=== PATIENT | male | born 1955 | race Caucasian/White ===

== ENCOUNTER 2018-08-15 11:39 | Inpatient (IN) | payer OTHER ==
[2018-08-15] MEDS ORDERED: ONDANSETRON 4 MG/2 ML VIAL IVP STA (11:54)
[2018-08-15] MEDS ORDERED: SODIUM CHLORIDE 0.9% 500 ML 500 ML IV STA (11:54)
[2018-08-15] MEDS ORDERED: SODIUM CHLORIDE 0.9% 1,000 ML IV STA (11:54)
--- NOTE | 2018-08-15 12:09 | ED ---
General Adult HPI - General Source: patient, RN notes reviewed Mode of arrival: ambulatory Limitations: no limitations <uGicho Conner - Last Filed: 08/15/18 13:56> <Danny Villa - Last Filed: 08/15/18 14:15> - General Chief complaint: Nausea/Vomiting/Diarrhea Stated complaint: nausea Time Seen by Provider: 08/15/18 11:54 - History of Present Illness Initial comments: 62-year-old male presents emergency Department chief complaint of nausea and vomiting for last 4 days. Patient states she generalized feels weak and dehydrated. Patient states if he tries to eat or drink he gags. Patient states he does have mild abdominal pain does have a history of diverticulitis. Patient denies any melena, hematochezia, mucousy stools. Patient had no noted fever. Patient denies any chest pain, shortness breath, headache or dizziness. Patient states he does feel that his heart is racing. Patient has no history of A. fib or any other cardiac issues. Patient does not see a current primary care physician does not take any current medications. Patient does admit that he drinks approximately a sixpack of beer daily. Patient states she's never felt any withdrawal symptoms in the past. (Guicho Conner) - Related Data Home Medications Medication Instructions Recorded Confirmed Ibuprofen [Motrin] 200 mg PO DAILY PRN 10/29/14 12/08/14 Multivit-Min/FA/Lycopene/Lut 1 each PO DAILY 10/29/14 12/08/14 [Centrum Silver Tablet] Previous Rx's Medication Instructions Recorded Omeprazole [PriLOSEC] 20 mg PO AC-BRKFST #30 capsule. 11/01/14 HYDROcodone/APAP 7.5-325MG [[place] 1 each PO Q4H PRN #60 tab 12/08/14 7.5] Allergies Allergy/AdvReac Type Severity Reaction Status Date / Time No Known Allergies Allergy Verified 08/15/18 11:41 Review of Systems ROS Other: All systems not noted in ROS Statement are negative. <Guicho Conner - Last Filed: 08/15/18 13:56> ROS Other: All systems not noted in ROS Statement are negative. <Danny Villa - Last Filed: 08/15/18 14:15> ROS Statement: Those systems with pertinent positive or pertinent negative responses have been documented in the HPI. Past Medical History Past Medical History: GI Bleed Additional Past Medical History / Comment(s): occaisional back and shoulder pain, takes motrin, diverticulitis History of Any Multi-Drug Resistant Organisms: None Reported Past Surgical History: Hernia Repair Additional Past Surgical History / Comment(s): hernia repair and colonoscopy 8 years ago and 2 weeks ago Past Anesthesia/Blood Transfusion Reactions: No Reported Reaction Additional Past Anesthesia/Blood Transfusion Reaction / Comment(s): 4 UNITS OF PRBC 10/2014, NO REACTION Past Psychological History: No Psychological Hx Reported Smoking Status: Former smoker Past Alcohol Use History: Daily, Heavy Past Drug Use History: None Reported - Past Family History Mother Additional Family Medical History / Comment(s): brain anuerysm Father Family Medical History: Cancer Additional Family Medical History / Comment(s): lung <Guicho Conner M - Last Filed: 08/15/18 13:56> General Exam Limitations: no limitations General appearance: alert, in no apparent distress Head exam: Present: atraumatic, normocephalic, normal inspection Eye exam: Present: normal appearance, PERRL, EOMI. Absent: scleral icterus, conjunctival injection, periorbital swelling ENT exam: Present: normal exam, normal oropharynx, mucous membranes moist, TM's normal bilaterally Neck exam: Present: normal inspection, full ROM. Absent: tenderness, m eningismus, lymphadenopathy Respiratory exam: Present: normal lung sounds bilaterally. Absent: respiratory distress, wheezes, rales, rhonchi, stridor Cardiovascular Exam: Present: normal rhythm, tachycardia, normal heart sounds. Absent: systolic murmur, diastolic murmur, rubs, gallop, clicks GI/Abdominal exam: Present: soft, tenderness, normal bowel sounds. Absent: distended, guarding, rebound, rigid Neurological exam: Present: alert, oriented X3, CN II-XII intact Skin exam: Present: warm, dry, intact, normal color. Absent: rash <Guicho Conner M - Last Filed: 08/15/18 13:56> Course Vital Signs 08/15/18 08/15/18 11:41 13:51 Temperature 98.9 F 99.8 F H Pulse Rate 130 H 110 H Respiratory 18 18 Rate Blood Pressure 156/100 174/98 O2 Sat by Pulse 97 100 Oximetry Procedures - Sepsis Sepsis Focused Exam #1 Time Sepsis Criteria Met: 13:55 Sepsis Focused Exam Date: 08/15/18 Sepsis Focused Exam Time: 13:55 Sepsis Focused Exam Complete: Yes Vital Signs & RN Notes Reviewed: Yes Capillary Refill: < 2 Seconds: Fingers, Toes Peripheral Pulses: Normal: Radial (R), Radial (L), Posterior Tibialis (R), Posterior Tibialis (L), Dorsalis Pedis (R), Dorsalis Pedis (L) Skin Color: Normal for Patient, Jaundice Respiratory Exam: normal lung sounds Cardiovascular Exam: normal rhythm, tachycardia <Guicho Conner - Last Filed: 08/15/18 13:56> Medical Decision Making - Lab Data Result diagrams: 08/15/18 12:20 08/15/18 12:20 <Guicho Conner - Last Filed: 08/15/18 13:56> - Lab Data Result diagrams: 08/15/18 12:20 08/15/18 12:20 <Danny Villa - Last Filed: 08/15/18 14:15> - Medical Decision Making Case was discussed with practitioner alejandra, case also discussed with Dr. Quintanilla, who will admit for hospital call. Consults will be placed for GI and surgery. (Danny Villa) - Lab Data Lab Results 08/15/18 08/15/18 08/15/18 Range/Units 12:20 12:20 12:20 WBC 6.2 (3.8-10.6) k/uL RBC 4.09 L (4.30-5.90) m/uL Hgb 15.0 (13.0-17.5) gm/dL Hct 43.4 (39.0-53.0) % MCV 105.9 H (80.0-100.0) fL MCH 36.7 H (25.0-35.0) pg MCHC 34.6 (31.0-37.0) g/dL RDW 12.9 (11.5-15.5) % Plt Count 121 L (150-450) k/uL Neutrophils % 86 % Lymphocytes % 8 % Monocytes % 3 % Eosinophils % 1 % Basophils % 1 % Neutrophils # 5.3 (1.3-7.7) k/uL Lymphocytes # 0.5 L (1.0-4.8) k/uL Monocytes # 0.2 (0-1.0) k/uL Eosinophils # 0.1 (0-0.7) k/uL Basophils # 0.0 (0-0.2) k/uL Macrocytosis Slight PT (9.0-12.0) sec INR (<1.2) APTT (22.0-30.0) sec Sodium 132 L (137-145) mmol/L Potassium 4.4 (3.5-5.1) mmol/L Chloride 98 (98-107) mmol/L Carbon Dioxide 13 L (22-30) mmol/L Anion Gap 21 mmol/L BUN 18 (9-20) mg/dL Creatinine 1.17 (0.66-1.25) mg/dL Est GFR (CKD-EPI)AfAm 76 (>60 ml/min/1.73 sqM) Est GFR (CKD-EPI)NonAf 65 (>60 ml/min/1.73 sqM) Glucose 160 H (74-99) mg/dL Plasma Lactic Acid Jhonatan 5.1 H* (0.7-2.0) mmol/L Calcium 8.9 (8.4-10.2) mg/dL Magnesium 1.4 L (1.6-2.3) mg/dL Total Bilirubin 4.9 H (0.2-1.3) mg/dL AST 423 H (17-59) U/L ALT 232 H (21-72) U/L Alkaline Phosphatase 305 H (38-126) U/L Troponin I (0.000-0.034) ng/mL Total Protein 8.1 (6.3-8.2) g/dL Albumin 3.7 (3.5-5.0) g/dL Amylase 49 (30-110) U/L Lipase 172 (23-300) U/L Urine Color Urine Appearance (Clear) Urine pH (5.0-8.0) Ur Specific [place] (1.001-1.035) Urine Protein (Negative) Urine Glucose (UA) (Negative) Urine Ketones (Negative) Urine Blood (Negative) Urine Nitrite (Negative) Urine Bilirubin (Negative) Urine Urobilinogen (<2.0) mg/dL Ur Leukocyte Esterase (Negative) Urine WBC (0-5) /hpf Ur Squamous Epith Cells (0-4) /hpf Amorphous Sediment (None) /hpf Hyaline Casts (0-2) /lpf Urine Mucus (None) /hpf Serum Alcohol 13 mg/dL 08/15/18 08/15/18 08/15/18 Range/Units 12:20 12:20 13:45 WBC (3.8-10.6) k/uL RBC (4.30-5.90) m/uL Hgb (13.0-17.5) gm/dL Hct (39.0-53.0) % MCV (80.0-100.0) fL MCH (25.0-35.0) pg MCHC (31.0-37.0) g/dL RDW (11.5-15.5) % Plt Count (150-450) k/uL Neutrophils % % Lymphocytes % % Monocytes % % Eosinophils % % Basophils % % Neutrophils # (1.3-7.7) k/uL Lymphocytes # (1.0-4.8) k/uL Monocytes # (0-1.0) k/uL Eosinophils # (0-0.7) k/uL Basophils # (0-0.2) k/uL Macrocytosis PT 13.3 H (9.0-12.0) sec INR 1.3 H (<1.2) APTT 25.1 (22.0-30.0) sec Sodium (137-145) mmol/L Potassium (3.5-5.1) mmol/L Chloride (98-107) mmol/L Carbon Dioxide (22-30) mmol/L Anion Gap mmol/L BUN (9-20) mg/dL Creatinine (0.66-1.25) mg/dL Est GFR (CKD-EPI)AfAm (>60 ml/min/1.73 sqM) Est GFR (CKD-EPI)NonAf (>60 ml/min/1.73 sqM) Glucose (74-99) mg/dL Plasma Lactic Acid Jhonatan (0.7-2.0) mmol/L Calcium (8.4-10.2) mg/dL Magnesium (1.6-2.3) mg/dL Total Bilirubin (0.2-1.3) mg/dL AST (17-59) U/L ALT (21-72) U/L Alkaline Phosphatase (38-126) U/L Troponin I <0.012 (0.000-0.034) ng/mL Total Protein (6.3-8.2) g/dL Albumin (3.5-5.0) g/dL Amylase (30-110) U/L Lipase (23-300) U/L Urine Color Dark Yellow Urine Appearance Cloudy (Clear) Urine pH 5.0 (5.0-8.0) Ur Specific [place] 1.014 (1.001-1.035) Urine Protein Trace H (Negative) Urine Glucose (UA) Negative (Negative) Urine Ketones Trace H (Negative) Urine Blood Trace H (Negative) Urine Nitrite Negative (Negative) Urine Bilirubin 1+ H (Negative) Urine Urobilinogen 4.0 (<2.0) mg/dL Ur Leukocyte Esterase Negative (Negative) Urine WBC 6 H (0-5) /hpf Ur Squamous Epith Cells 1 (0-4) /hpf Amorphous Sediment Rare H (None) /hpf Hyaline Casts 321 H (0-2) /lpf Urine Mucus Occasional H (None) /hpf Serum Alcohol mg/dL Critical Care Time Critical Care Time: Yes Total Critical Care Time: 35 <Guicho Conner - Last Filed: 08/15/18 13:56> Critical Care Time: Total 35 minutes of critical care time were used to and she evaluated the patient, reviewed vitals, reviewed past medical history. Labs were ordered including CBC, CMP, amylase, lipase, lactate, alcohol, PT INR, troponin EKG. Patient had transaminitis and hyperbilirubinemia and which also was ordered at this time. Evidence of color sludge. Patient's lactate is 5.1. Fluid bolus 30 mL/kg were ordered based on the ideal body weight 65 kg. Patient was given a dose of Zosyn for possible sepsis. The lactic acid may be elevated related to dehydration, alcohol abuse. (Guicho Conner) Disposition <Guicho Conner - Last Filed: 08/15/18 13:56> <Danny Villa - Last Filed: 08/15/18 14:15> Clinical Impression: Dehydration, Transaminitis, Jaundice, Abdominal pain, Gallbladder sludge, Nausea & vomiting, Lactic acidosis Disposition: ADMITTED IP TO THIS HOSP Condition: Fair Referrals: None,Stated [Primary Care Provider] - 1-2 days
[2018-08-15 12:36] LABS: Basophils % (A) 1 %; Eosinophils # (A) 0.1 k/uL (0-0.7); Eosinophils % (A) 1 %; HCT 43.4 % (39.0-53.0); Lymphocytes # (A) 0.5 k/uL (1.0-4.8); Lymphocytes % (A) 8 %; MCH 36.7 pg (25.0-35.0); MCHC 34.6 g/dL (31.0-37.0); MCV 105.9 fL (80.0-100.0); Macrocytosis Slight; Mean Platelet Volume 7.1; Monocytes # (A) 0.2 k/uL (0-1.0); Monocytes % (A) 3 %; Neutrophils # (A) 5.3 k/uL (1.3-7.7); Neutrophils % (A) 86 %; Platelet Count 121 k/uL (150-450); RBC 4.09 m/uL (4.30-5.90); RDW 12.9 % (11.5-15.5); WBC 6.2 k/uL (3.8-10.6)
[2018-08-15 12:49] LABS: Albumin 3.7 g/dL (3.5-5.0); Calcium 8.9 mg/dL (8.4-10.2); Magnesium 1.4 mg/dL (1.6-2.3); Potassium 4.4 mmol/L (3.5-5.1); Total Bilirubin 4.9 mg/dL (0.2-1.3); Total Protein 8.1 g/dL (6.3-8.2)
[2018-08-15] MEDS ORDERED: SODIUM CHLORIDE 0.9% 1,000 ML IV ONE ×2 (13:00→22:43)
[2018-08-15 13:06] LABS: INR 1.3 (<1.2); Partial Thromboplastin Time 25.1 sec (22.0-30.0); Prothrombin Time 13.3 sec (9.0-12.0)
--- NOTE | 2018-08-15 13:51 | US ---
EXAMINATION TYPE: US abdomen limited DATE OF EXAM: 08/15/2018 COMPARISON: NONE CLINICAL HISTORY: Pain. Nausea, ETOH. Difficult exam due to overlying bowel gas EXAM MEASUREMENTS: Liver Length: 19.3 cm Gallbladder Wall: 0.2 cm CBD: 0.5 cm Right Kidney: 12.0 x 4.9 x 5.0 cm Pancreas: Obscured by bowel gas Liver: Enlarged, attenuating. Heterogeneous echotexture Gallbladder: Possible sludge visualized. Hydropic Evidence for sonographic Adams's sign: Yes CBD: wnl as visualized, distal portion is obscured by bowel gas Right Kidney: No hydronephrosis or masses seen The pancreas is obscured by bowel gas. The liver is enlarged measuring 19 cm. There is no evidence of biliary dilatation. The gallbladder is mildly dilated. There is sludge within the gallbladder. The gallbladder wall measu res 2 mm. The distal common hepatic duct measures 5 mm. The right kidney is unremarkable. IMPRESSION: 1. MILD HEPATOMEGALY. 2. SLUDGE WITHIN THE GALLBLADDER.
[2018-08-15] MEDS ORDERED: PIPERACILLIN-TAZOBACTAM 3.375 GM in SODIUM CHLORIDE 0.9% 100 ML IVPB STA (13:56)
[2018-08-15 13:58] LABS: Amorphous Sediment,Urine Rare /hpf; Appearance,Urine Cloudy (Clear); Bilirubin,Urine 1+ (Negative); Blood,Urine Trace (Negative); Color,Urine Dark Yellow; Glucose,Urine (UA) Negative (Negative); Hyaline Casts,Urine 321 /lpf (0-2); Ketones,Urine Trace (Negative); Leukocyte Esterase,Urine Negative (Negative); Mucus,Urine Occasional /hpf; Nitrite,Urine Negative (Negative); Protein,Urine Trace (Negative); Specific Gravity,Urine 1.014 (1.001-1.035); Squamous Epithelial Cell,Urine 1 /hpf (0-4); WBC,Urine 6 /hpf (0-5)
[2018-08-15] MEDS ORDERED: ONDANSETRON 4 MG/2 ML VIAL IVP PRN (14:02)
[2018-08-15] MEDS ORDERED: LORazepam 2 MG/ML INJ IV PRN ×2 (14:03)
[2018-08-15] MEDS ORDERED: LORazepam 2 MG/ML INJ IV STA (14:07)
[2018-08-15] MEDS ORDERED: SODIUM CHLORIDE 0.9% 1,000 ML with MVI, ADULT NO.4 WITH VIT K 10 ML, THIAMINE 100 MG, F... IV ONE ×4 (14:12)
[2018-08-15] MEDS: LORazepam 2 MG/ML INJ IV PRN ×2 (14:32→22:51)
--- NOTE | 2018-08-15 14:56 | XR ---
EXAMINATION TYPE: XR chest 2V DATE OF EXAM: 08/15/2018 COMPARISON: Chest radiograph 10/30/2014 HISTORY: Nausea, vomiting TECHNIQUE: Frontal and lateral views of the chest are obtained. FINDINGS: There is no suspicious focal air space opacity, pleural effusion, or pneumothorax seen. Kapoor bsegmental atelectasis in the left lung base. The cardiac silhouette size is within normal limits. The osseous structures are intact. IMPRESSION: No acute cardiopulmonary process. No significant interval change.
[2018-08-15] MEDS ORDERED: IBUPROFEN 600 MG TAB PO STA (15:12)
[2018-08-15] MEDS ORDERED: HYDROmorphone 0.5 MG/0.5 ML SYRINGE IVP PRN (18:41)
[2018-08-15] MEDS ORDERED: cloNIDine HCL 0.1 MG TAB PO PRN (18:41)
[2018-08-15] MEDS ORDERED: HYDROcodone/APAP 5-325MG 1 EACH TAB PO PRN (18:41)
[2018-08-15] MEDS ORDERED: ACETAMINOPHEN TAB 500 MG TAB PO PRN (18:41)
[2018-08-15] MEDS ORDERED: ALPRAZolam 0.25 MG TAB PO PRN (18:41)
--- NOTE | 2018-08-15 19:51 | HP ---
HISTORY AND PHYSICAL DATE OF SERVICE: 08/15/2018 CHIEF COMPLAINTS: Nausea, vomiting, diarrhea. HISTORY OF PRESENT ILLNESS: This 62-year-old gentleman with a past medical history of multiple medical problems including history of gastrointestinal bleed, history of diverticulitis, hernia repair, history of smoking, not being followed by any primary physician in the outpatient setting has been drinking heavily at this time. The patient apparently drinks 6 12 ounce beers daily plus also along with half a pint of hard liquor also. The patient apparently had nausea and vomiting, diarrhea. The patient complaining of generalized weakness and feeling dehydrated. The patient is unable to eat for the last 3 days. The patient came to [facility] and was admitted for further evaluation and treatment. There is no history of fever, rigors. No history of headache, loss of consciousness, seizures. The patient also had a fever. Empiric antibiotics was initiated. The patient had elevated white count as well as elevated lactic acid also. PAST MEDICAL HISTORY: GI bleed, diverticulitis, hernia repair, significant ETOH as mentioned earlier. MEDICATIONS: Prior to admission include: 1. Vitamin C. 2. Zinc. 3. Motrin 600 mg q.6h p.r.n. ALLERGIES: None. FAMILY HISTORY: Family history of cancer, brain aneurysm. SOCIAL HISTORY: History of alcohol, THC, previous history of smoking. REVIEW OF SYSTEMS: ENT: Diminished hearing, diminished vision. CARDIOVASCULAR: No angina or palpitations. RESPIRATORY: No cough or hemoptysis. GI mentioned earlier. no dysuria or hematuria. CENTRAL NERVOUS SYSTEM: No numbness or weakness. ALLERGY/IMMUNOLOGY: No asthma or hayfever. MUSCULOSKELETAL as mentioned earlier. HEMATOLOGY/ONCOLOGY: No history of anemia. ENDOCRINE: No history of diabetes or hypothyroidism. CONSTITUTIONAL: As mentioned earlier. Dermatology: Negative. Rheumatology: Negative. Psychiatry: As mentioned earlier. PHYSICAL EXAMINATION: The patient is alert and oriented times three. Pulse 120, regular. Blood pressure 149/53, respiration 18, temperature 98 degrees, pulse ox 96% on room air. HEENT is conjunctivae normal. Oral mucosa dry. Neck is no jugular venous distention. No carotid bruit. No lymph node enlargement. Cardiovascular system: S1, S2 muffled. No s3, no S4. RESPIRATORY: Breath sounds diminished in the bases. A few scattered rhonchi and crackles. ABDOMEN: Soft. Mild diffuse discomfort. No guarding. No rigidity. No mass palpable. Legs no edema. No swelling. NERVOUS SYSTEM: Higher functions as mentioned earlier. Moves all four extremities. No focal deficits. Lymphatics: No lymph nodes palpable in the neck, axillae or groin. SKIN: No ulcer, rash or bleeding. JOINTS: No active deforming arthropathy. LABS: WBC 6.2, hemoglobin 15, MCV 105.9, INR 1.2. Sodium 132, magnesium 1.4, total bilirubin is 4.9, AST is 423 and ALT is 232, alkaline phosphatase 305. UA noted. 321 hyaline casts. ASSESSMENT: 1. Acute nausea, vomiting, diarrhea, possible acute gastroenteritis, alcoholic gastritis, severe dehydration. 2. Acute alcoholic hepatitis. 3. Possible sepsis. 4. Lactic acidosis. 5. Hyponatremia. 6. Hypomagnesemia. 7. Thrombocytopenia. 8. Increased MCV. 9. History of nicotine dependence. 10.History of gastrointestinal bleed. 11.History of diverticulitis. 12.History of macular degeneration. 13.History of hernia repair. 14.History of THC. 15.Sludge within the gallbladder. 16.FULL CODE. RECOMMENDATIONS AND DISCUSSION: In this 62 -year-old gentleman who presented with multiple complex medical issues, we will monitor the patient closely, continue the current medications, management and symptomatic treatment. We will initiate broad-spectrum IV antibiotics. Obtain cultures. I would also recommend Gastroenterology consultation because of the transaminitis and jaundice. The patient also had an abdominal ultrasound which showed mild hepatomegaly and sludge within the gallbladder. So we will also obtain evaluation for surgical evaluation. IV fluids. Guarded prognosis because of multiple complex medical issues. Further recommendations to follow. Serum alcohol found to be 13. We will also recommend alcohol withdrawal precautions. DVT prophylaxis also. Outpatient alcohol rehabilitation and as well as continued follow up is also being impressed with the patient. The patient was also recommended to follow up with primary care physician closely after discharge. The patient and ex- who is at the bedside, understands and agrees. Further recommendations to follow. MMODL / IJN: [id number] /
[2018-08-15] MEDS: HEPARIN SODIUM,PORCINE 5,000 UNIT/ML 1 ML VIAL SQ SCH (20:02)
[2018-08-15] MEDS: THIAMINE 100 MG TAB PO SCH (20:02)
[2018-08-15] MEDS: PIPERACILLIN-TAZOBACTAM 3.375 GM in SODIUM CHLORIDE 0.9% 100 ML IVPB SCH (23:50)
[2018-08-16 08:06] LABS: Basophils % (A) 1 %; Eosinophils # (A) 0.1 k/uL (0-0.7); Eosinophils % (A) 3 %; HCT 34.6 % (39.0-53.0); Lymphocytes # (A) 0.8 k/uL (1.0-4.8); Lymphocytes % (A) 27 %; MCH 36.2 pg (25.0-35.0); MCV 109.7 fL (80.0-100.0); Macrocytosis Marked; Mean Platelet Volume 7.7; Monocytes # (A) 0.1 k/uL (0-1.0); Monocytes % (A) 3 %; Neutrophils % (A) 65 %; RBC 3.15 m/uL (4.30-5.90); RDW 12.8 % (11.5-15.5)
[2018-08-16 08:11] LABS: HGB 11.4 gm/dL (13.0-17.5)
[2018-08-16 08:19] LABS: Albumin 2.7 g/dL (3.5-5.0); Potassium 3.8 mmol/L (3.5-5.1); Total Protein 6.1 g/dL (6.3-8.2)
[2018-08-16] MEDS: PIPERACILLIN-TAZOBACTAM 3.375 GM in SODIUM CHLORIDE 0.9% 100 ML IVPB SCH ×2 (08:57→15:12)
[2018-08-16] MEDS: HEPARIN SODIUM,PORCINE 5,000 UNIT/ML 1 ML VIAL SQ SCH ×2 (08:57→20:48)
[2018-08-16] MEDS: PANTOPRAZOLE 40 MG/10 ML VIAL IV SCH (08:57)
[2018-08-16 09:00] LABS: Platelet Count 58 k/uL (150-450)
--- NOTE | 2018-08-16 11:10 | P.GSCN ---
History of Present Illness Consult date: 08/16/18 Reason for Consult: Dull pain, elevated liver enzymes History of present illness: This a 62-year-old male patient is well-known to myself. I last saw him 4 years ago after Anny fundal plication. Patient's had complaints of abdominal pain, nausea. Patient's admitted to drinking 6 pack of beer with at least a half plane of vodka per day. He's been doing this for several years. Patient complaints of nausea and abdominal pain. He is worked up found have evidence of sludge in the gallbladder. His LFTs are also elevated. Past Medical History Past Medical History: Eye Disorder, GI Bleed Additional Past Medical History / Comment(s): diverticulitis, right eye dry macular degeneration, left eye wet macular degeneration. History of Any Multi-Drug Resistant Organisms: None Reported Past Surgical History: Hernia Repair Additional Past Surgical History / Comment(s): hernia repair and colonoscopy 8 years ago and 2 weeks ago Past Anesthesia/Blood Transfusion Reactions: No Reported Reaction Additional Past Anesthesia/Blood Transfusion Reaction / Comm: 4 UNITS OF PRBC 10/2014, NO REACTION Past Psychological History: No Psychological Hx Reported Smoking Status: Former smoker Past Alcohol Use History: Daily, Heavy Additional Past Alcohol Use History / Comment(s): Patient drinks 6, 120z beers a day, and also drinks 1/2 pint of either fireball, elke, or bourbon a day. Past Drug Use History: None Reported - Past Family History Mother Additional Family Medical History / Comment(s): brain anuerysm Father Family Medical History: Cancer Additional Family Medical History / Comment(s): lung Medications and Allergies Home Medications Medication Instructions Recorded Confirmed Type Ibuprofen [Motrin] 600 mg PO Q6H PRN 10/29/14 08/15/18 History Vit C/E/Zn/Coppr/Lutein/Zeaxan 1 cap PO BID 08/15/18 08/15/18 History [Preservision Areds 2 Softgel] Allergies Allergy/AdvReac Type Severity Reaction Status Date / Time No Known Allergies Allergy Verified 08/15/18 14:15 Surgical - Exam Vital Signs Temp Pulse Resp BP Pulse Ox 98.9 F 130 H 18 156/100 97 08/15/18 11:41 08/15/18 11:41 08/15/18 11:41 08/15/18 11:41 08/15/18 11:41 - General well developed, well nourished, no distress - Eyes PERRL - ENT normal pinna - Neck no masses - Respiratory normal expansion - Cardiovascular Rhythm: regular - Abdomen Abdomen: soft, non tender Results - Labs 08/16/18 07:00 08/16/18 07:00 Abnormal Lab Results - Last 24 Hours (Table) 08/15/18 08/15/18 08/15/18 Range/Units 12:20 12:20 12:20 WBC (3.8-10.6) k/uL RBC 4.09 L (4.30-5.90) m/uL Hgb (13.0-17.5) gm/dL Hct (39.0-53.0) % MCV 105.9 H (80.0-100.0) fL MCH 36.7 H (25.0-35.0) pg Plt Count 121 L (150-450) k/uL Lymphocytes # 0.5 L (1.0-4.8) k/uL PT (9.0-12.0) sec INR (<1.2) Sodium 132 L (137-145) mmol/L Chloride (98-107) mmol/L Carbon Dioxide 13 L (22-30) mmol/L Glucose 160 H (74-99) mg/dL Plasma Lactic Acid Jhonatan 5.1 H* (0.7-2.0) mmol/L Calcium (8.4-10.2) mg/dL Magnesium 1.4 L (1.6-2.3) mg/dL Total Bilirubin 4.9 H (0.2-1.3) mg/dL AST 423 H (17-59) U/L ALT 232 H (21-72) U/L Alkaline Phosphatase 305 H (38-126) U/L Total Protein (6.3-8.2) g/dL Albumin (3.5-5.0) g/dL Urine Protein (Negative) Urine Ketones (Negative) Urine Blood (Negative) Urine Bilirubin (Negative) Urine WBC (0-5) /hpf Amorphous Sediment (None) /hpf Hyaline Casts (0-2) /lpf Urine Mucus (None) /hpf 08/15/18 08/15/18 08/15/18 Range/Units 12:20 13:45 15:11 WBC (3.8-10.6) k/uL RBC (4.30-5.90) m/uL Hgb (13.0-17.5) gm/dL Hct (39.0-53.0) % MCV (80.0-100.0) fL MCH (25.0-35.0) pg Plt Count (150-450) k/uL Lymphocytes # (1.0-4.8) k/uL PT 13.3 H (9.0-12.0) sec INR 1.3 H (<1.2) Sodium (137-145) mmol/L Chloride (98-107) mmol/L Carbon Dioxide (22-30) mmol/L Glucose (74-99) mg/dL Plasma Lactic Acid Jhonatan 2.4 H* (0.7-2.0) mmol/L Calcium (8.4-10.2) mg/dL Magnesium (1.6-2.3) mg/dL Total Bilirubin (0.2-1.3) mg/dL AST (17-59) U/L ALT (21-72) U/L Alkaline Phosphatase (38-126) U/L Total Protein (6.3-8.2) g/dL Albumin (3.5-5.0) g/dL Urine Protein Trace H (Negative) Urine Ketones Trace H (Negative) Urine Blood Trace H (Negative) Urine Bilirubin 1+ H (Negative) Urine WBC 6 H (0-5) /hpf Amorphous Sediment Rare H (None) /hpf Hyaline Casts 321 H (0-2) /lpf Urine Mucus Occasional H (None) /hpf 08/15/18 08/16/18 08/16/18 Range/Units 18:56 07:00 07:00 WBC 3.0 L (3.8-10.6) k/uL RBC 3.15 L (4.30-5.90) m/uL Hgb 11.4 L D (13.0-17.5) gm/dL Hct 34.6 L (39.0-53.0) % MCV 109.7 H (80.0-100.0) fL MCH 36.2 H (25.0-35.0) pg Plt Count 58 L D (150-450) k/uL Lymphocytes # 0.8 L (1.0-4.8) k/uL PT (9.0-12.0) sec INR (<1.2) Sodium (137-145) mmol/L Chloride 110 H (98-107) mmol/L Carbon Dioxide 19 L (22-30) mmol/L Glucose 100 H (74-99) mg/dL Plasma Lactic Acid Jhonatan 7.8 H* (0.7-2.0) mmol/L Calcium 8.0 L (8.4-10.2) mg/dL Magnesium (1.6-2.3) mg/dL Total Bilirubin 4.0 H (0.2-1.3) mg/dL AST 289 H (17-59) U/L ALT 172 H (21-72) U/L Alkaline Phosphatase 212 H (38-126) U/L Total Protein 6.1 L (6.3-8.2) g/dL Albumin 2.7 L (3.5-5.0) g/dL Urine Protein (Negative) Urine Ketones (Negative) Urine Blood (Negative) Urine Bilirubin (Negative) Urine WBC (0-5) /hpf Amorphous Sediment (None) /hpf Hyaline Casts (0-2) /lpf Urine Mucus (None) /hpf Diabetes panel 08/15/18 08/16/18 Range/Units 12:20 07:00 Sodium 132 L 137 (137-145) mmol/L Potassium 4.4 3.8 (3.5-5.1) mmol/L Chloride 98 110 H (98-107) mmol/L Carbon Dioxide 13 L 19 L (22-30) mmol/L BUN 18 11 (9-20) mg/dL Creatinine 1.17 1.08 (0.66-1.25) mg/dL Glucose 160 H 100 H (74-99) mg/dL Calcium 8.9 8.0 L (8.4-10.2) mg/dL AST 423 H 289 H (17-59) U/L ALT 232 H 172 H (21-72) U/L Alkaline Phosphatase 305 H 212 H (38-126) U/L Total Protein 8.1 6.1 L (6.3-8.2) g/dL Albumin 3.7 2.7 L (3.5-5.0) g/dL Calcium panel 08/15/18 08/16/18 Range/Units 12:20 07:00 Calcium 8.9 8.0 L (8.4-10.2) mg/dL Albumin 3.7 2.7 L (3.5-5.0) g/dL Pituitary panel 08/15/18 08/16/18 Range/Units 12:20 07:00 Sodium 132 L 137 (137-145) mmol/L Potassium 4.4 3.8 (3.5-5.1) mmol/L Chloride 98 110 H (98-107) mmol/L Carbon Dioxide 13 L 19 L (22-30) mmol/L BUN 18 11 (9-20) mg/dL Creatinine 1.17 1.08 (0.66-1.25) mg/dL Glucose 160 H 100 H (74-99) mg/dL Calcium 8.9 8.0 L (8.4-10.2) mg/dL Adrenal panel 08/15/18 08/16/18 Range/Units 12:20 07:00 Sodium 132 L 137 (137-145) mmol/L Potassium 4.4 3.8 (3.5-5.1) mmol/L Chloride 98 110 H (98-107) mmol/L Carbon Dioxide 13 L 19 L (22-30) mmol/L BUN 18 11 (9-20) mg/dL Creatinine 1.17 1.08 (0.66-1.25) mg/dL Glucose 160 H 100 H (74-99) mg/dL Calcium 8.9 8.0 L (8.4-10.2) mg/dL Total Bilirubin 4.9 H 4.0 H (0.2-1.3) mg/dL AST 423 H 289 H (17-59) U/L ALT 232 H 172 H (21-72) U/L Alkaline Phosphatase 305 H 212 H (38-126) U/L Total Protein 8.1 6.1 L (6.3-8.2) g/dL Albumin 3.7 2.7 L (3.5-5.0) g/dL - Imaging US - abdomen: report reviewed (Sludge in gallbladder) Assessment and Plan Assessment: Elevated liver function tests may be related to alcohol toxicity. The patient has sludge in his gallbladder. Once his liver enzymes have returned to normal we will consider laparoscopic cholecystectomy. He should be watch for DTs carefully.
--- NOTE | 2018-08-16 11:34 | CONS ---
CONSULTATION DATE OF DICTATION: August 16, 2018. REQUESTING PHYSICIAN: None. REASON FOR CONSULTATION: Elevated LFTs. HISTORY OF PRESENT ILLNESS: The patient is a 62-year-old white male with history of heavy alcohol abuse for the last 40 years duration, admitted to the hospital not feeling well, fatigue, nausea, some vomiting and generalized weakness for the last few days duration. While in the hospital, he was noted to have elevated LFTs and hence we are consulted in regards to this issue. The patient drinks a 5th a day for the last 40 years. He denies any previous history of chronic liver disease. No history of jaundice or hepatitis in the past. At the time of admission to the hospital, he was noted to have lactic acidosis and elevated serum transaminases. PAST MEDICAL HISTORY: Significant for heavy alcohol abuse, history of diverticulosis. PAST SURGICAL HISTORY: Hernia repair. MEDICATIONS: At home, vitamin C and zinc and Motrin. ALLERGIES: No known drug allergies. SOCIAL HISTORY: Alcohol use as mentioned above. Previous history of smoking. FAMILY HISTORY: Father had some kind of cancer. Mother had brain aneurysm. ALLERGIES: None. REVIEW OF SYSTEMS: Cardiopulmonary: No chest pain, shortness of breath. Genitourinary: No hematuria or dysuria. Musculoskeletal: Unremarkable. Skin unremarkable. Endocrine unremarkable. Psychiatric unremarkable. Neurology unremarkable. ENT/vision unremarkable. Constitutional: No recent weight loss. No fever, chills, night sweats. PHYSICAL EXAMINATION: He appears comfortable. No apparent distress. VITAL SIGNS: Stable. Blood pressure 153/93, pulse rate 120, temperature 98. HEENT examination unremarkable. Conjunctivae pink. Sclerae anicteric. Oral cavity no lesions. Neck: No jugular venous distention or lymph node enlargement. Chest was clear to auscultation. HEART: Regular rate and rhythm. ABDOMEN: Soft. Bowel sounds are positive. No organomegaly. There was no ascites noted. EXTREMITIES: No pedal edema. Skin no rashes. NEUROLOGIC: Alert and oriented x3. No focal deficits. LABS: WBC 6.2, hemoglobin 15, platelets are 121. Today, WBC 3, hemoglobin 11.4, platelets are 58,000. INR 1.3, T-bilirubin 4, AST 289, ALT 172, alkaline phosphatase 212. Ultrasound of the abdomen showed evidence of gallbladder sludge and fatty liver. IMPRESSION: 1. Nausea, generalized weakness for the last 2-3 days duration, probably related to underlying chronic liver disease with a component of acute alcoholic hepatitis. 2. History of heavy alcohol abuse of 40 years duration. 3. Elevated ALT and AST as well as T-bili all consistent with acute alcoholic hepatitis. RECOMMENDATIONS: 1. We will obtain hepatitis serologies for A, B, and C. 2. I had a lengthy discussion with the patient regarding abstinence from alcohol. 3. Advance diet as tolerated. 4. Continue with antiemetics as needed and we will follow the patient closely during his hospital stay. Thank you for this consultation. MMODL / IJN: [id number] /
[2018-08-16] MEDS: THIAMINE 100 MG TAB PO SCH ×2 (11:35→15:13)
[2018-08-16 15:57] VITALS: BMI 31.3
--- NOTE | 2018-08-16 23:43 | PN ---
PROGRESS NOTE DATE OF SERVICE: 08/16/2018 HISTORY: This is a 62 -year-old gentleman admitted with nausea and diarrhea, has features of alcoholic gastritis, severe dehydration. Patient also has alcoholic hepatitis. Patient being closely monitored. No chest pain. No palpitations. No fever. REVIEW OF SYSTEMS: Cardiovascular: No angina. Respiration: As mentioned earlier. GI mentioned earlier: : No dysuria. Central nervous system: No numbness, weakness. CURRENT MEDICATIONS ARE: 1. Tylenol p.r.n. 2. [place] 5.5 q.6h p.r.n. 3. Xanax 0.5 t.i.d. 4. Catapres 0.1 q.4h. 5. Heparin 5000 subcu b.i.d. 6. Dilaudid p.r.n. 7. Ativan. 8. CIWA protocol. 9. Zofran. 10.Protonix. 11.Zosyn IV. PHYSICAL EXAM: Alert and oriented times three. Pulse is 95. Blood pressure 150/94, respirations 18, temperature 98.3, pulse ox 94% on room air. HEENT: Conjunctivae normal. Neck: No jugular venous distention. CARDIOVASCULAR: S1, S2 muffled. RESPIRATORY: Breath sounds diminished in the bases. A few scattered rhonchi and crackles. Abdomen is soft, nontender. LEGS: No edema, no swelling. CENTRAL NERVOUS SYSTEM: No focal deficits. LABS: WBC 3, hemoglobin 11.4, platelets of 58 and plasma lactic acid 7.8 and 1.1 and the AST 289, ALT is 172, total bilirubin is 4. Influenza is negative. ASSESSMENT: 1. Acute nausea, vomiting, diarrhea possible acute gastroenteritis and alcoholic gastritis and severe dehydration. 2. Possible alcoholic hepatitis. 3. Elevated lactic acid with possible sepsis. 4. Hyponatremia. 5. Hypomagnesemia. 6. Thrombocytopenia. 7. Increased MCV. 8. History of nicotine dependence. 9. History of gastrointestinal bleed. 10.History of diverticulitis. 11.History of macular degeneration. 12.History of hernia repair. 13.History of THC. 14.Sludge within the gallbladder. 15.FULL CODE. RECOMMENDATIONS AND DISCUSSION: Recommend to continue current medications, management. Continue to monitor. Symptomatic treatment. Otherwise, at this time, I recommend to monitor the patient closely. Continue with empiric antibiotics. The patient is on IV Zosyn at this time. Gastroenterology service, infectious Disease has been consulted. Prognosis guarded because of multiple complex medical issues. Further recommendations to follow. Overall prognosis extremely guarded because of the multiple complex medical issues as detailed above. We will continue to monitor and guarded prognosis. See orders for details. Further recommendations to follow. MMODL / IJN: [id number] /
[2018-08-16] MEDS ORDERED: VANCOMYCIN IV PER PHARMACY 1 EACH MISC MISCELLANE PRN (23:56)
[2018-08-17] MEDS: PIPERACILLIN-TAZOBACTAM 3.375 GM in SODIUM CHLORIDE 0.9% 100 ML IVPB SCH ×3 (00:05→15:05)
[2018-08-17] MEDS: VANCOMYCIN 1,500 MG in SODIUM CHLORIDE 0.9% 250 ML IVPB SCH ×2 (01:47→17:38)
[2018-08-17] MEDS: HEPARIN SODIUM,PORCINE 5,000 UNIT/ML 1 ML VIAL SQ SCH ×2 (09:17→20:44)
[2018-08-17] MEDS: PANTOPRAZOLE 40 MG/10 ML VIAL IV SCH (09:17)
--- NOTE | 2018-08-17 09:38 | P.CONS ---
History of Present Illness - Reason for Consult Consult date: 08/17/18 Sepsis - History of Present Illness This is a 62-year-old male presented to the hospital due to nausea for 4 days as well as feeling weak, general malaise. He was unable to eat or drink due to nausea. He was found to have a temperature max of 100.9 at the time of admission, tachycardia and hypertension. His white count was 6.2 initially and repeated 3. Lactic acid was 7.8 and now down to 1.1. Total bilirubin 4.0, AST 289, ALT 172, alkaline phosphatase 112. Influenza testing was negative. Albumin 2.7. Urinalysis was cloudy with leukoesterase and nitrate negative, trace blood ketones and protein. Blood culture showing gram-positive cocci in cluster and a repeat blood cultures ordered for today. Urine cultures in progress. Patient has been admitted to the [facility] floor and started on Zosyn and vancomycin. Patient is been seen by Dr. Yates for chronic liver disease and acute alcoholic hepatitis. Dr. Linder has evaluated the patient for cholecystitis which will be considered once his liver enzymes are improved. Abdominal ultrasound showed mild hepatomegaly and sludge in his gallbladder. Chest x-ray no acute findings. Patient denies having any abdominal pain was noted to have tenderness in the right upper quadrant. He denies having any fever or chills prior to admission and none since he has arrived. He denies any cough or sputum production. He denies any urine symptoms. No skin rashes or lesions. Patient has been started on the CIWA protocol. He gives history of drinking a 6 pack and a half pint of liquor every day for 40 years. Review of Systems All systems: negative Constitutional: Reports fatigue, Reports malaise, Reports poor appetite, Reports weakness, Denies chills, Denies fever Eyes: denies blurred vision, denies pain Ears, nose, mouth and throat: Denies dysphagia, Denies headache, Denies mouth pain, Denies nasal congestion, Denies nasal discharge, Denies sore throat, Denies vertigo Cardiovascular: Denies chest pain, Denies decreased exercise tolerance, Denies dyspnea on exertion, Denies edema, Denies lightheadedness, Denies shortness of breath, Denies syncope Respiratory: Denies cough, Denies cough with sputum, Denies dyspnea, Denies excessive sputum, Denies hemoptysis, Denies home oxygen, Denies wheezing Gastrointestinal: Reports loss of appetite, Reports nausea, Denies abdominal pain, Denies diarrhea, Denies vomiting Genitourinary: Denies dysuria, Denies urinary frequency Musculoskeletal: Denies muscle weakness, Denies myalgias Integumentary: Denies pruritus, Denies rash, Denies wounds Neurological: Denies aphasia, Denies change in mentation, Denies confusion, Denies numbness, Denies seizures, Denies vertigo, Denies weakness Psychiatric: Denies anxiety, Denies depression Endocrine: Denies fatigue, Denies weight change Past Medical History Past Medical History: Eye Disorder, GI Bleed Additional Past Medical History / Comment(s): diverticulitis, right eye dry macular degeneration, left eye wet macular degeneration. History of Any Multi-Drug Resistant Organisms: None Reported Past Surgical History: Hernia Repair Additional Past Surgical History / Comment(s): hernia repair and colonoscopy 8 years ago and 2 weeks ago Past Anesthesia/Blood Transfusion Reactions: No Reported Reaction Additional Past Anesthesia/Blood Transfusion Reaction / Comm: 4 UNITS OF PRBC 10/2014, NO REACTION Past Psychological History: No Psychological Hx Reported Smoking Status: Former smoker Past Alcohol Use History: Daily, Heavy Additional Past Alcohol Use History / Comment(s): Patient drinks 6, 120z beers a day, and also drinks 1/2 pint of either fireball, elke, or bourbon a day. He does smoke marijuana on a regular basis. He denies any illicit drug use. He works in a restaurant. He denies any recent travel or service. There is a dog in the home. Past Drug Use History: None Reported - Past Family History Mother Additional Family Medical History / Comment(s): brain anuerysm Father Family Medical History: Cancer Additional Family Medical History / Comment(s): lung Medications and Allergies Home Medications Medication Instructions Recorded Confirmed Type Ibuprofen [Motrin] 600 mg PO Q6H PRN 10/29/14 08/15/18 History Vit C/E/Zn/Coppr/Lutein/Zeaxan 1 cap PO BID 08/15/18 08/15/18 History [Preservision Areds 2 Softgel] Allergies Allergy/AdvReac Type Severity Reaction Status Date / Time No Known Allergies Allergy Verified 08/15/18 14:15 Physical Exam Vitals: Vital Signs Temp Pulse Resp BP Pulse Ox 08/17/18 05:00 98.4 F 83 16 155/79 98 08/16/18 21:24 99.2 F 107 H 16 136/78 96 08/16/18 15:28 88 18 133/88 98 08/16/18 12:00 98.5 F 96 18 140/92 96 Intake and Output 08/16/18 08/17/18 08/17/18 22:59 06:59 14:59 Intake Total 690 890 Balance 690 890 Intake: Intake, IV Titration 100 350 Amount Piperacillin-Tazobactam 3 100 100 .375 gm In Sodium Chloride 0.9% 100 ml @ 25 mls/hr IVPB Q8H [facility] Rx#: [id number] Vancomycin 1,500 mg In 250 Sodium Chloride 0.9% 250 ml @ 125 mls/hr IVPB Q16H [facility] Rx#:[id number] Oral 590 540 Other: Voiding Method Toilet Toilet # Voids 2 2 Weight 88 kg Gen: This is a 62-year-old male. Patient is sitting on the edge of the bed and appears to be comfortable and in no acute distress. Patient's ex- is at the bedside. HEENT: Head is atraumatic, normocephalic. Pupils equal, round. Sclerae is anicteric. Mucous membranes of the mouth are moist. No thrush noted. NECK: Supple. No JVD. No lymphadenopathy. No thyromegaly. LUNGS: Clear to auscultation. No wheezes or rhonchi. No intercostal retractions. HEART: Regular rate and rhythm. No murmur. ABDOMEN: Soft. Bowel sounds are present. No masses. Mild tenderness to the right upper quadrant. EXTREMITIES: No pedal edema. No calf tenderness. Dorsalis pedis +2 bilaterally. NEUROLOGICAL: Patient is awake, alert and oriented x3. Cranial nerves 2 through 12 are grossly intact. Results Results: Laboratory Results WBC 3.0 k/uL (3.8-10.6) L 08/16/18 07:00 RBC 3.15 m/uL (4.30-5.90) L 08/16/18 07:00 Hgb 11.4 gm/dL (13.0-17.5) L D 08/16/18 07:00 Hct 34.6 % (39.0-53.0) L 08/16/18 07:00 MCV 109.7 fL (80.0-100.0) H 08/16/18 07:00 MCH 36.2 pg (25.0-35.0) H 08/16/18 07:00 MCHC 33.0 g/dL (31.0-37.0) 08/16/18 07:00 RDW 12.8 % (11.5-15.5) 08/16/18 07:00 Plt Count 58 k/uL (150-450) L D 08/16/18 07:00 Neutrophils % 65 % 08/16/18 07:00 Lymphocytes % 27 % 08/16/18 07:00 Monocytes % 3 % 08/16/18 07:00 Eosinophils % 3 % 08/16/18 07:00 Basophils % 1 % 08/16/18 07:00 Neutrophils # 2.0 k/uL (1.3-7.7) 08/16/18 07:00 Lymphocytes # 0.8 k/uL (1.0-4.8) L 08/16/18 07:00 Monocytes # 0.1 k/uL (0-1.0) 08/16/18 07:00 Eosinophils # 0.1 k/uL (0-0.7) 08/16/18 07:00 Basophils # 0.0 k/uL (0-0.2) 08/16/18 07:00 Manual Slide Review Performed 08/16/18 07:00 Macrocytosis Marked 08/16/18 07:00 PT 13.3 sec (9.0-12.0) H 08/15/18 12:20 INR 1.3 (<1.2) H 08/15/18 12:20 APTT 25.1 sec (22.0-30.0) 08/15/18 12:20 Sodium 137 mmol/L (137-145) 08/16/18 07:00 Potassium 3.8 mmol/L (3.5-5.1) 08/16/18 07:00 Chloride 110 mmol/L (98-107) H 08/16/18 07:00 Carbon Dioxide 19 mmol/L (22-30) L 08/16/18 07:00 Anion Gap 8 mmol/L 08/16/18 07:00 BUN 11 mg/dL (9-20) 08/16/18 07:00 Creatinine 1.08 mg/dL (0.66-1.25) 08/16/18 07:00 Est GFR (CKD-EPI)AfAm 83 (>60 ml/min/1.73 sqM) 08/16/18 07:00 Est GFR (CKD-EPI)NonAf 72 (>60 ml/min/1.73 sqM) 08/16/18 07:00 Glucose 100 mg/dL (74-99) H 08/16/18 07:00 Lactic Ac Sepsis Rflx Y 08/15/18 15:40 Plasma Lactic Acid Jhonatan 1.1 mmol/L (0.7-2.0) 08/16/18 07:00 Calcium 8.0 mg/dL (8.4-10.2) L 08/16/18 07:00 Magnesium 1.4 mg/dL (1.6-2.3) L 08/15/18 12:20 Total Bilirubin 4.0 mg/dL (0.2-1.3) H 08/16/18 07:00 AST 289 U/L (17-59) H 08/16/18 07:00 ALT 172 U/L (21-72) H 08/16/18 07:00 Alkaline Phosphatase 212 U/L (38-126) H 08/16/18 07:00 Troponin I <0.012 ng/mL (0.000-0.034) 08/15/18 12:20 Total Protein 6.1 g/dL (6.3-8.2) L 08/16/18 07:00 Albumin 2.7 g/dL (3.5-5.0) L 08/16/18 07:00 Amylase 49 U/L (30-110) 08/15/18 12:20 Lipase 172 U/L (23-300) 08/15/18 12:20 Urine Color Dark Yellow 08/15/18 13:45 Urine Appearance Cloudy (Clear) 08/15/18 13:45 Urine pH 5.0 (5.0-8.0) 08/15/18 13:45 Ur Specific [place] 1.014 (1.001-1.035) 08/15/18 13:45 Urine Protein Trace (Negative) H 08/15/18 13:45 Urine Glucose (UA) Negative (Negative) 08/15/18 13:45 Urine Ketones Trace (Negative) H 08/15/18 13:45 Urine Blood Trace (Negative) H 08/15/18 13:45 Urine Nitrite Negative (Negative) 08/15/18 13:45 Urine Bilirubin 1+ (Negative) H 08/15/18 13:45 Urine Urobilinogen 4.0 mg/dL (<2.0) 08/15/18 13:45 Ur Leukocyte Esterase Negative (Negative) 08/15/18 13:45 Urine WBC 6 /hpf (0-5) H 08/15/18 13:45 Ur Squamous Epith Cells 1 /hpf (0-4) 08/15/18 13:45 Amorphous Sediment Rare /hpf (None) H 08/15/18 13:45 Hyaline Casts 321 /lpf (0-2) H 08/15/18 13:45 Urine Mucus Occasional /hpf (None) H 08/15/18 13:45 Serum Alcohol 13 mg/dL 08/15/18 12:20 Influenza Type A RNA Not Detected (Not Detectd) 08/15/18 14:48 Influenza Type B (PCR) Not Detected (Not Detectd) 08/15/18 14:48 CBC & Chem 7: 08/18/18 08:36 08/18/18 08:36 Labs: Microbiology - Last 24 Hours (Table) 08/15/18 15:11 Blood Culture Gram Stain - Preliminary Blood 08/15/18 15:11 Blood Culture - Final Blood 08/16/18 09:00 Urine Culture - Preliminary Urine,Voided Assessment and Plan Plan: This is a 62-year-old male who presented to the hospital with general ized malaise weakness and nausea with inability to eat or drink. He is treated for acute alcoholic hepatitis and found to have sludge in his gallbladder and followed by GI and general surgery. Patient also presented with lactic acidosis with tachycardia and one documented fever which meets signs for SIRS/Sepsis. Patient's lactic acid is normalized. Blood culture obtained in the ER is showing gram-positive cocci in clusters. Repeat blood cultures have been ordered for today. He is currently on Zosyn and vancomycin. Regarding severe protein calorie malnutrition, he is on thiamine and a multivitamin and ensure added. Continue CIWA protocol. Continue supportive care. Further recommend ations as patient progresses. The above dictated assessment and findings were discussed with Dr. Edwards. The impression and plan of care have been directed as dictated. Francia Myrick nurse practitioner acting as scribe for Dr. Edwards.
--- NOTE | 2018-08-17 11:46 | P.PN ---
Subjective Progress Note Date: 08/17/18 CHIEF COMPLAINT: Evaluate gallbladder HISTORY OF PRESENT ILLNESS: Patient seen and examined at the bedside. Family present. Patient denies abdominal pain. Patient reports eating breakfast this morning without nausea or vomiting. Labs from this morning are currently pending. PHYSICAL EXAM: VITAL SIGNS: Reviewed. GENERAL: Well-developed in no acute distress. HEENT: No sclera icterus. Extraocular movements grossly intact. Moist buccal mucosa. Head is atraumatic, normocephalic. ABDOMEN: Soft. Nondistended. Nontender. NEUROLOGIC: Alert and oriented. Cranial nerves II through XII grossly intact. ASSESSMENT: 1. Sludge visualized in gallbladder on US 2. Acute alcoholic hepatitis 3. Transaminitis 4. Hyperbilirubinemia 5. History of alcohol abuse PLAN: 1. Continue to monitor liver function 2. Possible laparoscopic cholecystectomy, likely outpatient 3. We will sign off. Please reconsult if needed. 4. Patient to follow up with Dr. Linder in 1 week post discharge Nurse practitioner note has been reviewed by physician. Signing provider agrees with the documented findings, assessment, and plan of care. Objective - Vital Signs Vital signs: Vital Signs Temp 98.4 F 08/17/18 05:00 Pulse 83 08/17/18 05:00 Resp 16 08/17/18 05:00 BP 155/79 08/17/18 05:00 Pulse Ox 98 08/17/18 05:00 Intake & Output 08/16/18 08/17/18 08/17/18 18:59 06:59 18:59 Intake Total 1120 1580 Balance 1120 1580 Weight 88 kg Intake: Intake, IV Titration 400 450 Amount Piperacillin-Tazobactam 3 200 .375 gm In Sodium Chloride 0.9% 100 ml @ 25 mls/hr IVPB Q8H [facility] Rx#: [id number] Sodium Chloride 0.9% 1, 400 000 ml @ 100 mls/hr IV . Q10H7M ONE with Mvi, Adult No.4 with Vit K 10 ml with Thiamine 100 mg with Folic Acid 1 mg Rx#: [id number] Vancomycin 1,500 mg In 250 Sodium Chloride 0.9% 250 ml @ 125 mls/hr IVPB Q16H [facility] Rx#:[id number] Oral 720 1130 Other: Voiding Method Toilet Toilet Toilet # Voids 3 2 - Labs CBC & Chem 7: 04/02/19 08:36 08/18/18 08:36 Labs: Microbiology - Last 24 Hours (Table) 08/15/18 15:11 Blood Culture Gram Stain - Preliminary Blood 08/15/18 15:11 Blood Culture - Final Blood 08/16/18 09:00 Urine Culture - Preliminary Urine,Voided
[2018-08-17 11:55] LABS: Basophils % (A) 1 %; Eosinophils # (A) 0.1 k/uL (0-0.7); Eosinophils % (A) 3 %; HCT 35.1 % (39.0-53.0); Lymphocytes # (A) 0.8 k/uL (1.0-4.8); Lymphocytes % (A) 16 %; MCH 36.3 pg (25.0-35.0); MCHC 34.2 g/dL (31.0-37.0); MCV 106.2 fL (80.0-100.0); Macrocytosis Moderate; Mean Platelet Volume 8.9; Monocytes # (A) 0.1 k/uL (0-1.0); Monocytes % (A) 2 %; Neutrophils # (A) 3.7 k/uL (1.3-7.7); Neutrophils % (A) 77 %; WBC 4.9 k/uL (3.8-10.6)
[2018-08-17 12:05] LABS: Albumin 3.4 g/dL (3.5-5.0); Calcium 8.6 mg/dL (8.4-10.2); Potassium 3.6 mmol/L (3.5-5.1); Total Bilirubin 4.6 mg/dL (0.2-1.3)
[2018-08-17 12:08] LABS: Platelet Count 73 k/uL (150-450)
[2018-08-17] MEDS: MULTIVITAMINS, THERA 1 EACH TAB PO SCH (13:15)
[2018-08-17] MEDS: THIAMINE 100 MG TAB PO SCH ×2 (15:05→15:08)
--- NOTE | 2018-08-17 18:38 | P.PN ---
Subjective Progress Note Date: 08/17/18 Principal diagnosis: Alcoholic hepatitis, elevated liver enzymes The patient is seen sitting bedside. No current nausea, vomiting or abdominal pain reported. Tolerating diet to this point. No other acute complaints. Objective - Vital Signs Vital signs: Vital Signs Temp 97.9 F 08/17/18 12:18 Pulse 96 08/17/18 12:18 Resp 16 08/17/18 12:18 BP 123/78 08/17/18 12:18 Pulse Ox 99 08/17/18 12:18 Intake & Output 08/16/18 08/17/18 08/17/18 18:59 06:59 18:59 Intake Total 1120 1580 700 Balance 1120 1580 700 Weight 88 kg Intake: Intake, IV Titration 400 450 100 Amount Piperacillin-Tazobactam 3 200 100 .375 gm In Sodium Chloride 0.9% 100 ml @ 25 mls/hr IVPB Q8H [facility] Rx#: [id number] Sodium Chloride 0.9% 1, 400 000 ml @ 100 mls/hr IV . Q10H7M ONE with Mvi, Adult No.4 with Vit K 10 ml with Thiamine 100 mg with Folic Acid 1 mg Rx#: [id number] Vancomycin 1,500 mg In 250 Sodium Chloride 0.9% 250 ml @ 125 mls/hr IVPB Q16H [facility] Rx#:[id number] Oral 720 1130 600 Other: Voiding Method Toilet Toilet Toilet # Voids 3 2 3 - Exam On physical examination, patient appears comfortable in no apparent distress. HEAD: Normocephalic, atraumatic. EYES: Bilateral scleral icterus. No conjunctival injection. MOUTH: No lesions, tongue midline. NECK: Trachea midline, no gross abnormalities. CHEST: Clear to auscultation with no wheezing or rhonchi appreciated. HEART: Regular rate and rhythm. ABDOMEN: Soft, obese. Bowel sounds are positive. No organomegaly. No guarding or rigidity. EXTREMITIES: No pedal edema. SKIN: No rashes, mild jaundice. NEUROLOGIC: Alert and oriented x3. No focal deficits. - Labs CBC & Chem 7: 08/17/18 11:18 08/17/18 11:18 Labs: Abnormal Lab Results - Last 24 Hours (Table) 08/17/18 08/17/18 Range/Units 11:18 11:18 RBC 3.30 L (4.30-5.90) m/uL Hgb 12.0 L (13.0-17.5) gm/dL Hct 35.1 L (39.0-53.0) % MCV 106.2 H (80.0-100.0) fL MCH 36.3 H (25.0-35.0) pg Plt Count 73 L (150-450) k/uL Lymphocytes # 0.8 L (1.0-4.8) k/uL BUN 6 L (9-20) mg/dL Creatinine 1.27 H (0.66-1.25) mg/dL Glucose 113 H (74-99) mg/dL Total Bilirubin 4.6 H (0.2-1.3) mg/dL AST 336 H (17-59) U/L ALT 197 H (21-72) U/L Alkaline Phosphatase 263 H (38-126) U/L Albumin 3.4 L (3.5-5.0) g/dL Microbiology - Last 24 Hours (Table) 08/15/18 15:11 Blood Culture Gram Stain - Preliminary Blood Blood Culture - Preliminary Presumptive Staph aureus 08/15/18 15:11 Blood Culture - Final Blood 08/16/18 09:00 Urine Culture - Preliminary Urine,Voided Assessment and Plan (1) Transaminitis Narrative/Plan: Patient with a 40 year history of alcohol abuse presenting with elevation in liver enzymes in both a cholestatic and hepatocellular pattern consistent with alcoholic hepatitis. Viral hepatitis panel was ordered and is still pending. Current Visit: Yes Status: Acute Code(s): R74.0 - NONSPEC ELEV OF LEVELS OF TRANSAMNS & LACTIC ACID DEHYDRGNSE SNOMED Code(s): 094947022 (2) ETOH abuse Current Visit: Yes Status: Acute Code(s): F10.10 - ALCOHOL ABUSE, UNCOMPLICATED SNOMED Code(s): 91908878 (3) Gallbladder sludge Current Visit: Yes Status: Acute Code(s): K82.8 - OTHER SPECIFIED DISEASES OF GALLBLADDER SNOMED Code(s): 07050238 (4) Jaundice Current Visit: Yes Status: Acute Code(s): R17 - UNSPECIFIED JAUNDICE SNOMED Code(s): 81496553 Plan: Supportive care Okay for low-fat, low-sodium diet Continue to monitor liver enzymes Viral hepatitis panel pending Monitor INR All abstinence recommended Surgical service following the patient Thank you for allowing us to participate in the care of the patient we will continue to follow
--- NOTE | 2018-08-17 20:42 | PN ---
PROGRESS NOTE DATE OF SERVICE: 08/17/2018 This 62-year-old gentleman who was admitted with acute nausea, vomiting, diarrhea with possible acute gastroenteritis, alcoholic gastritis and severe dehydration also had acute alcoholic hepatitis. The patient was also suspected to have acute cholelithiasis. Surgery is following the patient for outpatient evaluation, possible surgery for sludge in the gallbladder on ultrasound. Otherwise, patient is being closely monitored. PHYSICAL EXAMINATION: Patient is alert, oriented x3. Pulse is 96, blood pressure 123/78, respirations 16, temperature 97.2, pulse ox 99% on room air. HEENT: Conjunctivae normal. NECK: No jugular venous distention. CARDIOVASCULAR SYSTEM: S1, S2 muffled. RESPIRATORY SYSTEM: Breath sounds diminished at the bases. Bilateral scattered rhonchi and crackles. ABDOMEN: Soft, non-tender. No mass palpable. LEGS: No edema. No swelling. NERVOUS SYSTEM: No focal deficit. LABS: Labs at this time show WBC 4.2, hemoglobin 12, creatinine 1.27. Total bilirubin 4.6, AST 336 and ALT 197. Lactic acid has normalized ASSESSMENT: 1. Acute nausea, vomiting, diarrhea; possible acute gastroenteritis, alcoholic gastroenteritis, severe dehydration. 2. Possible Staphylococcus aureus sepsis. 3. Possible alcoholic hepatitis. 4. Elevated lactic acid with possible sepsis. 5. Possible sludge in the gallbladder and acute cholecystitis. 6. Hyponatremia. 7. Hypomagnesemia. 8. Thrombocytopenia. 9. Increased mean corpuscular volume. 10.History of nicotine dependence. 11.History of gastrointestinal bleed. 12.History of diverticulitis. 13.History of macular degeneration. 14.History of hernia repair. 15.History of tetrahydrocannabinol. 16.FULL CODE. RECOMMENDATIONS AND DISCUSSION: I recommend to continue current medications, continue with the monitoring, symptomatic treatment. Continue with the broad-spectrum IV antibiotics. The culture is showing presumptive Staph aureus in the blood. Will continue with IV vancomycin. Infectious disease evaluation. Guarded prognosis because of multiple complex medical issues. Further recommendations to follow. MMODL / IJN: [id number] /
[2018-08-17] MEDS: TEMAZEPAM 15 MG CAP PO PRN (20:44)
--- NOTE | 2018-08-17 22:04 | P.CON ---
Consult Note - . Consult date: 08/17/18 Assessment/Plan:: This is a 62-year-old male presented to the hospital due to nausea for 4 days as well as feeling weak, general malaise. He was unable to eat or drink due to nausea. He was found to have a temperature max of 100.9 at the time of admission, tachycardia and hypertension. His white count was 6.2 initially and repeated 3. Lactic acid was 7.8 and now down to 1.1. Total bilirubin 4.0, AST 289, ALT 172, alkaline phosphatase 112. Influenza testing was negative. Albumin 2.7. Urinalysis was cloudy with leukoesterase and nitrate negative, trace blood ketones and protein. Blood culture showing gram-positive cocci in cluster and a repeat blood cultures ordered for today. Urine cultures in progress. Patient has been admitted to the [facility] floor and started on Zosyn and vancomycin. Patient is been seen by Dr. Yates for chronic liver disease and acute alcoholic hepatitis. Dr. Linder has evaluated the patient for cholecystitis which will be considered once his liver enzymes are improved. Abdominal ultrasound showed mild hepatomegaly and sludge in his gallbladder. Chest x-ray no acute findings. Patient denies having any abdominal pain was noted to have tenderness in the right upper quadrant. He denies having any fever or chills prior to admission and none since he has arrived. He denies any cough or sputum production. He denies any urine symptoms. No skin rashes or lesions. Patient has been started on the CIWA protocol. He gives history of drinking a 6 pack and a half pint of liquor every day for 40 years. Please see the consult note is dictated by nurse practitioner Francia Ledesmabobbi. 62-year-old male presents with a four-day history of nausea and dry heaves abdominal pain and low-grade fever and illness. It admission there was evidence of lactic acidosis of 7.8 with hydration improved. Likely was on the basis of sepsis as well as elevation due to his chronic liver disease. This is early normalize. There is evidence of a possible culture laboratories now relating that his MSSA. And this will not be a contaminant and will require a course of intravenous antibiotic therapy. Once his bacteremia has cleared we'll make arrangements for PICC line placement and treatment at the [facility] for antibiotic therapy. I agree with evaluation, assessment and plan is dictated by nurse practitioner Mrs. Francia Myrick.
[2018-08-18] MEDS: PIPERACILLIN-TAZOBACTAM 3.375 GM in SODIUM CHLORIDE 0.9% 100 ML IVPB SCH ×3 (00:38→17:11)
[2018-08-18 09:24] LABS: INR 1.1 (<1.2); Prothrombin Time 11.5 sec (9.0-12.0)
[2018-08-18 09:26] LABS: Basophils % (A) 1 %; Eosinophils # (A) 0.2 k/uL (0-0.7); Eosinophils % (A) 4 %; HCT 35.1 % (39.0-53.0); HGB 11.7 gm/dL (13.0-17.5); Lymphocytes # (A) 0.9 k/uL (1.0-4.8); Lymphocytes % (A) 22 %; MCH 35.6 pg (25.0-35.0); MCHC 33.4 g/dL (31.0-37.0); MCV 106.5 fL (80.0-100.0); Macrocytosis Moderate; Mean Platelet Volume 8.9; Monocytes # (A) 0.1 k/uL (0-1.0); Monocytes % (A) 2 %; Neutrophils # (A) 2.8 k/uL (1.3-7.7); Neutrophils % (A) 70 %; RBC 3.29 m/uL (4.30-5.90); RDW 13.1 % (11.5-15.5); WBC 3.9 k/uL (3.8-10.6)
[2018-08-18 09:39] LABS: Platelet Count 73 k/uL (150-450)
[2018-08-18 09:52] LABS: Albumin 3.3 g/dL (3.5-5.0); Bilirubin, Conjugated 0.3 mg/dL (0.0-0.3); Bilirubin,Unconjugated 0.9 mg/dL (0.0-1.1); Calcium 8.5 mg/dL (8.4-10.2); Potassium 3.4 mmol/L (3.5-5.1); Total Bilirubin 3.2 mg/dL (0.2-1.3); Total Protein 6.8 g/dL (6.3-8.2)
[2018-08-18] MEDS: HEPARIN SODIUM,PORCINE 5,000 UNIT/ML 1 ML VIAL SQ SCH ×2 (10:30→20:56)
[2018-08-18] MEDS: PANTOPRAZOLE 40 MG/10 ML VIAL IV SCH (10:30)
[2018-08-18] MEDS: MULTIVITAMINS, THERA 1 EACH TAB PO SCH (10:31)
[2018-08-18] MEDS: THIAMINE 100 MG TAB PO SCH ×2 (10:31→17:11)
[2018-08-18] MEDS: VANCOMYCIN 1,500 MG in SODIUM CHLORIDE 0.9% 250 ML IVPB SCH (10:31)
[2018-08-18 17:13] LABS: Hepatitis A Antibody IgM Non-Reactive (Non-Reactive); Hepatitis B Surface AB- Quant 3.5 mIU/mL; Hepatitis C IgG Antibody Non-Reactive (Non-Reactive)
[2018-08-18 17:14] LABS: Hepatitis B Core IgM Non-Reactive (Non-Reactive)
--- NOTE | 2018-08-18 20:56 | P.PN ---
Subjective Progress Note Date: 08/18/18 Principal diagnosis: Alcoholic hepatitis, elevated liver enzymes The patient is seen sitting bedside, reporting that he tolerated a regular diet today. No nausea or vomiting. No signs or symptoms of GI bleeding. Objective - Vital Signs Vital signs: Vital Signs Temp 98.1 F 08/18/18 12:34 Pulse 80 08/18/18 12:34 Resp 16 08/18/18 12:34 BP 149/75 08/18/18 12:34 Pulse Ox 98 08/18/18 12:34 Intake & Output 08/18/18 08/18/18 08/19/18 06:59 18:59 06:59 Intake Total 1820 950 Balance 1820 950 Intake: Intake, IV Titration 100 350 Amount Piperacillin-Tazobactam 3 100 100 .375 gm In Sodium Chloride 0.9% 100 ml @ 25 mls/hr IVPB Q8H [facility] Rx#: [id number] Vancomycin 1,500 mg In 250 Sodium Chloride 0.9% 250 ml @ 125 mls/hr IVPB Q16H [facility] Rx#:[id number] Oral 1720 600 Other: Voiding Method Toilet Toilet # Voids 2 2 # Bowel Movements 1 - Exam On physical examination, patient appears comfortable in no apparent distress. HEAD: Normocephalic, atraumatic. EYES: Bilateral scleral icterus. No conjunctival injection. MOUTH: No lesions, tongue midline. NECK: Trachea midline, no gross abnormalities. CHEST: Clear to auscultation with no wheezing or rhonchi appreciated. HEART: Regular rate and rhythm. ABDOMEN: Soft, obese. Bowel sounds are positive. No organomegaly. No guarding or rigidity. EXTREMITIES: No pedal edema. SKIN: No rashes, mild jaundice. NEUROLOGIC: Alert and oriented x3. No focal deficits. - Labs CBC & Chem 7: 08/18/18 08:36 08/18/18 08:36 Labs: Abnormal Lab Results - Last 24 Hours (Table) 08/18/18 08/18/18 Range/Units 08:36 08:36 RBC 3.29 L (4.30-5.90) m/uL Hgb 11.7 L (13.0-17.5) gm/dL Hct 35.1 L (39.0-53.0) % MCV 106.5 H (80.0-100.0) fL MCH 35.6 H (25.0-35.0) pg Plt Count 73 L (150-450) k/uL Lymphocytes # 0.9 L (1.0-4.8) k/uL Potassium 3.4 L (3.5-5.1) mmol/L BUN 5 L (9-20) mg/dL Glucose 150 H (74-99) mg/dL Total Bilirubin 3.2 H (0.2-1.3) mg/dL Delta Bilirubin 2.0 H (0.0-0.2) mg/dL AST 212 H (17-59) U/L ALT 175 H (21-72) U/L Alkaline Phosphatase 238 H (38-126) U/L Albumin 3.3 L (3.5-5.0) g/dL Microbiology - Last 24 Hours (Table) 08/17/18 11:25 Blood Culture - Preliminary Blood No Growth after 24 hours 08/17/18 11:18 Blood Culture - Preliminary Blood No Growth after 24 hours 08/15/18 15:11 Blood Culture Gram Stain - Final Blood Blood Culture - Final Staphylococcus aureus 08/16/18 09:00 Urine Culture - Final Urine,Voided Assessment and Plan (1) Transaminitis Narrative/Plan: Patient with a 40 year history of alcohol abuse presenting with elevation in liver enzymes in both a cholestatic and hepatocellular pattern consistent with alcoholic hepatitis. Viral hepatitis panel negative except for hepatitis B surface antibody suggesting previous exposure or immunity. Current Visit: Yes Status: Acute Code(s): R74.0 - NONSPEC ELEV OF LEVELS OF TRANSAMNS & LACTIC ACID DEHYDRGNSE SNOMED Code(s): 888101066 (2) ETOH abuse Current Visit: Yes Status: Acute Code(s): F10.10 - ALCOHOL ABUSE, UNCOMPLICATED SNOMED Code(s): 86302529 (3) Gallbladder sludge Current Visit: Yes Status: Acute Code(s): K82.8 - OTHER SPECIFIED DISEASES OF GALLBLADDER SNOMED Code(s): 38773999 (4) Jaundice Current Visit: Yes Status: Acute Code(s): R17 - UNSPECIFIED JAUNDICE SNOMED Code(s): 97308447 Plan: Supportive care Okay for low-fat, low-sodium diet Continue to monitor liver enzymes Viral hepatitis panel essentially negative Monitor INR Alcohol abstinence reinforced to patient as well as the need for a low-sodium di et moving forward and continuing to monitor liver function in the outpatient setting Surgical service following the patient Thank you for allowing us to participate in the care of the patient we will continue to follow
[2018-08-18] MEDS: TEMAZEPAM 15 MG CAP PO PRN (21:52)
--- NOTE | 2018-08-18 22:40 | PN ---
PROGRESS NOTE DATE OF SERVICE: 08/18/2018 This 62-year-old gentleman who was admitted with acute nausea, vomiting and possible acute gastroenteritis also had possible sepsis with Staph aureus species. The patient had blood culture grown from 08/15/2018 that showed MSSA. The patient is on IV antibiotics. No chest pain. No palpitations. No fever. WBC is 3.9. Hemoglobin is 11.9 at this time. LFTs are elevated. Plasma lactic acid was also elevated. Currently patient is on vancomycin and Zosyn. On examination, alert and oriented x3. Pulse 80, blood pressure 149/75, respiration 16, temperature 98.1, pulse ox 98% on room air. HEENT: Conjunctivae normal. NECK: No jugular venous distention. CARDIOVASCULAR SYSTEM: S1, S2 muffled. RESPIRATORY SYSTEM: Breath sounds diminished at the bases. No rhonchi. No crackles. ABDOMEN: Soft, non-tender. LEGS: No edema. No swelling. NERVOUS SYSTEM: No focal deficit. LABS: WBC 3.9, hemoglobin 11.7 and glucose 150. Delta bilirubin is 2. Total bilirubin is 3.2. ASSESSMENT: 1. Acute nausea, vomiting, diarrhea, possible alcoholic gastroenteritis with severe dehydration, present on admission. 2. Staphylococcus aureus sepsis with methicillin-susceptible Staphylococcus aeruginosa. 3. Possible alcoholic hepatitis. 4. Elevated lactic acid with possible sepsis, present on admission. 5. Possible sludge in the gallbladder. No acute cholecystitis. 6. Hyponatremia. 7. Hypomagnesemia. 8. Thrombocytopenia. 9. Increased mean corpuscular volume. 10.History of nicotine dependence. 11.History of gastrointestinal bleed. 12.History of diverticulitis. 13.History of macular degeneration. 14.History of hernia repair. 15.History of tetrahydrocannabinol. 16.FULL CODE. RECOMMENDATIONS AND DISCUSSION: I recommend to continue current medications, continue with the monitoring, symptomatic treatment. Otherwise, continue with antibiotics. Closely follow with Infectious Disease and Surgery. Repeat labs. Guarded prognosis. Further recommendations to follow. MMODL / IJN: [id number] /
[2018-08-19] MEDS: PIPERACILLIN-TAZOBACTAM 3.375 GM in SODIUM CHLORIDE 0.9% 100 ML IVPB SCH ×3 (00:06→16:57)
[2018-08-19] MEDS ORDERED: VANCOMYCIN TROUGH DUE 1 EACH MISC MISCELLANE ONE (01:00)
[2018-08-19] MEDS: VANCOMYCIN 1,500 MG in SODIUM CHLORIDE 0.9% 250 ML IVPB SCH ×2 (02:06→17:00)
[2018-08-19 09:07] LABS: Basophils % (A) 1 %; Eosinophils # (A) 0.1 k/uL (0-0.7); Eosinophils % (A) 3 %; HCT 32.8 % (39.0-53.0); HGB 10.7 gm/dL (13.0-17.5); Lymphocytes # (A) 0.7 k/uL (1.0-4.8); Lymphocytes % (A) 17 %; MCH 34.8 pg (25.0-35.0); MCHC 32.6 g/dL (31.0-37.0); Macrocytosis Moderate; Mean Platelet Volume 8.3; Monocytes # (A) 0.2 k/uL (0-1.0); Monocytes % (A) 4 %; Neutrophils % (A) 72 %; RBC 3.07 m/uL (4.30-5.90); RDW 13.5 % (11.5-15.5); WBC 4.2 k/uL (3.8-10.6)
[2018-08-19 09:08] LABS: Platelet Count 97 k/uL (150-450)
[2018-08-19 09:27] LABS: Calcium 8.2 mg/dL (8.4-10.2); Potassium 3.5 mmol/L (3.5-5.1); Total Bilirubin 2.3 mg/dL (0.2-1.3); Total Protein 6.3 g/dL (6.3-8.2)
[2018-08-19] MEDS: PANTOPRAZOLE 40 MG/10 ML VIAL IV SCH (10:22)
[2018-08-19] MEDS: HEPARIN SODIUM,PORCINE 5,000 UNIT/ML 1 ML VIAL SQ SCH ×2 (10:22→22:04)
[2018-08-19] MEDS: THIAMINE 100 MG TAB PO SCH ×2 (10:23→16:57)
[2018-08-19] MEDS: MULTIVITAMINS, THERA 1 EACH TAB PO SCH (10:23)
--- NOTE | 2018-08-19 16:11 | PN ---
PROGRESS NOTE . DATE OF SERVICE: 08/19/2018 This 62-year-old gentleman who was admitted with acute nausea, vomiting and diarrhea, possible acute gastroenteritis with severe dehydration also had Staph aureus sepsis with MSSA. The patient on broad spectrum IV antibiotics. Dr. Edwards is following the patient closely. Outpatient antibiotic being considered at this time. Gastroenterology were also seeing the patient. No chest pain. No palpitations. No fever. PHYSICAL EXAM: Alert and oriented times three. Pulse 115. Blood pressure 155/74, respiration 20, temperature 98.2, pulse ox 97% on room air. HEENT is conjunctivae normal. Neck no jugular venous distention. CARDIOVASCULAR: S1, S2 muffled. RESPIRATORY: Breath sounds diminished in the bases. No rhonchi. No crackles. ABDOMEN: Soft, nontender. No mass palpable. Legs no edema. No swelling. Nervous system: Higher functions as mentioned earlier. Moves all 4 limbs. No focal motor or sensory deficits. Lymphatics: No lymph nodes palpable in the neck, axillae or groin. JOINTS: No active deforming arthropathy. LABS: At this time shows WBC 12.2, hemoglobin 10.6, sodium 140, potassium 3.5. AST and ALT is showing improving. Bilirubin is also 2.3. Acute hepatitis panel is rather negative. The most recent cultures are negative. ASSESSMENT: 1. Acute nausea, vomiting, diarrhea possible alcoholic gastroenteritis with severe dehydration present on admission. 2. Staph aureus sepsis with MSSA. 3. Possible alcoholic hepatitis. 4. Elevated lactic acid with possible sepsis present on admission. 5. Possible sludge in the gallbladder. No acute cholecystitis. 6. Hyponatremia. 7. Hypomagnesemia. 8. Thrombocytopenia. 9. Increased MCV. 10.History of nicotine dependence. 11.History of gastrointestinal bleed. 12.History of diverticulitis. 14.History of hernia repair. 15.History of THC. 16.FULL CODE. RECOMMENDATIONS AND DISCUSSION: Recommend to continue current medication, symptomatic treatment, management and continue to monitor, continue the broad-spectrum IV antibiotics including vancomycin. Otherwise, closely follow with Infectious Disease. Guarded prognosis because of multiple complex medical issues. Further recommendations to follow. MMODL / IJN: [id number] / MTDD
--- NOTE | 2018-08-19 18:21 | P.PN ---
Subjective Progress Note Date: 08/19/18 Principal diagnosis: Alcoholic hepatitis, elevated liver enzymes The patient is to setting bedside. Patient reports feeling well. He is tolerating his diet. No abdominal pain reported feels jaundice is improving. Objective - Vital Signs Vital signs: Vital Signs Temp 98.6 F 08/19/18 11:59 Pulse 115 H 08/19/18 11:59 Resp 20 08/19/18 11:59 BP 155/74 08/19/18 11:59 Pulse Ox 97 08/19/18 11:59 Intake & Output 08/18/18 08/19/18 08/19/18 18:59 06:59 18:59 Intake Total 950 2610 1450 Balance 950 2610 1450 Intake: Intake, IV Titration 350 350 250 Amount Piperacillin-Tazobactam 3 100 100 .375 gm In Sodium Chloride 0.9% 100 ml @ 25 mls/hr IVPB Q8H [facility] Rx#: [id number] Vancomycin 1,500 mg In 250 250 250 Sodium Chloride 0.9% 250 ml @ 125 mls/hr IVPB Q16H [facility] Rx#:[id number] Oral 600 2260 1200 Other: Voiding Method Toilet Toilet Toilet # Voids 2 3 3 - Exam On physical examination, patient appears comfortable in no apparent distress. HEAD: Normocephalic, atraumatic. EYES: Bilateral scleral icterus. No conjunctival injection. MOUTH: No lesions, tongue midline. NECK: Trachea midline, no gross abnormalities. CHEST: Clear to auscultation with no wheezing or rhonchi appreciated. HEART: Regular rate and rhythm. ABDOMEN: Soft, obese. Bowel sounds are positive. No organomegaly. No guarding or rigidity. EXTREMITIES: No pedal edema. SKIN: No rashes, mild jaundice. NEUROLOGIC: Alert and oriented x3. No focal deficits. - Labs CBC & Chem 7: 08/19/18 08:17 08/19/18 08:17 Labs: Abnormal Lab Results - Last 24 Hours (Table) 08/19/18 08/19/18 Range/Units 08:17 08:17 RBC 3.07 L (4.30-5.90) m/uL Hgb 10.7 L (13.0-17.5) gm/dL Hct 32.8 L (39.0-53.0) % MCV 107.0 H (80.0-100.0) fL Plt Count 97 L (150-450) k/uL Lymphocytes # 0.7 L (1.0-4.8) k/uL Chloride 110 H (98-107) mmol/L Creatinine 1.66 H (0.66-1.25) mg/dL Calcium 8.2 L (8.4-10.2) mg/dL Total Bilirubin 2.3 H (0.2-1.3) mg/dL AST 153 H (17-59) U/L ALT 142 H (21-72) U/L Alkaline Phosphatase 201 H (38-126) U/L Albumin 3.0 L (3.5-5.0) g/dL Microbiology - Last 24 Hours (Table) 08/17/18 11:25 Blood Culture - Preliminary Blood No Growth after 48 hours 08/17/18 11:18 Blood Culture - Preliminary Blood No Growth after 48 hours 08/15/18 15:11 Blood Culture Gram Stain - Final Blood Blood Culture - Final Staphylococcus aureus Assessment and Plan (1) Transaminitis Narrative/Plan: Patient with a 40 year history of alcohol abuse presenting with elevation in liver enzymes in both a cholestatic and hepatocellular pattern consistent with alcoholic hepatitis. Viral hepatitis panel negative except for hepatitis B surface antibody suggesting previous exposure or immunity. Current Visit: Yes Status: Acute Code(s): R74.0 - NONSPEC ELEV OF LEVELS OF TRANSAMNS & LACTIC ACID DEHYDRGNSE SNOMED Code(s): 282804858 (2) ETOH abuse Current Visit: Yes Status: Acute Code(s): F10.10 - ALCOHOL ABUSE, UNCOMPLICATED SNOMED Code(s): 26066052 (3) Gallbladder sludge Current Visit: Yes Status: Acute Code(s): K82.8 - OTHER SPECIFIED DISEASES OF GALLBLADDER SNOMED Code(s): 55561988 (4) Jaundice Current Visit: Yes Status: Acute Code(s): R17 - UNSPECIFIED JAUNDICE SNO MED Code(s): 37869072 Plan: Supportive care Okay for low-fat, low-sodium diet Continue to monitor liver enzymes Viral hepatitis panel essentially negative Monitor INR Alcohol abstinence reinforced to patient as well as the need for a low-sodium diet moving forward and continuing to monitor liver function in the outpatient setting Surgical service following the patient Thank you for allowing us to participate in the care of the patient we will continue to follow
[2018-08-19] MEDS: ceFAZolin IN SWFI 2 GM/20 ML SYRINGE IVP SCH (19:44)
[2018-08-19] MEDS: TEMAZEPAM 15 MG CAP PO PRN (22:07)
[2018-08-19 22:25] VITALS: RESP 18
--- NOTE | 2018-08-19 23:34 | P.PN ---
Subjective Progress Note Date: 08/19/18 This is a 62-year-old male presented to the hospital due to nausea for 4 days as well as feeling weak, general malaise. He was unable to eat or drink due to nausea. He was found to have a temperature max of 100.9 at the time of admission, tachycardia and hypertension. His white count was 6.2 initially and repeated 3. Lactic acid was 7.8 and now down to 1.1. Total bilirubin 4.0, AST 289, ALT 172, alkaline phosphatase 112. Influenza testing was negative. Albumin 2.7. Urinalysis was cloudy with leukoesterase and nitrate negative, trace blood ketones and protein. Blood culture showing gram-positive cocci in cluster and a repeat blood cultures ordered for today. [facility] Patient has been admitted to the [facility] floor and started on Zosyn and vancomycin. Patient is been seen by Dr. Yates for chronic liver disease and acute alcoholic hepatitis. Dr. Linder has evaluated the patient for cholecystitis which will be considered once his liver enzymes are improved. Abdominal ultrasound showed mild hepatomegaly and sludge in his gallbladder. Chest x-ray no acute findings. Patient denies having any abdominal pain was noted to have tenderness in the right upper quadrant. He denies having any fever or chills prior to admission and none since he has arrived. He denies any cough or sputum production. He denies any urine symptoms. No skin rashes or lesions. Patient has been started on the CIWA protocol. He gives history of drinking a 6 pack and a half pint of liquor every day for 40 years. 08/19/2018 62-year-old male is feeling considerably better than admission. He relates that he's without nausea or emesis is doing well with getting protein i ntake. No new myalgias or arthralgias. Respiratory status is stable and denies other new acute complaints. Objective - Vital Signs Vital signs: Vital Signs Temp 98.6 F 08/19/18 21:00 Pulse 105 H 08/19/18 21:00 Resp 18 08/19/18 21:00 BP 151/62 08/19/18 21:00 Pulse Ox 98 08/19/18 21:00 Intake & Output 08/19/18 08/19/18 08/20/18 06:59 18:59 06:59 Intake Total 2610 1450 590 Balance 2610 1450 590 Intake: Intake, IV Titration 350 250 Amount Piperacillin-Tazobactam 3 100 .375 gm In Sodium Chloride 0.9% 100 ml @ 25 mls/hr IVPB Q8H [facility] Rx#: [id number] Vancomycin 1,500 mg In 250 250 Sodium Chloride 0.9% 250 ml @ 125 mls/hr IVPB Q16H [facility] Rx#:[id number] Oral 2260 1200 590 Other: Voiding Method Toilet Toilet # Voids 3 3 2 - Exam Gen: This is a 62-year-old male. Patient is sitting on the edge of the bed and appears to be comfortable and in no acute distress. Patient's ex- is at the bedside. HEENT: Head is atraumatic, normocephalic. Pupils equal, round. Sclerae is anicteric. Mucous membranes of the mouth are moist. No thrush noted. NECK: Supple. No JVD. No lymphadenopathy. No thyromegaly. LUNGS: Clear to auscultation. No wheezes or rhonchi. No intercostal retractions. HEART: Regular rate and rhythm. No murmur. ABDOMEN: Soft. Bowel sounds are present. No masses. Mild tenderness to the right upper quadrant. EXTREMITIES: No pedal edema. No calf tenderness. Dorsalis pedis +2 bilaterally. NEUROLOGICAL: Patient is awake, alert and oriented x3 but is mildly vague at times and repeats plan several times in attempts to try to achieve clarity. - Labs CBC & Chem 7: 08/19/18 08:17 08/19/18 08:17 Labs: Abnormal Lab Results - Last 24 Hours (Table) 08/19/18 08/19/18 Range/Units 08:17 08:17 RBC 3.07 L (4.30-5.90) m/uL Hgb 10.7 L (13.0-17.5) gm/dL Hct 32.8 L (39.0-53.0) % MCV 107.0 H (80.0-100.0) fL Plt Count 97 L (150-450) k/uL Lymphocytes # 0.7 L (1.0-4.8) k/uL Chloride 110 H (98-107) mmol/L Creatinine 1.66 H (0.66-1.25) mg/dL Calcium 8.2 L (8.4-10.2) mg/dL Total Bilirubin 2.3 H (0.2-1.3) mg/dL AST 153 H (17-59) U/L ALT 142 H (21-72) U/L Alkaline Phosphatase 201 H (38-126) U/L Albumin 3.0 L (3.5-5.0) g/dL Microbiology - Last 24 Hours (Table) 08/18/18 18:16 Blood Culture - Preliminary Blood No Growth after 24 hours 08/17/18 11:25 Blood Culture - Preliminary Blood No Growth after 48 hours 08/17/18 11:18 Blood Culture - Preliminary Blood No Growth after 48 hours 08/15/18 15:11 Blood Culture Gram Stain - Final Blood Blood Culture - Final Staphylococcus aureus Laboratory Results WBC 4.2 k/uL (3.8-10.6) 08/19/18 08:17 RBC 3.07 m/uL (4.30-5.90) L 08/19/18 08:17 Hgb 10.7 gm/dL (13.0-17.5) L 08/19/18 08:17 Hct 32.8 % (39.0-53.0) L 08/19/18 08:17 MCV 107.0 fL (80.0-100.0) H 08/19/18 08:17 MCH 34.8 pg (25.0-35.0) 08/19/18 08:17 MCHC 32.6 g/dL (31.0-37.0) 08/19/18 08:17 RDW 13.5 % (11.5-15.5) 08/19/18 08:17 Plt Count 97 k/uL (150-450) L 08/19/18 08:17 Neutrophils % 72 % 08/19/18 08:17 Lymphocytes % 17 % 08/19/18 08:17 Monocytes % 4 % 08/19/18 08:17 Eosinophils % 3 % 08/19/18 08:17 Basophils % 1 % 08/19/18 08:17 Neutrophils # 3.0 k/uL (1.3-7.7) 08/19/18 08:17 Lymphocytes # 0.7 k/uL (1.0-4.8) L 08/19/18 08:17 Monocytes # 0.2 k/uL (0-1.0) 08/19/18 08:17 Eosinophils # 0.1 k/uL (0-0.7) 08/19/18 08:17 Basophils # 0.0 k/uL (0-0.2) 08/19/18 08:17 Manual Slide Review Performed 08/16/18 07:00 Macrocytosis Moderate 08/19/18 08:17 PT 11.5 sec (9.0-12.0) 08/18/18 08:36 INR 1.1 (<1.2) 08/18/18 08:36 APTT 25.1 sec (22.0-30.0) 08/15/18 12:20 Sodium 142 mmol/L (137-145) 08/19/18 08:17 Potassium 3.5 mmol/L (3.5-5.1) 08/19/18 08:17 Chloride 110 mmol/L (98-107) H 08/19/18 08:17 Carbon Dioxide 25 mmol/L (22-30) 08/19/18 08:17 Anion Gap 7 mmol/L 08/19/18 08:17 BUN 10 mg/dL (9-20) 08/19/18 08:17 Creatinine 1.66 mg/dL (0.66-1.25) H 08/19/18 08:17 Est GFR (CKD-EPI)AfAm 50 (>60 ml/min/1.73 sqM) 08/19/18 08:17 Est GFR (CKD-EPI)NonAf 43 (>60 ml/min/1.73 sqM) 08/19/18 08:17 Glucose 98 mg/dL (74-99) 08/19/18 08:17 Lactic Ac Sepsis Rflx Y 08/15/18 15:40 Plasma Lactic Acid Jhonatan 1.1 mmol/L (0.7-2.0) 08/16/18 07:00 Calcium 8.2 mg/dL (8.4-10.2) L 08/19/18 08:17 Magnesium 1.4 mg/dL (1.6-2.3) L 08/15/18 12:20 Total Bilirubin 2.3 mg/dL (0.2-1.3) H 08/19/18 08:17 Conjugated Bilirubin 0.3 mg/dL (0.0-0.3) 08/18/18 08:36 Unconjugated Bilirubin 0.9 mg/dL (0.0-1.1) 08/18/18 08:36 Delta Bilirubin 2.0 mg/dL (0.0-0.2) H 08/18/18 08:36 AST 153 U/L (17-59) H 08/19/18 08:17 ALT 142 U/L (21-72) H 08/19/18 08:17 Alkaline Phosphatase 201 U/L (38-126) H 08/19/18 08:17 Troponin I <0.012 ng/mL (0.000-0.034) 08/15/18 12:20 Total Protein 6.3 g/dL (6.3-8.2) 08/19/18 08:17 Albumin 3.0 g/dL (3.5-5.0) L 08/19/18 08:17 Amylase 49 U/L (30-110) 08/15/18 12:20 Lipase 172 U/L (23-300) 08/15/18 12:20 Urine Color Dark Yellow 08/15/18 13:45 Urine Appearance Cloudy (Clear) 08/15/18 13:45 Urine pH 5.0 (5.0-8.0) 08/15/18 13:45 Ur Specific [place] 1.014 (1.001-1.035) 08/15/18 13:45 Urine Protein Trace (Negative) H 08/15/18 13:45 Urine Glucose (UA) Negative (Negative) 08/15/18 13:45 Urine Ketones Trace (Negative) H 08/15/18 13:45 Urine Blood Trace (Negative) H 08/15/18 13:45 Urine Nitrite Negative (Negative) 08/15/18 13:45 Urine Bilirubin 1+ (Negative) H 08/15/18 13:45 Urine Urobilinogen 4.0 mg/dL (<2.0) 08/15/18 13:45 Ur Leukocyte Esterase Negative (Negative) 08/15/18 13:45 Urine WBC 6 /hpf (0-5) H 08/15/18 13:45 Ur Squamous Epith Cells 1 /hpf (0-4) 08/15/18 13:45 Amorphous Sediment Rare /hpf (None) H 08/15/18 13:45 Hyaline Casts 321 /lpf (0-2) H 08/15/18 13:45 Urine Mucus Occasional /hpf (None) H 08/15/18 13:45 Vancomycin Trough 16.5 ug/mL 08/19/18 01:03 Serum Alcohol 13 mg/dL 08/15/18 12:20 Hepatitis A IgM Ab Non-Reactive (Non-Reactive) 08/18/18 08:36 Hep Bs Antigen Non-Reactive (Non-Reactive) 08/18/18 08:36 Hep Bs Antibody Non-Reactive (Non-Reactive) 08/18/18 08:36 Hep Bs Antibody, Quant 3.5 mIU/mL 08/18/18 08:36 Hep B Core IgM Ab Non-Reactive (Non-Reactive) 08/18/18 08:36 Hep C IgG Ab Non-Reactive (Non-Reactive) 08/18/18 08:36 Influenza Type A RNA Not Detected (Not Detectd) 08/15/18 14:48 Influenza Type B (PCR) Not Detected (Not Detectd) 08/15/18 14:48 Microbiology 08/18/18 18:16 Blood Blood Culture - Preliminary No Growth after 24 hours 08/17/18 11:25 Blood Blood Culture - Preliminary No Growth after 48 hours 08/17/18 11:18 Blood Blood Culture - Preliminary No Growth after 48 hours 08/15/18 15:11 Blood Blood Culture Gram Stain - Final 08/15/18 15:11 Blood Blood Culture - Final Staphylococcus aureus 08/16/18 09:00 Urine,Voided Urine Culture - Final 08/15/18 15:11 Blood Blood Culture - Final Assessment and Plan (1) Nausea & vomiting Current Visit: Yes Status: Acute Code(s): R11.2 - NAUSEA WITH VOMITING, UNSPECIFIED SNOMED Code(s): 74959548 (2) MSSA bacteremia Narrative/Plan: 62-year-old male presents with a four-day history of nausea and dry heaves abdominal pain and low-grade fever and illness. It admission there was evidence of lactic acidosis of 7.8 with hydration improved. Likely was on the basis of sepsis as well as elevation due to his chronic liver disease. This is starting to normalize. There is evidence of a possible culture laboratories now relating that his MSSA. And this will not be a contaminant and will require a course of intravenous antibiotic therapy. Once his bacteremia has cleared we'll make arrangements for PICC line placement and treatment at the [facility] for antibiotic therapy. 08/19/2018 patient is feeling better today. Is inquiring as to the overall plan and discharge course. We discussed the possible culture with staph aureus will necessitate outpatient treatment. It will require intravenous. It does appear the bacteremia has cleared and constantly PICC line be placed tomorrow and we'll make arrangements for ceftriaxone to be given at the [facility] 2 g a day for 2 weeks in the outpatient setting. A gastrointestinal source appears to be most likely. No other source has been noted. We'll follow-up in the office within 2 weeks of antibiotic therapy. Current Visit: Yes Status: Acute Code(s): R78.81 - BACTEREMIA SNOMED Code(s): 328410909
[2018-08-20] MEDS: ceFAZolin IN SWFI 2 GM/20 ML SYRINGE IVP SCH ×2 (00:56→08:51)
[2018-08-20 07:55] LABS: Basophils % (A) 1 %; Eosinophils # (A) 0.2 k/uL (0-0.7); Eosinophils % (A) 3 %; HCT 33.8 % (39.0-53.0); HGB 11.4 gm/dL (13.0-17.5); Lymphocytes # (A) 1.1 k/uL (1.0-4.8); Lymphocytes % (A) 21 %; MCH 35.6 pg (25.0-35.0); MCHC 33.8 g/dL (31.0-37.0); MCV 105.4 fL (80.0-100.0); Macrocytosis Moderate; Mean Platelet Volume 8.2; Monocytes # (A) 0.3 k/uL (0-1.0); Monocytes % (A) 5 %; Neutrophils # (A) 3.5 k/uL (1.3-7.7); Neutrophils % (A) 69 %; Platelet Count 132 k/uL (150-450); RBC 3.21 m/uL (4.30-5.90); RDW 13.6 % (11.5-15.5); WBC 5.2 k/uL (3.8-10.6)
[2018-08-20 08:06] LABS: INR 0.9 (<1.2)
[2018-08-20 08:07] LABS: Albumin 3.4 g/dL (3.5-5.0); Calcium 8.4 mg/dL (8.4-10.2); Potassium 3.4 mmol/L (3.5-5.1); Total Bilirubin 1.9 mg/dL (0.2-1.3); Total Protein 6.9 g/dL (6.3-8.2)
[2018-08-20] MEDS: HEPARIN SODIUM,PORCINE 5,000 UNIT/ML 1 ML VIAL SQ SCH (08:51)
[2018-08-20] MEDS: PANTOPRAZOLE 40 MG/10 ML VIAL IV SCH (09:00)
[2018-08-20 11:39] VITALS: BP 152/91; PULSE 87; TEMP 97.8
[2018-08-20] MEDS: THIAMINE 100 MG TAB PO SCH (12:24)
[2018-08-20] MEDS: MULTIVITAMINS, THERA 1 EACH TAB PO SCH (12:24)
--- NOTE | 2018-08-20 15:51 | IR ---
EXAMINATION TYPE: IR cvc insert >=5 years DATE OF EXAM: 08/20/2018 COMPARISON: NONE CLINICAL HISTORY: Infection Needs long-term intravenous access for antibiotics. PROCEDURE: After informed consent, the skin overlying the right basilic vein was localized with ultrasound and n oted to be compressible and patent. An ultrasound image was obtained and submitted on the patient's chart. The overlying skin was prepped and draped and Lidocaine was used for local anesthesia. A ski n michelle was made with a scalpel. Access was gained to the vein under ultrasound guidance with a 21 ga uge needle and a 0.018 inch wire was advanced. Access site was dilated with Peel-Away sheath and cat heter tailored to the appropriate length and advanced such that the distal tip is at the cavoatrial j unction. Spot image was obtained verifying placement. Catheter was fixed to the skin and a sterile dressing was placed following hemostasis. Catheter was aspirated and flushed with saline. Patient w as discharged in stable condition without complication.Maximal barrier technique is utilized. Ultras ound image is documented on the chart. Ultrasound used with sterile technique. Fluoro time and fluoroscopic images submitted to document procedure: 24 intraoperative C-arm images, 0.8 minutes fluoroscopy time IMPRESSION: STATUS POST ULTRASOUND AND FLUOROSCOPIC GUIDED PICC LINE PLACEMENT, READY FOR USE. THIS PROCEDURE WAS PERFORMED BY THE UNDERSIGNED.
--- NOTE | 2018-08-21 07:55 | DS ---
DISCHARGE SUMMARY DATE OF SERVICE: 08/20/2018 FINAL DIAGNOSES: 1. Acute nausea, vomiting, diarrhea, possibly alcoholic gastroenteritis with severe dehydration present on admission. 2. Staphylococcus sepsis with methicillin-sensitive Staphylococcus aureus. 3. Possible alcoholic hepatitis with elevated lactic acidosis secondary to sepsis present on admission. 4. Possible sludge in the gallbladder and possible acute cholecystitis. 5. Hyponatremia. 6. Hypomagnesia. 7. Thrombocytopenia. 8. Increased MCV. 9. History of nicotine dependence. 10.History of gastrointestinal bleed. 11.History of diverticulitis. 12.History of hernia repair. 13.History of THC. 14.FULL CODE. DISCHARGE DISPOSITION: The patient will be discharged in a stable condition with guarded prognosis. HISTORY OF PRESENT ILLNESS: This is a 62-year-old gentleman with the past medical history of nausea and vomiting which is suggestive of sepsis and multiple medical problems to MSSA grown from the culture. The patient had multiple other features as mentioned earlier. PICC line is recommended by Dr. Edwards. Patient is seen by Gastroenterology and as well as Infectious Disease. The patient follows with Dr. Alaniz in the outpatient setting. On exam vitals are stable. CARDIOVASCULAR SYSTEM: S1, S2. ABDOMEN: Soft. NERVOUS SYSTEM: No focal deficits. Discharge diet is cardiac diet. Activity limited until followup. Follow up with Dr. Alaniz to 1 week. Follow up with Dr. Edwards as recommended. Follow up with Dr. Linder in 1 week for evaluation of the gallbladder. MEDICATIONS ARE: 1. Motrin 600 mg q.6 p.r.n. 2. Vitamin C, zinc b.i.d. 3. Folic acid 1 mg daily. 4. Multivitamin 1 p.o. daily. 5. Rocephin 2 g IV daily for 2 weeks. 6. Ultram. 7. Thiamine 100 mg p.o. b.i.d. Once again, the patient will be discharged in a stable condition with guarded prognosis. Total time taken 35 minutes. MMODL / IJN: [id number] /
== END 2018-08-20 16:20 | disposition home or self-care (01) | DRG 871 ==
LOC: EC 11:39 → 3SCARD 14:14 → 3NMEDONC 08-16 19:52
PROVIDERS: ADMIT Hospitalist; ATTEND Hospitalist
PROC: 02HV33Z Insertion of Infusion Device into Superior Vena Cava, Percutaneous Approach (ICD-10-PCS; principal; 2018-08-20 15:00)
DX: A41.01 Sepsis due to Methicillin susceptible Staphylococcus aureus (principal); E43 Unspecified severe protein-calorie malnutrition; E87.2 Acidosis; E87.1 Hypo-osmolality and hyponatremia; D69.6 Thrombocytopenia, unspecified; E83.42 Hypomagnesemia; K70.10 Alcoholic hepatitis without ascites; E86.0 Dehydration; F10.10 Alcohol abuse, uncomplicated; K29.20 Alcoholic gastritis without bleeding; I10 Essential (primary) hypertension; H35.3110 Nonexudative age-related macular degeneration, right eye, stage unspecified; H35.3220 Exudative age-related macular degeneration, left eye, stage unspecified; K82.8 Other specified diseases of gallbladder; K57.90 Diverticulosis of intestine, part unspecified, without perforation or abscess without bleeding; M25.519 Pain in unspecified shoulder; M54.9 Dorsalgia, unspecified; Z68.31 Body mass index [BMI] 31.0-31.9, adult; Z79.899 Other long term (current) drug therapy; Z87.891 Personal history of nicotine dependence; Z87.19 Personal history of other diseases of the digestive system; Y90.0 Blood alcohol level of less than 20 mg/100 ml; Z82.49 Family history of ischemic heart disease and other diseases of the circulatory system; Z80.1 Family history of malignant neoplasm of trachea, bronchus and lung
CPT/HCPCS: 36415; 36573; 71046; 76705; 80053; 80202; 80320; 81001; 82150; 82248; 83605; 83690; 83735; 84484; 85025; 85610; 85730; 86705; 86706; 86709; 86803; 87040; 87077; 87086; 87186; 87340; 87502; 93005; 96361; 96365; 96375; 99291

== ENCOUNTER 2018-09-28 06:45 | Day surgery (SDC) | payer OTHER ==
[2018-09-24 09:57] VITALS: BMI 29.7
[~2018-09-28 06:45] MED LIST: HEPARIN SODIUM,PORCINE 5,000 UNIT/ML 1 ML VIAL SQ ONE; LACTATED RINGERS 1,000 ML IV SCH; LIDOCAINE 1% 20 ML VIAL (10MG/ML) FOR IV START INTRADERMA PRN; ONDANSETRON 4 MG/2 ML VIAL IVP ONE; ceFAZolin IN SWFI 2 GM/20 ML SYRINGE IVP ONE
[2018-09-28 07:16] VITALS: RESP 16
[2018-09-28] MEDS ORDERED: DEXAMETHASONE SOD PHOSPHATE 10 MG/ML 1 ML VIAL IV ONE (07:17)
--- NOTE | 2018-09-28 07:52 | P.GSHP ---
History of Present Illness H&P Date: 09/28/18 Chief Complaint: Right upper quadrant pain, cholelithiasis This is a 62-year-old male who presents today for laparoscopic cholecystectomy. Patient's had complaints of right upper quadrant pain pain. He is worked up found have cholelithiasis. Past Medical History Past Medical History: Eye Disorder, GI Bleed, Hypertension Additional Past Medical History / Comment(s): past hx diverticulitis, right eye dry macular degeneration, left eye wet macular degeneration. History of Any Multi-Drug Resistant Organisms: None Reported Past Surgical History: Hernia Repair Additional Past Surgical History / Comment(s): PICC line in, now removed, hernia repair, colonoscopy Past Anesthesia/Blood Transfusion Reactions: No Reported Reaction Additional Past Anesthesia/Blood Transfusion Reaction / Comment(s): 4 UNITS OF PRBC 10/2014, NO REACTION Smoking Status: Former smoker - Past Family History Mother Additional Family Medical History / Comment(s): brain anuerysm Father Family Medical History: Cancer Additional Family Medical History / Comment(s): lung Medications and Allergies Home Medications Medication Instructions Recorded Confirmed Type Ibuprofen [Motrin] 600 mg PO Q6H PRN 10/29/14 09/28/18 History Vit C/E/Zn/Coppr/Lutein/Zeaxan 1 cap PO BID 08/15/18 09/28/18 History [Preservision Areds 2 Softgel] Folic Acid 1 mg PO DAILY #30 tablet 08/20/18 09/28/18 Rx Multivitamins, Thera [Multivitamin 1 each PO DAILY@1200 #30 tab 08/20/18 09/28/18 Rx (formulary)] Thiamine [Vitamin B-1] 100 mg PO BID@1200,1700 #30 tab 08/20/18 09/28/18 Rx Atenolol 25 mg PO QAM 09/24/18 09/28/18 History Allergies Allergy/AdvReac Type Severity Reaction Status Date / Time No Known Allergies Allergy Verified 09/28/18 07:01 Surgical - Exam Vital Signs Temp Pulse Resp BP Pulse Ox 98.6 F 93 16 160/84 98 09/28/18 07:10 09/28/18 07:10 09/28/18 07:10 09/28/18 07:10 09/28/18 07:10 - General well developed, well nourished, no distress - Eyes PERRL - ENT normal pinna - Neck no masses - Respiratory normal expansion - Cardiovascular Rhythm: regular - Abdomen Abdomen: soft, non tender Assessment and Plan Assessment: Right upper quadrant pain Cholelithiasis We'll perform laparoscopic cholecystectomy
[2018-09-28] MEDS ORDERED: fentaNYL (PF) 50 MCG/ML 2 ML AMP ONE (07:55)
[2018-09-28] MEDS ORDERED: LIDOCAINE 1% INJ 10MG/ML (20 ML MDV) ONE (07:55)
[2018-09-28] MEDS ORDERED: ROCURONIUM BROMIDE 10 MG/ML 10 ML VIAL IV ONE (07:55)
[2018-09-28] MEDS ORDERED: GLYCOPYRROLATE 0.2 MG/ML 2 ML VIAL ONE (07:55)
[2018-09-28] MEDS ORDERED: SUCCINYLCHOLINE CHLORIDE 100 MG/5 ML SYR IV ONE (07:55)
[2018-09-28] MEDS ORDERED: PROPOFOL 10 MG/ML 20 ML VIAL IV ONE (07:55)
[2018-09-28] MEDS ORDERED: NEOSTIGMINE 1 MG/ML 10 ML VIAL ONE (07:55)
[2018-09-28] MEDS ORDERED: MIDAZOLAM 2 MG/2 ML VIAL ONE (07:55)
[2018-09-28] MEDS ORDERED: HYDROmorphone (PF) 1 MG/ML ONE (07:55)
[2018-09-28] MEDS ORDERED: BUPIVACAIN-EPI 0.5%-1:200,000 30 ML VIAL SQ ONE (08:23)
[2018-09-28 09:03] VITALS: TEMP 97.8
[2018-09-28] MEDS: HYDROmorphone 0.5 MG/0.5 ML SYRINGE IVP PRN ×2 (09:03→09:10)
--- NOTE | 2018-09-28 09:15 | P.OP ---
Date of Procedure: 09/28/18 Preoperative Diagnosis: Cholecystitis Postoperative Diagnosis: Cholecystitis Procedure(s) Performed: Laparoscopic cholecystectomy Anesthesia: FRANCO Surgeon: Nilesh Linder Estimated Blood Loss (ml): 5 Pathology: other (Gallbladder) Condition: stable Disposition: PACU Description of Procedure: The patient was placed on the operating table. The patient received a general endotracheal tube anesthesia. The patients abdomen was prepped and draped in the usual sterile fashion. Through an infraumbilical stab incision, the fascia of the anterior abdominal wall was grasped with a pair of Kochers and then the Veress needle was placed in the peritoneal cavity. Position of the Veress needle was confirmed with positive drop test. The abdomen was then insufflated. After adequate insufflation, the 10 mm trocar was placed in the peritoneal cavity. Following this the laparoscope was placed in the peritoneal cavity. The patient was placed in the head-up, right side up position and then a 5 mm trocar was placed in the right lateral and right subcostal position under direct visualization. A 8 mm trocar was placed in the epigastric position. The gallbladder was grasped in the fundus and infundibulum. Traction on the gallbladder was placed in the lateral and the cephalad positions. The triangle of Calot was visualized.. The cystic duct was bluntly dissected until the union of the cystic duct and common bile duct was seen. A critical view of safety was achieved. The cystic duct was then divided and sealed with the Harmonic scissors. A PDS Endoloop was then placed throughout the cystic duct stump. The cystic artery divided and sealed with the Harmonic scissors. The gallbladder was then removed from the liver bed using Harmonic scissors. The gallbladder was then extracted through the epigastric port site. Operative field was checked for any bleeding spots and Harmonic scissors was used to coagulate the liver bed. The abdomen was irrigated. The trocars were removed. The skin was closed using interrupted 3-0 Vicryl suture. Dermabond dressing were applied. The patient tolerated the procedure well.
[2018-09-28] MEDS ORDERED: HYDROcodone/APAP 7.5-325MG 1 EACH TAB PO ONE (10:09)
[2018-09-28 10:58] VITALS: BP 142/74; PULSE 66
== END 2018-09-28 11:09 | disposition home or self-care (01) ==
LOC: OR 06:45
PROVIDERS: ATTEND Surgery
DX: K81.1 Chronic cholecystitis (principal); I10 Essential (primary) hypertension; Z87.891 Personal history of nicotine dependence; Z87.19 Personal history of other diseases of the digestive system; Z85.118 Personal history of other malignant neoplasm of bronchus and lung; Z79.899 Other long term (current) drug therapy
CPT/HCPCS: 88304; 47562; J2250; J1644; J1100; J2710; J2405; J2001; J3010; J1170 ×2; J0330; J2704; J0690

== ENCOUNTER → 2019-01-19 | Outpatient (CLI) | payer MEDICARE, OTHER ==
--- NOTE | 2019-01-19 11:01 | ECHOF ---
Referral Reason:R94.31 ABN EKG MEASUREMENTS -------- HEIGHT: 170.2 cm WEIGHT: 90.7 kg BP: IVSd: 1.1 cm (0.6 - 1.1) LVIDd: 3.6 cm (3.9 - 5.3) LVPWd: 1.2 cm (0.6 - 1.1) IVSs: 1.3 cm LVIDs: 2.7 cm LVPWs: 1.4 cm LAESV Index (A-L): 25.00 ml/m MV EXCURSION: 22.646 mm (> 18.000) MV EF SLOPE: 119 mm/s (70 - 150) EPSS: 0.8 cm MV E Ezra: 0.82 m/s MV DecT: 239 ms MV A Ezra: 1.49 m/s MV E/A Ratio: 0.55 RAP: 5.00 mmHg RVSP: 16.18 mmHg FINDINGS -------- Sinus rhythm. This was a technically adequate study. LV size, wall thickness and systolic function are normal, with an EF greater than 55%. The left yusra tricular size is normal. The right ventricle is normal in size. The left atrial size is normal. Normal LA size by volume 22+/-6 ml/m2. The right atrial size is normal. The aortic valve is trileaflet, and appears structurally normal. No aortic stenosis or regurgitation. Moderate mitral annular calcification present. No mitral regurgitation. The peak and mean MV gra dients are 10.69mmHg 3.93mmHg as measured by doppler. Mild tricuspid regurgitation present. There is no evidence of pulmonary hypertension. The right v entricular systolic pressure, as measured by Doppler, is 16.18mmHg. There is no pulmonic regurgitation present. The aortic root size is normal. There is no pericardial effusion. CONCLUSIONS -------- 1. Sinus rhythm. 2. This was a technically adequate study. 3. LV size, wall thickness and systolic function are normal, with an EF greater than 55%. 4. The left ventricular size is normal. 5. The right ventricle is normal in size. 6. The left atrial size is normal. 7. Normal LA size by volume 22+/-6 ml/m2. 8. The right atrial size is normal. 9. The aortic valve is trileaflet, and appears structurally normal. No aortic stenosis or regurgitati on. 10. Moderate mitral annular calcification present. 11. No mitral regurgitation. 12. The peak and mean MV gradients are 10.69mmHg 3.93mmHg as measured by doppler. 13. Mild tricuspid regurgitation present. 14. There is no evidence of pulmonary hypertension. 15. The right ventricular systolic pressure, as measured by Doppler, is 16.18mmHg. 16. There is no pulmonic regurgitation present. 17. The aortic root size is normal. 18. There is no pericardial effusion. [employer]CH[employer]ISE EXECUTION LEADER: Marley Hyman RDCS
== END | disposition home or self-care (01) ==
LOC: RADECHMAIN 08:37
PROVIDERS: ATTEND Family Medicine
DX: I08.1 Rheumatic disorders of both mitral and tricuspid valves (principal)
CPT/HCPCS: 93306

== ENCOUNTER 2019-07-13 12:36 | Emergency (ER) | payer MEDICARE ==
--- NOTE | 2019-07-13 12:17 | XR ---
EXAMINATION TYPE: XR shoulder complete LT DATE OF EXAM: 07/13/2019 CLINICAL HISTORY: Fall with left shoulder pain TECHNIQUE: 4 views of the left shoulder are obtained. COMPARISON: None. FINDINGS: There is a proximal left humeral neck comminuted fracture with maximal impaction of 1.2 cm medially and distraction 1.0 cm laterally. Displacement of some comminuted fragments up to 1.7 cm lat erally. No dislocation is seen of the left shoulder. Mild acromioclavicular arthropathy is identified . The glenoid is slightly irregular but favored to be arthropathy rather than fracture. IMPRESSION: Acute comminuted, medially impacted, displaced, and laterally distracted left proximal hu meral neck fracture. A [place] level critical message alert has been initiated for Jignesh Pérez DO via the [employer] Critical Results System on 07/13/2019 12:14 PM. This message alert has been sent to Jignesh gonzalez DO via the preferences provided by the clinician for the receipt of Radiology Critical Findings . Message ID [id number].
[2019-07-13 13:03] VITALS: BP 125/74; PULSE 111; RESP 20; TEMP 99
[2019-07-13] MEDS ORDERED: ACET/COD 300 MG/30 MG STARTER PACK 6 TAB BTL PO STA (13:46)
--- NOTE | 2019-07-13 13:48 | ED ---
Fall HPI - General Chief Complaint: Fall Stated Complaint: Fall,humerus injury Time Seen by Provider: 07/13/19 13:36 Source: patient, RN notes reviewed Mode of arrival: ambulatory Limitations: no limitations - History of Present Illness Initial Comments: 63-year-old male presents emergency Department chief complaint of left shoulder pain. Patient states that he had an injury on Friday when he fell into the corner of the wall. Patient states that he's had pain which is exacerbated by any movement. Denies any paresthesias no head injury no other muscular skeletal injury. Patient was sent from outpatient x-ray for fracture. Patient is right- hand dominant. Patient offers no other complaints. - Related Data Home Medications Medication Instructions Recorded Confirmed Ibuprofen [Motrin] 600 mg PO Q6H PRN 10/29/14 09/28/18 Vit C/E/Zn/Coppr/Lutein/Zeaxan 1 cap PO BID 08/15/18 09/28/18 [Preservision Areds 2 Softgel] Atenolol 25 mg PO QAM 09/24/18 09/28/18 Previous Rx's Medication Instructions Recorded Folic Acid 1 mg PO DAILY #30 tablet 08/20/18 Multivitamins, Thera [Multivitamin 1 each PO DAILY@1200 #30 tab 08/20/18 (formulary)] Thiamine [Vitamin B-1] 100 mg PO BID@1200,1700 #30 tab 08/20/18 Docusate [Colace] 100 mg PO BID #20 capsule 09/28/18 HYDROcodone/APAP 7.5-325MG [[place] 1 tab PO Q6HR PRN 3 Days #10 tab 09/28/18 7.5-325] Allergies Allergy/AdvReac Type Severity Reaction Status Date / Time No Known Allergies Allergy Verified 07/13/19 13:03 Review of Systems ROS Statement: Those systems with pertinent positive or pertinent negative responses have been documented in the HPI. ROS Other: All systems not noted in ROS Statement are negative. Past Medical History Past Medical History: Eye Disorder, GI Bleed, Hypertension Additional Past Medical History / Comment(s): past hx diverticulitis, right eye dry macular degeneration, left eye wet macular degeneration. History of Any Multi-Drug Resistant Organisms: None Reported Past Surgical History: Hernia Repair Additional Past Surgical History / Comment(s): PICC line in, now removed, hernia repair, colonoscopy Past Anesthesia/Blood Transfusion Reactions: No Reported Reaction Additional Past Anesthesia/Blood Transfusion Reaction / Comment(s): 4 UNITS OF PRBC 10/2014, NO REACTION Past Psychological History: No Psychological Hx Reported Smoking Status: Former smoker Past Alcohol Use History: Abuse Past Drug Use History: Marijuana - Past Family History Mother Additional Family Medical History / Comment(s): brain anuerysm Father Family Medical History: Cancer Additional Family Medical History / Comment(s): lung General Exam Limitations: no limitations General appearance: alert, in no apparent distress Neck exam: Present: normal inspection, full ROM. Absent: tenderness, meningismus, lymphadenopathy Respiratory exam: Present: normal lung sounds bilaterally. Absent: respiratory distress, wheezes, rales, rhonchi, stridor Cardiovascular Exam: Present: regular rate, normal rhythm, normal heart sounds. Absent: systolic murmur, diastolic murmur, rubs, gallop, clicks Extremities exam: Present: other (Left shoulder there is moderate discomfort palpation, moderate swelling on was neurovascular intact limited range of motion no tenderness of the clavicle.) Course Vital Signs 07/13/19 13:00 Temperature 99.0 F Pulse Rate 111 H Respiratory 20 Rate Blood Pressure 125/74 O2 Sat by Pulse 99 Oximetry Medical Decision Making - Medical Decision Making X-ray reviewed shows displaced proximal humerus fracture. Patient was placed in a single follow-up with orthopedics is neurovascularly intact. Disposition Clinical Impression: Closed fracture of left proximal humerus Disposition: HOME SELF-CARE Condition: Stable Instructions (If sedation given, give patient instructions): Proximal Humerus Fracture (ED) Additional Instructions: Please return to the Emergency Department if symptoms worsen or any other concerns. Is patient prescribed a controlled substance at d/c from ED?: No Referrals: Jignesh Pérez DO [Primary Care Provider] - 1-2 days John Adams MD [STAFF PHYSICIAN] - 1-2 days Time of Disposition: 13:47
== END 2019-07-13 13:55 | disposition home or self-care (01) ==
LOC: EC 12:36
DX: S42.292A Other displaced fracture of upper end of left humerus, initial encounter for closed fracture (principal); F10.10 Alcohol abuse, uncomplicated; H35.30 Unspecified macular degeneration; I10 Essential (primary) hypertension; Z79.899 Other long term (current) drug therapy; Z87.19 Personal history of other diseases of the digestive system; Z87.891 Personal history of nicotine dependence; W22.01XA Walked into wall, initial encounter; Y92.009 Unspecified place in unspecified non-institutional (private) residence as the place of occurrence of the external cause
CPT/HCPCS: 99283

== ENCOUNTER 2019-09-03 15:26 | Emergency (ER) | payer MEDICARE ==
[2019-09-03 15:48] VITALS: TEMP 99.3
--- NOTE | 2019-09-03 16:25 | ED ---
General Adult HPI - General Chief complaint: Recheck/Abnormal Lab/Rx Stated complaint: Withdrawal Time Seen by Provider: 09/03/19 16:02 Source: patient Mode of arrival: wheelchair Limitations: altered mental status, physical limitation - History of Present Illness Initial comments: Dictation was produced using [employer] dictation software. please excuse any grammatical, word or spelling errors. This patient was cared for during a federal and state declared state of emergency secondary to Covid 19 Chief Complaint: 63-year-old male past medical history of chronic alcohol abuse, hypertension presents with fatigue History of Present Illness: 63-year-old male. Patient states he is a daily drinker. He abruptly stopped her alcohol proximally 4 days ago. Over the last 48 hours patient has been feeling fatigued and lethargic. Patient states he's having difficulty walking as well. Patient states he is a daily drinker for several years. Patient denies any pain complaints. Denies any shortness of breath. No nausea or vomiting. Patient states he just does not feel well. He is accompanied by daughter who reports that patient had similar episode like this before. They plan on having patient admitted to a alcohol rehab facility in the near future. Daughter reports last time he tried to stop drinking alcohol and he went to be evaluated in the phone multiple medical problems. The ROS documented in this emergency department record has been reviewed and confirmed by me. Those systems with pertinent positive or negative responses have been documented in the HPI. All other systems are other negative and/or noncontributory. PHYSICAL EXAM: General Impression: Alert and oriented x3, not in acute distress HEENT: Normocephalic atraumatic, extra-ocular movements intact, pupils equal and reactive to light bilaterally, mucous membranes moist. Cardiovascular: Heart regular rate and rhythm Chest: Able to complete full sentences, no retractions, no tachypnea Abdomen: Bowel sounds present, abdomen soft, non-tender, non-distended, no organomegaly Musculoskeletal: Pulses present and equal in all extremities, no peripheral edema Motor: no focal deficits noted Neurological: CN II-XII grossly intact, no focal motor or sensory deficits noted, slow broad-based gait, positive gait ataxia Skin: Intact with no visualized rashes Psych: Normal affect and mood ED course: 63-year-old daily alcohol drinker who suddenly stopped some alcohol or days ago presents with fatigue. Vital signs upon arrival shows low-grade temperature of 99.3, heart rate of 104, rest of vital signs within acceptable limits. Physical examination shows well- appearing male. Laboratory evaluation obtained. Patient has MCV 103.8. Metabolic panel is unremarkable. Urinalysis is negative. Chest x-ray is nonacute. Computed tomography scan of the brain shows subdural hematoma with mixed acute or subacute. Is 1.3 cm thick along the right lateral convexity. There is some mass effect with 7 mm leftward midline shift and mild subfalcine herniation. Labs and imaging studies were discussed in detail with patient and family member. Patient be transferred to [facility] for neurosurgical evaluation and treatment. Discussed patient case with Dr. Kaba and Marisa Carmona who is willing to accept ER to ER transfer. Patient is reevaluated at bedside. He states he feels well. No indication for any aggressive interventions at this ti me considering patient's well-appearing. Patient blood pressure was reevaluated found to be within acceptable limits. She for gross blood pressure treatment at this time. More history was obtained from patient and family member. Patient is alcoholic. He does not recall ever falling. However daughter reports that he did suffer a fall 6 weeks ago. EKG interpretation: Ventricular rate 113, sinus tachycardia,. Interval 124, QRS 80, QTC 452. No NM prolongation, no QTC prolongation, no ST or T-wave changes noted. Sinus arrhythmia. Overall, this EKG is unremarkable - Related Data Home Medications Medication Instructions Recorded Confirmed Ibuprofen [Motrin] 600 mg PO Q6H PRN 10/29/14 09/28/18 Vit C/E/Zn/Coppr/Lutein/Zeaxan 1 cap PO BID 08/15/18 09/28/18 [Preservision Areds 2 Softgel] Atenolol 25 mg PO QAM 09/24/18 09/28/18 Previous Rx's Medication Instructions Recorded Folic Acid 1 mg PO DAILY #30 tablet 08/20/18 Multivitamins, Thera [Multivitamin 1 each PO DAILY@1200 #30 tab 08/20/18 (formulary)] Thiamine [Vitamin B-1] 100 mg PO BID@1200,1700 #30 tab 08/20/18 Docusate [Colace] 100 mg PO BID #20 capsule 09/28/18 HYDROcodone/APAP 7.5-325MG [[place] 1 tab PO Q6HR PRN 3 Days #10 tab 09/28/18 7.5-325] Allergies Allergy/AdvReac Type Severity Reaction Status Date / Time No Known Allergies Allergy Verified 09/03/19 15:48 Review of Systems ROS Statement: Those systems with pertinent positive or pertinent negative responses have been documented in the HPI. ROS Other: All systems not noted in ROS Statement are negative. Past Medical History Past Medical History: Eye Disorder, GI Bleed, Hypertension Additional Past Medical History / Comment(s): past hx diverticulitis, right eye dry macular degeneration, left eye wet macular degeneration. alcholism History of Any Multi-Drug Resistant Organisms: None Reported Past Surgical History: Hernia Repair Additional Past Surgical History / Comment(s): PICC line in, now removed, hernia repair, colonoscopy Past Anesthesia/Blood Transfusion Reactions: No Reported Reaction Additional Past Anesthesia/Blood Transfusion Reaction / Comment(s): 4 UNITS OF PRBC 10/2014, NO REACTION Past Psychological History: No Psychological Hx Reported Smoking Status: Former smoker Past Alcohol Use History: Abuse, Daily Past Drug Use History: Marijuana - Past Family History Mother Additional Family Medical History / Comment(s): brain anuerysm Father Family Medical History: Cancer Additional Family Medical History / Comment(s): lung General Exam Limitations: altered mental status, physical limitation Course Vital Signs 09/03/19 09/03/19 15:45 17:35 Temperature 99.3 F Pulse Rate 104 H 90 Respiratory 18 16 Rate Blood Pressure 144/94 135/90 O2 Sat by Pulse 99 98 Oximetry Medical Decision Making - Lab Data Result diagrams: 09/03/19 16:35 09/03/19 16:35 Lab Results 09/03/19 09/03/19 09/03/19 Range/Units 16:35 16:35 16:40 WBC 5.9 (3.8-10.6) k/uL RBC 3.49 L (4.30-5.90) m/uL Hgb 12.5 L (13.0-17.5) gm/dL Hct 36.2 L (39.0-53.0) % MCV 103.8 H (80.0-100.0) fL MCH 35.7 H (25.0-35.0) pg MCHC 34.4 (31.0-37.0) g/dL RDW 12.5 (11.5-15.5) % Plt Count 234 (150-450) k/uL Neutrophils % 75 % Lymphocytes % 15 % Monocytes % 6 % Eosinophils % 2 % Basophils % 1 % Neutrophils # 4.4 (1.3-7.7) k/uL Lymphocytes # 0.9 L (1.0-4.8) k/uL Monocytes # 0.3 (0-1.0) k/uL Eosinophils # 0.1 (0-0.7) k/uL Basophils # 0.1 (0-0.2) k/uL Macrocytosis Slight Sodium 134 L (137-145) mmol/L Potassium 3.6 (3.5-5.1) mmol/L Chloride 100 (98-107) mmol/L Carbon Dioxide 25 (22-30) mmol/L Anion Gap 9 mmol/L BUN 27 H (9-20) mg/dL Creatinine 1.14 (0.66-1.25) mg/dL Est GFR (CKD-EPI)AfAm 78 (>60 ml/min/1.73 sqM) Est GFR (CKD-EPI)NonAf 68 (>60 ml/min/1.73 sqM) Glucose 121 H (74-99) mg/dL Calcium 9.0 (8.4-10.2) mg/dL Magnesium 2.1 (1.6-2.3) mg/dL Urine Color Yellow Urine Appearance Clear (Clear) Urine pH 5.5 (5.0-8.0) Ur Specific [place] 1.019 (1.001-1.035) Urine Protein Trace H (Negative) Urine Glucose (UA) Negative (Negative) Urine Ketones Negative (Negative) Urine Blood Negative (Negative) Urine Nitrite Negative (Negative) Urine Bilirubin Negative (Negative) Urine Urobilinogen 2.0 (<2.0) mg/dL Ur Leukocyte Esterase Negative (Negative) Disposition Clinical Impression: Subdural hematoma Disposition: OTHER INSTITUTION NOT DEFINED Condition: Critical Referrals: Jignesh Pérez DO [Primary Care Provider] - 1-2 days Time of Disposition: 17:59 - Out of Hospital Transfer - Req. Specs Out of Hospital Transfer - Requested Specifics: Other Emergency Center ([facility]
[2019-09-03 16:46] LABS: Basophils # (A) 0.1 k/uL (0-0.2); Basophils % (A) 1 %; Eosinophils # (A) 0.1 k/uL (0-0.7); Eosinophils % (A) 2 %; HCT 36.2 % (39.0-53.0); HGB 12.5 gm/dL (13.0-17.5); Lymphocytes # (A) 0.9 k/uL (1.0-4.8); Lymphocytes % (A) 15 %; MCH 35.7 pg (25.0-35.0); MCHC 34.4 g/dL (31.0-37.0); MCV 103.8 fL (80.0-100.0); Macrocytosis Slight; Mean Platelet Volume 7.5; Monocytes # (A) 0.3 k/uL (0-1.0); Monocytes % (A) 6 %; Neutrophils # (A) 4.4 k/uL (1.3-7.7); Neutrophils % (A) 75 %; Platelet Count 234 k/uL (150-450); RBC 3.49 m/uL (4.30-5.90); RDW 12.5 % (11.5-15.5); WBC 5.9 k/uL (3.8-10.6)
[2019-09-03 16:53] LABS: Appearance,Urine Clear (Clear); Bilirubin,Urine Negative (Negative); Blood,Urine Negative (Negative); Color,Urine Yellow; Glucose,Urine (UA) Negative (Negative); Ketones,Urine Negative (Negative); Leukocyte Esterase,Urine Negative (Negative); Nitrite,Urine Negative (Negative); PH, Urine 5.5 (5.0-8.0); Protein,Urine Trace (Negative); Specific Gravity,Urine 1.019 (1.001-1.035)
[2019-09-03 16:55] LABS: Magnesium 2.1 mg/dL (1.6-2.3); Potassium 3.6 mmol/L (3.5-5.1)
--- NOTE | 2019-09-03 17:05 | XR ---
EXAMINATION TYPE: XR chest 2V DATE OF EXAM: 09/03/2019 COMPARISON: 08/15/2018 HISTORY: 63-year-old male with headache and fatigue TECHNIQUE: PA and lateral views FINDINGS: The cardiomediastinal silhouette, aorta, and pulmonary vasculature are within normal limits. Hyperinf lation. Band of atelectasis posteriorly at the base. Otherwise, lungs and pleural spaces are clear. IMPRESSION: Possible underlying COPD. Clinically correlate. Otherwise, no acute process seen.
--- NOTE | 2019-09-03 17:11 | CT ---
EXAMINATION TYPE: CT brain wo con DATE OF EXAM: 09/03/2019 COMPARISON: None HISTORY: 63-year-old male Unsteady gait, MOTA TECHNIQUE: Examination was done in axial plane without intravenous contrast. Coronal and sagittal r econstructions performed. CT DLP: 1072.4 mGycm Automated exposure control for dose reduction was used. FINDINGS: There is a 1.3 cm thick subacute subdural hematoma on the right lateral convexity extending from fron t to back and containing focal areas of acute, hyperdense blood located within the subdural hematoma. Associated mass effect onto the right cerebral hemisphere with sulcal effacement, 7 mm of leftward m idline shift, and mild subfalcine herniation. Slight asymmetric flattening of the right lateral ventricle. Atherosclerotic calcifications within th e carotid siphons. Moderate patchy and confluent white matter hypodensities particularly in the left cerebral hemisphere. No effacement of basal subarachnoid cisterns. Paranasal sinuses and mastoid air cells are well pneumatized. Orbits and globes are intact. IMPRESSION: 1. Mixed acute and subacute 1.3 cm thick subdural hematoma along the right lateral convexity. 2. There is associated mass effect onto the right cerebellar hemisphere with 7 mm of leftward midline shift and mild subfalcine herniation. 3. Moderate patchy and confluent changes of chronic small vessel ischemic disease, particularly on th e left. Findings called to the ER and given to Dr. Stearns at 5:08 PM.
[2019-09-03 17:36] VITALS: RESP 16
[2019-09-03] MEDS ORDERED: THIAMINE 100 MG/ML 2 ML VIAL IM STA (17:53)
[2019-09-03 17:55] LABS: INR 0.9 (<1.2); Prothrombin Time 9.8 sec (9.0-12.0)
[2019-09-03 18:00] LABS: Partial Thromboplastin Time 21.1 sec (22.0-30.0)
[2019-09-03 18:50] VITALS: BP 133/90; PULSE 88
== END 2019-09-03 18:50 | disposition other institution (70) ==
LOC: EC 15:26
DX: I62.00 Nontraumatic subdural hemorrhage, unspecified (principal); F10.10 Alcohol abuse, uncomplicated; G93.89 Other specified disorders of brain; R50.9 Fever, unspecified; R00.0 Tachycardia, unspecified; I10 Essential (primary) hypertension; Z87.891 Personal history of nicotine dependence
CPT/HCPCS: 36415; 70450; 71046; 80048; 81003; 83735; 85025; 85610; 85730; 93005; 99285

== ENCOUNTER 2019-12-05 13:33 | Observation (INO) | payer MEDICARE ==
[2019-12-05 14:22] LABS: Basophils # (A) 0.1 k/uL (0-0.2); Basophils % (A) 1 %; Eosinophils # (A) 0.1 k/uL (0-0.7); Eosinophils % (A) 2 %; HCT 44.6 % (39.0-53.0); HGB 14.9 gm/dL (13.0-17.5); Lymphocytes # (A) 3.3 k/uL (1.0-4.8); Lymphocytes % (A) 45 %; MCH 32.9 pg (25.0-35.0); MCHC 33.4 g/dL (31.0-37.0); MCV 98.6 fL (80.0-100.0); Mean Platelet Volume 7.2; Monocytes # (A) 0.2 k/uL (0-1.0); Monocytes % (A) 3 %; Neutrophils # (A) 3.4 k/uL (1.3-7.7); Neutrophils % (A) 46 %; Platelet Count 215 k/uL (150-450); RBC 4.53 m/uL (4.30-5.90); RDW 12.6 % (11.5-15.5); WBC 7.4 k/uL (3.8-10.6)
--- NOTE | 2019-12-05 14:26 | ED ---
Alcohol HPI - General Chief Complaint: Alcohol Stated Complaint: ETOH/fall Time Seen by Provider: 12/05/19 13:44 Source: patient, EMS Mode of arrival: EMS Limitations: altered mental status - History of Present Illness Initial Comments: Patient is a 63-year-old male presenting to the emergency department via EMS with complaints of intoxication as well as a fall. Patient's daughter called EMS because she noticed that patient was extremely drunk and had abrasions to his face that were not there this morning. Patient admits to being intoxicated. He will not to give us an amount that he drank today. Patient states his nose is bothering him. He denies any abdominal pain or lower extremity pain. He is not sure if he lost consciousness. He denies any nausea or vomiting at this time. He denies any blood thinners. He has no further complaints. Upon arrival to the ER, his vitals are stable. - Related Data Home Medications Medication Instructions Recorded Confirmed Ibuprofen [Motrin] 600 mg PO Q6H PRN 10/29/14 09/28/18 Vit C/E/Zn/Coppr/Lutein/Zeaxan 1 cap PO BID 08/15/18 09/28/18 [Preservision Areds 2 Softgel] Atenolol 25 mg PO QAM 09/24/18 09/28/18 Previous Rx's Medication Instructions Recorded Folic Acid 1 mg PO DAILY #30 tablet 08/20/18 Multivitamins, Thera [Multivitamin 1 each PO DAILY@1200 #30 tab 08/20/18 (formulary)] Thiamine [Vitamin B-1] 100 mg PO BID@1200,1700 #30 tab 08/20/18 Docusate [Colace] 100 mg PO BID #20 capsule 09/28/18 HYDROcodone/APAP 7.5-325MG [[place] 1 tab PO Q6HR PRN 3 Days #10 tab 09/28/18 7.5-325] Allergies Allergy/AdvReac Type Severity Reaction Status Date / Time No Known Allergies Allergy Verified 09/03/19 15:48 Review of Systems ROS Statement: Those systems with pertinent positive or pertinent negative responses have been documented in the HPI. ROS Other: All systems not noted in ROS Statement are negative. Past Medical History Past Medical History: Eye Disorder, GI Bleed, Hypertension Additional Past Medical History / Comment(s): past hx diverticulitis, right eye dry macular degeneration, left eye wet macular degeneration. alcholism History of Any Multi-Drug Resistant Organisms: None Reported Past Surgical History: Hernia Repair Additional Past Surgical History / Comment(s): PICC line in, now removed, hernia repair, colonoscopy Past Anesthesia/Blood Transfusion Reactions: No Reported Reaction Additional Past Anesthesia/Blood Transfusion Reaction / Comment(s): 4 UNITS OF PRBC 10/2014, NO REACTION Past Psychological History: No Psychological Hx Reported Smoking Status: Never smoker Past Alcohol Use History: Abuse, Daily Past Drug Use History: Marijuana - Past Family History Mother Additional Family Medical History / Comment(s): brain anuerysm Father Family Medical History: Cancer Additional Family Medical History / Comment(s): lung General Exam - General Exam Comments Initial Comments: GENERAL: Patient appears to be intoxicated, strong alcohol smell, disheveled appearance. HEAD: Atraumatic, normocephalic. No hematoma seen, no signs of basal skull fracture. EYES: Pupils equal round and reactive to light, extraocular movements intact, sclera anicteric, conjunctiva are normal. Eyelids were unremarkable. ENT: TMs normal, nares patent, oropharynx clear without exudates. Moist mucous membranes. Patient has abrasion to nasal bone as well as pain with palpation. Is no septal hematoma. NECK: Normal range of motion, supple without lymphadenopathy or JVD. No midline tenderness. LUNGS: Unlabored respirations. Breath sounds clear to auscultation bilaterally and e qual. No wheezes rales or rhonchi. HEART: Regular rate and rhythm without murmurs, rubs or gallops. ABDOMEN: Soft, nontender, normoactive bowel sounds. No guarding, no rebound. No masses appreciated. : Deferred MUSCULOSKELETAL: Normal extremities with adequate strength and normal range of motion, no pitting or edema. No clubbing or cyanosis. NEUROLOGICAL: Patient is alert and oriented x 3. Motor and sensory are also intact. Cranial nerves II through XII grossly intact. Symmetrical smile. PSYCH: Patient is intoxicated. SKIN: Warm, Dry, normal turgor, no rashes or lesions noted. Limitations: altered mental status Course Vital Signs 12/05/19 12/05/19 12/05/19 13:35 13:41 14:41 Temperature 97 F L Pulse Rate 104 H 100 Respiratory 18 18 18 Rate Blood Pressure 150/94 140/92 O2 Sat by Pulse 97 98 Oximetry Medical Decision Making - Medical Decision Making Patient is 63-year-old male here for alcohol intoxication as well as a fall. Patient's daughter states he has abrasions on his face that were not there this morning. Signs are stable upon arrival. Patient does appear to be intoxicated, smells strongly of alcohol. Patient does have pain with palpation of his nasal bone as well as an abrasion. Did arrive in a c-collar. CT of the brain, C- spine, facial bones revealed no acute process, no acute fractures. Patient's serum alcohol was 357, no other acute findings and lab work. I did contact patient's a daughter who is also emergency contact and daughter stated that she is not willing to come get the patient and he is not welcome to stay at her house anymore. Patient will be admitted for alcohol intoxication. Patient was accepted by Dr. Shen. Case discussed with Dr. allison. - Lab Data Result diagrams: 12/05/19 14:07 12/05/19 14:07 Lab Results 12/05/19 12/05/19 Range/Units 14:07 14:07 WBC 7.4 (3.8-10.6) k/uL RBC 4.53 (4.30-5.90) m/uL Hgb 14.9 (13.0-17.5) gm/dL Hct 44.6 (39.0-53.0) % MCV 98.6 (80.0-100.0) fL MCH 32.9 (25.0-35.0) pg MCHC 33.4 (31.0-37.0) g/dL RDW 12.6 (11.5-15.5) % Plt Count 215 (150-450) k/uL Neutrophils % 46 % Lymphocytes % 45 % Monocytes % 3 % Eosinophils % 2 % Basophils % 1 % Neutrophils # 3.4 (1.3-7.7) k/uL Lymphocytes # 3.3 (1.0-4.8) k/uL Monocytes # 0.2 (0-1.0) k/uL Eosinophils # 0.1 (0-0.7) k/uL Basophils # 0.1 (0-0.2) k/uL Sodium 146 H (137-145) mmol/L Potassium 4.5 (3.5-5.1) mmol/L Chloride 111 H (98-107) mmol/L Carbon Dioxide 21 L (22-30) mmol/L Anion Gap 14 mmol/L BUN 18 (9-20) mg/dL Creatinine 1.07 (0.66-1.25) mg/dL Est GFR (CKD-EPI)AfAm 85 (>60 ml/min/1.73 sqM) Est GFR (CKD-EPI)NonAf 73 (>60 ml/min/1.73 sqM) Glucose 89 (74-99) mg/dL Calcium 8.7 (8.4-10.2) mg/dL Total Bilirubin 0.4 (0.2-1.3) mg/dL AST 39 (17-59) U/L ALT 29 (4-49) U/L Alkaline Phosphatase 125 (38-126) U/L Total Protein 7.8 (6.3-8.2) g/dL Albumin 4.5 (3.5-5.0) g/dL Serum Alcohol 357 H* mg/dL - EKG Data EKG Comments: EKG shows sinus tachycardia, otherwise a normal ECG, no acute process. Ventricular rate 102, PA of 148, QT 342. Disposition Clinical Impression: Alcoholic intoxication Disposition: ADMITTED IP TO THIS [facility] Condition: Stable Is patient prescribed a controlled substance at d/c from ED?: No Referrals: Jignesh Pérez DO [Primary Care Provider] - 1-2 days Decision Date: 12/05/19 Decision Time: 16:11
[2019-12-05 14:30] LABS: Albumin 4.5 g/dL (3.5-5.0); Calcium 8.7 mg/dL (8.4-10.2); Potassium 4.5 mmol/L (3.5-5.1); Total Bilirubin 0.4 mg/dL (0.2-1.3); Total Protein 7.8 g/dL (6.3-8.2)
--- NOTE | 2019-12-05 15:37 | CT ---
EXAMINATION TYPE: CT brain cspine wo con DATE OF EXAM: 12/05/2019 COMPARISON: CT brain 09/03/2019 HISTORY: fall, intoxicated, facial trauma CT DLP: 1273.5 mGycm Automated exposure control for dose reduction was used. TECHNIQUE: CT scan of the head and cervical spine are performed without contrast. FINDINGS: There is no acute intracranial hemorrhage, mass effect, or midline shift identified. Pat jairo periventricular white matter hypodensities redemonstrated, most likely sequela of chronic microva scular disease. Old lacunar infarcts in the bilateral basal ganglia. The ventricles and sulci are wit hin normal limits in size. No extra-axial fluid collections. The globes are intact and the mastoid a ir cells are clear. Mild mucosal thickening of the maxillary sinuses. Cervical spine is visualized in its entirety from C1 through upper thoracic levels and demonstrates s atisfactory alignment without evidence of acute fracture or subluxation. Prevertebral soft tissue ap pears within normal limits. The C1-C2 articulation is unremarkable. Multilevel degenerative changes with varying degrees of neural foramina and canal stenosis, worst at C4-5. No severe canal stenosis. IMPRESSION: 1. There is no acute fracture or dislocation evident in the cervical spine. 2. No acute intracranial hemorrhage, mass effect, or midline shift is seen. 3. Marked chronic microvascular ischemic changes redemonstrated.
--- NOTE | 2019-12-05 15:41 | CT ---
EXAMINATION TYPE: CT facial bones wo con DATE OF EXAM: 12/05/2019 COMPARISON: CT brain 09/03/2019. HISTORY: fall, intoxicated, facial trauma CT DLP: 817.6 mGycm Automated exposure control for dose reduction was used. TECHNIQUE: CT scan of the sinuses is performed without contrast, axial images are obtained, coronal r eformatted images are also reviewed. FINDINGS: No acute fracture of the facial bones. Paranasal sinuses demonstrate mild mucosal thickening of the bilateral maxillary sinuses. The ostiome atal complex is patent bilaterally on the coronal images. Visualized portion of mastoid air cells show no abnormal opacification. Soft tissue density in the r ight external auditory canal likely cerumen. The globes are symmetric bilaterally. IMPRESSION: No evidence of facial bone fracture.
[2019-12-05] MEDS ORDERED: ONDANSETRON 4 MG/2 ML VIAL IVP PRN (16:14)
[2019-12-05] MEDS ORDERED: ACETAMINOPHEN TAB 325 MG TAB PO PRN (16:14)
[2019-12-05] MEDS ORDERED: NALOXONE 0.4 MG/ML 1 ML VIAL IV PRN (16:14)
[2019-12-05] MEDS ORDERED: KETOROLAC 30 MG/ML 1 ML VIAL IVP PRN (16:14)
--- NOTE | 2019-12-06 01:15 | P.HPIM ---
History of Present Illness H&P Date: 12/05/19 Chief Complaint: Acute alcohol intoxication Patient is a 63-year-old male with a known history of hypertension, GI bleed and daily alcohol abuse presents to ER with alcohol intoxication. Patient's daughter called EMS because she noticed that the patient is extremely drunk and had abrasions on his face that were not there this morning. Patient denied any loss of consciousness. Patient admits that he has been drinking more. Denied any complaints of abdominal pain. No nausea vomiting or diarrhea. No fever no chills. No chest pain or shortness of the. Laboratory showed sodium 146, potassium 4.5, chloride 111 and bicarb is 21 Alcohol level is 357 WBC 7.4, hemoglobin 14.9 and platelets 215 Review of Systems Constitutional: Patient denies any fever or chills . No generalized weakness or weight loss. Abdomen: Patient denied nausea vomiting and diarrhea and abdominal pain. Cardiovascular: Patient denies any chest pain or short of breath no palpitations. Respiratory: patient denied any cough is from production. No shortness of breath Neurologic: Patient denied any numbness or tingling headache. Musculoskeletal: Patient denies any complaints of joint swelling or deformity. Skin: Negative Psychiatric: Negative Endocrine: No heat or cold intolerance. No recent weight gain. Genitourinary: No dysuria or hematuria. All other 14 point ROS negative except the above Past Medical History Past Medical History: Eye Disorder, GI Bleed, Hypertension Additional Past Medical History / Comment(s): past hx diverticulitis, right eye dry macular degeneration, left eye wet macular degeneration. alcholism History of Any Multi-Drug Resistant Organisms: None Reported Past Surgical History: Hernia Repair Additional Past Surgical History / Comment(s): PICC line in, now removed, hernia repair, colonoscopy Past Anesthesia/Blood Transfusion Reactions: No Reported Reaction Additional Past Anesthesia/Blood Transfusion Reaction / Comment(s): 4 UNITS OF PRBC 10/2014, NO REACTION Past Psychological History: No Psychological Hx Reported Smoking Status: Never smoker Past Alcohol Use History: Abuse, Daily Past Drug Use History: Marijuana - Past Family History Mother Additional Family Medical History / Comment(s): brain anuerysm Father Family Medical History: Cancer Additional Family Medical History / Comment(s): lung Medications and Allergies Home Medications Medication Instructions Recorded Confirmed Type No Known Home Medications 07/19/20 07/19/20 History Allergies Allergy/AdvReac Type Severity Reaction Status Date / Time No Known Allergies Allergy Verified 12/05/19 17:28 Physical Exam Vitals: Vital Signs Temp Pulse Resp BP Pulse Ox 12/05/19 14:41 100 18 140/92 98 12/05/19 13:41 18 12/05/19 13:35 97 F L 104 H 18 150/94 97 Intake and Output 12/05/19 12/05/19 12/05/19 06:59 14:59 22:59 Other: Weight 77.111 kg PHYSICAL EXAMINATION: Patient is lying in the bed comfortably, no acute distress, awake alert and oriented.. HEENT: Normocephalic. Neck is supple. Pupils reactive. Nostrils clear. Oral cavity is moist. Ears reveal no drainage. Neck reveals no JVD, carotid bruits, or thyromegaly. CHEST EXAMINATION: Trachea is central. Symmetrical expansion. Lung albert clear to auscultation and percussion. CARDIAC: Normal S1, S2 with no gallops. No murmurs ABDOMEN: Soft. Bowel sounds normal. No organomegaly. No abdominal bruits. Extremities: reveal no edema. No clubbing or cyanosis Neurologically awake, alert, oriented x3 with well-coordinated movements. No focal deficits noted Skin: No rash or skin lesions. Psychiatric: Coperative. Nonsuicidal Musculoskeletal: No joint swelling or deformity. Normal range of motion. Results CBC & Chem 7: 12/05/19 14:07 12/05/19 14:07 Labs: Abnormal Lab Results - Last 24 Hours (Table) 12/05/19 Range/Units 14:07 Sodium 146 H (137-145) mmol/L Chloride 111 H (98-107) mmol/L Carbon Dioxide 21 L (22-30) mmol/L Serum Alcohol 357 H* mg/dL Thrombosis Risk Factor Assmnt - DVT/VTE Prophylaxis DVT/VTE Prophylaxis: Pharmacologic Prophylaxis ordered Assessment and Plan Assessment: Acute alcohol intoxication Mild hyponatremia secondary to dehydration volume depletion Metabolic acidosis secondary to EtOH Hypertension uncontrolled History of GI bleed History of diverticulitis Severe alcohol abuse History of left eye macular degeneration DVT prophylaxis with heparin subcu Plan: Patient will be continued on IV hydration thiamine and multivitamins. Continue with PPI and monitor for withdrawal symptoms. Further recommendations based on clinical course. Alcohol abstinence has been counseled extensively. Time with Patient: Greater than 30
[2019-12-06] MEDS: LABETALOL 100 MG TAB PO SCH ×2 (01:26→07:14)
[2019-12-06] MEDS: SODIUM CHLORIDE 0.9% 1,000 ML IV SCH ×2 (01:27→07:15)
[2019-12-06 07:18] VITALS: BP 186/94; PULSE 102; RESP 14; TEMP 98
[2019-12-06] MEDS ORDERED: PANTOPRAZOLE 40 MG TABLET PO SCH (07:30)
[2019-12-06 07:32] LABS: Basophils # (A) 0.1 k/uL (0-0.2); Basophils % (A) 1 %; Eosinophils # (A) 0.1 k/uL (0-0.7); Eosinophils % (A) 1 %; HGB 13.8 gm/dL (13.0-17.5); Lymphocytes # (A) 1.9 k/uL (1.0-4.8); Lymphocytes % (A) 22 %; MCH 32.3 pg (25.0-35.0); MCHC 32.1 g/dL (31.0-37.0); MCV 100.4 fL (80.0-100.0); Mean Platelet Volume 7.2; Monocytes # (A) 0.4 k/uL (0-1.0); Monocytes % (A) 4 %; Neutrophils % (A) 70 %; Platelet Count 223 k/uL (150-450); RBC 4.28 m/uL (4.30-5.90); RDW 12.6 % (11.5-15.5); WBC 8.6 k/uL (3.8-10.6)
[2019-12-06 07:41] LABS: Potassium 4.5 mmol/L (3.5-5.1)
[2019-12-06] MEDS ORDERED: HEPARIN SODIUM,PORCINE 5,000 UNIT/ML 1 ML VIAL SQ SCH (08:00)
[2019-12-06] MEDS ORDERED: FOLIC ACID 1 MG TAB PO SCH (09:00)
[2019-12-06] MEDS ORDERED: THIAMINE 100 MG TAB PO SCH (09:00)
--- NOTE | 2019-12-14 20:48 | P.DS ---
Providers Date of admission: 12/05/19 16:16 Expected date of discharge: 12/06/19 Attending physician: Cathy Grier Primary care physician: Jignesh Pérez [facility] Course: Discharge diagnosis Acute alcohol intoxication Mild hyponatremia secondary to dehydration volume depletion Metabolic acidosis secondary to EtOH Hypertension uncontrolled History of GI bleed History of diverticulitis Severe alcohol abuse History of left eye macular degeneration DVT prophylaxis with heparin subcu Hospital course Patient is a 63-year-old male with a known history of hypertension, GI bleed and daily alcohol abuse presents to ER with alcohol intoxication. Patient's daughter called EMS because she noticed that the patient is extremely drunk and had abrasions on his face that were not there this morning. Patient denied any loss of consciousness. Patient admits that he has been drinking more. Denied any complaints of abdominal pain. No nausea vomiting or diarrhea. No fever no chills. No chest pain or shortness of the. Laboratory showed sodium 146, potassium 4.5, chloride 111 and bicarb is 21 Alcohol level is 357 WBC 7.4, hemoglobin 14.9 and platelets 215 Plan: Patient was continued on IV hydration thiamine and multivitamins. Continue with PPI and monitor for withdrawal symptoms. Further recommendations based on clinical course. Alcohol abstinence has been counseled extensively.Patient is more awake and oriented today. Blood pressure medications will be continued and titrated. Patient is being discharged home today. Discussed with his daughter. Discharge physical examination was done vitals reviewed. Patient Condition at Discharge: Stable Plan - Discharge Summary New Discharge Prescriptions: New Folic Acid 1 mg PO DAILY #30 tab Thiamine [Vitamin B-1] 100 mg PO DAILY #30 tab Continue levETIRAcetam [Keppra] 500 mg PO Q12HR lisinopriL [Zestril] 10 mg PO DAILY Discharge Medication List Folic Acid 1 mg PO DAILY #30 tab 12/06/19 [Rx] Thiamine [Vitamin B-1] 100 mg PO DAILY #30 tab 12/06/19 [Rx] levETIRAcetam [Keppra] 500 mg PO Q12HR 12/06/19 [History] lisinopriL [Zestril] 10 mg PO DAILY 12/06/19 [History] Follow up Appointment(s)/Referral(s): Jignesh Pérez, [Primary Care Provider] - 1-2 days Patient Instructions/Handouts: Alcohol Withdrawal (DC) Discharge Disposition: HOME SELF-CARE
== END 2019-12-06 13:15 | disposition home or self-care (01) ==
LOC: EC 13:33 → 1SOBS 16:16
PROVIDERS: ADMIT Internal Medicine; ATTEND Internal Medicine
DX: F10.229 Alcohol dependence with intoxication, unspecified (principal); Y90.8 Blood alcohol level of 240 mg/100 ml or more; S00.81XA Abrasion of other part of head, initial encounter; E86.0 Dehydration; E87.2 Acidosis; E87.1 Hypo-osmolality and hyponatremia; I10 Essential (primary) hypertension; H35.3110 Nonexudative age-related macular degeneration, right eye, stage unspecified; H35.3220 Exudative age-related macular degeneration, left eye, stage unspecified; K57.90 Diverticulosis of intestine, part unspecified, without perforation or abscess without bleeding; Z03.818 Encounter for observation for suspected exposure to other biological agents ruled out; W19.XXXA Unspecified fall, initial encounter; Z87.19 Personal history of other diseases of the digestive system; Z82.49 Family history of ischemic heart disease and other diseases of the circulatory system; Z80.1 Family history of malignant neoplasm of trachea, bronchus and lung
CPT/HCPCS: 96361; 96372; 96374; 99285; 36415; 93005; 80053; 80048; 85025 ×2; 72125; 70486; 70450; G0378 ×2; G0480; U0003; J1644; J1885; 80320

== ENCOUNTER 2020-09-15 08:21 | Emergency (ER) | payer MEDICARE ==
[2020-09-15 08:25] VITALS: RESP 18; TEMP 98.4
[2020-09-15] MEDS ORDERED: SODIUM CHLORIDE 0.9% 1,000 ML IV STA (08:42)
[2020-09-15] MEDS ORDERED: SODIUM CHLORIDE 0.9% 1,000 ML with MVI, ADULT NO.4 WITH VIT K 10 ML, THIAMINE 100 MG, F... IV ONE ×4 (09:00)
--- NOTE | 2020-09-15 09:00 | ED ---
General Adult HPI - General Chief complaint: Recheck/Abnormal Lab/Rx Stated complaint: Not feeling well/Shaking Time Seen by Provider: 09/15/20 08:25 Source: patient, RN notes reviewed, old records reviewed Mode of arrival: ambulatory Limitations: no limitations - History of Present Illness Initial comments: This is a 64-year-old male who presents to the emergency department stating that he has an alcoholic. Patient states he fell 4 days ago and that is why he is a contusion to his head and some ecchymosis under his right eye. Patient states he stopped drinking on Friday because he has a new grandchild and he doesn't want to be an alcoholic anymore. Patient states he comes to the emergency department because he just feels awful and he doesn't have a specific complaint just overall he feels unwell. Patient denies any headache patient denies neck pain patient denies numbness weakness. Patient denies any chest pain palpitations difficulty breathing shortness of breath per patient denies any abdominal pain patient denies nausea vomiting diarrhea. Patient states he does have a little lower back pain. - Related Data Home Medications Medication Instructions Recorded Confirmed No Known Home Medications 09/15/20 09/15/20 Allergies Allergy/AdvReac Type Severity Reaction Status Date / Time No Known Allergies Allergy Verified 09/15/20 10:01 Review of Systems ROS Statement: Those systems with pertinent positive or pertinent negative responses have been documented in the HPI. ROS Other: All systems not noted in ROS Statement are negative. Past Medical History Past Medical History: Eye Disorder, GI Bleed, Hypertension Additional Past Medical History / Comment(s): past hx diverticulitis, right eye dry macular degeneration, left eye wet macular degeneration. alcholism History of Any Multi-Drug Resistant Organisms: None Reported Past Surgical History: Hernia Repair Additional Past Surgical History / Comment(s): PICC line in, now removed, hernia repair, colonoscopy Past Anesthesia/Blood Transfusion Reactions: No Reported Reaction Additional Past Anesthesia/Blood Transfusion Reaction / Comment(s): 4 UNITS OF PRBC 10/2014, NO REACTION Past Psychological History: No Psychological Hx Reported Smoking Status: Never smoker Past Alcohol Use History: Abuse, Daily Past Drug Use History: Marijuana - Past Family History Mother Additional Family Medical History / Comment(s): brain anuerysm Father Family Medical History: Cancer Additional Family Medical History / Comment(s): lung General Exam - General Exam Comments Initial Comments: GENERAL: Patient is well-developed and well-nourished. Patient is nontoxic and well-hy drated and is in mild distress. ENT: Neck is soft and supple. No significant lymphadenopathy is noted. Oropharynx is clear. Moist mucous membranes. Neck has full range of motion without eliciting any pain. EYES: The sclera were anicteric and conjunctiva were pink and moist. Patient has some ecchymosis in the infraorbital region but no tenderness. Extraocular movements were intact and pupils were equal round and reactive to light. Eyelids were unremarkable. PULMONARY: Unlabored respirations. Good breath sounds bilaterally. No audible rales rhonchi or wheezing was noted. CARDIOVASCULAR: There is a regular rate and rhythm without any murmurs gallops or rubs. ABDOMEN: Soft and nontender with normal bowel sounds. SKIN: Skin is clear with no lesions or rashes and otherwise unremarkable. NEUROLOGIC: Patient is alert and oriented x3. Cranial nerves II through XII are grossly intact. Motor and sensory are also intact. Normal speech, volume and content. Symmetrical smile. MUSCULOSKELETAL: Normal extremities with adequate strength and full range of motion. LYMPHATICS: No significant lymphadenopathy is noted PSYCHIATRIC: Normal psychiatric evaluation. Limitations: no limitations Course Vital Signs 09/15/20 09/15/20 09/15/20 08:23 11:12 12:42 Temperature 98.4 F Pulse Rate 136 H 106 H 109 H Respiratory 18 18 18 Rate Blood Pressure 167/97 159/103 O2 Sat by Pulse 99 97 96 Oximetry Medical Decision Making - Medical Decision Making EKG shows sinus tachycardia at 122 bpm with occasional PAC SD interval is 118 QR S is 82 QT interval 306 QTC is 436. Patient's EKG shows no ST segment elevation or depression. CT of the head and C-spine showed no acute abnormality. Lumbosacral spine shows a compression fracture of L3. When I spoke with the patient patient states he injured his back about a year ago. Patient states in this current fall he fell forward did not injure his back at all. Patient feels good enough to go home after he was hydrated. CT of the lumbar spine shows very minimal retropulsion of some disc bulging. Patient was instructed to follow-up with orthopedics. - Lab Data Result diagrams: 09/15/20 08:47 09/15/20 08:47 Lab Results 09/15/20 09/15/20 09/15/20 Range/Units 08:47 08:47 08:47 WBC 6.3 (3.8-10.6) k/uL RBC 3.55 L (4.30-5.90) m/uL Hgb 13.2 (13.0-17.5) gm/dL Hct 37.7 L (39.0-53.0) % MCV 106.2 H (80.0-100.0) fL MCH 37.0 H (25.0-35.0) pg MCHC 34.9 (31.0-37.0) g/dL RDW 13.1 (11.5-15.5) % Plt Count 164 (150-450) k/uL MPV 7.4 Neutrophils % 76 % Lymphocytes % 16 % Monocytes % 6 % Eosinophils % 1 % Basophils % 1 % Neutrophils # 4.8 (1.3-7.7) k/uL Lymphocytes # 1.0 (1.0-4.8) k/uL Monocytes # 0.4 (0-1.0) k/uL Eosinophils # 0.1 (0-0.7) k/uL Basophils # 0.1 (0-0.2) k/uL Macrocytosis Moderate PT 9.9 (9.0-12.0) sec INR 0.9 (<1.2) APTT 22.3 (22.0-30.0) sec Sodium 139 (137-145) mmol/L Potassium 4.3 (3.5-5.1) mmol/L Chloride 109 H (98-107) mmol/L Carbon Dioxide 19 L (22-30) mmol/L Anion Gap 11 mmol/L BUN 14 (9-20) mg/dL Creatinine 0.93 (0.66-1.25) mg/dL Est GFR (CKD-EPI)AfAm >90 (>60 ml/min/1.73 sqM) Est GFR (CKD-EPI)NonAf 86 (>60 ml/min/1.73 sqM) Glucose 113 H (74-99) mg/dL Plasma Lactic Acid Jhonatan (0.7-2.0) mmol/L Calcium 9.1 (8.4-10.2) mg/dL Magnesium 1.7 (1.6-2.3) mg/dL Total Bilirubin 1.5 H (0.2-1.3) mg/dL AST 64 H (17-59) U/L ALT 55 H (4-49) U/L Alkaline Phosphatase 172 H (38-126) U/L Ammonia (<30) umol/L Troponin I (0.000-0.034) ng/mL Total Protein 7.1 (6.3-8.2) g/dL Albumin 3.9 (3.5-5.0) g/dL Urine Color Urine Appearance (Clear) Urine pH (5.0-8.0) Ur Specific [place] (1.001-1.035) Urine Protein (Negative) Urine Glucose (UA) (Negative) Urine Ketones (Negative) Urine Blood (Negative) Urine Nitrite (Negative) Urine Bilirubin (Negative) Urine Urobilinogen (<2.0) mg/dL Ur Leukocyte Esterase (Negative) Urine Opiates Screen (NotDetected) Ur Oxycodone Screen (NotDetected) Urine Methadone Screen (NotDetected) Ur Propoxyphene Screen (NotDetected) Ur Barbiturates Screen (NotDetected) U Tricyclic Antidepress (NotDetected) Ur Phencyclidine Scrn (NotDetected) Ur Amphetamines Screen (NotDetected) U Methamphetamines Scrn (NotDetected) U Benzodiazepines Scrn (NotDetected) Urine Cocaine Screen (NotDetected) U Marijuana (THC) Screen (NotDetected) Serum Alcohol <10 mg/dL 09/15/20 09/15/20 09/15/20 Range/Units 08:47 08:47 10:58 WBC (3.8-10.6) k/uL RBC (4.30-5.90) m/uL Hgb (13.0-17.5) gm/dL Hct (39.0-53.0) % MCV (80.0-100.0) fL MCH (25.0-35.0) pg MCHC (31.0-37.0) g/dL RDW (11.5-15.5) % Plt Count (150-450) k/uL MPV Neutrophils % % Lymphocytes % % Monocytes % % Eosinophils % % Basophils % % Neutrophils # (1.3-7.7) k/uL Lymphocytes # (1.0-4.8) k/uL Monocytes # (0-1.0) k/uL Eosinophils # (0-0.7) k/uL Basophils # (0-0.2) k/uL Macrocytosis PT (9.0-12.0) sec INR (<1.2) APTT (22.0-30.0) sec Sodium (137-145) mmol/L Potassium (3.5-5.1) mmol/L Chloride (98-107) mmol/L Carbon Dioxide (22-30) mmol/L Anion Gap mmol/L BUN (9-20) mg/dL Creatinine (0.66-1.25) mg/dL Est GFR (CKD-EPI)AfAm (>60 ml/min/1.73 sqM) Est GFR (CKD-EPI)NonAf (>60 ml/min/1.73 sqM) Glucose (74-99) mg/dL Plasma Lactic Acid Jhonatan 1.3 (0.7-2.0) mmol/L Calcium (8.4-10.2) mg/dL Magnesium (1.6-2.3) mg/dL Total Bilirubin (0.2-1.3) mg/dL AST (17-59) U/L ALT (4-49) U/L Alkaline Phosphatase (38-126) U/L Ammonia <9 (<30) umol/L Troponin I <0.012 (0.000-0.034) ng/mL Total Protein (6.3-8.2) g/dL Albumin (3.5-5.0) g/dL Urine Color Yellow Urine Appearance Clear (Clear) Urine pH 5.5 (5.0-8.0) Ur Specific [place] 1.015 (1.001-1.035) Urine Protein Negative (Negative) Urine Glucose (UA) Negative (Negative) Urine Ketones 1+ H (Negative) Urine Blood Negative (Negative) Urine Nitrite Negative (Negative) Urine Bilirubin Negative (Negative) Urine Urobilinogen 2.0 (<2.0) mg/dL Ur Leukocyte Esterase Negative (Negative) Urine Opiates Screen (NotDetected) Ur Oxycodone Screen (NotDetected) Urine Methadone Screen (NotDetected) Ur Propoxyphene Screen (NotDetected) Ur Barbiturates Screen (NotDetected) U Tricyclic Antidepress (NotDetected) Ur Phencyclidine Scrn (NotDetected) Ur Amphetamines Screen (NotDetected) U Methamphetamines Scrn (NotDetected) U Benzodiazepines Scrn (NotDetected) Urine Cocaine Screen (NotDetected) U Marijuana (THC) Screen (NotDetected) Serum Alcohol mg/dL 09/15/20 Range/Units 10:58 WBC (3.8-10.6) k/uL RBC (4.30-5.90) m/uL Hgb (13.0-17.5) gm/dL Hct (39.0-53.0) % MCV (80.0-100.0) fL MCH (25.0-35.0) pg MCHC (31.0-37.0) g/dL RDW (11.5-15.5) % Plt Count (150-450) k/uL MPV Neutrophils % % Lymphocytes % % Monocytes % % Eosinophils % % Basophils % % Neutrophils # (1.3-7.7) k/uL Lymphocytes # (1.0-4.8) k/uL Monocytes # (0-1.0) k/uL Eosinophils # (0-0.7) k/uL Basophils # (0-0.2) k/uL Macrocytosis PT (9.0-12.0) sec INR (<1.2) APTT (22.0-30.0) sec Sodium (137-145) mmol/L Potassium (3.5-5.1) mmol/L Chloride (98-107) mmol/L Carbon Dioxide (22-30) mmol/L Anion Gap mmol/L BUN (9-20) mg/dL Creatinine (0.66-1.25) mg/dL Est GFR (CKD-EPI)AfAm (>60 ml/min/1.73 sqM) Est GFR (CKD-EPI)NonAf (>60 ml/min/1.73 sqM) Glucose (74-99) mg/dL Plasma Lactic Acid Jhonatan (0.7-2.0) mmol/L Calcium (8.4-10.2) mg/dL Magnesium (1.6-2.3) mg/dL Total Bilirubin (0.2-1.3) mg/dL AST (17-59) U/L ALT (4-49) U/L Alkaline Phosphatase (38-126) U/L Ammonia (<30) umol/L Troponin I (0.000-0.034) ng/mL Total Protein (6.3-8.2) g/dL Albumin (3.5-5.0) g/dL Urine Color Urine Appearance (Clear) Urine pH (5.0-8.0) Ur Specific [place] (1.001-1.035) Urine Protein (Negative) Urine Glucose (UA) (Negative) Urine Ketones (Negative) Urine Blood (Negative) Urine Nitrite (Negative) Urine Bilirubin (Negative) Urine Urobilinogen (<2.0) mg/dL Ur Leukocyte Esterase (Negative) Urine Opiates Screen Not Detected (NotDetected) Ur Oxycodone Screen Not Detected (NotDetected) Urine Methadone Screen Not Detected (NotDetected) Ur Propoxyphene Screen Not Detected (NotDetected) Ur Barbiturates Screen Not Detected (NotDetected) U Tricyclic Antidepress Not Detected (NotDetected) Ur Phencyclidine Scrn Not Detected (NotDetected) Ur Amphetamines Screen Not Detected (NotDetected) U Methamphetamines Scrn Not Detected (NotDetected) U Benzodiazepines Scrn Not Detected (NotDetected) Urine Cocaine Screen Not Detected (NotDetected) U Marijuana (THC) Screen Not Detected (NotDetected) Serum Alcohol mg/dL Disposition Clinical Impression: Alcohol abuse, Lumbar compression fracture Disposition: HOME SELF-CARE Condition: Good Instructions (If sedation given, give patient instructions): Vertebral Compression Fracture (ED), Abuse of Alcohol (ED) Is patient prescribed a controlled substance at d/c from ED?: No Referrals: Jignesh Pérez DO [Primary Care Provider] - 1-2 days Guicho Ca DO [Doctor of Osteopathic Medicine] - 1-2 days Time of Disposition: 12:44
[2020-09-15 09:15] LABS: Basophils # (A) 0.1 k/uL (0-0.2); Basophils % (A) 1 %; Eosinophils # (A) 0.1 k/uL (0-0.7); Eosinophils % (A) 1 %; HCT 37.7 % (39.0-53.0); HGB 13.2 gm/dL (13.0-17.5); Lymphocytes % (A) 16 %; MCHC 34.9 g/dL (31.0-37.0); MCV 106.2 fL (80.0-100.0); Macrocytosis Moderate; Mean Platelet Volume 7.4; Monocytes # (A) 0.4 k/uL (0-1.0); Monocytes % (A) 6 %; Neutrophils # (A) 4.8 k/uL (1.3-7.7); Neutrophils % (A) 76 %; Platelet Count 164 k/uL (150-450); RBC 3.55 m/uL (4.30-5.90); RDW 13.1 % (11.5-15.5); WBC 6.3 k/uL (3.8-10.6)
--- NOTE | 2020-09-15 09:22 | XR ---
EXAMINATION TYPE: XR chest 2V DATE OF EXAM: 09/15/2020 COMPARISON: NONE TECHNIQUE: PA and lateral views submitted. HISTORY: Weakness FINDINGS: The lungs are clear and there is no pneumothorax, pleural effusion, or focal pneumonia. Heart size normal. Hyperinflation suggests COPD. Degenerative change of the spine. Diffuse osteopenia with arthr opathy of the shoulders. IMPRESSION: 1. No acute process.
--- NOTE | 2020-09-15 09:23 | XR ---
EXAM TYPE: LUMBAR SPINE X RAY SERIES COMPARISON: NONE HISTORY: Pain TECHNIQUE: 4 views are submitted. FINDINGS: Hypertrophic and degenerative disc disease at all levels with grade 1 anterolisthesis L4 on L5. Multi level facet arthropathy and foraminal encroachment extending from levels L2-S1. There is a moderate t o severe superior endplate compression fracture of L3 and mild superior endplate compression fracture of L4. Grade 1 anterolisthesis of L4. IMPRESSION: 1. Moderate to severe compression fracture L3. 2. Mild superior endplate compression fracture L4. 3. Multilevel degenerative disc disease with grade 1 anterolisthesis L4 and L5. Multilevel facet arth ropathy and foraminal encroachment suspected.
[2020-09-15 09:24] LABS: Lactic Acid, Venous 1.3 mmol/L (0.7-2.0)
[2020-09-15 09:25] LABS: ALT 55 U/L (4-49); AST 64 U/L (17-59); African American GFR (CKD) >90 (>60 ml/min/1.73 sqM); Albumin 3.9 g/dL (3.5-5.0); Alcohol <10 mg/dL; Alkaline Phosphatase 172 U/L (38-126); Anion Gap 11 mmol/L; Blood Urea Nitrogen 14 mg/dL (9-20); Calcium 9.1 mg/dL (8.4-10.2); Carbon Dioxide 19 mmol/L (22-30); Chloride 109 mmol/L (98-107); Glucose 113 mg/dL (74-99); Magnesium 1.7 mg/dL (1.6-2.3); Non-African American GFR(CKD) 86 (>60 ml/min/1.73 sqM); Potassium 4.3 mmol/L (3.5-5.1); Sodium 139 mmol/L (137-145); Total Bilirubin 1.5 mg/dL (0.2-1.3); Total Protein 7.1 g/dL (6.3-8.2)
[2020-09-15 09:32] LABS: INR 0.9 (<1.2); Partial Thromboplastin Time 22.3 sec (22.0-30.0); Prothrombin Time 9.9 sec (9.0-12.0)
--- NOTE | 2020-09-15 09:49 | CT ---
EXAMINATION TYPE: CT brain cspine wo con DATE OF EXAM: 09/15/2020 COMPARISON: 12/05/2019 HISTORY: Trauma, weakness CT DLP: 1441.8 mGycm Automated exposure control for dose reduction was used. TECHNIQUE: CT scan of the head and cervical spine are performed without contrast. FINDINGS: Changes of chronic sinusitis. Intracranial atherosclerotic changes. A probable small arac hnoid cyst involving the anterior temporal fossa measuring 1.7 cm. Small soft tissue hematoma overlyi ng the right frontal bone. Hypoattenuation in the white matter bilaterally is nonspecific but most ty pical remote white matter ischemia. No acute hemorrhage or mass effect. Calvarium intact. Assessment spinal canal limited due to resolution artifact. There is a subcutaneous nodule at the lev el C2 on the right measuring 1 cm correlate clinically. Multilevel hypertrophic and degenerative jackson ge of the spine with multilevel facet arthropathy. Severe multilevel degenerative disc disease. Multi level facet arthropathy. IMPRESSION: 1. There is no acute fracture or dislocation evident in the cervical spine. Multiple severe degenerat nadia disc disease, facet arthropathy and suspected foraminal encroachment. 2. No acute intracranial hemorrhage, mass effect, or midline shift is seen. Degenerative and nonspeci fic white matter changes most typical of remote ischemia. Small subcutaneous hematoma overlying the r ight frontal bone.
[2020-09-15 11:21] LABS: Appearance,Urine Clear (Clear); Bilirubin,Urine Negative (Negative); Blood,Urine Negative (Negative); Color,Urine Yellow; Glucose,Urine (UA) Negative (Negative); Ketones,Urine 1+ (Negative); Leukocyte Esterase,Urine Negative (Negative); Nitrite,Urine Negative (Negative); PH, Urine 5.5 (5.0-8.0); Protein,Urine Negative (Negative); Specific Gravity,Urine 1.015 (1.001-1.035)
[2020-09-15 11:32] LABS: Amphetamine Screen,Urine Not Detected (NotDetected); Barbiturate Screen,Urine Not Detected (NotDetected); Benzodiazepines Screen,Urine Not Detected (NotDetected); Cocaine Screen,Urine Not Detected (NotDetected); Methadone Screen, Urine Not Detected (NotDetected); Opiate Screen,Urine Not Detected (NotDetected); Oxycodone Screen, Urine Not Detected (NotDetected); Phencyclidine Screen,Urine Not Detected (NotDetected); Tricyclic Antidepressant,Urine Not Detected (NotDetected); Urn Cannabinoid Scrn Not Detected (NotDetected)
[2020-09-15] MEDS ORDERED: KETOROLAC 15 MG/ML 1 ML VIAL IVP STA (11:50)
[2020-09-15] MEDS ORDERED: LORazepam 2 MG/ML INJ IV STA (11:52)
[2020-09-15] MEDS ORDERED: cloNIDine HCL 0.1 MG TAB PO STA (11:59)
--- NOTE | 2020-09-15 12:33 | CT ---
EXAMINATION TYPE: CT lumbar spine wo con DATE OF EXAM: 09/15/2020 12:24 PM COMPARISON: X-ray 09/15/2020 HISTORY: Fall with low back pain. CT DLP: 1057.6 mGycm Automated exposure control for dose reduction was used. Unenhanced CT of the lumbar spine was performed. Bone and soft tissue window settings are submitted as well as coronal and sagittal reconstructions. Multilevel degenerative disc disease with grade 1 anterolisthesis of L4 and L5. Multilevel facet arth ropathy and foraminal encroachment. Already reported compression fractures and moderate to severe at L3 and mild superior endplate compression fracture of L4 are similar in appearance to the x-ray. There are punctate calcifications in the kidneys bilaterally. Atherosclerotic change of the aorta wit h a maximal dimension of 3.1 cm compatible with mild aneurysmal dilation. Diverticulosis of the colon . Arthropathy of the SI joints. Hiatal hernia with postsurgical change in the epigastric region. L1-L2 there is facet arthropathy. No disc herniation or canal stenosis. Mild left foraminal encroachm ent. At L2-L3 there is disc bulging with ligamentum flavum and facet arthropathy. There is approximate 5% retropulsion. Combination of findings result in severe canal stenosis with bilateral foraminal encroa chment. L2-L3 there is previous noted compression fracture. Broad-based disc bulging is seen. Minimal posteri or retropulsion. Facet arthropathy and ligamentum flavum hypertrophy seen with moderate to severe can al stenosis and bilateral foraminal encroachment. At L4-L5 there is advanced facet arthropathy with grade 1 anterolisthesis, bilateral foraminal encroa chment. Diffuse disc bulging with ligamentum flavum hypertrophy results in severe canal stenosis and bilateral foraminal encroachment. Graft L5-S1 there is facet arthropathy. No disc herniation or canal stenosis. Neural foramina are patent. IMPRESSION: 1. Compression fractures of L3 and L4 are similar to the x-ray. They appear recent in the chronology. Very mild retropulsion as discussed above. 2. Advanced facet arthropathy, ligamentum flavum hypertrophy and degenerative disc disease with disc bulging results in multilevel significant canal stenosis and multilevel foraminal encroachment. 3. Nonobstructing bilateral renal calculi.
[2020-09-15 12:59] VITALS: BP 143/100; PULSE 105
== END 2020-09-15 13:13 | disposition home or self-care (01) ==
LOC: EC 08:21
DX: S32.039A Unspecified fracture of third lumbar vertebra, initial encounter for closed fracture (principal); S32.049A Unspecified fracture of fourth lumbar vertebra, initial encounter for closed fracture; I10 Essential (primary) hypertension; F12.90 Cannabis use, unspecified, uncomplicated; F10.10 Alcohol abuse, uncomplicated; W19.XXXA Unspecified fall, initial encounter
CPT/HCPCS: 36415; 93005; 80053; 82140; 83605; 83735; 84484; 85025; 85610; 85730; 81003; 80306; 72110; 71046; 72125; 72131; 70450; 99284; 96375 ×2; 96365; 96366 ×3; 96361; G0480; J2060; J3411; J1885; 80320

== ENCOUNTER 2020-10-04 14:29 | Emergency (ER) | payer MEDICARE ==
--- NOTE | 2020-10-04 16:11 | CT ---
EXAMINATION TYPE: CT brain cspine wo con DATE OF EXAM: 10/04/2020 COMPARISON: CT 09/15/2020 HISTORY: Fall today with injury. CT DLP: 1399.1 mGycm Automated exposure control for dose reduction was used. TECHNIQUE: CT scan of the head and cervical spine are performed without contrast. FINDINGS: There is no acute intracranial hemorrhage, mass effect, or midline shift identified. The ventricles and sulci are stable in size, periventricular white matter shows patchy confluent low att enuation. The globes are intact and the visualized sinuses are clear. There are cerebral vascular ca lcifications Cervical spine is visualized in its entirety from C1 through upper thoracic levels and demonstrates s atisfactory alignment without evidence of acute fracture or dislocation. Prevertebral soft tissue ap pears within normal limits. There are stable degenerative disc changes, multilevel foraminal encroach ment, spondylosis, there is a spinal curvature The C1-C2 articulation is unremarkable. IMPRESSION: 1. There is no acute fracture or dislocation evident in the cervical spine. 2. No acute intracranial hemorrhage, mass effect, or midline shift is seen.
--- NOTE | 2020-10-04 16:13 | XR ---
EXAMINATION TYPE: XR lumbosacral spine min 4V DATE OF EXAM: 10/04/2020 Comparison: 09/15/2020 Clinical History: 64-year-old male pain Findings: Extensive bowel gas. 5 lumbar type vertebral bodies. Is hypertrophic facet arthropathy throughout. An terior wedging L3 vertebral body similar with 40% anterior height loss. Slight anterior wedging L4 ve rtebral body with 15 % anterior height loss is also unchanged. Degenerative grade 1 anterolisthesis L 4-L5. Mild to moderate multilevel degenerative disc disease. Impression: 1. Vertebral compression deformities of L3 and mild of L4. Appearance is unchanged from 09/15/2020. 2. Advanced facet arthropathy with degenerative grade 1 anterolisthesis at L4-L5 is unchanged. 3. Mild to moderate degenerative disc disease.
[2020-10-04] MEDS ORDERED: DIAZEPAM 5 MG/ML 2 ML INJ IM STA (16:21)
--- NOTE | 2020-10-04 16:30 | ED ---
Fall HPI - General Chief Complaint: Fall Stated Complaint: fall Time Seen by Provider: 10/04/20 14:30 Source: patient, EMS Mode of arrival: EMS - History of Present Illness Initial Comments: 64-year-old male presents emergency department via EMS for a fall. Patient states that he was stepping over a curb and fell backwards. Patient states he has mild low back pain denies any head injury today but states he fell the other day and did hit his head. Patient has a black eye but denies any current headache neck pain upper back pain chest pain shortness of breath. Patient sta mae he is normally shaky as he is an alcoholic. Patient denies any fevers or chills no focal weakness no other complaints. - Related Data Home Medications Medication Instructions Recorded Confirmed No Known Home Medications 09/15/20 10/04/20 Allergies Allergy/AdvReac Type Severity Reaction Status Date / Time No Known Allergies Allergy Verified 10/04/20 15:32 Review of Systems ROS Statement: Those systems with pertinent positive or pertinent negative responses have been documented in the HPI. ROS Other: All systems not noted in ROS Statement are negative. Past Medical History Past Medical History: Eye Disorder, GI Bleed, Hypertension Additional Past Medical History / Comment(s): past hx diverticulitis, right eye dry macular degeneration, left eye wet macular degeneration. alcholism History of Any Multi-Drug Resistant Organisms: None Reported Past Surgical History: Cholecystectomy, Hernia Repair Additional Past Surgical History / Comment(s): PICC line in, now removed, hernia repair, colonoscopy Past Anesthesia/Blood Transfusion Reactions: No Reported Reaction Additional Past Anesthesia/Blood Transfusion Reaction / Comment(s): 4 UNITS OF PRBC 10/2014, NO REACTION Past Psychological History: No Psychological Hx Reported Smoking Status: Former smoker Past Alcohol Use History: Abuse, Daily Past Drug Use History: Marijuana - Past Family History Mother Additional Family Medical History / Comment(s): brain anuerysm Father Family Medical History: Cancer Additional Family Medical History / Comment(s): lung General Exam Limitations: no limitations General appearance: alert, in no apparent distress Head exam: Present: atraumatic, normocephalic, normal inspection Eye exam: Present: normal appearance, PERRL, EOMI, periorbital tenderness. Absent: scleral icterus, conjunctival injection, periorbital swelling ENT exam: Present: normal exam, normal oropharynx, mucous membranes moist Neck exam: Present: normal inspection. Absent: tenderness, meningismus, lymphadenopathy Respiratory exam: Present: normal lung sounds bilaterally. Absent: respiratory distress, wheezes, rales, rhonchi, stridor Cardiovascular Exam: Present: regular rate, normal rhythm, normal heart sounds. Absent: systolic murmur, diastolic murmur, rubs, gallop, clicks Back exam: Present: full ROM, tenderness, paraspinal tenderness, vertebral tenderness Neurological exam: Present: alert, oriented X3, CN II-XII intact, reflexes normal. Absent: motor sensory deficit Skin exam: Present: warm, dry, intact, normal color. Absent: rash Course Vital Signs 10/04/20 14:48 Temperature 99.0 F Pulse Rate 111 H Respiratory 16 Rate Blood Pressure 122/85 O2 Sat by Pulse 97 Oximetry Medical Decision Making - Medical Decision Making CT is unremarkable x-ray shows stable compression fractures. Patient has no red flag symptoms. Patient will be discharged in stable condition return parameters were discussed. Disposition Clinical Impression: Fall, Back pain, Periorbital hematoma of left eye Disposition: HOME SELF-CARE Condition: Stable Instructions (If sedation given, give patient instructions): Fall Prevention (ED) Additional Instructions: Please return to the Emergency Department if symptoms worsen or any other concerns. Is patient prescribed a controlled substance at d/c from ED?: No Referrals: Jignesh Pérez DO [Primary Care Provider] - 1-2 days Time of Disposition: 16:29
[2020-10-04 16:52] VITALS: BP 143/87; PULSE 105; RESP 18; TEMP 98.4
== END 2020-10-04 17:47 | disposition home or self-care (01) ==
LOC: EC 14:29
DX: S00.12XA Contusion of left eyelid and periocular area, initial encounter (principal); M43.16 Spondylolisthesis, lumbar region; I10 Essential (primary) hypertension; Z87.891 Personal history of nicotine dependence; W18.31XA Fall on same level due to stepping on an object, initial encounter
CPT/HCPCS: 72110; 72125; 70450; 99284; 96372; J3360

== ENCOUNTER 2020-10-05 16:39 | Inpatient (IN) | payer MEDICARE ==
[2020-10-05] MEDS ORDERED: SODIUM CHLORIDE 0.9% 1,000 ML IV STA ×2 (17:26→18:06)
[2020-10-05] MEDS ORDERED: THIAMINE 100 MG/ML 2 ML VIAL IM STA (17:27)
--- NOTE | 2020-10-05 17:30 | ED ---
General Adult HPI - General Chief complaint: Recheck/Abnormal Lab/Rx Stated complaint: Loss of balance, not feeling well Time Seen by Provider: 10/05/20 17:11 Source: patient, RN notes reviewed Mode of arrival: wheelchair Limitations: no limitations - History of Present Illness Initial comments: Patient is a pleasant 64-year-old male presenting to the emergency department for not feeling well. Patient did stop drinking around 1 week ago was around th e time of onset of symptoms. Patient feels lightheaded and off balance. Patient has fallen a couple of times. Patient did sustain ecchymosis near the Left eye, otherwise no injury. No visual problems. No confusion. Patient was previously a heavy drinker. No isolated area of weakness. - Related Data Home Medications Medication Instructions Recorded Confirmed No Known Home Medications 09/15/20 10/04/20 Allergies Allergy/AdvReac Type Severity Reaction Status Date / Time No Known Allergies Allergy Verified 10/05/20 16:44 Review of Systems ROS Statement: Those systems with pertinent positive or pertinent negative responses have been documented in the HPI. ROS Other: All systems not noted in ROS Statement are negative. Constitutional: Denies: fever Eyes: Denies: eye pain ENT: Denies: ear pain Respiratory: Denies: cough Cardiovascular: Denies: chest pain Endocrine: Reports: fatigue Gastrointestinal: Denies: abdominal pain Genitourinary: Denies: dysuria Musculoskeletal: Denies: back pain Skin: Denies: rash Neurological: Reports: as per HPI. Denies: headache, confusion Past Medical History Past Medical History: Eye Disorder, GI Bleed, Hypertension Additional Past Medical History / Comment(s): past hx diverticulitis, right eye dry macular degeneration, left eye wet macular degeneration. alcholism History of Any Multi-Drug Resistant Organisms: None Reported Past Surgical History: Cholecystectomy, Hernia Repair Additional Past Surgical History / Comment(s): PICC line in, now removed, hernia repair, colonoscopy Past Anesthesia/Blood Transfusion Reactions: No Reported Reaction Additional Past Anesthesia/Blood Transfusion Reaction / Comment(s): 4 UNITS OF PRBC 10/2014, NO REACTION Past Psychological History: No Psychological Hx Reported Smoking Status: Former smoker Past Alcohol Use History: None Reported, Abuse, Daily Past Drug Use History: Marijuana - Past Family History Mother Additional Family Medical History / Comment(s): brain anuerysm Father Family Medical History: Cancer Additional Family Medical History / Comment(s): lung General Exam Limitations: no limitations General appearance: alert, in no apparent distress Head exam: Present: other ( left Periorbital ecchymosis without tenderness) Eye exam: Present: normal appearance, PERRL, EOMI ENT exam: Present: normal oropharynx Neck exam: Present: normal inspection. Absent: tenderness Respiratory exam: Present: normal lung sounds bilaterally Cardiovascular Exam: Present: regular rate, normal rhythm GI/Abdominal exam: Present: soft. Absent: tenderness Extremities exam: Present: normal inspection, full ROM. Absent: tenderness Neurological exam: Present: alert, CN II-XII intact. Absent: motor sensory deficit Expanded Neurological exam: Present: protecting the airway Speech: Present: fluid speech Cranial nerves: EOM's Intact: Normal Cerebellar function: Finger to Nose: Normal Motor strength exam: RUE: 5, LUE: 5, RLE: 5, LLE: 5 Eye Response: (4) open spontaneously Motor Response: (6) obeys commands Verbal Response: (5) oriented Psychiatric exam: Present: normal affect, normal mood Skin exam: Present: normal color Course Vital Signs 10/05/20 10/05/20 16:44 19:04 Temperature 98.0 F Pulse Rate 116 H 92 Respiratory 18 17 Rate Blood Pressure 111/73 132/82 O2 Sat by Pulse 99 99 Oximetry EKG Findings - EKG Comments: EKG Findings:: Sinus tachycardia with a rate of 108. VT 118. QRS 72. QT 342. QTC 450. Normal axis. Normal QRS. No acute ST change. Occasional premature beats. Medical Decision Making - Medical Decision Making Patient reevaluated and resting comfortably in bed. Patient is worried about being discharged secondary to his ataxia. Case was discussed with Dr. Smith, who will admit covering for Dr. Pérez. Patient updated. - Lab Data Result diagrams: 10/05/20 17:43 10/05/20 17:43 Lab Results 10/05/20 10/05/20 10/05/20 Range/Units 17:43 17:43 17:43 WBC 6.3 (3.8-10.6) k/uL RBC 3.47 L (4.30-5.90) m/uL Hgb 12.9 L (13.0-17.5) gm/dL Hct 39.6 (39.0-53.0) % MCV 114.1 H D (80.0-100.0) fL MCH 37.3 H (25.0-35.0) pg MCHC 32.7 (31.0-37.0) g/dL RDW 13.7 (11.5-15.5) % Plt Count 200 (150-450) k/uL MPV 8.0 Neutrophils % 76 % Lymphocytes % 16 % Monocytes % 5 % Eosinophils % 1 % Basophils % 1 % Neutrophils # 4.8 (1.3-7.7) k/uL Lymphocytes # 1.0 (1.0-4.8) k/uL Monocytes # 0.3 (0-1.0) k/uL Eosinophils # 0.0 (0-0.7) k/uL Basophils # 0.0 (0-0.2) k/uL Macrocytosis Marked A PT 10.4 (9.0-12.0) sec INR 1.0 (<1.2) APTT 20.6 L (22.0-30.0) sec Sodium 143 (137-145) mmol/L Potassium 4.3 (3.5-5.1) mmol/L Chloride 106 (98-107) mmol/L Carbon Dioxide 19 L (22-30) mmol/L Anion Gap 18 mmol/L BUN 29 H (9-20) mg/dL Creatinine 1.90 H (0.66-1.25) mg/dL Est GFR (CKD-EPI)AfAm 42 (>60 ml/min/1.73 sqM) Est GFR (CKD-EPI)NonAf 36 (>60 ml/min/1.73 sqM) Glucose 110 H (74-99) mg/dL Calcium 9.8 (8.4-10.2) mg/dL Magnesium 1.5 L (1.6-2.3) mg/dL Total Bilirubin 1.4 H (0.2-1.3) mg/dL AST 138 H (17-59) U/L ALT 87 H (4-49) U/L Alkaline Phosphatase 210 H (38-126) U/L Total Protein 7.5 (6.3-8.2) g/dL Albumin 4.7 (3.5-5.0) g/dL Serum Alcohol <10 mg/dL - Radiology Data Radiology results: report reviewed (Computed tomography scan of the brain and CT angiogram reveals no acute abnormality.), image reviewed (Chest x-ray shows no acute process.) Disposition Clinical Impression: Ataxia Disposition: ADMITTED IP TO THIS HOSP Is patient prescribed a controlled substance at d/c from ED?: No Referrals: Jignesh Pérez DO [Primary Care Provider] - 1-2 days Decision Time: 19:58
[2020-10-05 17:52] LABS: Basophils % (A) 1 %; Eosinophils % (A) 1 %; HCT 39.6 % (39.0-53.0); HGB 12.9 gm/dL (13.0-17.5); Lymphocytes % (A) 16 %; MCH 37.3 pg (25.0-35.0); MCHC 32.7 g/dL (31.0-37.0); Macrocytosis Marked; Monocytes # (A) 0.3 k/uL (0-1.0); Monocytes % (A) 5 %; Neutrophils # (A) 4.8 k/uL (1.3-7.7); Neutrophils % (A) 76 %; Platelet Count 200 k/uL (150-450); RBC 3.47 m/uL (4.30-5.90); RDW 13.7 % (11.5-15.5); WBC 6.3 k/uL (3.8-10.6)
[2020-10-05 17:53] LABS: MCV 114.1 fL (80.0-100.0)
[2020-10-05 18:03] LABS: ALT 87 U/L (4-49); AST 138 U/L (17-59); African American GFR (CKD) 42 (>60 ml/min/1.73 sqM); Albumin 4.7 g/dL (3.5-5.0); Alcohol <10 mg/dL; Alkaline Phosphatase 210 U/L (38-126); Anion Gap 18 mmol/L; Blood Urea Nitrogen 29 mg/dL (9-20); Calcium 9.8 mg/dL (8.4-10.2); Carbon Dioxide 19 mmol/L (22-30); Chloride 106 mmol/L (98-107); Glucose 110 mg/dL (74-99); Magnesium 1.5 mg/dL (1.6-2.3); Non-African American GFR(CKD) 36 (>60 ml/min/1.73 sqM); Potassium 4.3 mmol/L (3.5-5.1); Sodium 143 mmol/L (137-145); Total Bilirubin 1.4 mg/dL (0.2-1.3); Total Protein 7.5 g/dL (6.3-8.2)
--- NOTE | 2020-10-05 18:19 | XR ---
EXAMINATION TYPE: XR chest 2V DATE OF EXAM: 10/05/2020 COMPARISON: 09/15/2020 HISTORY: Shortness of breath TECHNIQUE: Frontal and lateral views of the chest are obtained. FINDINGS: Scattered senescent parenchymal changes noted. Hyperinflation compatible with COPD. No evidence for infiltrate. No evidence for atelectasis. Heart size is stable. Mediastinal structures are stable and grossly unremarkable. No evidence for hilar prominence. Degenerative changes dorsal spine. IMPRESSION: 1. No evidence for acute pulmonary disease.
[2020-10-05 18:28] LABS: Prothrombin Time 10.4 sec (9.0-12.0)
[2020-10-05 18:29] LABS: Partial Thromboplastin Time 20.6 sec (22.0-30.0)
--- NOTE | 2020-10-05 18:40 | CT ---
EXAMINATION TYPE: CT brain wo con for TPA DATE OF EXAM: 10/05/2020 COMPARISON: 10/04/2020 HISTORY: Dizziness. CT DLP: 1150.[address] of the brain was performed. The ventricles, basal cisterns and sulci overlying the cerebral convexities demonstrate mild enlargem ent. There is no evidence for intracranial hemorrhage or sulcal effacement. There is decreased attenuation about the periventricular white matter and deep white matter of both c erebral hemispheres, compatible with chronic small vessel ischemia. Differential diagnosis does inclu de demyelination. No mass effects are seen.No midline shift. Osseous calvarium is intact. If symptoms persist consider MRI. IMPRESSION: 1. Age related atrophic and chronic small vessel ischemic change without acute intracranial process s een at this time.
--- NOTE | 2020-10-05 19:04 | CT ---
EXAMINATION TYPE: CT angio head neck DATE OF EXAM: 10/05/2020 COMPARISON: None HISTORY: Dizziness. CT DLP: 438.4 mGycm CONTRAST: Performed with IV Contrast, patient injected with 65 mL of Isovue 370. Combination Contrast CTA cervical carotids and [place] CTA cervical carotids with 3-D recons truction Contrast CTA of the cervical carotids was performed 3-D reconstruction imaging obtained at a separate workstation. Right carotid system: Mild plaque is seen of the right common carotid artery. There is mild plaque a lso noted at the carotid bulb and proximal ICA. No significant diameter reduction. ECA is patent. Right vertebral artery appears unremarkable. Left carotid system: Mild plaque is seen of the left common carotid artery. There is mild plaque als o noted at the carotid bulb and proximal ICA. No significant diameter reduction. ECA is patent. Lef t vertebral artery appears unremarkable. IMPRESSION: 1. No significant diameter reduction to account for the patient's symptoms. CTA [place] with 3-D reconstruction Contrast CTA of the [place] was performed 3-D reconstruction imaging obtained at a separate workstation. Vertebrobasilar system as well as intracranial portions of the internal carotid arteries and their ma carroll tributaries are patent. I do not see evidence for sizable aneurysm or vascular malformation. Pl ease note MRI provides greater sensitivity and specificity. Visualized brain appears grossly unremar kable. IMPRESSION: 1. No significant abnormality.
[2020-10-05] MEDS ORDERED: NALOXONE 0.4 MG/ML 1 ML VIAL IV PRN (19:58)
[2020-10-05] MEDS ORDERED: LORazepam 2 MG/ML INJ IV PRN ×3 (19:59)
[2020-10-05] MEDS: MULTIVITAMINS, THERA 1 EACH TAB PO SCH (20:39)
[2020-10-05] MEDS: SODIUM CHLORIDE 0.9% 1,000 ML IV SCH (20:40)
[2020-10-06] MEDS ORDERED: Potassium Replacement Protocol 1 EACH MISC MISCELLANE PRN (06:51)
[2020-10-06] MEDS ORDERED: Magnesium Replacement Protocol 1 EACH MISC MISCELLANE PRN (06:51)
[2020-10-06 07:32] LABS: ALT 69 U/L (4-49); AST 89 U/L (17-59); African American GFR (CKD) 72 (>60 ml/min/1.73 sqM); Albumin 3.4 g/dL (3.5-5.0); Albumin/Globulin Ratio 1.4; Alkaline Phosphatase 153 U/L (38-126); Anion Gap 10 mmol/L; Bilirubin,Unconjugated 0.6 mg/dL (0.0-1.1); Blood Urea Nitrogen 28 mg/dL (9-20); Calcium 8.2 mg/dL (8.4-10.2); Carbon Dioxide 21 mmol/L (22-30); Chloride 108 mmol/L (98-107); Globulin 2.5 g/dL; Glucose 88 mg/dL (74-99); Non-African American GFR(CKD) 62 (>60 ml/min/1.73 sqM); Potassium 3.8 mmol/L (3.5-5.1); Sodium 139 mmol/L (137-145); Total Bilirubin 0.6 mg/dL (0.2-1.3); Total Protein 5.9 g/dL (6.3-8.2)
[2020-10-06 07:48] LABS: Basophils % (A) 1 %; Eosinophils # (A) 0.1 k/uL (0-0.7); Eosinophils % (A) 2 %; HCT 33.3 % (39.0-53.0); Lymphocytes % (A) 26 %; MCH 37.2 pg (25.0-35.0); MCHC 32.9 g/dL (31.0-37.0); MCV 112.8 fL (80.0-100.0); Macrocytosis Marked; Mean Platelet Volume 7.7; Monocytes # (A) 0.3 k/uL (0-1.0); Monocytes % (A) 8 %; Neutrophils # (A) 2.4 k/uL (1.3-7.7); Neutrophils % (A) 60 %; Platelet Count 142 k/uL (150-450); RBC 2.95 m/uL (4.30-5.90); RDW 13.3 % (11.5-15.5); WBC 3.9 k/uL (3.8-10.6)
[2020-10-06] MEDS: MULTIVITAMINS, THERA 1 EACH TAB PO SCH (08:33)
[2020-10-06] MEDS: THIAMINE 100 MG TAB PO SCH ×2 (08:33→17:26)
--- NOTE | 2020-10-06 11:47 | P.HPIM ---
History of Present Illness This is a pleasant 64 years old male with past medical history of hypertension, right eye dry macular degeneration and left eye with macular degeneration, alcoholism, GI bleed. She is a patient of Dr. Pérez Patient presents because of her low back pain after he fell about one week ago associated with some dizziness and balance problem. Patient states that usually he drinks about half pint daily, he was crossing the street about a week ago and once he got into the curb he got dizzy for about 30 seconds and fell to his back without hitting his head. Since then he has low back pain. And also has a bruise and his left eye. Also patient has a little living gait today which states that his been abnormal since he fell because of his low back pain however he denies weakness or numbness in his lower extremity, he denies urine or bowel incontinence however he states she for diarrhea about once to twice a day with no nausea vomiting, no abdominal pain. Patient denies fever or urinary symptoms. He denies syncope. However he feels little dizzy currently. He denies vertigo, no presyncope but he described it as nonspecific dizziness He denies dyspnea but he complains from anterior right lower chest pain and tenderness with deep breathing associated with his fall. No headache or blurred vision or slurred speech. No weakness or numbness. No seizure-like activities no smoking or illicit drugs. He was Patient feels depressed and under a lot of stress but denies suicidal or homicidal ideation, he denies hallucination however he wants to see psychiatrist Vitas looks stable showing unremarkable CBC except for mild macrocytic anemia with hemoglobin of 12.9, high MCV of 114. INR is normal 1.0. Creatinine is increased at 1.9 Magnesium low at 1.5, liver enzymes elevated with AST 138 and ALT 87 which are consistent with alcoholic liver disease with AST more than ALT, bilirubin slightly elevated at 1.4,; less than 10. Coronavirus not detected EKG showing sinus tachycardia at 108 with PVCs. QTC 458. CTA of the head and neck: No significant diameter reduction to account for the patient's symptoms, no significant abnormality CT of the brain: No acute process Chest x-ray: No acute process. In the emergency room patient was given 2 L bolus of normal saline and started on 75 mL/h, thiamine, CIWA protocol. Review of Systems CONSTITUTIONAL: No fever, no malaise, no fatigue. HEENT: No recent visual problems or hearing problems. Denied any sore throat. CARDIOVASCULAR: No orthopnea, PND, no palpitations, no syncope. PULMONARY: No shortness of breath, no cough, no hemoptysis. GASTROINTESTINAL: no nausea, no vomiting, no abdominal pain. Normoactive bowel sounds. NEUROLOGICAL: No headaches, no weakness, no numbness. HEMATOLOGICAL: Denies any bleeding or petechiae. GENITOURINARY: Denies any burning micturition, frequency, or urgency. MUSCULOSKELETAL/RHEUMATOLOGICAL: Denies any joint pain, swelling, or any muscle pain. ENDOCRINE: Denies any polyuria or polydipsia. Past Medical History Past Medical History: Eye Disorder, GI Bleed, Hypertension Additional Past Medical History / Comment(s): past hx diverticulitis, right eye dry macular degeneration, left eye wet macular degeneration. alcholism History of Any Multi-Drug Resistant Organisms: None Reported Past Surgical History: Cholecystectomy, Hernia Repair Additional Past Surgical History / Comment(s): PICC line in, now removed, hernia repair, colonoscopy Past Anesthesia/Blood Transfusion Reactions: No Reported Reaction Additional Past Anesthesia/Blood Transfusion Reaction / Comment(s): 4 UNITS OF PRBC 10/2014, NO REACTION Past Psychological History: No Psychological Hx Reported Smoking Status: Current some day smoker Past Alcohol Use History: None Reported, Abuse, Daily Additional Past Alcohol Use History / Comment(s): states previous heavy drinker, states has not had anything to drink in over 30days Past Drug Use History: Marijuana Additional Drug Use History / Comment(s): occasional use, instructed to hold 24hrs prior to procedure - Past Family History Mother Additional Family Medical History / Comment(s): brain anuerysm Father Family Medical History: Cancer Additional Family Medical History / Comment(s): lung Medications and Allergies Home Medications Medication Instructions Recorded Confirmed Type No Known Home Medications 09/15/20 10/05/20 History Allergies Allergy/AdvReac Type Severity Reaction Status Date / Time No Known Allergies Allergy Verified 10/05/20 20:15 Physical Exam Vitals: Vital Signs Temp Pulse Pulse Resp BP BP Pulse Ox 10/06/20 02:00 97.9 F 77 17 110/75 97 10/05/20 21:28 98.5 F 99 17 136/92 100 10/05/20 20:59 97.8 F 94 18 149/99 100 10/05/20 19:04 92 17 132/82 99 10/05/20 16:44 98.0 F 116 H 18 111/73 99 Intake and Output 10/05/20 10/05/20 10/06/20 14:59 22:59 06:59 Intake Total 540 Balance 540 Intake: Oral 540 Other: Voiding Method Toilet Toilet # Voids 1 Weight 88.451 kg 77 kg GENERAL: The patient is alert and oriented x3, not in any acute distress. Well developed, well nourished. -HEENT: Pupils are round and equally reacting to light. EOMI. No scleral icterus. No conjunctival pallor. Normocephalic, atraumatic. No pharyngeal eryth yun. No thyromegaly. Bruits are round left eye CARDIOVASCULAR: S1 and S2 present. No murmurs, rubs, or gallops. -PULMONARY: Chest is clear to auscultation, no wheezing or crackles. Right lower chest tenderness with very minimal murmurs ABDOMEN: Soft, nontender, nondistended, normoactive bowel sounds. No palpable organomegaly. -MUSCULOSKELETAL: No joint swelling or deformity. No lower back tenderness, patient states that his pain only when standing up or walking EXTREMITIES: No cyanosis, clubbing, or pedal edema. NEUROLOGICAL: Gross neurological examination did not reveal any focal deficits. SKIN: No rashes. No petechiae. -Gait: Becca like get Results CBC & Chem 7: 10/06/20 06:57 10/06/20 06:57 Labs: Abnormal Lab Results - Last 24 Hours (Table) 10/05/20 10/05/20 10/05/20 Range/Units 17:43 17:43 17:43 RBC 3.47 L (4.30-5.90) m/uL Hgb 12.9 L (13.0-17.5) gm/dL MCV 114.1 H D (80.0-100.0) fL MCH 37.3 H (25.0-35.0) pg Macrocytosis Marked A APTT 20.6 L (22.0-30.0) sec Carbon Dioxide 19 L (22-30) mmol/L BUN 29 H (9-20) mg/dL Creatinine 1.90 H (0.66-1.25) mg/dL Glucose 110 H (74-99) mg/dL Magnesium 1.5 L (1.6-2.3) mg/dL Total Bilirubin 1.4 H (0.2-1.3) mg/dL AST 138 H (17-59) U/L ALT 87 H (4-49) U/L Alkaline Phosphatase 210 H (38-126) U/L Assessment and Plan Assessment: Low back pain with waddling gait secondary to a fall about one week ago Alcohol abuse, he drinks 1/2 pint of liquor every day quit about one week I when he fell Right lower anterior chest wall pain and tenderness, mostly secondary to a fall and Loose bowel movement and possible diarrhea. Nonspecific dizziness Acute kidney injury, came back to normal Gait dysfunction Alcoholic transaminitis Fall with bruise to the left eye History of bilateral macular degeneration Recent history of alcohol abuse Plan: This is a pleasant 64 years old male who presents with gait Dysfunction, alcohol abuse, alcoholic liver disease and acute kidney injury. disContinue with IV fluids and encourage oral hydration, follow-up creatinine. Neurology consult Continue with CIWA protocol and thiamine. right Rib x-ray Check for C. diff consult psych service Check orthostasis Labs and medication were reviewed.. Continue same treatment. Continue with symptomatic treatment. Resume home medication. Monitor lytes and vitals. DVT and GI prophylaxis. Further recommendations depends on the clinical course of the patient DVT prophylaxis: Subcutaneous heparin GI Prophylaxis: Pepcid PT/OT: Pending Prognosis is guarded
--- NOTE | 2020-10-06 15:21 | P.CNNES ---
History of Present Illness Consult date: 10/06/20 Requesting physician: Danny Villa Reason for Consult: Ataxia History of Present Illness: Patient is a 64-year-old male who came to the hospital yesterday at 4:40 PM for evaluation of recurrent falls. He has suffered from 2 or 3 falls in these last couple months. About 2 weeks ago he fell forwards and hit his head on the couch in the living room producing left black eye. Yesterday he stepped on the curb, felt dizzy and fell backwards. He did not hit his head. Patient states that he has history of some other falls while he used to be drunk. Because of these falls he decided to come to the ER. Patient's vitals on arrival was blood pressure 111/73, pulse rate 116 and temperature 98.0. Patient had undergone o rthostatics, in which his supine blood pressure is 136/77 pulse 95, sitting up was 134/75 pulse 100 and standing 132/78 pulse 108, negative orthostatics. Patient's chest x-ray showed no evidence of acute pulmonary disease. CT of the head revealed age-related atrophic and chronic small vessel ischemic change without acute intracranial process seen at this time. On my review of his computed tomography scan of head from 12/05/2019, there is definite enlargement of the lateral ventricles, suggestive of development of possible normal pressure hydrocephalus. I discussed with the radiologist, who agreed with these findings. Patient had a CTA of head and neck, which revealed no significant abnormality. EKG shows sinus tachycardia with occasional PVCs. X-ray of the ribs negative for any fracture. Patient's blood test shows normal WBC, hemoglobin 12.9, platelets 200. Elevated MCV 114 consistent with alcoholism. PT/PTT normal. Electrolytes are normal, BUN 29, creatinine 1.90. AST 138, ALT 87. Blood alcohol level was negative. Wong virus PCR negative. Patient's B12 418 on 09/16/2018. Patient states he has developed memory issues for the last couple months. He denies any problem with control of urine. Patient denies diabetes, does not stroke. Smokes pot occasionally. Patient says that he has been drinking almost all of his life since age 14-15. Early on he used to drink beer. In mid to late 20s, he started drinking half to 1 pint a day of vodka, or bourbon. He would still drink a couple beer along with the hard liquor. He has been to alcoholic anonymous as well. He has stopped drinking alcohol since 09/28/2020. Review of Systems As mentioned in HPI. All other review of systems unremarkable. Patient denies any neck pain, back pain, denies any chest pain, abdominal pain nausea vomiting diarrhea. Denies any double vision, loss of vision. Denies any hoarseness, sore throat, dysphagia. No fever or chills. No cough. Past Medical History Past Medical History: Eye Disorder, GI Bleed, Hypertension Additional Past Medical History / Comment(s): past hx diverticulitis, right eye dry macular degeneration, left eye wet macular degeneration. alcholism History of Any Multi-Drug Resistant Organisms: None Reported Past Surgical History: Cholecystectomy, Hernia Repair Additional Past Surgical History / Comment(s): PICC line in, now removed, hernia repair, colonoscopy Past Anesthesia/Blood Transfusion Reactions: No Reported Reaction Additional Past Anesthesia/Blood Transfusion Reaction / Comment(s): 4 UNITS OF PRBC 10/2014, NO REACTION Past Psychological History: No Psychological Hx Reported Smoking Status: Current some day smoker Past Alcohol Use History: None Reported, Abuse, Daily Additional Past Alcohol Use History / Comment(s): states previous heavy drinker, states has not had anything to drink in over 30days Past Drug Use History: Marijuana Additional Drug Use History / Comment(s): occasional use, instructed to hold 24hrs prior to procedure - Past Family History Mother Additional Family Medical History / Comment(s): brain anuerysm Father Family Medical History: Cancer Additional Family Medical History / Comment(s): lung Medications and Allergies Home Medications Medication Instructions Recorded Confirmed Type No Known Home Medications 09/15/20 10/05/20 History Allergies Allergy/AdvReac Type Severity Reaction Status Date / Time No Known Allergies Allergy Verified 10/05/20 20:15 Physical Examination - Vital Signs Vital Signs: Vital Signs Temp Pulse Pulse Resp BP BP Pulse Ox 10/06/20 07:00 97.8 F 83 18 141/80 98 10/06/20 02:00 97.9 F 77 17 110/75 97 10/05/20 21:28 98.5 F 99 17 136/92 100 10/05/20 20:59 97.8 F 94 18 149/99 100 10/05/20 19:04 92 17 132/82 99 10/05/20 16:44 98.0 F 116 H 18 111/73 99 Intake and Output 10/05/20 10/06/20 10/06/20 22:59 06:59 14:59 Intake Total 540 Balance 540 Intake: Oral 540 Other: Voiding Method Toilet Toilet Toilet # Voids 1 Weight 88.451 kg 77 kg Patient is an elderly male, in no acute distress. Patient is alert and awake. Patient states it is November and the year is 2020. He knows the name of the current president. He knows he is in [facility]. Patient is alert awake oriented to time place and person. Speech and language functions are normal. Attention, concentration and fund of knowledge is adequate. On cranial examination, pupils are equal, round and reacting to light, visual albert are full on confrontation, extraocular muscles are intact with no nystagmus. Face is symmetric, tongue protrudes to the midline. Palatal elevation and sensation normal, hearing and shoulder shrug normal, facial sensation normal. Shoulder shrug normal. On muscle strength testing, there is no pronator drift and the strength is normal in arms and legs distally and proximally. Deep tendon reflexes are symmetric, plantars downgoing. Sensory to touch is equal with no neglect. Cerebellar function showed no ataxia for ilrmhj-[id number] or ielg-be-[id number] testing. No dysdiadochokinesia. Tone and bulk of muscles normal. Gait patient walks with wider base. Appears slightly unsteady. Romberg negative. On general examination, there is no carotid bruit or murmur, S1-S2 audible. Abdomen is soft nontender. Chest is clear. Peripheral pulses are present. No edema. Results - Laboratory Findings CBC and BMP: 10/07/20 06:24 10/07/20 06:24 Abnormal Lab Findings: Abnormal Labs 10/05/20 10/05/20 10/05/20 17:43 17:43 17:43 RBC 3.47 L Hgb 12.9 L Hct MCV 114.1 H D MCH 37.3 H Plt Count Macrocytosis Marked A APTT 20.6 L Chloride Carbon Dioxide 19 L BUN 29 H Creatinine 1.90 H Glucose 110 H Calcium Magnesium 1.5 L Total Bilirubin 1.4 H AST 138 H ALT 87 H Alkaline Phosphatase 210 H Total Protein Albumin 10/06/20 10/06/20 06:57 06:57 RBC 2.95 L Hgb 11.0 L Hct 33.3 L MCV 112.8 H MCH 37.2 H Plt Count 142 L Macrocytosis Marked A APTT Chloride 108 H Carbon Dioxide 21 L BUN 28 H Creatinine Glucose Calcium 8.2 L Magnesium Total Bilirubin AST 89 H ALT 69 H Alkaline Phosphatase 153 H Total Protein 5.9 L Albumin 3.4 L Assessment and Plan Assessment: * Gait imbalance, 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 Current computed tomography scan of head when compared to the computed tomography scan of head from 12/05/2019, there is definite prominence of the ventricles suggestive of NPH. Patient does have gait ataxia, and some recent onset of memory difficulties. * History of alcoholism. 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 Plan: * Patient has presented with recurrent falls. Patient does have gait ataxia and some memory disturbance. CT head revealed possibility of NPH. Patient will undergo large volume spinal tap to see if there is any improvement in his clinical condition. If his gait improves, then he would be a candidate for ventriculoperitoneal shunting procedure. Patient would need neurosurgical consultation, but can be performed as an outpatient as well. * Patient was counseled to abstain from alcoholism. * Neurology will follow.
--- NOTE | 2020-10-06 16:20 | XR ---
EXAMINATION TYPE: XR ribs RT DATE OF EXAM: 10/06/2020 CLINICAL HISTORY: Fall and chest pain TECHNIQUE: Multiple views of the right ribs were obtained. COMPARISON: Chest x-ray 10/05/2020 FINDINGS: Diffuse bony demineralization causes limited evaluation for acute rib fracture. No definite evidence of right rib fracture. No evidence of pneumothorax. IMPRESSION: 1. No right pneumothorax. Diffuse bony demineralization causes limited evaluation for acute rib fract ure. No definite evidence of displaced rib fracture.
[2020-10-06] MEDS: SODIUM CHLORIDE 0.9% 1,000 ML IV SCH (20:40)
[2020-10-06] MEDS: HEPARIN SODIUM,PORCINE/PF 5,000 UNIT/0.5 ML SYRINGE SQ SCH (20:41)
[2020-10-06] MEDS: FAMOTIDINE 20 MG/2 ML VIAL IV SCH (20:41)
[2020-10-07] MEDS: HEPARIN SODIUM,PORCINE/PF 5,000 UNIT/0.5 ML SYRINGE SQ SCH ×2 (08:40→20:04)
[2020-10-07] MEDS: THIAMINE 100 MG TAB PO SCH ×2 (08:40→17:37)
[2020-10-07] MEDS: FAMOTIDINE 20 MG/2 ML VIAL IV SCH (08:40)
[2020-10-07] MEDS: MULTIVITAMINS, THERA 1 EACH TAB PO SCH (08:40)
[2020-10-07 09:42] LABS: HCT 32.2 % (39.6-50.0); HGB 10.7 g/dL (13.0-17.0); MCH 37.4 pg (27.0-32.0); MCHC 33.2 g/dL (32.0-37.0); MCV 112.6 fL (80.0-97.0); Mean Platelet Volume 10.4 fL (9.5-12.2); Platelet Count 132 X 10*3/uL (140-440); RBC 2.86 X 10*6/uL (4.40-5.60); RDW 12.5 % (11.5-14.5); WBC 3.09 X 10*3/uL (4.50-10.00)
[2020-10-07 10:15] LABS: African American GFR (CKD) 90.5 (60.0-200.0); Anion Gap 9.2 mmol/L (4.00-12.00); Calcium 8.8 mg/dL (8.7-10.3); Carbon Dioxide 24.8 mmol/L (21.6-31.8); Magnesium 1.5 mg/dL (1.5-2.4); Non-African American GFR(CKD) 78.1 (60.0-200.0)
[2020-10-07 11:10] LABS: Basophils # (A) 0.03 X 10*3/uL (0.00-0.10); Eosinophils # (A) 0.09 X 10*3/uL (0.04-0.35); Eosinophils % (A) 2.9 %; Lymphocytes # (A) 0.85 X 10*3/uL (0.90-5.00); Lymphocytes % (A) 27.5 %; Macrocytosis (M) 2+; Monocytes # (A) 0.29 X 10*3/uL (0.20-1.00); Monocytes % (A) 9.4 %; Neutrophils # (A) 1.82 X 10*3/uL (1.80-7.70); Neutrophils % (A) 58.9 %
[2020-10-07] MEDS: SODIUM CHLORIDE 0.9% 1,000 ML IV SCH (20:03)
[2020-10-07] MEDS: FAMOTIDINE 20 MG TAB PO SCH (20:04)
--- NOTE | 2020-10-07 22:56 | P.PN ---
Subjective This is a pleasant 54 years old female with multiple medical problems including asthma/COPD, fibromyalgia and migraine follow-up with Dr. Mayo, ulcerative colitis on follow-up with Dr. renee, also she follow up with dock associate, Dr. Varner barrel drainer and she follows up with Dr. Buitrago for her increased pressure in the eye, she uses eyedrops and home and patient was advised to bring came so it can be restarted as they are not on on her home list, she agrees. Her PCP is Dr. Patricia Patient presents because of chest pain started 6:00 this morning about 10/10 when she came in and currently 728/10, central felt like pressure associated with little dyspnea but no coughing or abdominal pain or nausea vomiting or diarrhea. No dysuria or change in urine habits. Also patient vomited about 6 times this morning, however currently she feels fine with no nausea She smokes about 6 cigarettes per day, she was counseled and agreed to quit, she agrees to the nicotine patch. She denies alcohol but she uses marijuana for her pain Vitas looks stable, she is slightly tachycardic at 106. She has mild leukocytosis of 14.7 K. INR 0.9, BMP is unremarkable. Liver enzymes not increased. Troponin less than 0.0123. Lipase is normal at 119, ku virus not detected EKG showed normal sinus rhythm at [address] T changes CT angiography thorax, abdomen and pelvic aorta: No evidence of dissecting aneurysm of the aorta. The emergency room patient was started on aspirin 325 mg and Reglan/Zofran 10/07/2020 Objective - Vital Signs Vital signs: Vital Signs Temp 98.2 F 10/07/20 19:28 Pulse 97 10/07/20 19:28 Resp 16 10/07/20 19:28 BP 145/65 10/07/20 19:28 Pulse Ox 98 10/07/20 14:47 Intake & Output 10/07/20 10/07/20 10/08/20 06:59 18:59 06:59 Intake Total 540 Balance 540 Intake: Oral 540 Other: Voiding Method Toilet Toilet Toilet # Voids 1 3 # Bowel Movements 1 - Exam GENERAL: The patient is alert and oriented x3, not in any acute distress. Well developed, well nourished. -HEENT: Pupils are round and equally reacting to light. EOMI. No scleral icterus. No conjunctival pallor. Normocephalic, atraumatic. No pharyngeal erythema. No thyromegaly. Bruits on the left eye CARDIOVASCULAR: S1 and S2 present. No murmurs, rubs, or gallops. -PULMONARY: Chest is clear to auscultation, no wheezing or crackles. Right lower chest wall tenderness anteriorly ABDOMEN: Soft, nontender, nondistended, normoactive bowel sounds. No palpable organomegaly. MUSCULOSKELETAL: No joint swelling or deformity. EXTREMITIES: No cyanosis, clubbing, or pedal edema. NEUROLOGICAL: Gross neurological examination did not reveal any focal deficits. SKIN: No rashes. no petechiae. - Labs CBC & Chem 7: 10/07/20 06:24 10/07/20 06:24 Labs: Abnormal Lab Results - Last 24 Hours (Table) 10/07/20 10/07/20 Range/Units 06:24 06:24 WBC 3.09 L (4.50-10.00) X 10*3/uL RBC 2.86 L (4.40-5.60) X 10*6/uL Hgb 10.7 L (13.0-17.0) g/dL Hct 32.2 L (39.6-50.0) % MCV 112.6 H (80.0-97.0) fL MCH 37.4 H (27.0-32.0) pg Plt Count 132 L (140-440) X 10*3/uL Lymphocytes # 0.85 L (0.90-5.00) X 10*3/uL BUN/Creatinine Ratio 21.00 H (12.00-20.00) Ratio Glucose 112 H (70-110) mg/dL Assessment and Plan Assessment: Ataxia mostly secondary to NPH Low back pain with waddling gait secondary to a fall about one week ago Alcohol abuse, he drinks 1/2 pint of liquor every day quit about one week I when he fell Right lower anterior chest wall pain and tenderness, mostly secondary to a fall and. X-rays show no fracture Loose bowel movement and possible diarrhea. Nonspecific dizziness Acute kidney injury, came back to normal Alcoholic transaminitis Fall with bruise to the left eye History of bilateral macular degeneration Recent history of alcohol abuse Plan: This is a pleasant 64 years old male who presents with gait Dysfunction secondary time pH, alcohol abuse. disContinue with IV fluids and encourage oral hydration, Neurology consult is appreciated. Continue with CIWA protocol and thiamine. Labs and medication were reviewed.. Continue same treatment. Continue with symptomatic treatment. Resume home medication. Monitor lytes and vitals. DVT and GI prophylaxis. Further recommendations depends on the clinical course of the patient DVT prophylaxis: Subcutaneous heparin GI Prophylaxis: Pepcid PT/OT Home health care surgical subacute rehab, patient is a 12 going to rehab Prognosis is guarded
--- NOTE | 2020-10-08 00:45 | P.PN ---
Subjective Progress Note Date: 10/07/20 Patient was seen via Tele-neurology for a follow-up. Patient states he is doing better. His gait has improved. He feels dizzy and slightly tired. Patient states he is feeling much better. Possibly also because of abstaining from alcoholism. Patient has history of subdural hematoma 09/03/2019, on the right side, which was treated conservatively, did not require craniotomy. Objective - Vital Signs Vital signs: Vital Signs Temp 98.2 F 10/07/20 19:28 Pulse 97 10/07/20 19:28 Resp 16 10/07/20 19:28 BP 145/65 10/07/20 19:28 Pulse Ox 98 10/07/20 14:47 Intake & Output 10/07/20 10/07/20 10/08/20 06:59 18:59 06:59 Intake Total 540 Balance 540 Intake: Oral 540 Other: Voiding Method Toilet Toilet Toilet # Voids 1 3 1 # Bowel Movements 1 - Exam Patient's mental status, speech and language functions are normal. Patient states it is October 2020. Yesterday he has had it is November. Cranial nerves are normal. His walking is improved, still with some wide base. He still feels dizzy when stands up. She is slightly more steady. - Labs CBC & Chem 7: 10/07/20 06:24 10/07/20 06:24 Labs: Abnormal Lab Results - Last 24 Hours (Table) 10/07/20 10/07/20 Range/Units 06:24 06:24 WBC 3.09 L (4.50-10.00) X 10*3/uL RBC 2.86 L (4.40-5.60) X 10*6/uL Hgb 10.7 L (13.0-17.0) g/dL Hct 32.2 L (39.6-50.0) % MCV 112.6 H (80.0-97.0) fL MCH 37.4 H (27.0-32.0) pg Plt Count 132 L (140-440) X 10*3/uL Lymphocytes # 0.85 L (0.90-5.00) X 10*3/uL BUN/Creatinine Ratio 21.00 H (12.00-20.00) Ratio Glucose 112 H (70-110) mg/dL Assessment and Plan Assessment: * Gait imbalance, 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 Current computed tomography scan of head when compared to the computed tomography scan of head from 12/05/2019, there is definite prominence of the ventricles suggestive of NPH. Patient does have gait ataxia, and some recent onset of memory difficulties. * History of right sided subdural hematoma on 09/03/2019, treated conservatively, did not require craniotomy. * History of alcoholism. 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 Plan: * Patient states he has improved significantly in the last 24 hours. He wants to hold off on lumbar puncture. If he continues to have gait issues, then patient will like to proceed with lumbar puncture. Patient states he will let neurology no if he wants to pursue with lumbar puncture. * We will check B12, folate, TSH, B6 and MMA. * Patient was counseled to abstain from alcoholism. * Neurology will follow.
[2020-10-08] MEDS: THIAMINE 100 MG TAB PO SCH ×2 (08:24→17:04)
[2020-10-08] MEDS: MULTIVITAMINS, THERA 1 EACH TAB PO SCH (08:24)
[2020-10-08] MEDS: HEPARIN SODIUM,PORCINE/PF 5,000 UNIT/0.5 ML SYRINGE SQ SCH ×2 (08:24→20:51)
[2020-10-08] MEDS: FAMOTIDINE 20 MG TAB PO SCH ×2 (08:24→20:52)
[2020-10-08 09:54] LABS: Albumin 3.5 g/dL (3.80-4.90); Albumin/Globulin Ratio 1.67 (1.60-3.17); Bilirubin, Conjugated 0.2 mg/dL (0.20-0.40); Bilirubin,Unconjugated 0.2 mg/dL; Globulin 2.1 g/dL (1.6-3.3); Total Bilirubin 0.4 mg/dL (0.3-1.2); Total Protein 5.6 g/dL (6.2-8.2)
[2020-10-08 10:06] LABS: Folate, Serum 8.7 ng/mL
--- NOTE | 2020-10-08 15:44 | P.PN ---
Subjective This is a pleasant 54 years old female with multiple medical problems including asthma/COPD, fibromyalgia and migraine follow-up with Dr. Mayo, ulcerative colitis on follow-up with Dr. renee, also she follow up with vamper, Dr. Varner medical esthetician and she follows up with Dr. Buitrago for her increased pressure in the eye, she uses eyedrops and home and patient was advised to bring came so it can be restarted as they are not on on her home list, she agrees. Her PCP is Dr. Patricia Patient presents because of chest pain started 6:00 this morning about 10/10 when she came in and currently 728/10, central felt like pressure associated with little dyspnea but no coughing or abdominal pain or nausea vomiting or diarrhea. No dysuria or change in urine habits. Also patient vomited about 6 times this morning, however currently she feels fine with no nausea She smokes about 6 cigarettes per day, she was counseled and agreed to quit, she agrees to the nicotine patch. She denies alcohol but she uses marijuana for her pain Vitas looks stable, she is slightly tachycardic at 106. She has mild leukocytosis of 14.7 K. INR 0.9, BMP is unremarkable. Liver enzymes not increased. Troponin less than 0.0123. Lipase is normal at 119, ku virus not detected EKG showed normal sinus rhythm at [address] T changes CT angiography thorax, abdomen and pelvic aorta: No evidence of dissecting aneurysm of the aorta. The emergency room patient was started on aspirin 325 mg and Reglan/Zofran 10/08/2020 Patient remains clinically stable, he was seen in walking the hallway although still has somewhat elongated. He denies any other new complaints. Her symptoms are thought to do a total NPH, urology service on the case, however patient declined lumbar puncture, follow-up within neurology for further recommendation. Other than that looks stable, vitamin B12 is 432, which is moderately low therefore vitamin B12 at 500 mg daily is replaced. Patient would benefits of from [facility] for subacute rehab. Objective - Vital Signs Vital signs: Vital Signs Temp 98.1 F 10/08/20 14:21 Pulse 106 H 10/08/20 14:21 Resp 16 10/08/20 14:21 BP 138/77 10/08/20 14:21 Pulse Ox 99 10/08/20 14:21 Intake & Output 10/07/20 10/08/20 10/08/20 18:59 06:59 18:59 Intake Total 540 520 Balance 540 520 Intake: Oral 540 520 Other: Voiding Method Toilet Toilet Toilet # Voids 3 1 2 - Exam GENERAL: The patient is alert and oriented x3, not in any acute distress. Well developed, well nourished. -HEENT: Pupils are round and equally reacting to light. EOMI. No scleral icterus. No conjunctival pallor. Normocephalic, atraumatic. No pharyngeal erythema. No thyromegaly. Bruits on the left eye CARDIOVASCULAR: S1 and S2 present. No murmurs, rubs, or gallops. -PULMONARY: Chest is clear to auscultation, no wheezing or crackles. Right lower chest wall tenderness anteriorly ABDOMEN: Soft, nontender, nondistended, normoactive bowel sounds. No palpable organomegaly. MUSCULOSKELETAL: No joint swelling or deformity. EXTREMITIES: No cyanosis, clubbing, or pedal edema. NEUROLOGICAL: Gross neurological examination did not reveal any focal deficits. SKIN: No rashes. no petechiae. - Labs CBC & Chem 7: 10/07/20 06:24 10/07/20 06:24 Labs: Abnormal Lab Results - Last 24 Hours (Table) 10/08/20 10/08/20 Range/Units 05:34 05:34 AST 60 H (14-35) U/L ALT 64 H (10-49) U/L Alkaline Phosphatase 159 H (41-126) U/L Total Protein 5.6 L (6.2-8.2) g/dL Albumin 3.50 L (3.80-4.90) g/dL TSH 6.540 H (0.350-5.500) uIU/mL Assessment and Plan Assessment: Ataxia mostly secondary to NPH Low back pain with waddling gait secondary to a fall about one week ago Alcohol abuse, he drinks 1/2 pint of liquor every day quit about one week I when he fell Right lower anterior chest wall pain and tenderness, mostly secondary to a fall and. X-rays show no fracture Loose bowel movement and possible diarrhea. Nonspecific dizziness Acute kidney injury, came back to normal Alcoholic transaminitis Fall with bruise to the left eye History of bilateral macular degeneration Recent history of alcohol abuse Plan: This is a pleasant 64 years old male who presents with gait Dysfunction secondary time pH, alcohol abuse. disContinue with IV fluids and encourage oral hydration, Neurology consult is appreciated. Continue with CIWA protocol and thiamine. Labs and medication were reviewed.. Continue same treatment. Continue with symptomatic treatment. Resume home medication. Monitor lytes and vitals. DVT and GI prophylaxis. Further recommendations depends on the clinical course of the patient DVT prophylaxis: Subcutaneous heparin GI Prophylaxis: Pepcid PT/OT Home health care surgical subacute rehab, patient is a 12 going to rehab Prognosis is guarded
[2020-10-08] MEDS: SODIUM CHLORIDE 0.9% 1,000 ML IV SCH (20:52)
--- NOTE | 2020-10-09 00:39 | P.PN ---
Subjective Progress Note Date: 10/08/20 Patient was seen via Tele-neurology for a follow-up today on 10/08/2020. Patient states he is unchanged as compared to yesterday. His gait has improved. He feels dizzy and slightly tired. Patient has history of subdural hematoma 09/03/2019, on the right side, which was treated conservatively, did not require craniotomy. Objective - Vital Signs Vital signs: Vital Signs Temp 98.0 F 10/08/20 07:00 Pulse 91 10/08/20 07:00 Resp 16 10/08/20 07:00 BP 122/86 10/08/20 07:00 Pulse Ox 98 10/08/20 07:00 Intake & Output 10/07/20 10/08/20 10/08/20 18:59 06:59 18:59 Intake Total 540 Balance 540 Intake: Oral 540 Other: Voiding Method Toilet Toilet Toilet # Voids 3 1 1 - Exam Patient's mental status, speech and language functions are normal. Cranial nerves are normal. His walking is improved, still with some wide base. He still feels dizzy when stands up. He is slightly more steady. - Labs CBC & Chem 7: 10/07/20 06:24 10/07/20 06:24 Labs: Abnormal Lab Results - Last 24 Hours (Table) 10/08/20 10/08/20 Range/Units 05:34 05:34 AST 60 H (14-35) U/L ALT 64 H (10-49) U/L Alkaline Phosphatase 159 H (41-126) U/L Total Protein 5.6 L (6.2-8.2) g/dL Albumin 3.50 L (3.80-4.90) g/dL TSH 6.540 H (0.350-5.500) uIU/mL Assessment and Plan Assessment: * Gait imbalance, 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 Current computed tomography scan of head when compared to the computed tomography scan of head from 12/05/2019, there is definite prominence of the ventricles suggestive of NPH. Patient does have gait ataxia, and some recent onset of memory difficulties. * History of right sided subdural hematoma on 09/03/2019, treated conservatively, did not require craniotomy. * History of alcoholism. 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 Plan: * Patient's symptoms have leveled off in the last 24 hours. He is interested in pursuing lumbar puncture. * B12 432, folate 8.7, TSH 6.54 (IM to address abnormal thyroid functions), B6 and MMA still pending. We will start folate replacement. * Patient was counseled to abstain from alcoholism. * Dr. Luigi Lisa will resume neurology service in the morning.
[2020-10-09] MEDS: THIAMINE 100 MG TAB PO SCH ×2 (08:29→17:59)
[2020-10-09] MEDS: MULTIVITAMINS, THERA 1 EACH TAB PO SCH (08:43)
[2020-10-09] MEDS: FOLIC ACID 1 MG TAB PO SCH (08:43)
[2020-10-09] MEDS: FAMOTIDINE 20 MG TAB PO SCH ×2 (08:43→19:43)
[2020-10-09] MEDS: CYANOCOBALAMIN 500 MCG TAB PO SCH (08:43)
[2020-10-09] MEDS: HEPARIN SODIUM,PORCINE/PF 5,000 UNIT/0.5 ML SYRINGE SQ SCH (08:43)
[2020-10-09 11:46] LABS: T4, Free (Free Thyroxine) 0.9 ng/dL (0.80-1.80)
--- NOTE | 2020-10-09 12:42 | P.PN ---
Subjective This is a pleasant 54 years old female with multiple medical problems including asthma/COPD, fibromyalgia and migraine follow-up with Dr. Mayo, ulcerative colitis on follow-up with Dr. renee, also she follow up with heavy mobile equipment repairer, Dr. Varner metal mixer and she follows up with Dr. Buitrago for her increased pressure in the eye, she uses eyedrops and home and patient was advised to bring came so it can be restarted as they are not on on her home list, she agrees. Her PCP is Dr. Patricia Patient presents because of chest pain started 6:00 this morning about 10/10 when she came in and currently 728/10, central felt like pressure associated with little dyspnea but no coughing or abdominal pain or nausea vomiting or diarrhea. No dysuria or change in urine habits. Also patient vomited about 6 times this morning, however currently she feels fine with no nausea She smokes about 6 cigarettes per day, she was counseled and agreed to quit, she agrees to the nicotine patch. She denies alcohol but she uses marijuana for her pain Vitas looks stable, she is slightly tachycardic at 106. She has mild leukocytosis of 14.7 K. INR 0.9, BMP is unremarkable. Liver enzymes not increased. Troponin less than 0.0123. Lipase is normal at 119, ku virus not detected EKG showed normal sinus rhythm at [address] T changes CT angiography thorax, abdomen and pelvic aorta: No evidence of dissecting aneurysm of the aorta. The emergency room patient was started on aspirin 325 mg and Reglan/Zofran 10/08/2020 Patient remains clinically stable, he was seen in walking the hallway although still has somewhat elongated. He denies any other new complaints. Her symptoms are thought to do a total NPH, urology service on the case, however patient declined lumbar puncture, follow-up within neurology for further recommendation. Other than that looks stable, vitamin B12 is 432, which is moderately low therefore vitamin B12 at 500 mg daily is replaced. Patient would benefits of from [facility] for subacute rehab. 10/09/2020 Patient states that he is getting slightly better, however he agrees to do a lumbar puncture per neurologist recommendation tomorrow As he is telling me. He still have the his low back pain stable about 5/10 but other symptoms improved including diarrhea, right anterior rib pain and dizziness. Patient is able to walk in the room on the hallway since admission and today. And since patient is going for lumbar puncture tomorrow and he is low risk for DVT then we will discontinue his subcutaneous heparin tonight. Also will repeat labs today 40 has mild thrombocytopenia at this point for lumbar puncture tomorrow. Borderline folate and B12 has been replaced. No signs of alcohol withdrawal. Thyroid function test showing chronic subclinical hypothyroidism which was present for many years since 2014 when checked the records possible [facility] for subacute rehab upon discharge Objective - Vital Signs Vital signs: Vital Signs Temp 98.4 F 10/09/20 07:00 Pulse 100 10/09/20 07:31 Resp 18 10/09/20 07:31 BP 136/81 10/09/20 07:00 Pulse Ox 97 10/09/20 07:00 Intake & Output 10/08/20 10/09/20 10/09/20 18:59 06:59 18:59 Intake Total 720 Balance 720 Intake: Oral 720 Other: Voiding Method Toilet Toilet Toilet # Voids 2 2 - Exam GENERAL: The patient is alert and oriented x3, not in any acute distress. Well developed, well nourished. -HEENT: Pupils are round and equally reacting to light. EOMI. No scleral icterus. No conjunctival pallor. Normocephalic, atraumatic. No pharyngeal erythema. No thyromegaly. Bruits on the left eye CARDIOVASCULAR: S1 and S2 present. No murmurs, rubs, or gallops. -PULMONARY: Chest is clear to auscultation, no wheezing or crackles. Right lower chest wall tenderness anteriorly ABDOMEN: Soft, nontender, nondistended, normoactive bowel sounds. No palpable organomegaly. MUSCULOSKELETAL: No joint swelling or deformity. EXTREMITIES: No cyanosis, clubbing, or pedal edema. NEUROLOGICAL: Gross neurological examination did not reveal any focal deficits. SKIN: No rashes. no petechiae. - Labs CBC & Chem 7: 10/07/20 06:24 10/07/20 06:24 Labs: Abnormal Lab Results - Last 24 Hours (Table) 10/09/20 Range/Units 06:17 TSH 6.570 H (0.350-5.500) uIU/mL Assessment and Plan Assessment: Ataxia mostly secondary to NPH Low back pain with waddling gait secondary to a fall about one week ago Alcohol abuse, he drinks 1/2 pint of liquor every day quit about one week I when he fell Right lower anterior chest wall pain and tenderness, mostly secondary to a fall and. X-rays show no fracture Loose bowel movement and possible diarrhea. Nonspecific dizziness Acute kidney injury, came back to normal Alcoholic transaminitis Fall with bruise to the left eye History of bilateral macular degeneration Recent history of alcohol abuse Plan: This is a pleasant 64 years old male who presents with gait Dysfunction secondary to NpH, alcohol abuse. Neurology consult is appreciated. Lumbar puncture to be done if it is recommended by neurology service Continue with CIWA protocol and thiamine. Labs and medication were reviewed.. Continue same treatment. Continue with symptomatic treatment. Resume home medication. Monitor lytes and vitals. DVT and GI prophylaxis. Further recommendations depends on the clinical course of the patient DVT prophylaxis: Subcutaneous heparin GI Prophylaxis: Pepcid PT/OT Home health care surgical subacute rehab, patient is a 12 going to rehab Prognosis is guarded
[2020-10-09 14:18] LABS: Basophils % (A) 1 %; Eosinophils # (A) 0.1 k/uL (0-0.7); Eosinophils % (A) 2 %; HCT 34.5 % (39.0-53.0); HGB 11.9 gm/dL (13.0-17.5); Lymphocytes # (A) 0.8 k/uL (1.0-4.8); Lymphocytes % (A) 20 %; MCH 38.4 pg (25.0-35.0); MCHC 34.4 g/dL (31.0-37.0); MCV 111.7 fL (80.0-100.0); Macrocytosis Marked; Mean Platelet Volume 7.8; Monocytes # (A) 0.3 k/uL (0-1.0); Monocytes % (A) 7 %; Neutrophils # (A) 2.7 k/uL (1.3-7.7); Neutrophils % (A) 70 %; Platelet Count 183 k/uL (150-450); RBC 3.09 m/uL (4.30-5.90); RDW 12.6 % (11.5-15.5); WBC 3.9 k/uL (3.8-10.6)
[2020-10-09 14:26] LABS: ALT 83 U/L (4-49); AST 101 U/L (17-59); African American GFR (CKD) >90 (>60 ml/min/1.73 sqM); Albumin 3.8 g/dL (3.5-5.0); Albumin/Globulin Ratio 1.4; Alkaline Phosphatase 159 U/L (38-126); Anion Gap 6 mmol/L; Blood Urea Nitrogen 14 mg/dL (9-20); Calcium 9.1 mg/dL (8.4-10.2); Carbon Dioxide 28 mmol/L (22-30); Chloride 106 mmol/L (98-107); Globulin 2.8 g/dL; Glucose 88 mg/dL (74-99); Non-African American GFR(CKD) >90 (>60 ml/min/1.73 sqM); Potassium 3.8 mmol/L (3.5-5.1); Sodium 140 mmol/L (137-145); Total Bilirubin 0.2 mg/dL (0.2-1.3); Total Protein 6.6 g/dL (6.3-8.2)
--- NOTE | 2020-10-09 17:13 | P.PN ---
Subjective Progress Note Date: 10/09/20 I'm seeing the patient for the first time. Please refer to Dr. Conde's note for further neurological details of the history with assessment and the plan. Patient notified me that the his walking has been better. He stated that he stopped drinking for last 2 weeks at. He stated according to him that the he has episodes of falls while in the he's drinking alcohol but when and he's not drink and he does not have any episodes of falls. He said that he he's been having falls for the last one year. He denies of any urinary incontinence. He feels his memory is relatively well. Denies off any dizziness, any vision change, any focal weakness. Objective - Vital Signs Vital signs: Vital Signs Temp 99.5 F 10/09/20 14:55 Pulse 98 10/09/20 14:55 Resp 18 10/09/20 14:55 BP 128/76 10/09/20 14:55 Pulse Ox 99 10/09/20 14:55 Intake & Output 10/08/20 10/09/20 10/09/20 18:59 06:59 18:59 Intake Total 720 Balance 720 Intake: Oral 720 Other: Voiding Method Toilet Toilet Toilet # Voids 2 2 1 # Bowel Movements 1 - Exam GENERAL: The patient is lying in bed and is not in acute distress. NEUROLOGICAL: Higher mental function: The patient is awake, alert, oriented to self, place and time. Patient is following commands. No aphasia and no neglect. Cranial nerves: The pupils are round, equal and reactive to light and accommodation. Visual albert are full to confrontation throughout. Extraocular movement is intact no nystagmus is noted. Facial sensation is normal to touch throughout. The facial strength is normal throughout. Hearing is normal bilaterally to hand rub. Tongue is midline and moved [id number] without any difficulty. No dysarthria is noted. Shoulder shrug is normal bilaterally. Motor: Gait is mildly wide based but is walking without assitance, no shuffling and walking seems steady. The strength is left upper elbow extension is 5-/5. Otherwise is 5/5. . Normal tone and bulk. Cerebellum: Normal finger to nose bilaterally. Sensation: Sensation is normal to touch throughout. - Labs CBC & Chem 7: 10/09/20 13:05 10/09/20 13:05 Labs: Abnormal Lab Results - Last 24 Hours (Table) 10/09/20 10/09/20 10/09/20 Range/Units 06:17 13:05 13:05 RBC 3.09 L (4.30-5.90) m/uL Hgb 11.9 L (13.0-17.5) gm/dL Hct 34.5 L (39.0-53.0) % MCV 111.7 H (80.0-100.0) fL MCH 38.4 H (25.0-35.0) pg Lymphocytes # 0.8 L (1.0-4.8) k/uL Macrocytosis Marked A AST 101 H (17-59) U/L ALT 83 H (4-49) U/L Alkaline Phosphatase 159 H (38-126) U/L TSH 6.570 H (0.350-5.500) uIU/mL Assessment and Plan Assessment: * Gait imbalance, 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 Current computed tomography scan of head when compared to the computed tomography scan of head from 12/05/2019, there is definite prominence of the ventricles suggestive of NPH. Patient does have gait ataxia, and some recent onset of memory difficulties. * History of right sided subdural hematoma on 09/03/2019, treated conservatively, did not require craniotomy. * History of alcoholism. 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 Plan: * B12 432, folate 8.7, TSH 6.54 (IM to address abnormal thyroid functions), B6 and MMA still pending. We will start folate replacement. * Patient's gait has improved. Patient wants to hold off on Lumbar puncture. He said he wants to follow-up with neurologist as outpatient and want to assess if any further falls after alcohol cessation. If he continues to have falls he will consider Lumbar puncture as outpatient. Personally, I feel the patient is improving and will hard to assess whether any improvement in gait especially there is improvement in his gait already that is drastic prior to lumbar puncture. I notified the nurse of his wished and notified her to speak with the patient as well since he keep on changing his mind about lumbar puncture. * Patient was counseled to abstain from alcoholism. * If the patient does not get Lumbar puncture then there is no further neurological work-up and patient needs to follow-up with neurologist as outpatient within 1-2 weeks as well as neurosurgeon. * The plan is discussed with the patient's nurse. Luigi Lisa MD Neuro-Hospitalist Time with Patient: Less than 30
--- NOTE | 2020-10-09 18:44 | CONS ---
CONSULTATION DATE OF SERVICE: 10/09/2020 PURPOSE FOR CONSULTATION: Evaluate for alcohol-related issues. HISTORY OF PRESENTING ILLNESS: The patient is a 64-year-old male who was admitted to the medical floor for low back pain following a fall. He was also having dizziness and balance problems. The patient was reporting daily use of alcohol. He indicated to Dr. Sweeney that he drinks a half a pint daily. When I talked to the patient, he was somewhat vague on specifics of his alcohol use. He did suggest that he drank in that range of volume. He seemed somewhat confused about dates. He said his last drink was about 7 to 10 days ago. He acknowledged that he has had "lifelong" problems with alcohol. He has been in treatment in the past. He said he was in an inpatient treatment program last year. He notes his longest period of sobriety in recent years was 3 months, from August to October of 2019. He says that he recognizes depression that in part relates to his persistent drinking. He can get hopeless feelings. He notes that currently he is homeless and had been recently staying in a snf. He says there is a part of him that is motivated to attain sobriety. When I talked to him about going into an inpatient program, he was somewhat ambivalent about it. He said the last time he was in a program was [facility], and he had mixed feelings about it. It is noteworthy that he was able to recognize some positives about what benefit he could give to others if he was in an inpatient program, given that he has some reasonably good insights about the struggles he has had with his drinking over the years. He acknowledges that his drinking has caused a significant amount of stress in his family. He continues to be in touch with his ex-, who encourages him towards gaining sobriety. He says that his daughter has stopped contacts with him, apparently indicating that as long as he is drinking she would not want to contribute to his difficulties. MENTAL STATUS EXAMINATION: Patient gave fairly good eye contact. He was somewhat restless during the interview. He got up and started walking back and forth, saying that he needed to get his legs moving because he felt weak and stiff in his legs. He was spontaneous and interactive. His thoughts were clear and coherent. His affect was in a reasonable range. His mood was reserved. He seemed somewhat distressed. There was no indication of thought disorder. He voiced no thoughts of harm. Cognition was clear. ASSESSMENT: This 64-year-old male is diagnosed with alcohol dependence. I would rule out underlying depression. I had an extensive discussion with the patient about entering an inpatient treatment program. We talked about how he might approach the program in a way that would benefit him as well as others; he might find some positives if he could utilize a program to help himself move forward without getting caught up with any negatives that sometimes show up in treatment programs. We talked about that during that time, he might be able to help organize some things for himself so he could figure out something about his living circumstances as well. We talked about how he might approach family to aim towards getting some support for maintaining sobriety. The patient did seem to be willing to consider working with the social work assistant to seek an available inpatient referral for substance abuse treatment. I will continue to follow. AIDEN / JUSTIN: [id number] /
[2020-10-09] MEDS: SODIUM CHLORIDE 0.9% 1,000 ML IV SCH (19:43)
[2020-10-10] MEDS: FAMOTIDINE 20 MG TAB PO SCH (08:54)
[2020-10-10] MEDS: MULTIVITAMINS, THERA 1 EACH TAB PO SCH (08:54)
[2020-10-10] MEDS: CYANOCOBALAMIN 500 MCG TAB PO SCH (08:54)
[2020-10-10] MEDS: THIAMINE 100 MG TAB PO SCH (08:54)
[2020-10-10] MEDS: FOLIC ACID 1 MG TAB PO SCH (08:54)
[2020-10-10] MEDS: SODIUM CHLORIDE 0.9% 1,000 ML IV SCH (08:55)
[2020-10-10 09:02] LABS: Prothrombin Time 10.6 sec (9.0-12.0)
[2020-10-10 15:03] VITALS: BP 168/97; PULSE 111; RESP 20; TEMP 98.3
--- NOTE | 2020-10-10 17:04 | CONS ---
CONSULTATION DATE OF SERVICE: 10/10/2020 PURPOSE FOR CONSULTATION: Evaluate for alcohol-related issues. INTERVAL HISTORY: The patient has been doing fair from a medical standpoint. My understanding is that things are stabilizing for him, particularly around the main issues of dizziness and balance problems. It is anticipated he will be discharged today or in the next day or so. His primary issue from a mental health standpoint is his alcohol dependence. When I talked to him today, he said he had made a call to a substance abuse program, though it did not sound as if he had been able to make a contact. He that seemed ambivalent about whether or not he would go into an inpatient substance use treatment program. It is noted that during our talk he emphasized over and over that he has to take one day at that time and he understands that he does not believe he can look too far down the road. I shared with the patient that his history strongly indicates that without supportive treatment he has a very high likelihood of relapsing and that, as he says taking things one day at a time very likely puts him at risk for relapse. We discussed that if he entered a 21-day program at least for some initial help, there would be much higher likelihood that he would at least be able to go 21 days without relapsing and that it would take some additional effort to actually walk out of a program if he chose to relapse. We discussed that that would provide at least some cushion for him that might get him in a better direction. In addition I reviewed the potential for longer- term recovery programs that might include a long-term inpatient program. I had an extensive discussion with the patient reviewing resurgence statistics relating to the best course and interventions that might provide him with the greatest likelihood of being able to maintain sobriety at least beyond 3 months. We talked about acute withdrawal issues which continue to escalate over the first few weeks though continue to be problematic for at least 6-12 weeks. From the patient's standpoint, he made some comments that he would consider making calls to [facility], [facility] or other program for possible intake. ASSESSMENT: I will continue the current diagnosis and treatment plan. Nursing will be giving the patient the telephone number for both [facility] and [facility]. The nurse will also talk with the patient about the option that transportation may be able to be provided to get him to the facilities. Whether or not the patient will follow through with an inpatient program remains to be seen. If the patient does not enter an inpatient program, there is a very high likelihood of relapse. I did share this with the patient. AIDEN / JUSTIN: [id number] /
--- NOTE | 2020-10-10 22:20 | P.DS ---
Providers Date of admission: 10/06/20 15:20 Attending physician: Jasbir Schaefer Consults: 10/05/20 19:59 Consult Physician Routine Consulting Provider: He Conde Consult Reason/Comments: ataxia Do you want consulting provider notified?: Yes 10/06/20 11:44 Consult Physician Urgent Consulting Provider: Sunil Mcallister Consult Reason/Comments: depression with alcoholism Do you want consulting provider notified?: Yes 10/06/20 13:44 Consult to Anesthesia Routine Consulting Provider: Anesthesia,Services Consult Reason/Comments: NPH, large volume spinal tap, Plz check opening pressure Primary care physician: [facility] Course: Diagnoses: Ataxia mostly secondary to NPH, exacerbated by alcohol abuse, dietary deficiency and borderline vitamin B12 Low back pain secondary to a fall about one week ago. Completely resolved upon discharge Alcohol abuse, he drinks 1/2 pint of liquor every day quit about one week I when he fell. No withdrawal symptoms upon discharge, he will follow up with [facility] tomorrow for outpatient setting Right lower anterior chest wall pain and tenderness, secondary to a fall and. X-rays show no fracture. Resolved Loose bowel movement and possible diarrhea. Resolved Nonspecific dizziness. Resolved Acute kidney injury, came back to normal Alcoholic transaminitis Fall with bruise to the left eye History of bilateral macular degeneration Recent history of alcohol abuse Hospital course: This is a pleasant 54 years old female with multiple medical problems including asthma/COPD, fibromyalgia and migraine follow-up with Dr. Mayo, ulcerative colitis on follow-up with Dr. renee, also she follow up with applicator sprayer, Dr. Varner tube blower and she follows up with Dr. Buitrago for her increased pressure in the eye. PCP is Dr. Patricia Patient presents because of Bozzo problem on abnormal gait, feeling lethargic and fall with left eye problems. The patient states that is been drinking alcohol and quit about 2 weeks ago. Patient has been evaluated by neurologist and CAT scan of the brain was suspicious for normal pressure hydrocephalus, patient has been evaluated by neurologist. Today and discussed the case with Dr. Lisa and he recommended against 1 lumbar puncture as inpatient, patient is improving gradually with current treatment and able to walk by himself, physical therapy evaluation found him not qualified for subacute rehab because he is doing well. Patient however will benefit from neuro surgery evaluation as an outpatient per Dr. Lisa, I called his PCP Dr. Pérez and discussed the case with her with recommendation for him to be referred to a neurologist and neurosurgery evaluation, and that he agrees to see her for tomorrow appointment date on 10/11 out 4 PM as he told me. Dr. Pérez kindly took note of these and with the follow-up with him. Patient had many symptoms on admission like dizziness right-sided rib chest pain anteriorly, diarrhea and all these resolved prior to discharge On the day of discharge he denies chest pain or dyspnea, no headache or weakness or numbness. No blurred vision, no slurred speech. No abdominal pain. Change in urine or bowel habits. No fever Patient also evaluated by psychiatrist and suggested outpatient/inpatient detox program, patient called and made an appointment tomorrow for [facility] for outpatient therapy. Patient is homeless and states he will stay in a care home and if he could not find a care home he will stay in a motel told then. Problems and management plan were discussed with the patient and he verbalized understanding and acceptance Patient was found stable and can be discharged home however he needs follow-up as an outpatient. Patient was instructed to follow up with PCP Dr. Pérez for tomorrow appointment on 10/11 and 4:15 p.m. and he agrees told me he will go and see her Patient also instructed to follow up with a neurologist and they have suggested for him and Dr. Mayo, Dr. Jaime and Dr. Mart 2: Make an appointment within 1 week. Patient agrees to make his own appointment. Also informed patient will need neurosurgical evaluation per Dr. Pérez for his NPH, patient verbalized understanding and acceptance Physical exam Gen: patient is a AAOx3, no distress CVS: S1-S2, RRR, no murmur Lungs: B/L CTA, no wheezing Abdomen: soft, no distention, no tenderness, positive bowel sounds Extremity: no leg edema or induration Time spent more than 35 minutes started 6:00 this morning about 10/10 when she came in and currently 728/10, central felt like pressure associated with little dyspnea but no coughing or abdominal pain or nausea vomiting or diarrhea. No dysuria or change in urine habits. Also patient vomited about 6 times this morning, however currently she feels fine with no nausea She smokes about 6 cigarettes per day, she was counseled and agreed to quit, she agrees to the nicotine patch. She denies alcohol but she uses marijuana for her pain Vitas looks stable, she is slightly tachycardic at 106. She has mild leukocytosis of 14.7 K. INR 0.9, BMP is unremarkable. Liver enzymes not increased. Troponin less than 0.0123. Lipase is normal at 119, ku virus not detected EKG showed normal sinus rhythm at [address] T changes CT angiography thorax, abdomen and pelvic aorta: No evidence of dissecting aneurysm of the aorta. The emergency room patient was started on aspirin 325 mg and Reglan/Zofran 10/08/2020 Patient remains clinically stable, he was seen in walking the hallway although still has somewhat elongated. He denies any other new complaints. Her symptoms are thought to do a total NPH, urology service on the case, however patient declined lumbar puncture, follow-up within neurology for further recommendation. Other than that looks stable, vitamin B12 is 432, which is moderately low therefore vitamin B12 at 500 mg daily is replaced. Patient would benefits of from ECF for subacute rehab. 10/09/2020 Patient states that he is getting slightly better, however he agrees to do a lumbar puncture per neurologist recommendation tomorrow As he is telling me. He still have the his low back pain stable about 5/10 but other symptoms improved including diarrhea, right anterior rib pain and dizziness. Patient is able to walk in the room on the hallway since admission and today. And since patient is going for lumbar puncture tomorrow and he is low risk for DVT then we will discontinue his subcutaneous heparin tonight. Also will repeat labs today 40 has mild thrombocytopenia at this point for lumbar puncture tomorrow. Borderline folate and B12 has been replaced. No signs of alcohol withdrawal. Thyroid function test showing chronic subclinical hypothyroidism which was present for many years since 2014 when checked the records possible ECF for subacute rehab upon discharge Patient Condition at Discharge: Good Plan - Discharge Summary New Discharge Prescriptions: New RX: Multivitamins, Thera [Multivitamin (formulary)] 1 each PO DAILY #30 tab RX: Folic Acid 1 mg PO DAILY #30 tab RX: Thiamine [Vitamin B-1] 100 mg PO DAILY #30 tab RX: Cyanocobalamin [Vitamin B-12] 500 mcg PO DAILY #30 tab Discharge Medication List RX: Cyanocobalamin [Vitamin B-12] 500 mcg PO DAILY #30 tab 10/10/20 [Rx] RX: Folic Acid 1 mg PO DAILY #30 tab 10/10/20 [Rx] RX: Multivitamins, Thera [Multivitamin (formulary)] 1 each PO DAILY #30 tab 10/10/20 [Rx] RX: Thiamine [Vitamin B-1] 100 mg PO DAILY #30 tab 10/10/20 [Rx] Follow up Appointment(s)/Referral(s): Jignesh Pérez DO [Primary Care Provider] - 10/11/20 4:15 pm (We recommend to check your blood test with Dr. Pérez including her liver test) El Mayo MD [Medical Doctor] - 1 Week Hina Jaime MD [REFERRING] - 1 Week Satinder Mart DO [STAFF PHYSICIAN] - 1 Week Patient Instructions/Handouts: Hydrocephalus (DC) Activity/Diet/Wound Care/Special Instructions: Heart healthy diet Activity is restricted to see your doctor We are comment neurosurgical evaluation as an outpatient for your normal pressure hydrocephalus. Please follow-up With your primary care Dr. Pérez tomorrow at 4pm regarding this neurosurgical referral [facility] outpatient appointment 10/11 @10am Discharge Disposition: HOME SELF-CARE
== END 2020-10-10 16:06 | disposition home or self-care (01) | DRG 57 ==
LOC: EC 16:39 → 6NMEDSUR 19:58 → OBSVTOIN 10-06 15:20
PROVIDERS: ADMIT Internal Medicine; ATTEND Internal Medicine
DX: G91.2 (Idiopathic) normal pressure hydrocephalus (principal); K51.90 Ulcerative colitis, unspecified, without complications; N17.9 Acute kidney failure, unspecified; D69.6 Thrombocytopenia, unspecified; K70.9 Alcoholic liver disease, unspecified; E02 Subclinical iodine-deficiency hypothyroidism; D53.9 Nutritional anemia, unspecified; S00.12XA Contusion of left eyelid and periocular area, initial encounter; F10.20 Alcohol dependence, uncomplicated; J44.9 Chronic obstructive pulmonary disease, unspecified; R26.0 Ataxic gait; H35.3220 Exudative age-related macular degeneration, left eye, stage unspecified; Z20.822 Contact with and (suspected) exposure to COVID-19; H35.3110 Nonexudative age-related macular degeneration, right eye, stage unspecified; E53.8 Deficiency of other specified B group vitamins; I10 Essential (primary) hypertension; M79.7 Fibromyalgia; R29.6 Repeated falls; I49.3 Ventricular premature depolarization; F32.9 Major depressive disorder, single episode, unspecified; G43.909 Migraine, unspecified, not intractable, without status migrainosus; M54.5 Low back pain; F17.210 Nicotine dependence, cigarettes, uncomplicated; Z53.20 Procedure and treatment not carried out because of patient's decision for unspecified reasons; Z71.6 Tobacco abuse counseling; Z90.49 Acquired absence of other specified parts of digestive tract; Z87.19 Personal history of other diseases of the digestive system; Z87.820 Personal history of traumatic brain injury; Z71.41 Alcohol abuse counseling and surveillance of alcoholic; Z91.81 History of falling; Z59.0 Homelessness; Z98.890 Other specified postprocedural states; W10.1XXA Fall (on)(from) sidewalk curb, initial encounter
CPT/HCPCS: 36415; 70450; 70496; 70498; 71046; 80048; 80053; 80076; 80320; 82607; 82746; 83735; 83921; 84207; 84439; 84443; 85025; 85610; 85730; 87635; 88108; 93005; 96360; 96372; 99285

== ENCOUNTER 2020-10-12 16:44 | Emergency (ER) | payer MEDICARE ==
[2020-10-12 16:51] VITALS: PULSE 102; RESP 18; TEMP 98.3
[2020-10-12] MEDS ORDERED: SODIUM CHLORIDE 0.9% 1,000 ML IV STA (17:18)
[2020-10-12 17:30] LABS: Basophils # (A) 0.1 k/uL (0-0.2); Basophils % (A) 1 %; Eosinophils # (A) 0.1 k/uL (0-0.7); Eosinophils % (A) 2 %; HCT 33.8 % (39.0-53.0); HGB 11.9 gm/dL (13.0-17.5); Lymphocytes % (A) 18 %; MCH 38.6 pg (25.0-35.0); MCHC 35.4 g/dL (31.0-37.0); MCV 109.2 fL (80.0-100.0); Macrocytosis Moderate; Mean Platelet Volume 7.7; Monocytes # (A) 0.5 k/uL (0-1.0); Monocytes % (A) 9 %; Neutrophils # (A) 3.7 k/uL (1.3-7.7); Neutrophils % (A) 68 %; Platelet Count 223 k/uL (150-450); RBC 3.09 m/uL (4.30-5.90); RDW 12.4 % (11.5-15.5); WBC 5.4 k/uL (3.8-10.6)
[2020-10-12 17:43] LABS: ALT 100 U/L (4-49); AST 127 U/L (17-59); African American GFR (CKD) >90 (>60 ml/min/1.73 sqM); Albumin 4.4 g/dL (3.5-5.0); Alcohol <10 mg/dL; Alkaline Phosphatase 189 U/L (38-126); Anion Gap 11 mmol/L; Blood Urea Nitrogen 20 mg/dL (9-20); Calcium 9.6 mg/dL (8.4-10.2); Carbon Dioxide 21 mmol/L (22-30); Chloride 108 mmol/L (98-107); Glucose 118 mg/dL (74-99); Magnesium 1.5 mg/dL (1.6-2.3); Non-African American GFR(CKD) 83 (>60 ml/min/1.73 sqM); Phosphorus 3.2 mg/dL (2.5-4.5); Potassium 4.2 mmol/L (3.5-5.1); Sodium 140 mmol/L (137-145); Total Bilirubin 0.5 mg/dL (0.2-1.3); Total Protein 7.2 g/dL (6.3-8.2)
--- NOTE | 2020-10-12 18:28 | XR ---
EXAMINATION: XR chest 2V DATE AND TIME: 10/12/2020 6:08 PM CLINICAL INDICATION: PHH; lethargy TECHNIQUE: Departmental protocol COMPARISON: 10/05/2020 FINDINGS: The lungs are clear. The pleural spaces are negative. The cardiac silhouette is not enlarged. The remainder of the mediastinal silhouette is unremarkable. The skeletal structures and soft tissues are negative for acute findings. IMPRESSION: NO ACUTE PROCESS.
--- NOTE | 2020-10-12 18:43 | ED ---
General Adult HPI - General Chief complaint: Dizziness Stated complaint: Weakness,Dizzy Time Seen by Provider: 10/12/20 17:04 Source: patient Mode of arrival: ambulatory Limitations: no limitations - History of Present Illness Initial comments: 64 year-old male patient presents to the emergency department for evaluation of dizziness and weakness. States that symptoms started earlier today and have been going on intermittently over the last couple of weeks. States that he is an alcoholic, generally drinks liquor. States that he stopped drinking two weeks ago, but did have a half a pint of vodka three days ago. States he has been very sleepy and lethargic today. Denies any unilateral of limb focused weakness. Denies numbness or tingling. Denies any fever or chills. Patient did have a couple of falls over the last week, has been evaluated and has had two CT scans of the brain and an angiography CT. Patient denies any recent rash, fever, chills, cough, shortness of breath, chest pain, abdominal pain, nausea, vomiting, diarrhea, constipation, back pain, hematuria, dysuria, urinary urgency, urinary frequency, headache, visual changes, or any other complaints. - Related Data Home Medications Medication Instructions Recorded Confirmed No Known Home Medications 10/12/20 10/12/20 Allergies Allergy/AdvReac Type Severity Reaction Status Date / Time No Known Allergies Allergy Verified 10/12/20 19:33 Review of Systems ROS Statement: Those systems with pertinent positive or pertinent negative responses have been documented in the HPI. ROS Other: All systems not noted in ROS Statement are negative. Past Medical History Past Medical History: Eye Disorder, GI Bleed, Hypertension Additional Past Medical History / Comment(s): past hx diverticulitis, right eye dry macular degeneration, left eye wet macular degeneration. alcholism History of Any Multi-Drug Resistant Organisms: None Reported Past Surgical History: Cholecystectomy, Hernia Repair Additional Past Surgical History / Comment(s): PICC line in, now removed, hernia repair, colonoscopy Past Anesthesia/Blood Transfusion Reactions: No Reported Reaction Additional Past Anesthesia/Blood Transfusion Reaction / Comment(s): 4 UNITS OF PRBC 10/2014, NO REACTION Past Psychological History: No Psychological Hx Reported Smoking Status: Current some day smoker Past Alcohol Use History: None Reported, Abuse, Daily Past Drug Use History: Marijuana - Past Family History Mother Additional Family Medical History / Comment(s): brain anuerysm Father Family Medical History: Cancer Additional Family Medical History / Comment(s): lung General Exam Limitations: no limitations General appearance: alert, in no apparent distress, other (Physical well- developed, well-nourished adult male patient in no acute distress. Vital signs upon presentation temperature 98.3F, pulse 102, respirations 18, blood pressure 158/101, pulse ox 98% on room air.) Eye exam: Present: normal appearance, PERRL, EOMI. Absent: scleral icterus, conjunctival injection, periorbital swelling ENT exam: Present: normal exam, normal oropharynx, mucous membranes moist Respiratory exam: Present: normal lung sounds bilaterally. Absent: respiratory distress, wheezes, rales, rhonchi, stridor Cardiovascular Exam: Present: normal rhythm, tachycardia, normal heart sounds. Absent: systolic murmur, diastolic murmur, rubs, gallop, clicks GI/Abdominal exam: Present: soft, normal bowel sounds. Absent: distended, tenderness, guarding, rebound, rigid Neurological exam: Present: alert, oriented X3, CN II-XII intact Expanded Speech: Present: fluid speech Cranial nerves: EOM's Intact: Normal Motor strength exam: RUE: 5, LUE: 5, RLE: 5, LLE: 5 Psychiatric exam: Present: normal affect, normal mood Skin exam: Present: warm, dry, intact, normal color. Absent: rash Course Vital Signs 10/12/20 10/12/20 10/12/20 16:45 17:51 19:07 Temperature 98.3 F Pulse Rate 102 H Respiratory 18 18 18 Rate Blood Pressure 158/101 121/59 O2 Sat by Pulse 98 96 96 Oximetry 10/12/20 21:08 Temperature Pulse Rate Respiratory Rate Blood Pressure 140/77 O2 Sat by Pulse Oximetry EKG Findings - EKG Comments: EKG Findings:: EKG obtained at 1700 shows sinus rhythm with premature atrial com plexes. Ventricular rate is 95, ID interval 122, QRS duration 80, QT 356, QTc 447. No evidence of ST elevation or depression. Medical Decision Making - Medical Decision Making 64 year-old male patient presented to the emergency department today for evaluation of dizziness and weakness. Physical examination did reveal some periorbital ecchymosis which she has been evaluated in the past, states he did have a fall about a week ago. He is neurologically intact with no focal deficits. Answers all questions appropriately. Labs reviewed and were unremarkable. EKG was unremarkable. I did discuss findings and results with the patient. He will be discharged to follow-up with his primary care physician for recheck in 1-2 days. At this time he did admit that he has nowhere to go as he is homeless and no transportation. He was provided with list of homeless shelters. Return parameters were discussed in detail. He verbalizes understan misael and agrees with this plan. Case discussed with my attending Dr. Rojas. - Lab Data Result diagrams: 10/12/20 17:11 10/12/20 17:11 Lab Results 10/12/20 10/12/20 10/12/20 Range/Units 17:11 17:11 17:11 WBC 5.4 (3.8-10.6) k/uL RBC 3.09 L (4.30-5.90) m/uL Hgb 11.9 L (13.0-17.5) gm/dL Hct 33.8 L (39.0-53.0) % MCV 109.2 H (80.0-100.0) fL MCH 38.6 H (25.0-35.0) pg MCHC 35.4 (31.0-37.0) g/dL RDW 12.4 (11.5-15.5) % Plt Count 223 (150-450) k/uL MPV 7.7 Neutrophils % 68 % Lymphocytes % 18 % Monocytes % 9 % Eosinophils % 2 % Basophils % 1 % Neutrophils # 3.7 (1.3-7.7) k/uL Lymphocytes # 1.0 (1.0-4.8) k/uL Monocytes # 0.5 (0-1.0) k/uL Eosinophils # 0.1 (0-0.7) k/uL Basophils # 0.1 (0-0.2) k/uL Macrocytosis Moderate Sodium 140 (137-145) mmol/L Potassium 4.2 (3.5-5.1) mmol/L Chloride 108 H (98-107) mmol/L Carbon Dioxide 21 L (22-30) mmol/L Anion Gap 11 mmol/L BUN 20 (9-20) mg/dL Creatinine 0.96 (0.66-1.25) mg/dL Est GFR (CKD-EPI)AfAm >90 (>60 ml/min/1.73 sqM) Est GFR (CKD-EPI)NonAf 83 (>60 ml/min/1.73 sqM) Glucose 118 H (74-99) mg/dL Plasma Lactic Acid Jhonatan 1.3 (0.7-2.0) mmol/L Calcium 9.6 (8.4-10.2) mg/dL Phosphorus 3.2 (2.5-4.5) mg/dL Magnesium 1.5 L (1.6-2.3) mg/dL Total Bilirubin 0.5 (0.2-1.3) mg/dL AST 127 H (17-59) U/L ALT 100 H (4-49) U/L Alkaline Phosphatase 189 H (38-126) U/L Troponin I (0.000-0.034) ng/mL Total Protein 7.2 (6.3-8.2) g/dL Albumin 4.4 (3.5-5.0) g/dL Urine Color Urine Appearance (Clear) Urine pH (5.0-8.0) Ur Specific [place] (1.001-1.035) Urine Protein (Negative) Urine Glucose (UA) (Negative) Urine Ketones (Negative) Urine Blood (Negative) Urine Nitrite (Negative) Urine Bilirubin (Negative) Urine Urobilinogen (<2.0) mg/dL Ur Leukocyte Esterase (Negative) Serum Alcohol <10 mg/dL 10/12/20 10/12/20 Range/Units 17:11 18:36 WBC (3.8-10.6) k/uL RBC (4.30-5.90) m/uL Hgb (13.0-17.5) gm/dL Hct (39.0-53.0) % MCV (80.0-100.0) fL MCH (25.0-35.0) pg MCHC (31.0-37.0) g/dL RDW (11.5-15.5) % Plt Count (150-450) k/uL MPV Neutrophils % % Lymphocytes % % Monocytes % % Eosinophils % % Basophils % % Neutrophils # (1.3-7.7) k/uL Lymphocytes # (1.0-4.8) k/uL Monocytes # (0-1.0) k/uL Eosinophils # (0-0.7) k/uL Basophils # (0-0.2) k/uL Macrocytosis Sodium (137-145) mmol/L Potassium (3.5-5.1) mmol/L Chloride (98-107) mmol/L Carbon Dioxide (22-30) mmol/L Anion Gap mmol/L BUN (9-20) mg/dL Creatinine (0.66-1.25) mg/dL Est GFR (CKD-EPI)AfAm (>60 ml/min/1.73 sqM) Est GFR (CKD-EPI)NonAf (>60 ml/min/1.73 sqM) Glucose (74-99) mg/dL Plasma Lactic Acid Jhonatan (0.7-2.0) mmol/L Calcium (8.4-10.2) mg/dL Phosphorus (2.5-4.5) mg/dL Magnesium (1.6-2.3) mg/dL Total Bilirubin (0.2-1.3) mg/dL AST (17-59) U/L ALT (4-49) U/L Alkaline Phosphatase (38-126) U/L Troponin I <0.012 (0.000-0.034) ng/mL Total Protein (6.3-8.2) g/dL Albumin (3.5-5.0) g/dL Urine Color Yellow Urine Appearance Clear (Clear) Urine pH 5.5 (5.0-8.0) Ur Specific [place] 1.023 (1.001-1.035) Urine Protein Trace H (Negative) Urine Glucose (UA) Negative (Negative) Urine Ketones 1+ H (Negative) Urine Blood Negative (Negative) Urine Nitrite Negative (Negative) Urine Bilirubin Negative (Negative) Urine Urobilinogen 2.0 (<2.0) mg/dL Ur Leukocyte Esterase Negative (Negative) Serum Alcohol mg/dL - Radiology Data Radiology results: report reviewed, image reviewed Two-view x-ray of the chest is obtained. No acute processes identified. Disposition Clinical Impression: Dizziness, Weakness Disposition: HOME SELF-CARE Condition: Good Instructions (If sedation given, give patient instructions): Weakness (ED), Dizziness (ED) Additional Instructions: Follow-up with primary care physician for recheck in 1-2 days. Return for any new, worsening, or concerning symptoms. Is patient prescribed a controlled substance at d/c from ED?: No Referrals: Jignesh Pérez DO [Primary Care Provider] - 1-2 days Time of Disposition: 20:11
[2020-10-12 19:18] LABS: Appearance,Urine Clear (Clear); Bilirubin,Urine Negative (Negative); Blood,Urine Negative (Negative); Color,Urine Yellow; Glucose,Urine (UA) Negative (Negative); Ketones,Urine 1+ (Negative); Leukocyte Esterase,Urine Negative (Negative); Nitrite,Urine Negative (Negative); PH, Urine 5.5 (5.0-8.0); Protein,Urine Trace (Negative); Specific Gravity,Urine 1.023 (1.001-1.035)
[2020-10-12 21:10] VITALS: BP 140/77
== END 2020-10-12 21:25 | disposition home or self-care (01) ==
LOC: EC 16:44
DX: R42 Dizziness and giddiness (principal); R53.1 Weakness; R53.83 Other fatigue; I10 Essential (primary) hypertension; F17.200 Nicotine dependence, unspecified, uncomplicated; F12.90 Cannabis use, unspecified, uncomplicated
CPT/HCPCS: 36415; 93005; 80053; 83605; 83735; 84100; 84484; 85025; 81003; 71046; 99285; G0480; 80320

== ENCOUNTER 2020-10-14 12:36 | Emergency (ER) | payer MEDICARE ==
[2020-10-14 12:42] VITALS: RESP 18; TEMP 98.3
--- NOTE | 2020-10-14 12:58 | ED ---
General Adult HPI - General Chief complaint: Recheck/Abnormal Lab/Rx Stated complaint: cough Time Seen by Provider: 10/14/20 12:43 Source: patient, RN notes reviewed Mode of arrival: ambulatory Limitations: no limitations - History of Present Illness Initial comments: Patient is a pleasant 64-year-old male presenting to the emergency department with concerns for gait abnormality. Patient states symptoms have been present over a year. Patient states he was here a couple of days ago. Patient states he does have memory problems. Patient admit he does not remember spinning and right in the hospital. Patient does have some blurry vision however this has also been present for the past one year. Patient admits to still drinking alcohol, last was last night. Patient does admit to having a mild cough when questioned specifically regarding this. - Related Data Home Medications Medication Instructions Recorded Confirmed No Known Home Medications 10/12/20 10/14/20 Allergies Allergy/AdvReac Type Severity Reaction Status Date / Time No Known Allergies Allergy Verified 10/14/20 14:00 Review of Systems ROS Statement: Those systems with pertinent positive or pertinent negative responses have been documented in the HPI. ROS Other: All systems not noted in ROS Statement are negative. Constitutional: Denies: fever Eyes: Reports: as per HPI. Denies: eye pain ENT: Denies: ear pain Respiratory: Reports: as per HPI, cough. Denies: dyspnea Cardiovascular: Denies: chest pain Endocrine: Reports: fatigue Gastrointestinal: Denies: abdominal pain Genitourinary: Denies: dysuria Musculoskeletal: Denies: back pain Skin: Denies: rash Neurological: Reports: as per HPI. Denies: headache Past Medical History Past Medical History: Eye Disorder, GI Bleed, Hypertension Additional Past Medical History / Comment(s): past hx diverticulitis, right eye dry macular degeneration, left eye wet macular degeneration. alcholism History of Any Multi-Drug Resistant Organisms: None Reported Past Surgical History: Cholecystectomy, Hernia Repair Additional Past Surgical History / Comment(s): PICC line in, now removed, hernia repair, colonoscopy Past Anesthesia/Blood Transfusion Reactions: No Reported Reaction Additional Past Anesthesia/Blood Transfusion Reaction / Comment(s): 4 UNITS OF PRBC 10/2014, NO REACTION Past Psychological History: No Psychological Hx Reported Smoking Status: Former smoker Past Alcohol Use History: Abuse, Daily Past Drug Use History: Marijuana - Past Family History Mother Additional Family Medical History / Comment(s): brain anuerysm Father Family Medical History: Cancer Additional Family Medical History / Comment(s): lung General Exam Limitations: no limitations General appearance: alert, in no apparent distress Head exam: Present: atraumatic Eye exam: Present: normal appearance, PERRL, EOMI ENT exam: Present: normal oropharynx Neck exam: Present: normal inspection. Absent: tenderness Respiratory exam: Present: normal lung sounds bilaterally Cardiovascular Exam: Present: regular rate, normal rhythm GI/Abdominal exam: Present: soft. Absent: tenderness Extremities exam: Present: normal inspection. Absent: tenderness Neurological exam: Present: alert, CN II-XII intact, normal gait. Absent: motor sensory deficit Expanded Neurological exam: Present: protecting the airway Speech: Present: fluid speech Motor strength exam: RUE: 5, LUE: 5, RLE: 5, LLE: 5 Eye Response: (4) open spontaneously Motor Response: (6) obeys commands Verbal Response: (5) oriented Psychiatric exam: Present: normal affect, normal mood Skin exam: Present: normal color Course Vital Signs 10/14/20 12:38 Temperature 98.3 F Pulse Rate 63 Respiratory 18 Rate Blood Pressure 143/92 O2 Sat by Pulse 98 Oximetry Medical Decision Making - Medical Decision Making Case was discussed with neurology, Dr. Lisa who states patient can go home and needs to abstain from drinking. Patient does need to see his primary care physician and have lumbar puncture done if symptoms continue, this is an outpatient workup. Patient reevaluated and resting comfortably in bed. Patient is made aware of recommendations and comfortable with discharge home. Disposition Clinical Impression: Ataxia, Alcohol dependence Disposition: HOME SELF-CARE Condition: Stable Instructions (If sedation given, give patient instructions): Alcohol Dependence (ED) Additional Instructions: Discontinue alcohol use. Take multivitamin daily with thiamine and B-12 and folate. Please do follow-up with your doctor in the next day or 2 for recheck. If symptoms continue you'll need further evaluation with outpatient neurology and possible lumbar puncture. Return for worsening or change in symptoms, to breathing or fever, or any other concerns. Is patient prescribed a controlled substance at d/c from ED?: No Referrals: Jignesh Pérez DO [Primary Care Provider] - 1-2 days Time of Disposition: 14:08
--- NOTE | 2020-10-14 13:53 | XR ---
EXAMINATION TYPE: XR chest 2V DATE OF EXAM: 10/14/2020 COMPARISON: Chest x-ray 10/12/2020 HISTORY: Cough, weakness TECHNIQUE: Frontal and lateral views of the chest are obtained. FINDINGS: There is no focal air space opacity, pleural effusion, or pneumothorax seen. The cardiac silhouette size is within normal limits. The aorta is dense. The osseous structures are stable, ther e is evidence of prior trauma to the proximal left humerus of indeterminate age. IMPRESSION: No acute cardiopulmonary process.
[2020-10-14 14:21] VITALS: BP 136/86; PULSE 84
== END 2020-10-14 14:36 | disposition home or self-care (01) ==
LOC: EC 12:36
DX: R27.0 Ataxia, unspecified (principal); F10.20 Alcohol dependence, uncomplicated; I10 Essential (primary) hypertension; F12.90 Cannabis use, unspecified, uncomplicated; Z87.891 Personal history of nicotine dependence; Z90.49 Acquired absence of other specified parts of digestive tract
CPT/HCPCS: 71046; 82075; 99284

== ENCOUNTER 2020-10-14 18:38 | Inpatient (IN) | payer MEDICARE ==
--- NOTE | 2020-10-14 18:57 | ED ---
General Adult HPI - General Stated complaint: weakness Time Seen by Provider: 10/14/20 18:44 Source: patient, EMS, RN notes reviewed Limitations: no limitations - History of Present Illness Initial comments: Patient is a pleasant 64-year-old male returning to the emergency department with concerns for his ataxia. Patient states he is still having difficulty walking. Patient was in the emergency department earlier today for similar problem as well as several times in the past week. Patient now states symptoms have been occurring for one month. Patient has been falling. No head injury today. Patient states he does have some confusion however this is also normal for him. When further questioned patient admits that symptoms have been occurring for close to a year. - Related Data Home Medications Medication Instructions Recorded Confirmed No Known Home Medications 10/12/20 10/14/20 Allergies Allergy/AdvReac Type Severity Reaction Status Date / Time No Known Allergies Allergy Verified 10/14/20 19:11 Review of Systems ROS Statement: Those systems with pertinent positive or pertinent negative responses have been documented in the HPI. ROS Other: All systems not noted in ROS Statement are negative. Constitutional: Denies: fever Eyes: Denies: eye pain ENT: Denies: ear pain Respiratory: Denies: cough Cardiovascular: Denies: chest pain Endocrine: Denies: fatigue Gastrointestinal: Denies: abdominal pain Genitourinary: Denies: dysuria Musculoskeletal: Denies: back pain Skin: Denies: rash Neurological: Reports: as per HPI, abnormal gait. Denies: headache Past Medical History Past Medical History: Eye Disorder, GI Bleed, Hypertension Additional Past Medical History / Comment(s): past hx diverticulitis, right eye dry macular degeneration, left eye wet macular degeneration. alcholism History of Any Multi-Drug Resistant Organisms: None Reported Past Surgical History: Cholecystectomy, Hernia Repair Additional Past Surgical History / Comment(s): PICC line in, now removed, hernia repair, colonoscopy Past Anesthesia/Blood Transfusion Reactions: No Reported Reaction Additional Past Anesthesia/Blood Transfusion Reaction / Comment(s): 4 UNITS OF PRBC 10/2014, NO REACTION Past Psychological History: No Psychological Hx Reported Smoking Status: Former smoker Past Alcohol Use History: Abuse, Daily Past Drug Use History: Marijuana - Past Family History Mother Additional Family Medical History / Comment(s): brain anuerysm Father Family Medical History: Cancer Additional Family Medical History / Comment(s): lung General Exam Limitations: no limitations General appearance: alert, in no apparent distress Head exam: Present: atraumatic Eye exam: Present: normal appearance, PERRL, EOMI ENT exam: Present: normal oropharynx Neck exam: Present: normal inspection. Absent: tenderness Respiratory exam: Present: normal lung sounds bilaterally Cardiovascular Exam: Present: irregular rhythm GI/Abdominal exam: Present: soft. Absent: tenderness Extremities exam: Present: normal inspection Neurological exam: Present: alert, CN II-XII intact. Absent: motor sensory deficit Expanded Neurological exam: Present: protecting the airway Speech: Present: fluid speech Cranial nerves: EOM's Intact: Normal Motor strength exam: RUE: 5, LUE: 5, RLE: 5, LLE: 5 Psychiatric exam: Present: normal affect, normal mood Skin exam: Present: normal color Course Vital Signs 10/14/20 19:03 Temperature 98.5 F Pulse Rate 108 H Respiratory 20 Rate Blood Pressure 153/74 O2 Sat by Pulse 98 Oximetry EKG Findings - EKG Comments: EKG Findings:: Sinus rhythm with a rate of 78. KS 114. QRS 84. QT 394. QTC 449. Normal axis. Premature complex is. Normal QRS. No acute ST change. Medical Decision Making - Medical Decision Making Case was discussed with practitioner Saroj beasley with Dr. Quintanilla, who admits for Dr. Pérez. He agrees with admission with neurology consult. Patient may need placement. Disposition Clinical Impression: Ataxia Disposition: ADMITTED IP TO THIS HOSP Is patient prescribed a controlled substance at d/c from ED?: No Referrals: Jignesh Pérez DO [Primary Care Provider] - 1-2 days Decision Time: 19:52
[2020-10-14] MEDS ORDERED: NALOXONE 0.4 MG/ML 1 ML VIAL IV PRN (19:53)
[2020-10-14] MEDS ORDERED: THIAMINE 100 MG/ML 2 ML VIAL IM STA (19:54)
[2020-10-14] MEDS ORDERED: LORazepam 2 MG/ML INJ IV PRN ×2 (19:54)
[2020-10-14] MEDS: SODIUM CHLORIDE 0.9% 1,000 ML IV SCH (20:24)
[2020-10-14 20:33] LABS: Basophils # (A) 0.1 k/uL (0-0.2); Basophils % (A) 1 %; Eosinophils # (A) 0.1 k/uL (0-0.7); Eosinophils % (A) 1 %; HCT 32.8 % (39.0-53.0); HGB 11.5 gm/dL (13.0-17.5); Lymphocytes # (A) 1.1 k/uL (1.0-4.8); Lymphocytes % (A) 21 %; MCH 38.4 pg (25.0-35.0); MCV 109.8 fL (80.0-100.0); Macrocytosis Moderate; Mean Platelet Volume 7.2; Monocytes # (A) 0.4 k/uL (0-1.0); Monocytes % (A) 7 %; Neutrophils # (A) 3.4 k/uL (1.3-7.7); Neutrophils % (A) 67 %; Platelet Count 219 k/uL (150-450); RBC 2.99 m/uL (4.30-5.90); RDW 12.3 % (11.5-15.5)
[2020-10-14 20:43] LABS: Albumin 3.5 g/dL (3.5-5.0); Calcium 8.8 mg/dL (8.4-10.2); Magnesium 1.8 mg/dL (1.6-2.3); Total Bilirubin 0.2 mg/dL (0.2-1.3); Total Protein 6.2 g/dL (6.3-8.2)
[2020-10-15] MEDS ORDERED: THIAMINE 100 MG TAB PO SCH (07:30)
[2020-10-15] MEDS: MULTIVITAMINS, THERA 1 EACH TAB PO SCH (07:58)
[2020-10-15] MEDS: ACETAMINOPHEN TAB 325 MG TAB PO PRN (10:54)
[2020-10-15] MEDS ORDERED: HYDROmorphone 0.5 MG/0.5 ML SYRINGE IVP PRN (12:25)
[2020-10-15] MEDS ORDERED: TEMAZEPAM 15 MG CAP PO PRN (12:25)
[2020-10-15] MEDS ORDERED: HYDROcodone/APAP 5-325MG 1 EACH TAB PO PRN (12:25)
--- NOTE | 2020-10-15 12:52 | HP ---
HISTORY AND PHYSICAL DATE OF SERVICE: 10/15/2020 CHIEF COMPLAINT: Weakness. HISTORY OF PRESENT ILLNESS: This 64-year-old gentleman with a past medical of multiple medical problems, recently discharged from the hospital because of ataxia secondary to normal-pressure hydrocephalus and exacerbated alcohol abuse. The patient went home and was drinking again. Patient had difficulty in walking, weakness. Patient came to [facility] and was admitted to the hospital for further evaluation and treatment. There is no history of fever, rigors. No headache, loss of consciousness, seizures at this time. The patient also complaining of some fall and history of right chest pain and back pain. The patient was followed by Dr. Pérez in the outpatient setting. PAST MEDICAL HISTORY: History of EtOH, history of normal-pressure hydrocephalus, GI bleed, hypertension, history of cholecystectomy, hernia repair. MEDICATIONS: Home medications are none. ALLERGIES: None. FAMILY HISTORY: History of brain aneurysm in the family. SOCIAL HISTORY: Previous history of smoking, history of THC, history of alcohol. REVIEW OF SYSTEMS: ENT: No diminished vision. No diminished hearing. Cardio system: No angina or palpitations. Respiration: No cough. GI no nausea or vomiting. no dysuria. Nervous system: No numbness. Generalized weakness. ALLERGY/IMMUNOLOGY: No asthma or hayfever. MUSCULOSKELETAL as mentioned earlier. HEMATOLOGY/ONCOLOGY: No history of anemia. ENDOCRINE: No history of diabetes or hypothyroidism. CONSTITUTIONAL: As mentioned earlier. DERMATOLOGY negative. RHEUMATOLOGY negative. PSYCHIATRY as mentioned earlier. PHYSICAL EXAMINATION: Alert and oriented times three. Pulse 93, blood pressure 139/80, respirations 16, temperature 98 degrees, pulse ox 98% on room air. HEENT: Conjunctivae normal. NECK: No JVD. CARDIOVASCULAR: S1, S2 muffled. RESPIRATION: Breath sounds diminished in the bases. A few scattered rhonchi. No crackles. ABDOMEN: Soft, nontender. LEGS: No edema. No swelling. Some tenderness in the right lower chest present. NERVOUS SYSTEM: Diffusely weak. Tremors present. Ataxia present. SKIN: No ulcer, rash and no bleeding. JOINTS: No active deforming arthropathy. LABS: WBC 5, hemoglobin 11.5, MCV 109, alkaline phosphatase 163. The CT scan of the brain done on October 13 during the previous admission personally reviewed by me showed some significant dementia and some ventricular dilatation and white matter changes, extensive white matter changes. ASSESSMENT: 1. Weakness and ataxia, possibly normal-pressure hydrocephalus and alcohol. 2. Acute alcohol withdrawal and delirium tremens. 3. Anemia microcytic of secondary to alcohol. 4. Right lateral chest pain, rule out pneumonia or rib fractures. 5. Increased ALT possibly secondary to alcohol. 6. History of gastrointestinal bleed. 7. Hypertension. 8. History of diverticulitis. 9. History of right macular degeneration. 10.Cholecystectomy. 11.History of PICC line. 12.History of nicotine dependence. 13.History of THC. RECOMMENDATIONS: I would recommend symptomatic treatment and I would recommend D-dimer, and CT scan of the chest and as well as evaluation CIWA protocol. Continue the rest of medications. The patient will need outpatient Neurology or Neurosurgery consultation with Dr. Pérez. Overall prognosis extremely guarded because of multiple complex medical issues. further recommendations to follow. A copy of this dictation is being forwarded to Dr. Pérez who is the primary physician. MMODL / IJN: [id number] /
--- NOTE | 2020-10-15 13:23 | P.CNNES ---
History of Present Illness Consult date: 10/15/20 Requesting physician: Eunice Quintanilla Reason for Consult: ataxia History of Present Illness: This is a 64-year-old gentleman with history of gait imbalance with suspected probable normal pressure hydrocephalus that is known to our neurology service, history of right-sided subdural hematoma on 09/03/2019 that was treated con servatively, chronic alcohol use who admitted to [facility] on 10/14/2020 for concern of his ataxia and difficulty walking. He stated he left the hospital feeling well and no issues with walking but then he started drinking back again heavily on and then started to notice his gait was off again and he fell backwards but denies head trauma or lost of consciousness. He stated he has further falls so presented multiple times to the ED as result. Patient is known to our neurology service as stated earlier and we suspected the patient has normal pressure hydrocephalus and during his recent admission we invalid the patient and we recommended a lumbar puncture in which my colleague spoke with them. Initially he stated that he did not want lumbar puncture but towards the end of Dr. Conde's shift he wanted it then on my coverage he did not want to pursue with it. Also upon seeing him last on 10/09/2020 His gait was drastically improved and he did not want to pursue with LP, as well I felt it will be difficult to assess any improvement in gait after Lumbar puncture especially with an improvement in gait. This time around he would like to pursue with Lumbar puncture. Patient stated that he is homeless and he knows that he is having difficulty with his drinking habits. Review of Systems Review of system: The 12 point system was reviewed and apparent positive and negative per HPI. Past Medical History Past Medical History: Eye Disorder, GI Bleed, Hypertension Additional Past Medical History / Comment(s): past hx diverticulitis, right eye dry macular degeneration, left eye wet macular degeneration. alcholism History of Any Multi-Drug Resistant Organisms: None Reported Past Surgical History: Cholecystectomy, Hernia Repair Additional Past Surgical History / Comment(s): PICC line in, now removed, hernia repair, colonoscopy Past Anesthesia/Blood Transfusion Reactions: No Reported Reaction Additional Past Anesthesia/Blood Transfusion Reaction / Comment(s): 4 UNITS OF PRBC 10/2014, NO REACTION Past Psychological History: No Psychological Hx Reported Smoking Status: Former smoker Past Alcohol Use History: Abuse, Daily Additional Past Alcohol Use History / Comment(s): states previous heavy drinker, states has not had anything to drink in over 30days Past Drug Use History: Marijuana Additional Drug Use History / Comment(s): occasional use, instructed to hold 24hrs prior to procedure - Past Family History Mother Additional Family Medical History / Comment(s): brain anuerysm Father Family Medical History: Cancer Additional Family Medical History / Comment(s): lung Medications and Allergies Home Medications Medication Instructions Recorded Confirmed Type No Known Home Medications 10/12/20 10/14/20 History Allergies Allergy/AdvReac Type Severity Reaction Status Date / Time No Known Allergies Allergy Verified 10/14/20 19:11 Physical Examination - Vital Signs Vital Signs: Vital Signs Temp Pulse Pulse Resp BP BP Pulse Ox 10/15/20 07:00 98.0 F 93 16 139/80 96 10/15/20 01:13 98.2 F 62 20 136/85 98 10/14/20 21:59 98.6 F 97 20 159/81 98 10/14/20 21:00 98.0 F 80 18 136/88 98 10/14/20 19:30 80 18 132/70 98 10/14/20 19:03 98.5 F 108 H 20 153/74 98 Intake and Output 10/14/20 10/15/20 10/15/20 22:59 06:59 14:59 Other: # Voids 1 Weight 88.451 kg GENERAL: The patient is lying in bed and is not in acute distress. CHEST: The heart rate is regular rate rhythm. No murmurs to auscultation. No carotid bruit bilaterally. LUNG: Clear to auscultation bilaterally no wheezing noted throughout. Not labored breathing. ABDOMEN/GI: Bowel sounds present in all 4 quadrants. No tenderness to palpation throughout. NEUROLOGICAL: Higher mental function: The patient is awake, alert, oriented to self, place and time. Patient is following commands. No aphasia and no neglect. Cranial nerves: The pupils are round, equal and reactive to light and accommodation. Visual albert are full to confrontation throughout. Extraocular movement is intact no nystagmus is noted. Facial sensation is normal to touch throughout. The facial strength is normal throughout. Hearing is normal bilaterally to hand rub. Tongue is midline and moved [id number] without any difficulty. No dysarthria is noted. Shoulder shrug is normal bilaterally. Motor: Wide based gait. The strength is 5-/5 over bilateral arm extension. Otherwise 5 over 5 throughout. Normal tone and bulk. Cerebellum: Normal finger to nose bilaterally. Sensation: Sensation is normal to touch throughout. Reflexes (right/left): 2+ Plantars are downgoing bilaterally. Results Hematology workup as the MCV of 109, hemoglobin 11.5, hematocrit of 32.8. Chemistry panel what the parent positive is ALT of 58 otherwise, possible was 163 which is slightly elevated otherwise it's unremarkable. Serum alcohol level on 10/15/2020 is less than 10. Wong virus PCR was not detected - Laboratory Findings CBC and BMP: 10/14/20 19:59 10/14/20 19:59 Abnormal Lab Findings: Abnormal Labs 10/14/20 10/14/20 19:59 19:59 RBC 2.99 L Hgb 11.5 L Hct 32.8 L MCV 109.8 H MCH 38.4 H Chloride 110 H ALT 58 H Alkaline Phosphatase 163 H Total Protein 6.2 L Assessment and Plan Assessment: Gait imbalance: Seems due to probable pressure hydrocephalus as well as it's exacerbated by his alcohol intake (he seen the patient recently in the hospital and while here and off alcohol his gait has drastically improved) History of right sided subdural hematoma on 10/03/2019 treated conservatively and did not require a craniotomy Chronic history of alcoholism Microcytosis due to alcohol use Plan: I consulted anesthesiology for large volume tap. If there is improvement then the patient would like to get at a MALE IMPERSONATOR shunt which needs to be addressed by a neurosurgeon. Primary team ordered CT of the head. Physical therapy and occupation therapy are consulted. corrections caseworker is consulted Patient is on thiamine 100 mg daily. Also the patient is on folic acid 1 mg daily. Patient had vitamin B12 level checked on 10/08/2020 and it's for 32 which is considered normal, methylmalonic acid is normal, folate is 8.7 which is considered normal. Vitamin B6 is 9 which is also considered within normal limit s. These labs do not need to be rechecked from neurological stand point. Patient is on CIWA protocol will defer the management to the primary team The patient was counseled on alcohol cessation. The plan was discussed with the patient nurse. Thank you for the consultation Luigi Lisa M.D. Neuro-hospitalist Time with Patient: Greater than 30
--- NOTE | 2020-10-15 13:30 | XR ---
EXAMINATION TYPE: XR chest 1V portable DATE OF EXAM: 10/15/2020 COMPARISON: Chest x-ray 10/14/2020 HISTORY: Congestive heart failure TECHNIQUE: Single frontal view of the chest is obtained. FINDINGS: Findings are similar to prior exam. IMPRESSION: No acute process.
[2020-10-15] MEDS: HEPARIN SODIUM,PORCINE/PF 5,000 UNIT/0.5 ML SYRINGE SQ SCH ×2 (14:51→19:54)
--- NOTE | 2020-10-15 18:38 | CT ---
EXAMINATION TYPE: CT brain wo con DATE OF EXAM: 10/15/2020 COMPARISON: 10/04/2020 HISTORY: Ataxia, frequent falls, confusion. CT DLP: 1108.4 mGycm Automated exposure control for dose reduction was used. Exam performed without contrast. There is diffuse cerebral atrophy. There is extensive hypodensity in the periventricular white matter . There is no mass effect nor midline shift. There is no sign of intracranial hemorrhage. The calvari um is intact. Skull base is intact. IMPRESSION: Moderately severe atrophy with and chronic small vessel ischemia. No change compared to recent exam.
--- NOTE | 2020-10-15 19:19 | CT ---
EXAMINATION TYPE: CT angio chest DATE OF EXAM: 10/15/2020 COMPARISON: None HISTORY: Elevated d-dimer. CT DLP: 312.9 mGycm Automated exposure control for dose reduction was used. CONTRAST: Performed with IV Contrast, patient injected with 100 mL of Isovue 370. There are 3-D post processed images. There is some mild fibrotic changes and atelectasis at the posterior lung bases. There is no pleural effusion. Heart size is fairly normal. There is no pericardial effusion. There is no mediastinal adenopathy there are no hilar masses. There is normal contrast opacification of the pulmonary arteries. There are no filling defects. Thora cic aorta shows no aneurysm or dissection. The bony thorax is intact. Thoracic spine is intact. IMPRESSION: No evidence of pulmonary embolism. Minimal subsegmental atelectasis at the lung bases.
[2020-10-15] MEDS: SODIUM CHLORIDE 0.9% 1,000 ML IV SCH (19:38)
[2020-10-16] MEDS: FOLIC ACID 1 MG TAB PO SCH (08:22)
[2020-10-16] MEDS: PANTOPRAZOLE 40 MG TABLET PO SCH (08:22)
[2020-10-16] MEDS: THIAMINE 100 MG TAB PO SCH (08:22)
[2020-10-16] MEDS: MULTIVITAMINS, THERA 1 EACH TAB PO SCH (08:22)
[2020-10-16] MEDS: HEPARIN SODIUM,PORCINE/PF 5,000 UNIT/0.5 ML SYRINGE SQ SCH ×2 (08:22→20:26)
[2020-10-16 09:22] LABS: Basophils # (A) 0.05 X 10*3/uL (0.00-0.10); Basophils % (A) 1.1 %; Eosinophils # (A) 0.12 X 10*3/uL (0.04-0.35); Eosinophils % (A) 2.5 %; HCT 31.5 % (39.6-50.0); HGB 10.6 g/dL (13.0-17.0); Lymphocytes % (A) 23.2 %; MCH 37.7 pg (27.0-32.0); MCHC 33.7 g/dL (32.0-37.0); MCV 112.1 fL (80.0-97.0); Mean Platelet Volume 10.5 fL (9.5-12.2); Monocytes # (A) 0.44 X 10*3/uL (0.20-1.00); Monocytes % (A) 9.3 %; Neutrophils # (A) 3.02 X 10*3/uL (1.80-7.70); Neutrophils % (A) 63.5 %; Platelet Count 202 X 10*3/uL (140-440); RBC 2.81 X 10*6/uL (4.40-5.60); WBC 4.75 X 10*3/uL (4.50-10.00)
[2020-10-16 09:53] LABS: African American GFR (CKD) 107.9 (60.0-200.0); Anion Gap 8.8 mmol/L (4.00-12.00); BUN/Creat Ratio 12.5 Ratio (12.00-20.00); Calcium 8.6 mg/dL (8.7-10.3); Carbon Dioxide 24.2 mmol/L (21.6-31.8); Non-African American GFR(CKD) 93.1 (60.0-200.0); Potassium 3.9 mmol/L (3.5-5.5)
[2020-10-16] MEDS: ACETAMINOPHEN TAB 325 MG TAB PO PRN (11:50)
[2020-10-16] MEDS: ESCITALOPRAM 10 MG TAB PO SCH (11:51)
--- NOTE | 2020-10-16 19:42 | PN ---
PROGRESS NOTE DATE OF SERVICE: 10/16/2020 This 64-year-old gentleman admitted with weakness and ataxia had previous normal- pressure hydrocephalus. Patient has significant alcohol issues also. The patient had an elevated D-dimer and a CT angio of the chest was done to rule out pulmonary embolism, showed some minimal subsegmental atelectasis. CT brain which was personally reviewed by me showed moderately severe atrophy with chronic small-vessel ischemia. No changes noted. Neurology consultation underway. Lumbar puncture also being planned at this time. No chest pain. No palpitations. No fever. PHYSICAL EXAMINATION: Alert and oriented times three. Pulse 91. Blood pressure 151/84, respirations 16, temperature 98 degrees, pulse ox 97% on room air. HEENT: Conjunctivae normal. NECK: No JVD. CARDIOVASCULAR: S1, S2 muffled. RESPIRATORY SYSTEM: Breath sounds diminished at the bases. A few scattered rhonchi. ABDOMEN: Soft. NERVOUS SYSTEM: No focal deficits. LABS: WBC 4.7, hemoglobin 10.6, and D-dimer is 1.45. ASSESSMENT: 1. Weakness and ataxia, possibly normal-pressure hydrocephalus and alcohol. 2. Acute alcohol withdrawal and delirium tremens. 3. 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 4. Increased ALT possibly secondary to alcohol. 5. History of gastrointestinal bleed. 6. Hypertension. 7. History of diverticulitis. 8. History of right macular degeneration. 9. Cholecystectomy. 10.PICC line. 11.History of nicotine dependence. 12.History of THC. RECOMMENDATIONS AND DISCUSSION: Recommend to continue current medications, symptomatic treatment. Otherwise follow closely with neurology. Lumbar puncture and further evaluation per Neurology. Prognosis guarded. Further recommendations to follow. MMODL / IJN: [id number] /
[2020-10-16] MEDS: SODIUM CHLORIDE 0.9% 1,000 ML IV SCH (20:25)
[2020-10-17] MEDS: HEPARIN SODIUM,PORCINE/PF 5,000 UNIT/0.5 ML SYRINGE SQ SCH ×2 (08:36→21:28)
[2020-10-17] MEDS: MULTIVITAMINS, THERA 1 EACH TAB PO SCH (08:52)
[2020-10-17] MEDS: PANTOPRAZOLE 40 MG TABLET PO SCH (08:52)
[2020-10-17] MEDS: ESCITALOPRAM 10 MG TAB PO SCH (08:52)
--- NOTE | 2020-10-17 10:06 | MR ---
EXAMINATION TYPE: MR brain wo/w con DATE OF EXAM: 10/17/2020 COMPARISON: CT brain 10/15/2020 HISTORY: Loss of balance, dizziness, stroke TECHNIQUE: Multiplanar, multisequence images of the brain and brainstem is performed without and with IV contras t, utilizing 9.5 mL intravenous Gadavist . FINDINGS: Diffusion weighted images demonstrate no evidence of a recent infarct or other diffusion ab normality. There is no extra-axial fluid collection. Confluent and scattered hyperintensities on T2 and inversion recovery sequences present in the periventricular, pericallosal, subcortical white paz er, there are small foci of encephalomalacia in the periventricular white matter, anterior corpus kayleigh losum shows a focal defect measuring approximately 7 mm on the sagittal images, focal encephalomalaci a also noted in the thalamus on the right. The ventricular system and cisternal spaces are normal in size and appearance. The brain volume is remarkable for cortical atrophy. Midline structures show an unremarkable pituitary, cervical medullary junction, the cerebellopontine angles are within normal limits. The craniocervical junction appears within normal limits. Post cont rast images demonstrate no abnormal enhancement. The dural venous sinuses appear patent. The visualiz ed sinuses are remarkable for mucoperiosteal thickening in the bilateral maxillary sinuses, ethmoid a ir cells, and the globes are intact. IMPRESSION: Age-related atrophy, chronic small vessel ischemic changes, sinus disease
[2020-10-17] MEDS: THIAMINE 100 MG TAB PO SCH (13:07)
[2020-10-17] MEDS: FOLIC ACID 1 MG TAB PO SCH (13:07)
[2020-10-17] MEDS ORDERED: LACTATED RINGERS 1,000 ML IV ONE (14:15)
[2020-10-17] MEDS ORDERED: MIDAZOLAM 2 MG/2 ML VIAL ONE (14:22)
[2020-10-17] MEDS ORDERED: fentaNYL (PF) 50 MCG/ML 2 ML AMP ONE (14:22)
--- NOTE | 2020-10-17 14:54 | P.PCN ---
Date of Procedure: 10/17/20 Procedure(s) Performed: Preoperative diagnosis:1-ataxia. 2-normal pressure hydrocephalus Post operative diagnoses: 1-ataxia. 2-normal pressure hydrocephalus Procedure= lumbar puncture Anesthesia =moderate sedation with Versed 2 mg and fentanyl 100 g. Condition: stable Complication: none. Description of the procedure procedure risk and benefits discussed with the patient and family, consent signed. Patient and the procedure area placed in lateral position ( right side down ), back prepped with chlorhexidine 3 times been local infiltration of the skin and subcutaneous tissue with lidocaine 1% 3 mL for skin and subcu interstitial frustrations at L4 5 levels then 20-gauge Quincke-type needle advanced slowly at L4- 5 interlaminar space,multiple attempte done I was not successful to get the cerebrospinal fluid,during the pateints was placed in sitting position,and after multiple attempts I was able to get there cerebrospinal fluid which was clear, no heme, no paresthesia ,total of 21 ML of clear cerebrospinal fluid collected in 4 different tubes 5- 6 mL in each, then the needle removed and a Band-Aid applied and patient tolerated the procedure well without any complications.patient vital signs was monitored all the time during the procedure
--- NOTE | 2020-10-17 18:24 | P.PN ---
Subjective Progress Note Date: 10/17/20 Patient was seen for a follow-up. Patient was recently seen in hospital consultation for possible NPH. Lumbar puncture was recommended. Patient declined LP, as he was getting better since he had stopped drinking alcohol. Patient went home. Patient states that on , 10/12/2020 he drank a pint of vodka. His balance got worse and he fell couple times afterwards. One time he was stepping up the curb, when he got on the top, he lost balance and fell backwards. He came to the hospital on 10/14/2020. Objective - Vital Signs Vital signs: Vital Signs Temp 98.2 F 10/17/20 07:00 Pulse 85 10/17/20 07:00 Resp 16 10/17/20 07:00 BP 172/109 10/17/20 07:00 Pulse Ox 97 10/17/20 07:00 Intake & Output 10/16/20 10/17/20 10/17/20 18:59 06:59 18:59 Intake Total 346 300 Balance 346 300 Intake: Oral 346 300 Other: Voiding Method Toilet Toilet Toilet # Voids 2 2 - Exam Patient's mental status speech and language functions and muscle strength is normal. He walks with a wide base. His arm swing appeared normal. Stride was also somewhat normal. - Labs CBC & Chem 7: 10/16/20 05:40 10/16/20 05:40 Assessment and Plan Assessment: * Recurrent falls due to gait ataxia, possible NPH versus gait ataxia related to chronic alcoholism. 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 * History of right subdural hematoma on 10/03/2019, treated conservatively and did not require craniotomy. Plan: * Patient will continue to have off balance and falls as long as he continues to drink. I discussed with patient's primary physician Dr. Quintanilla regarding lumbar puncture because of his continuing drinking habits. Dr. Quintanilla preferred patient to proceed with diagnostic and therapeutic large volume spinal tap. * MRI of the brain was performed today, which revealed age-related atrophy, chronic small vessel ischemic changes, sinus disease. The MRI does not reveal significant hydrocephalus. May be subcortical signal abnormality with secondary ventricular dilation. * We will follow patient after the lumbar puncture to see if his gait improves.
[2020-10-17 19:07] LABS: Glucose,CSF 53 mg/dL (40-70); Total Protein,CSF 70 mg/dL (12-60)
[2020-10-17 19:09] LABS: Appearance,CSF Clear; CSF Tube Number 4; CSF Tube Volume 6.5; Nucleated Cells, CSF 2 u/L (0-5); Red Blood Cell,CSF 87 u/L (0-10)
--- NOTE | 2020-10-17 19:53 | PN ---
PROGRESS NOTE DATE OF SERVICE: 10/17/2020 This 61-year-old gentleman who was admitted with weakness and ataxia with possible normal-pressure hydrocephalus has previously refused lumbar puncture but currently anesthesia has performed a lumbar puncture. A total of 21 mL of clear CSF was collected. Patient closely monitored. No chest pain. No palpitations. No fever. EXAM: Alert and oriented x3. Pulse is 78, blood pressure 126/63, respirations 16, temperature 98 degrees, pulse ox 98% on room air. HEENT: Conjunctivae normal. Oral mucosa moist. NECK: No jugular venous distention. No lymph node enlargement. CARDIOVASCULAR: S1, S2, muffled. No S3, no S4, RESPIRATORY: Diminished breath sounds at the bases. Scattered rhonchi. ABDOMEN: Soft, nontender. LEGS: No edema, no swelling. NERVOUS SYSTEM: No focal deficits. LABS: Hemoglobin 10.6. D-dimer is noted. ASSESSMENT: 1. 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 2. Acute alcohol withdrawal and delirium tremens. 3. Status post lumbar puncture. 4. 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 5. Increased ALT possibly secondary to alcohol. 6. History of gastrointestinal bleed. 7. Hypertension. 8. History of diverticulitis. 9. History of right macular degeneration. 10.Cholecystectomy. 11.PICC line. 12.History of nicotine dependence. 13.History of THC. RECOMMENDATIONS: Recommend to continue current medications, continue symptomatic treatment. Otherwise, at this time I recommend PT/OT evaluation. Guarded prognosis. Further recommendations to follow. MMODL / IJN: [id number] /
[2020-10-17] MEDS: SODIUM CHLORIDE 0.9% 1,000 ML IV SCH (21:27)
[2020-10-18 07:42] VITALS: BP 162/90; PULSE 86; RESP 16; TEMP 97.3
[2020-10-18] MEDS: PANTOPRAZOLE 40 MG TABLET PO SCH (08:23)
[2020-10-18] MEDS: MULTIVITAMINS, THERA 1 EACH TAB PO SCH (08:23)
[2020-10-18] MEDS: HEPARIN SODIUM,PORCINE/PF 5,000 UNIT/0.5 ML SYRINGE SQ SCH (08:23)
[2020-10-18] MEDS: ESCITALOPRAM 10 MG TAB PO SCH (08:23)
--- NOTE | 2020-10-19 09:32 | DS ---
DISCHARGE SUMMARY DATE OF SERVICE: 10/18/2020 FINAL DIAGNOSIS: 1. Weakness and ataxia. Possible normal-pressure hydrocephalus secondary to alcohol. 2. Acute alcohol withdrawal and delirium tremens. 3. Status post lumbar puncture. 4. Anemia microcytic anemia secondary to alcohol. 5. Increased ALT possibly secondary to alcohol. 6. History of gastrointestinal bleed. 7. Hypertension. 8. History of diverticulitis. 9. History of right macular degeneration. 10.History of cholecystectomy. 11.History of PICC line. 12.History of nicotine dependence. 13.History of THC. DISCHARGE DISPOSITION: The patient discharged in stable condition with guarded prognosis. Discharge cleared by Neurology. HISTORY: This 64-year-old gentleman with past medical history of multiple medical problems, was admitted with alcohol issues as well as some ataxia, which was thought to be at least partly due to normal-pressure hydrocephalus. The patient had a large volume lumbar puncture, which apparently improved gait per neurology. Neurology will follow up in the outpatient setting for possible shunt procedure. Please refer Dr. Yap's detailed notes for further information, as well as neurologist. PHYSICAL EXAMINATION: On exam, vitals are stable. Cardiovascular S1 and S2. Abdomen soft. Nervous system DISCHARGE ADVICE AND MEDICATIONS: Diet is cardiac. Activity limited until followup. No EtOH. Follow up with Dr. Jignesh Pérez in 1-2 days. Follow up with Dr. Nanda Jaime in 1 week. Medications are: 1. Folic acid 1 mg daily. 2. Lexapro 10 mg daily. 3. Multivitamins. 4. Tylenol p.r.n. 5. Thiamine 100 mg p.o. daily. Otherwise the CSF cultures were were indicating of protein of 70 and total nucleated cell 2 but RBCs 87. The fluid was clear and colorless. MMODL / IJN: [id number] / [facility]
[2020-10-19 13:37] LABS: IgG - CSF 3.3 mg/dL (0.0 - 3.4); IgG/Albumin Index (CSF) 0.54 (0.00 - 0.77); Immunoglobulin G 879 mg/dL (700 - 1600)
[2020-10-20 10:26] LABS: VDRL, Qualitative CSF Nonreactive (Nonreactive)
== END 2020-10-18 12:32 | disposition home or self-care (01) | DRG 57 ==
LOC: EC 18:38 → 6NMEDSUR 19:53 → OBSVTOIN 10-17 09:14
PROVIDERS: ADMIT Hospitalist; ATTEND Hospitalist
PROC: 009U3ZX Drainage of Spinal Canal, Percutaneous Approach, Diagnostic (ICD-10-PCS; principal; 2020-10-17 11:30)
DX: G91.0 Communicating hydrocephalus (principal); F10.231 Alcohol dependence with withdrawal delirium; D50.9 Iron deficiency anemia, unspecified; R26.0 Ataxic gait; H35.3210 Exudative age-related macular degeneration, right eye, stage unspecified; D75.89 Other specified diseases of blood and blood-forming organs; I10 Essential (primary) hypertension; R29.6 Repeated falls; Z59.0 Homelessness; Z87.891 Personal history of nicotine dependence; Z90.49 Acquired absence of other specified parts of digestive tract; Z20.822 Contact with and (suspected) exposure to COVID-19; Z87.19 Personal history of other diseases of the digestive system; Z98.890 Other specified postprocedural states; Z80.1 Family history of malignant neoplasm of trachea, bronchus and lung
CPT/HCPCS: 36415; 62270; 70450; 70553; 71045; 71046; 71275; 80048; 80053; 80320; 82040; 82042; 82075; 82784; 82945; 83605; 83735; 83916; 84157; 85025; 85379; 86592; 87070; 87205; 87635; 89050; 93005; 99152; 99284; 99285

== ENCOUNTER 2020-10-18 15:56 | Emergency (ER) | payer MEDICARE ==
[2020-10-18 16:09] VITALS: TEMP 97.9
--- NOTE | 2020-10-18 17:47 | ED ---
Dizziness HPI - General Chief Complaint: Dizziness Stated Complaint: dizziness Time Seen by Provider: 10/18/20 17:28 Source: patient Mode of arrival: ambulatory Limitations: no limitations - History of Present Illness MD Complaint: dizziness -: week(s) Timing: gradual onset, waxing/waning Description: off-balance History of Same: Yes History of Trauma: No Severity: moderate Improves With: remaining still Worsens With: movement Associated Symptoms: denies other symptoms - Related Data Previous Rx's Medication Instructions Recorded Acetaminophen Tab [Tylenol] 650 mg PO Q6HR PRN tab 10/18/20 Escitalopram [Lexapro] 10 mg PO DAILY #30 tab 10/18/20 Folic Acid 1 mg PO DAILY #30 tablet 10/18/20 Multivitamins, Thera [Multivitamin] 1 tab PO DAILY #30 tablet 10/18/20 Thiamine [Vitamin B-1] 100 mg PO DAILY #30 tablet 10/18/20 Thiamine [Vitamin B-1] 100 mg PO DAILY #30 tablet 10/18/20 Allergies Allergy/AdvReac Type Severity Reaction Status Date / Time No Known Allergies Allergy Verified 10/18/20 16:09 Review of Systems ROS Statement: Those systems with pertinent positive or pertinent negative responses have been documented in the HPI. ROS Other: All systems not noted in ROS Statement are negative. Constitutional: Denies: fever, chills Respiratory: Denies: cough, dyspnea Cardiovascular: Denies: chest pain, palpitations, edema Gastrointestinal: Reports: nausea. Denies: abdominal pain, vomiting, diarrhea, constipation Genitourinary: Denies: dysuria, hematuria Musculoskeletal: Denies: back pain Skin: Denies: rash Neurological: Denies: headache, weakness, numbness Past Medical History Past Medical History: Eye Disorder, GI Bleed, Hypertension Additional Past Medical History / Comment(s): past hx diverticulitis, right eye dry macular degeneration, left eye wet macular degeneration. alcholism History of Any Multi-Drug Resistant Organisms: None Reported Past Surgical History: Cholecystectomy, Hernia Repair Additional Past Surgical History / Comment(s): PICC line in, now removed, hernia repair, colonoscopy Past Anesthesia/Blood Transfusion Reactions: No Reported Reaction Additional Past Anesthesia/Blood Transfusion Reaction / Comment(s): 4 UNITS OF PRBC 10/2014, NO REACTION Past Psychological History: No Psychological Hx Reported Smoking Status: Former smoker Past Alcohol Use History: Abuse, Daily Past Drug Use History: Marijuana - Past Family History Mother Additional Family Medical History / Comment(s): brain anuerysm Father Family Medical History: Cancer Additional Family Medical History / Comment(s): lung General Exam Limitations: no limitations General appearance: alert, in no apparent distress Head exam: Present: atraumatic, normocephalic Eye exam: Present: normal appearance, PERRL, EOMI. Absent: scleral icterus, c onjunctival injection, nystagmus ENT exam: Present: normal oropharynx Neck exam: Present: normal inspection, full ROM. Absent: tenderness Respiratory exam: Present: normal lung sounds bilaterally. Absent: respiratory distress, wheezes, rales, rhonchi, stridor Cardiovascular Exam: Present: regular rate, normal rhythm, normal heart sounds. Absent: systolic murmur, diastolic murmur, rubs, gallop GI/Abdominal exam: Present: soft. Absent: distended, tenderness, guarding, rebound, rigid, mass Extremities exam: Present: normal inspection, normal capillary refill. Absent: pedal edema, calf tenderness Back exam: Present: normal inspection. Absent: CVA tenderness (R), CVA tenderness (L) Neurological exam: Present: alert, CN II-XII intact. Absent: motor sensory deficit Skin exam: Present: warm, dry, intact, normal color. Absent: rash Course Vital Signs 10/18/20 10/18/20 16:07 19:40 Temperature 97.9 F Pulse Rate 101 H 91 Respiratory 18 16 Rate Blood Pressure 138/81 154/86 O2 Sat by Pulse 97 97 Oximetry EKG Findings - EKG Results: EKG: interpreted by RAUL ARAIZA, sinus rhythm (Rate 94 bpm), normal axis, normal QRS, normal ST/T, no acute changes Medical Decision Making - Lab Data Result diagrams: 10/18/20 17:57 10/18/20 17:57 Lab Results 10/18/20 10/18/20 10/18/20 Range/Units 17:57 17:57 17:57 WBC 6.7 (3.8-10.6) k/uL RBC 3.19 L (4.30-5.90) m/uL Hgb 11.6 L (13.0-17.5) gm/dL Hct 35.6 L (39.0-53.0) % MCV 111.6 H (80.0-100.0) fL MCH 36.3 H (25.0-35.0) pg MCHC 32.6 (31.0-37.0) g/dL RDW 13.0 (11.5-15.5) % Plt Count 232 (150-450) k/uL MPV 7.6 Neutrophils % 74 % Lymphocytes % 19 % Monocytes % 4 % Eosinophils % 1 % Basophils % 1 % Neutrophils # 5.0 (1.3-7.7) k/uL Lymphocytes # 1.3 (1.0-4.8) k/uL Monocytes # 0.3 (0-1.0) k/uL Eosinophils # 0.1 (0-0.7) k/uL Basophils # 0.1 (0-0.2) k/uL Macrocytosis Marked A Sodium 140 (137-145) mmol/L Potassium 4.1 (3.5-5.1) mmol/L Chloride 110 H (98-107) mmol/L Carbon Dioxide 24 (22-30) mmol/L Anion Gap 6 mmol/L BUN 14 (9-20) mg/dL Creatinine 1.10 (0.66-1.25) mg/dL Est GFR (CKD-EPI)AfAm 81 (>60 ml/min/1.73 sqM) Est GFR (CKD-EPI)NonAf 70 (>60 ml/min/1.73 sqM) Glucose 103 H (74-99) mg/dL Plasma Lactic Acid Jhonatan 0.8 (0.7-2.0) mmol/L Calcium 9.3 (8.4-10.2) mg/dL Magnesium 1.7 (1.6-2.3) mg/dL Total Bilirubin 0.2 (0.2-1.3) mg/dL AST 38 (17-59) U/L ALT 38 (4-49) U/L Alkaline Phosphatase 140 H (38-126) U/L Total Protein 6.6 (6.3-8.2) g/dL Albumin 3.8 (3.5-5.0) g/dL Serum Alcohol <10 mg/dL Disposition Clinical Impression: Dizziness Disposition: HOME SELF-CARE Condition: Fair Instructions (If sedation given, give patient instructions): Dizziness (ED) Prescriptions: Thiamine [Vitamin B-1] 100 mg PO DAILY #30 tablet Is patient prescribed a controlled substance at d/c from ED?: No Referrals: Jignesh Pérez DO [Primary Care Provider] - 1-2 days Rony Jaime MD [REFERRING] - 1-2 days
[2020-10-18 18:07] LABS: Basophils # (A) 0.1 k/uL (0-0.2); Basophils % (A) 1 %; Eosinophils # (A) 0.1 k/uL (0-0.7); Eosinophils % (A) 1 %; HCT 35.6 % (39.0-53.0); HGB 11.6 gm/dL (13.0-17.5); Lymphocytes # (A) 1.3 k/uL (1.0-4.8); Lymphocytes % (A) 19 %; MCH 36.3 pg (25.0-35.0); MCHC 32.6 g/dL (31.0-37.0); MCV 111.6 fL (80.0-100.0); Macrocytosis Marked; Mean Platelet Volume 7.6; Monocytes # (A) 0.3 k/uL (0-1.0); Monocytes % (A) 4 %; Neutrophils % (A) 74 %; Platelet Count 232 k/uL (150-450); RBC 3.19 m/uL (4.30-5.90); WBC 6.7 k/uL (3.8-10.6)
[2020-10-18 18:16] LABS: ALT 38 U/L (4-49); AST 38 U/L (17-59); African American GFR (CKD) 81 (>60 ml/min/1.73 sqM); Albumin 3.8 g/dL (3.5-5.0); Alcohol <10 mg/dL; Alkaline Phosphatase 140 U/L (38-126); Anion Gap 6 mmol/L; Blood Urea Nitrogen 14 mg/dL (9-20); Calcium 9.3 mg/dL (8.4-10.2); Carbon Dioxide 24 mmol/L (22-30); Chloride 110 mmol/L (98-107); Glucose 103 mg/dL (74-99); Magnesium 1.7 mg/dL (1.6-2.3); Non-African American GFR(CKD) 70 (>60 ml/min/1.73 sqM); Potassium 4.1 mmol/L (3.5-5.1); Sodium 140 mmol/L (137-145); Total Bilirubin 0.2 mg/dL (0.2-1.3); Total Protein 6.6 g/dL (6.3-8.2)
[2020-10-18 19:52] VITALS: BP 154/86; PULSE 91; RESP 16
== END 2020-10-18 19:52 | disposition home or self-care (01) ==
LOC: EC 15:56
DX: R42 Dizziness and giddiness (principal); R11.0 Nausea; I10 Essential (primary) hypertension; F12.90 Cannabis use, unspecified, uncomplicated; Z87.891 Personal history of nicotine dependence
CPT/HCPCS: 36415; 93005; 80053; 83605; 83735; 85025; 99284; G0480; 80320

== ENCOUNTER 2020-10-19 13:11 | Emergency (ER) | payer MEDICARE ==
[2020-10-19] MEDS ORDERED: MECLIZINE 12.5 MG TAB PO STA ×2 (14:20→14:57)
[2020-10-19] MEDS ORDERED: SODIUM CHLORIDE 0.9% 500 ML 500 ML IV STA (14:57)
[2020-10-19 15:30] LABS: Basophils # (A) 0.1 k/uL (0-0.2); Basophils % (A) 1 %; Eosinophils # (A) 0.1 k/uL (0-0.7); Eosinophils % (A) 2 %; HCT 34.3 % (39.0-53.0); HGB 11.9 gm/dL (13.0-17.5); Lymphocytes % (A) 19 %; MCH 38.2 pg (25.0-35.0); MCHC 34.7 g/dL (31.0-37.0); MCV 110.2 fL (80.0-100.0); Macrocytosis Marked; Mean Platelet Volume 7.4; Monocytes # (A) 0.3 k/uL (0-1.0); Monocytes % (A) 5 %; Neutrophils % (A) 72 %; Platelet Count 209 k/uL (150-450); RBC 3.12 m/uL (4.30-5.90); RDW 12.2 % (11.5-15.5); WBC 5.6 k/uL (3.8-10.6)
--- NOTE | 2020-10-19 15:31 | ED ---
Dizziness HPI - General Chief Complaint: Dizziness Stated Complaint: Weakness Time Seen by Provider: 10/19/20 14:01 Source: patient, EMS, RN notes reviewed Mode of arrival: EMS Limitations: no limitations - History of Present Illness Initial Comments: This is a 64-year-old white male patient presents to the emergency room with intermittent dizziness. Patient states the dizziness is resolved at this time. Patient states that he was seen yesterday for the same and discharged home. Patient states he had an MRI on October 17 which was unremarkable. Patient has history of daily drinking, states drinks bourbon half to 1 pint daily states has not had a drink in 2 weeks. He denies any recent falls or head injury. Patient states that he did have a lumbar puncture done yesterday as well. Patient denies any nausea vomiting diarrhea, no hematochezia or hematemesis. States was able to tolerate chicken sandwich today. States that the dizziness gets worse with change in position. Patient is not taking any medications for dizziness. Patient states that he lives alone. History of GI bleed, hypertension, diverticulitis, alcohol use daily, and marijuana. Surgical history of cholecystectomy. MD Complaint: dizziness -: month(s) Timing: now resolved Description: "room spinning" History of Same: Yes (Had an MRI done 10/17, seen in the ER yesterday and discharged) History of Trauma: Yes (August 2020) Improves With: nothing Worsens With: position Associated Symptoms: other (Daily alcohol use) - Related Data Home Medications Medication Instructions Recorded Confirmed No Known Home Medications 10/19/20 10/19/20 Allergies Allergy/AdvReac Type Severity Reaction Status Date / Time No Known Allergies Allergy Verified 10/19/20 14:41 Review of Systems ROS Statement: Those systems with pertinent positive or pertinent negative responses have been documented in the HPI. ROS Other: All systems not noted in ROS Statement are negative. Past Medical History Past Medical History: Eye Disorder, GI Bleed, Hypertension Additional Past Medical History / Comment(s): past hx diverticulitis, right eye dry macular degeneration, left eye wet macular degeneration. alcholism History of Any Multi-Drug Resistant Organisms: None Reported Past Surgical History: Cholecystectomy, Hernia Repair Additional Past Surgical History / Comment(s): PICC line in, now removed, hernia repair, colonoscopy Past Anesthesia/Blood Transfusion Reactions: No Reported Reaction Additional Past Anesthesia/Blood Transfusion Reaction / Comment(s): 4 UNITS OF PRBC 10/2014, NO REACTION Past Psychological History: No Psychological Hx Reported Smoking Status: Former smoker Past Alcohol Use History: Abuse, Daily Past Drug Use History: Marijuana - Past Family History Mother Additional Family Medical History / Comment(s): brain anuerysm Father Family Medical History: Cancer Additional Family Medical History / Comment(s): lung General Exam Limitations: no limitations General appearance: alert, in no apparent distress Head exam: Present: atraumatic, normocephalic, normal inspection Eye exam: Present: normal appearance, PERRL, EOMI. Absent: scleral icterus, conjunctival injection, periorbital swelling Pupils: Present: normal accommodation ENT exam: Present: normal exam, normal oropharynx, mucous membranes moist Neck exam: Present: normal inspection, full ROM. Absent: tenderness, meningismus, lymphadenopathy, thyromegaly Respiratory exam: Present: normal lung sounds bilaterally. Absent: respiratory distress, wheezes, rales, rhonchi, stridor, chest wall tenderness, accessory muscle use, decreased breath sounds Cardiovascular Exam: Present: regular rate, normal rhythm, normal heart sounds. Absent: systolic murmur, diastolic murmur, rubs, gallop, clicks GI/Abdominal exam: Present: soft, normal bowel sounds. Absent: distended, tenderness, guarding, rebound, rigid Rectal exam: Present: deferred Extremities exam: Present: full ROM. Absent: tenderness Back exam: Present: normal inspection, full ROM. Absent: tenderness, CVA tenderness (R), CVA tenderness (L), paraspinal tenderness, vertebral tenderness, rash noted Neurological exam: Present: alert, oriented X3, CN II-XII intact. Absent: motor sensory deficit Expanded Cranial nerves: EOM's Intact: Normal, Gag Reflex: Normal, Tongue Deviation: Norm al, Facial Sensation: Normal, Facial Palsy with Forehead Movement: Normal, Facial Palsy without Forehead Movement: Normal Cerebellar function: Finger to Nose: Normal, Heel to Manning: Normal Motor strength exam: RUE: 5, LUE: 5, RLE: 5, LLE: 5 Eye Response: (4) open spontaneously Motor Response: (6) obeys commands Verbal Response: (5) oriented Gideon Total: 15 Psychiatric exam: Present: normal affect, normal mood Skin exam: Present: warm, dry, intact, normal color. Absent: rash Course Vital Signs 10/19/20 10/19/20 10/19/20 13:21 14:53 15:54 Temperature 98.5 F Pulse Rate 101 H 125 H Pulse Rate [ 92 Sitting] Pulse Rate [ 104 H Standing] Pulse Rate [ 60 Supine] Respiratory 16 16 Rate Blood Pressure 136/81 156/83 Blood Pressure 155/91 [Sitting] Blood Pressure 163/100 [Standing] Blood Pressure 148/90 [Supine] O2 Sat by Pulse 94 L 97 Oximetry EKG Findings - EKG Results: EKG: sinus rhythm (Sinus tachycardia, ventricular rate 118, FL interval of 0.126, QRS of 0.78, QTC of 0.504) Medical Decision Making - Medical Decision Making Patient orthostatic positive by pulse given a liter and half of normal saline IV. The hemoglobin and hematocrit is stable, electrolytes within normal limits, there is no leukocytosis. Patient had his MRI 2 days ago and was seen and evaluated yesterday with no changes. Patient will be discharged home to follow up as directed with his primary care doctor. - Lab Data Result diagrams: 10/19/20 15:02 10/19/20 15:02 Lab Results 10/19/20 10/19/20 Range/Units 15:02 15:02 WBC 5.6 (3.8-10.6) k/uL RBC 3.12 L (4.30-5.90) m/uL Hgb 11.9 L (13.0-17.5) gm/dL Hct 34.3 L (39.0-53.0) % MCV 110.2 H (80.0-100.0) fL MCH 38.2 H (25.0-35.0) pg MCHC 34.7 (31.0-37.0) g/dL RDW 12.2 (11.5-15.5) % Plt Count 209 (150-450) k/uL MPV 7.4 Neutrophils % 72 % Lymphocytes % 19 % Monocytes % 5 % Eosinophils % 2 % Basophils % 1 % Neutrophils # 4.0 (1.3-7.7) k/uL Lymphocytes # 1.0 (1.0-4.8) k/uL Monocytes # 0.3 (0-1.0) k/uL Eosinophils # 0.1 (0-0.7) k/uL Basophils # 0.1 (0-0.2) k/uL Macrocytosis Marked A Sodium 143 (137-145) mmol/L Potassium 4.2 (3.5-5.1) mmol/L Chloride 111 H (98-107) mmol/L Carbon Dioxide 25 (22-30) mmol/L Anion Gap 7 mmol/L BUN 14 (9-20) mg/dL Creatinine 0.93 (0.66-1.25) mg/dL Est GFR (CKD-EPI)AfAm >90 (>60 ml/min/1.73 sqM) Est GFR (CKD-EPI)NonAf 86 (>60 ml/min/1.73 sqM) Glucose 93 (74-99) mg/dL Calcium 9.2 (8.4-10.2) mg/dL Total Bilirubin 0.2 (0.2-1.3) mg/dL AST 51 (17-59) U/L ALT 40 (4-49) U/L Alkaline Phosphatase 145 H (38-126) U/L Total Protein 6.4 (6.3-8.2) g/dL Albumin 3.7 (3.5-5.0) g/dL Disposition Clinical Impression: Dehydration, Orthostatic hypotension Disposition: HOME SELF-CARE Condition: Fair Instructions (If sedation given, give patient instructions): Dehydration (ED) Additional Instructions: Follow-up with the primary care doctor as directed and increase your fluid intake to 6-8 glasses of water a day Is patient prescribed a controlled substance at d/c from ED?: No Referrals: Jignesh Pérez DO [Primary Care Provider] - 1-2 days Time of Disposition: 16:24
[2020-10-19 15:39] LABS: ALT 40 U/L (4-49); AST 51 U/L (17-59); African American GFR (CKD) >90 (>60 ml/min/1.73 sqM); Albumin 3.7 g/dL (3.5-5.0); Alkaline Phosphatase 145 U/L (38-126); Anion Gap 7 mmol/L; Blood Urea Nitrogen 14 mg/dL (9-20); Calcium 9.2 mg/dL (8.4-10.2); Carbon Dioxide 25 mmol/L (22-30); Chloride 111 mmol/L (98-107); Glucose 93 mg/dL (74-99); Non-African American GFR(CKD) 86 (>60 ml/min/1.73 sqM); Potassium 4.2 mmol/L (3.5-5.1); Sodium 143 mmol/L (137-145); Total Bilirubin 0.2 mg/dL (0.2-1.3); Total Protein 6.4 g/dL (6.3-8.2)
[2020-10-19] MEDS ORDERED: SODIUM CHLORIDE 0.9% 1,000 ML IV STA (15:54)
[2020-10-19 17:07] VITALS: BP 154/91; PULSE 95; RESP 18; TEMP 98.8
== END 2020-10-19 17:04 | disposition home or self-care (01) ==
LOC: EC 13:11
DX: E86.0 Dehydration (principal); I95.1 Orthostatic hypotension; I10 Essential (primary) hypertension; F12.90 Cannabis use, unspecified, uncomplicated; Z87.891 Personal history of nicotine dependence; Z90.49 Acquired absence of other specified parts of digestive tract
CPT/HCPCS: 36415; 80053; 85025; 93005; 96360; 99285

== ENCOUNTER 2021-11-23 00:48 | Emergency (ER) | payer MEDICARE ==
[2021-11-23 00:59] VITALS: RESP 16; TEMP 97.8
--- NOTE | 2021-11-23 01:12 | ED ---
Fall HPI - General Chief Complaint: Fall Stated Complaint: Fall, Head Injury Time Seen by Provider: 11/23/21 01:04 Source: patient, EMS, RN notes reviewed, old records reviewed Mode of arrival: EMS Limitations: physical limitation - History of Present Illness Initial Comments: This is a 65-year-old male poor historian history obtained from outpatient fi ndings and travel, patient of fall down some stairs with significant hematoma to forehead unsure of loss of consciousness or events surrounding injury. Patient is known to have significant alcohol history MD Complaint: fall -: unknown Fall From: standing When Fall Occurred: unsure Fall Witnessed: no Place Fall Occurred: home Loss of Consciousness: none Prolonged Down Time?: no Symptoms Prior to Fall: none Location: head Severity: moderate Severity scale (1-10): 4 Quality: burning Associated Symptoms: denies, headache, neck pain, chest paint - Related Data Home Medications Medication Instructions Recorded Confirmed No Known Home Medications 10/19/20 10/19/20 Allergies Allergy/AdvReac Type Severity Reaction Status Date / Time No Known Allergies Allergy Verified 10/19/20 14:41 Review of Systems ROS Statement: Those systems with pertinent positive or pertinent negative responses have been documented in the HPI. ROS Other: All systems not noted in ROS Statement are negative. Past Medical History Past Medical History: Eye Disorder, GI Bleed, Hypertension Additional Past Medical History / Comment(s): past hx diverticulitis, right eye dry macular degeneration, left eye wet macular degeneration. alcholism History of Any Multi-Drug Resistant Organisms: None Reported Past Surgical History: Cholecystectomy, Hernia Repair Additional Past Surgical History / Comment(s): PICC line in, now removed, hernia repair, colonoscopy Past Anesthesia/Blood Transfusion Reactions: No Reported Reaction Additional Past Anesthesia/Blood Transfusion Reaction / Comment(s): 4 UNITS OF PRBC 10/2014, NO REACTION Past Psychological History: No Psychological Hx Reported Smoking Status: Former smoker Past Alcohol Use History: Abuse, Daily Past Drug Use History: Marijuana - Past Family History Mother Additional Family Medical History / Comment(s): brain anuerysm Father Family Medical History: Cancer Additional Family Medical History / Comment(s): lung General Exam Limitations: no limitations General appearance: alert, in no apparent distress Head exam: Present: normocephalic, normal inspection. Absent: atraumatic (She does have significant hematoma to forehead) Eye exam: Present: normal appearance, PERRL, EOMI. Absent: scleral icterus, conjunctival injection, periorbital swelling ENT exam: Present: normal exam, mucous membranes moist Neck exam: Present: normal inspection. Absent: tenderness, meningismus, lymphadenopathy Respiratory exam: Present: normal lung sounds bilaterally. Absent: respiratory distress, wheezes, rales, rhonchi, stridor Cardiovascular Exam: Present: regular rate, normal rhythm, normal heart sounds. Absent: systolic murmur, diastolic murmur, rubs, gallop, clicks GI/Abdominal exam: Present: soft, normal bowel sounds. Absent: distended, tenderness, guarding, rebound, rigid Extremities exam: Present: normal inspection, full ROM, normal capillary refill. Absent: tenderness, pedal edema, joint swelling, calf tenderness Back exam: Present: normal inspection Neurological exam: Present: alert, oriented X3, CN II-XII intact Psychiatric exam: Present: normal affect, normal mood Skin exam: Present: warm, dry, intact, normal color. Absent: rash Course Vital Signs 11/23/21 11/23/21 11/23/21 00:53 01:45 02:00 Temperature 97.8 F Pulse Rate 77 92 98 Respiratory 16 Rate Blood Pressure 163/127 157/104 162/91 O2 Sat by Pulse 95 98 98 Oximetry 11/23/21 11/23/21 03:00 03:38 Temperature Pulse Rate 102 H 80 Respiratory Rate Blood Pressure 156/96 152/86 O2 Sat by Pulse Oximetry - Reevaluation(s) Reevaluation #1: 11/23/21 Medical record is reviewed Reevaluation #2: 11/23/21 Patient informed results and questions are answered Reevaluation #3: 11/23/21 Patient is in no acute distress and can be discharged home Medical Decision Making - Medical Decision Making 65 male to the emergency department for evaluation of a trip and fall downstairs. No significant traumatic injury aside from) injury with hematoma of his forehead. Patient awake and alert and is okay for discharge - Lab Data Result diagrams: 11/23/21 02:30 11/23/21 02:30 Lab Results 11/23/21 11/23/21 11/23/21 Range/Units 02:30 02:30 02:30 WBC 14.7 H (3.8-10.6) k/uL RBC 4.25 L (4.30-5.90) m/uL Hgb 13.7 (13.0-17.5) gm/dL Hct 39.7 (39.0-53.0) % MCV 93.4 (80.0-100.0) fL MCH 32.2 (25.0-35.0) pg MCHC 34.5 (31.0-37.0) g/dL RDW 12.8 (11.5-15.5) % Plt Count 164 (150-450) k/uL MPV 7.6 Neutrophils % 83 % Lymphocytes % 11 % Monocytes % 4 % Eosinophils % 1 % Basophils % 1 % Neutrophils # 12.3 H (1.3-7.7) k/uL Lymphocytes # 1.7 (1.0-4.8) k/uL Monocytes # 0.5 (0-1.0) k/uL Eosinophils # 0.1 (0-0.7) k/uL Basophils # 0.1 (0-0.2) k/uL PT 10.4 (9.0-12.0) sec INR 1.0 (<1.2) APTT 20.7 L (22.0-30.0) sec Sodium 137 (137-145) mmol/L Potassium 4.2 (3.5-5.1) mmol/L Chloride 105 (98-107) mmol/L Carbon Dioxide 22 (22-30) mmol/L Anion Gap 10 mmol/L BUN 20 (9-20) mg/dL Creatinine 1.21 (0.66-1.25) mg/dL Est GFR (CKD-EPI)AfAm 71 (>60 ml/min/1.73 sqM) Est GFR (CKD-EPI)NonAf 62 (>60 ml/min/1.73 sqM) Glucose 128 H (74-99) mg/dL Calcium 9.0 (8.4-10.2) mg/dL Total Bilirubin 0.5 (0.2-1.3) mg/dL AST 34 (17-59) U/L ALT 21 (4-49) U/L Alkaline Phosphatase 132 H (38-126) U/L Troponin I (0.000-0.034) ng/mL Total Protein 7.7 (6.3-8.2) g/dL Albumin 4.5 (3.5-5.0) g/dL Serum Alcohol <10 mg/dL Blood Type Blood Type Recheck Bld Type Recheck Status Antibody Screen Spec Expiration Date 11/23/21 11/23/21 Range/Units 02:30 02:30 WBC (3.8-10.6) k/uL RBC (4.30-5.90) m/uL Hgb (13.0-17.5) gm/dL Hct (39.0-53.0) % MCV (80.0-100.0) fL MCH (25.0-35.0) pg MCHC (31.0-37.0) g/dL RDW (11.5-15.5) % Plt Count (150-450) k/uL MPV Neutrophils % % Lymphocytes % % Monocytes % % Eosinophils % % Basophils % % Neutrophils # (1.3-7.7) k/uL Lymphocytes # (1.0-4.8) k/uL Monocytes # (0-1.0) k/uL Eosinophils # (0-0.7) k/uL Basophils # (0-0.2) k/uL PT (9.0-12.0) sec INR (<1.2) APTT (22.0-30.0) sec Sodium (137-145) mmol/L Potassium (3.5-5.1) mmol/L Chloride (98-107) mmol/L Carbon Dioxide (22-30) mmol/L Anion Gap mmol/L BUN (9-20) mg/dL Creatinine (0.66-1.25) mg/dL Est GFR (CKD-EPI)AfAm (>60 ml/min/1.73 sqM) Est GFR (CKD-EPI)NonAf (>60 ml/min/1.73 sqM) Glucose (74-99) mg/dL Calcium (8.4-10.2) mg/dL Total Bilirubin (0.2-1.3) mg/dL AST (17-59) U/L ALT (4-49) U/L Alkaline Phosphatase (38-126) U/L Troponin I <0.012 (0.000-0.034) ng/mL Total Protein (6.3-8.2) g/dL Albumin (3.5-5.0) g/dL Serum Alcohol mg/dL Blood Type A Positive Blood Type Recheck A Pos Bld Type Recheck Status No Antibody Screen NEGATIVE Spec Expiration Date 11/26/20212329 - Radiology Data Radiology results: report reviewed (CT brain C-spine and facial bones chest and pelvis x-ray are negative for traumatic injury), image reviewed Disposition Clinical Impression: ETOH abuse, Fall, Head injury, Traumatic hematoma of head Disposition: HOME SELF-CARE Condition: Fair Instructions (If sedation given, give patient instructions): Fall Prevention for Older Adults (ED) Is patient prescribed a controlled substance at d/c from ED?: No Referrals: Jignesh Pérez DO [Primary Care Provider] - 1-2 days Time of Disposition: 03:30
--- NOTE | 2021-11-23 01:55 | CT ---
EXAM: CT Head Without Intravenous Contrast CLINICAL HISTORY: ITS.REASON CT Reason: fall TECHNIQUE: Axial computed tomography images of the head/brain without intravenous contrast. CTDI is 13.5 mGy and DLP is 397.13 mGy-cm. This CT exam was performed using one or more of the following dose reduction techniques: automated exposure control, adjustment of the mA and/or kV according to patient size, and/or use of iterative reconstruction technique. COMPARISON: No relevant prior studies available. FINDINGS: Brain: Unremarkable. No hemorrhage. Moderate nonspecific white matter changes. No edema. Ventricles: Unremarkable. No ventriculomegaly. Bones/joints: Fractures of the proximal cervical spine. Soft tissues: Mild soft tissue swelling and subgaleal hematoma over the forehead. Bilateral lens replacements. Sinuses: Unremarkable as visualized. No acute sinusitis. Mastoid air cells: Unremarkable as visualized. No mastoid effusion. IMPRESSION: No evidence of acute intracranial pathology. Fractures of the proximal cervical spine. EXAM: CT Cervical Spine Without Intravenous Contrast CLINICAL HISTORY: ITS.REASON CT Reason: fall TECHNIQUE: Axial computed tomography images of the cervical spine without intravenous contrast. CTDI is 13.5 mGy and DLP is 397.13 mGy-cm. This CT exam was performed using one or more of the following dose reduction techniques: automated exposure control, adjustment of the mA and/or kV according to patient size, and/or use of iterative reconstruction technique. COMPARISON: No relevant prior studies available. FINDINGS: Vertebrae: Moderately displaced comminuted fractures of the anterior ring of C1 and left posterior ring of C1. Discs/spinal canal/neural foramina: No acute findings. No spinal canal stenosis. Soft tissues: Moderate calcified atherosclerotic disease of the carotid bifurcations. There is a inflammatory pannus at the dens projected dorsally with mass-effect on the ventral thecal sac. IMPRESSION: Moderately displaced comminuted fractures of the anterior ring of C1 and left posterior ring of C1. <MYCVCSECTION> Communications: 11/23/21 02:01 Verify Receipt Verified receipt with clerk Black to Dr. Stephen on 11/23 02:01 (-04:00)
[2021-11-23] MEDS ORDERED: HYDROmorphone 1 MG/ML 1 ML SYRINGE IM STA (01:57)
--- NOTE | 2021-11-23 02:00 | CT ---
EXAM: CT Head and Maxillofacial Without Intravenous Contrast CLINICAL HISTORY: ITS.REASON CT Reason: fall TECHNIQUE: Axial computed tomography images of the head/brain and face without intravenous contrast. CTDI is 13.5 mGy and DLP is 397.13 mGy-cm. This CT exam was performed using one or more of the following dose reduction techniques: automated exposure control, adjustment of the mA and/or kV according to patient size, and/or use of iterative reconstruction technique. COMPARISON: No relevant prior studies available. FINDINGS: Brain: Unremarkable. No hemorrhage. No significant white matter disease. No edema. Ventricles: Unremarkable. No ventriculomegaly. Bones/joints: C1 fractures. Dental caries with periapical lucency in the left mandible concerning for. Blood abscess. Soft tissues: Soft tissue swelling over the forehead. Sinuses: Unremarkable as visualized. No acute sinusitis. Mastoid air cells: Unremarkable as visualized. No mastoid effusion. Orbits: Unremarkable as visualized. IMPRESSION: No evidence of acute facial bone pathology. C1 fractures.
[2021-11-23] MEDS ORDERED: SODIUM CHLORIDE 0.9% 1,000 ML IV STA (02:06)
[2021-11-23] MEDS ORDERED: HYDROmorphone 1 MG/ML 1 ML SYRINGE IVP STA (02:06)
[2021-11-23 03:00] LABS: ALT 21 U/L (4-49); AST 34 U/L (17-59); African American GFR (CKD) 71 (>60 ml/min/1.73 sqM); Albumin 4.5 g/dL (3.5-5.0); Alcohol <10 mg/dL; Alkaline Phosphatase 132 U/L (38-126); Anion Gap 10 mmol/L; Blood Urea Nitrogen 20 mg/dL (9-20); Carbon Dioxide 22 mmol/L (22-30); Chloride 105 mmol/L (98-107); Glucose 128 mg/dL (74-99); Non-African American GFR(CKD) 62 (>60 ml/min/1.73 sqM); Sodium 137 mmol/L (137-145); Total Bilirubin 0.5 mg/dL (0.2-1.3); Total Protein 7.7 g/dL (6.3-8.2)
[2021-11-23 03:05] LABS: Basophils # (A) 0.1 k/uL (0-0.2); Basophils % (A) 1 %; Eosinophils # (A) 0.1 k/uL (0-0.7); Eosinophils % (A) 1 %; HCT 39.7 % (39.0-53.0); HGB 13.7 gm/dL (13.0-17.5); Lymphocytes # (A) 1.7 k/uL (1.0-4.8); Lymphocytes % (A) 11 %; MCH 32.2 pg (25.0-35.0); MCHC 34.5 g/dL (31.0-37.0); MCV 93.4 fL (80.0-100.0); Mean Platelet Volume 7.6; Monocytes # (A) 0.5 k/uL (0-1.0); Monocytes % (A) 4 %; Neutrophils # (A) 12.3 k/uL (1.3-7.7); Neutrophils % (A) 83 %; Platelet Count 164 k/uL (150-450); RBC 4.25 m/uL (4.30-5.90); RDW 12.8 % (11.5-15.5); WBC 14.7 k/uL (3.8-10.6)
[2021-11-23 03:06] LABS: Prothrombin Time 10.4 sec (9.0-12.0)
[2021-11-23 03:26] LABS: Partial Thromboplastin Time 20.7 sec (22.0-30.0)
[2021-11-23 03:35] LABS: Potassium 4.2 mmol/L (3.5-5.1)
[2021-11-23 03:39] VITALS: BP 152/86; PULSE 80
--- NOTE | 2021-11-23 04:03 | XR ---
EXAM: XR Chest, 1 View CLINICAL HISTORY: ITS.REASON XR Reason: trauma TECHNIQUE: Frontal view of the chest. COMPARISON: 10/15/2020 FINDINGS: Lungs: Mild bibasilar atelectasis. No consolidation. Pleural space: Unremarkable. No pneumothorax. Heart: Unremarkable. No cardiomegaly. Mediastinum: Unremarkable. Bones/joints: Unremarkable. IMPRESSION: No acute pulmonary process.
--- NOTE | 2021-11-23 04:05 | XR ---
EXAM: XR Right Hand Complete, 3 or More Views CLINICAL HISTORY: ITS.REASON XR Reason: fall, pain TECHNIQUE: Frontal, lateral and oblique views of the right hand. COMPARISON: No relevant prior studies available. FINDINGS: Bones/joints: There is a small lateral endplate fracture of the proximal phalange of the first digit. No dislocation. Soft tissues: Unremarkable. No radiopaque foreign body. IMPRESSION: Small lateral endplate fracture of the proximal phalange of the first digit. There is no subcutaneous air radiopaque foreign body.
== END 2021-11-23 03:39 | disposition home or self-care (01) ==
LOC: EC 00:48
DX: S00.93XA Contusion of unspecified part of head, initial encounter (principal); I10 Essential (primary) hypertension; Z87.891 Personal history of nicotine dependence; F10.10 Alcohol abuse, uncomplicated; W10.9XXA Fall (on) (from) unspecified stairs and steps, initial encounter
CPT/HCPCS: 36415; 86900; 86901; 80053; 84484; 85025; 85610; 85730; 86850; 73130; 71045; 72125; 70486; 70450; 99284; 96374; 96372; 96361; G0480; J1170; 80320

== ENCOUNTER 2023-01-10 14:28 | Emergency (ER) | payer MEDICARE, OTHER ==
[2023-01-10 14:55] LABS: Glucose,Whole Blood 112 mg/dL (70-110)
--- NOTE | 2023-01-10 15:03 | ED ---
Dizziness HPI - General Source: patient, RN notes reviewed Mode of arrival: wheelchair Limitations: no limitations - History of Present Illness MD Complaint: dizziness Onset/Timin -: days(s) <Jo Quintana - Last Filed: 01/10/23 15:03> <Porsha Mace - Last Filed: 01/12/23 22:53> - General Chief Complaint: Dizziness Stated Complaint: VISION ISSUES Time Seen by Provider: 01/10/23 14:55 - History of Present Illness Initial Comments: This is a 67 year old male who presents to the emergency department for dizziness and visual changes. Symptoms started 6 days ago. Denies any history of strokes or headaches. He has a hx of HTN, however he states that his BP has been well controlled. (Jo Quintana) 67-year-old male with past medical history of macular degeneration, cataracts who presents emergency room reporting visual change and balance issues. States that as of 6 days ago the patient had worsening visual changes. States that his vision has been declining for a while however on Friday he felt like it significantly got worse. States that his vision is extremely blurred. He has h ad some issues with balance since this has started. He denies any numbness, tingling or weakness in his extremities. No speech difficulties. No history of stroke. He does not drive. Denies headaches. No eye pain. Denies vertigo. No other alleviating, precipitating or modifying factors (Porsha Mace) - Related Data Previous Rx's Medication Instructions Recorded hydrOXYzine HCL 10 mg PO Q6H PRN #6 tab 01/12/23 traZODone HCL [Desyrel] 100 mg PO HS 2 Days #2 tab 01/12/23 Allergies Allergy/AdvReac Type Severity Reaction Status Date / Time No Known Allergies Allergy Verified 01/10/23 18:09 Review of Systems ROS Other: All systems not noted in ROS Statement are negative. <Jo Quintana - Last Filed: 01/10/23 15:03> ROS Other: All systems not noted in ROS Statement are negative. <Porsha Mace - Last Filed: 01/12/23 22:53> ROS Statement: Those systems with pertinent positive or pertinent negative responses have been documented in the HPI. Past Medical History Past Medical History: Eye Disorder, GI Bleed, Hypertension Additional Past Medical History / Comment(s): past hx diverticulitis, right eye dry macular degeneration, left eye wet macular degeneration. alcholism History of Any Multi-Drug Resistant Organisms: None Reported Past Surgical History: Cholecystectomy, Hernia Repair Additional Past Surgical History / Comment(s): PICC line in, now removed, hernia repair, colonoscopy Past Anesthesia/Blood Transfusion Reactions: No Reported Reaction Additional Past Anesthesia/Blood Transfusion Reaction / Comment(s): 4 UNITS OF PRBC 10/2014, NO REACTION Past Psychological History: No Psychological Hx Reported Smoking Status: Former smoker Past Alcohol Use History: Abuse, Daily Past Drug Use History: Marijuana - Past Family History Mother Additional Family Medical History / Comment(s): brain anuerysm Father Family Medical History: Cancer Additional Family Medical History / Comment(s): lung <Jo Quintana - Last Filed: 01/10/23 15:03> General Exam Limitations: no limitations <Jo Quintana - Last Filed: 01/10/23 15:03> General appearance: alert, in no apparent distress Head exam: Present: atraumatic, normocephalic, normal inspection Eye exam: Present: normal appearance, PERRL, EOMI. Absent: scleral icterus, conjunctival injection, periorbital swelling ENT exam: Present: normal exam, mucous membranes moist Neck exam: Present: normal inspection. Absent: tenderness, meningismus, lymphadenopathy Respiratory exam: Present: normal lung sounds bilaterally. Absent: respiratory distress, wheezes, rales, rhonchi, stridor Cardiovascular Exam: Present: regular rate, normal rhythm, normal heart sounds. Absent: systolic murmur, diastolic murmur, rubs, gallop, clicks GI/Abdominal exam: Present: soft, normal bowel sounds. Absent: distended, tenderness, guarding, rebound, rigid Extremities exam: Present: normal inspection, full ROM, normal capillary refill. Absent: tenderness, pedal edema, joint swelling, calf tenderness Back exam: Present: normal inspection Neurological exam: Present: alert, oriented X3, CN II-XII intact Psychiatric exam: Present: normal affect, normal mood Skin exam: Present: warm, dry, intact, normal color. Absent: rash <Porsha Mace - Last Filed: 01/12/23 22:53> - General Exam Comments Initial Comments: Visual Physical Exam Vital signs reviewed General: Well-appearing, nontoxic, no acute distress. Head: Normocephalic, atraumatic Eyes: PERRLA, EOMI ENT: Airway patent Chest: Nonlabored breathing Skin: No visual rash, normal skin tone Neuro: Alert and oriented 3 Musculoskeletal: No gross abnormalities I performed the QuickNote portion of this chart. Signed Jo Quintana PA-C. (Jo Quintana) Course Vital Signs 01/10/23 01/10/23 14:34 19:48 Temperature 98.7 F 97.9 F Pulse Rate 97 74 Respiratory 20 16 Rate Blood Pressure 122/84 140/87 O2 Sat by Pulse 98 97 Oximetry Medical Decision Making - Lab Data Result diagrams: 01/10/23 15:01 01/10/23 15:01 <Porsha Mace A - Last Filed: 01/12/23 22:53> - Medical Decision Making Was pt. sent in by a medical professional or institution ([facility]IN Tabor, PLASTICS TOOLING ENGINEER, urgent care, hospital, or alf...) When possible be specific @ -No Did you speak to anyone other than the patient for history (EMS, parent, family, police, friend...)? What history was obtained from this source @ -No Did you review nursing and triage notes (agree or disagree)? Why? @ -I reviewed and agree with nursing and triage notes Were old charts reviewed (outside hosp., previous admission, EMS record, old EKG, old radiological studies, urgent care reports/EKG's, alf records)? Report findings @ -No old charts were reviewed Differential Diagnosis (chest pain, altered mental status, abdominal pain women, abdominal pain men, vaginal bleeding, weakness, fever, dyspnea, syncope, headache, dizziness, GI bleed, back pain, seizure, CVA, palpatations, mental health, musculoskeletal)? @ -Macular degeneration, cataracts, CRVO, CRAO, retinal hemorrhage stroke EKG interpreted by me (3pts min.). @ -yes and demonstrates sinus rhythm rate 71. MA 151. QRS 89. QTC 417. There is some J-point elevation 2, 3, aVF. No significant ST segment elevation or reciprocal changes X-rays interpreted by me (1pt min.). @ -None done CT interpreted by me (1pt min.). @ -Yes and demonstrates chronic ischemic vascular changes U/S interpreted by me (1pt. min.). @ -None done What testing was considered but not performed or refused? (CT, X-rays, U/S, labs)? Why? @ -MRI because the patient would have to be admitted and he did not want to be admitted to the hospital What meds were considered but not given or refused? Why? @ -None Did you discuss the management of the patient with other professionals (professionals i.e. , PA, PLASTICS TOOLING ENGINEER, lab, RT, psych nurse, social services analyst, hob mill operator, teacher, chief financial officer, geriatric case manager)? Give summary @ -No Was smoking cessation discussed for >3mins.? @ -No Was critical care preformed (if so, how long)? @ -No Were there social determinants of health that impacted care today? How? (Homelessness, low income, unemployed, alcoholism, drug addiction, transportation, low edu. Level, literacy, decrease access to med. care, longterm, rehab)? @ -Patient states that he lives in a [facility] house Was there de-escalation of care discussed even if they declined (Discuss DNR or withdrawal of care, Hospice)? DNR status @ -No What co-morbidities impacted this encounter? (DM, HTN, Smoking, COPD, CAD, Cancer, CVA, ARF, Chemo, Hep., AIDS, mental health diagnosis, sleep apnea, morbid obesity)? @ -Hypertension, macular degeneration, cataracts Was patient admitted / discharged? Hospital course, mention meds given and route, prescriptions, significant lab abnormalities, going to OR and other pertinent info. @ -Upon arrival the patient was placed into room 2. A thorough history and physical exam was performed. Patient has no lateralizing deficits. Does have visual disturbance. Visual acuity is performed and the patient has a score of 2200. I did evaluate the patient using laboratory studies and a CT of the patient's brain as his symptoms have been going on for the past [address] does demonstrate chronic vascular ischemic changes however no acute stroke. I did discuss results with the patient. Concern for his acute visual impairment. Recommended admission however patient does not want to be admitted at this time and would prefer to follow up outpatient. I did call and speak with the exhibit cleaner on-call. He states that since the symptoms have been going on for the past 6 days that he may follow up in office. Patient is given his follow-up information and is to call Friday for an appointment. No driving. Patient does ambulate without difficulty. Return for any new or worsening symptoms. Patient was agreeable to plan he was discharged in stable condition Undiagnosed new problem with uncertain prognosis? @ -Yes Drug Therapy requiring intensive monitoring for toxicity (Heparin, Nitro, Insulin, Cardizem)? @ -No Were any procedures done? @ -No Diagnosis/symptom? @ -Acute visual disturbance Acute, or Chronic, or Acute on Chronic? @ -Acute on chronic Uncomplicated (without systemic symptoms) or Complicated (systemic symptoms)? @ -Complicated Side effects of treatment? @ -No Exacerbation, Progression, or Severe Exacerbation? @ -No Poses a threat to life or bodily function? How? (Chest pain, [place], [place], pneumonia, PE, COPD, DKA, ARF, appy, cholecystitis, CVA, Diverticulitis, Homicidal, Suicidal, threat to staff... and all critical care pts) @ -No (Porsha Mace) - Lab Data Lab Results 01/10/23 01/10/23 01/10/23 Range/Units 14:53 15:01 15:01 WBC 6.6 (3.8-10.6) k/uL RBC 4.83 (4.30-5.90) m/uL Hgb 14.9 (13.0-17.5) gm/dL Hct 44.1 (39.0-53.0) % MCV 91.3 (80.0-100.0) fL MCH 30.8 (25.0-35.0) pg MCHC 33.8 (31.0-37.0) g/dL RDW 12.9 (11.5-15.5) % Plt Count 212 (150-450) k/uL MPV 7.1 Neutrophils % 59 % Lymphocytes % 31 % Monocytes % 4 % Eosinophils % 3 % Basophils % 1 % Neutrophils # 3.9 (1.3-7.7) k/uL Lymphocytes # 2.1 (1.0-4.8) k/uL Monocytes # 0.3 (0-1.0) k/uL Eosinophils # 0.2 (0-0.7) k/uL Basophils # 0.1 (0-0.2) k/uL PT 10.6 (9.0-12.0) sec INR 1.0 (<1.2) APTT 24.1 (22.0-30.0) sec Sodium (137-145) mmol/L Potassium (3.5-5.1) mmol/L Chloride (98-107) mmol/L Carbon Dioxide (22-30) mmol/L Anion Gap mmol/L BUN (9-20) mg/dL Creatinine (0.66-1.25) mg/dL Est GFR (CKD-EPI)AfAm (>60 ml/min/1.73 sqM) Est GFR (CKD-EPI)NonAf (>60 ml/min/1.73 sqM) Glucose (74-99) mg/dL POC Glucose (mg/dL) 112 H (70-110) mg/dL POC Glu Certified Surgical Assistant ID [place] Calcium (8.4-10.2) mg/dL Magnesium (1.6-2.3) mg/dL Total Bilirubin (0.2-1.3) mg/dL AST (17-59) U/L ALT (4-49) U/L Alkaline Phosphatase (38-126) U/L Troponin I (0.000-0.034) ng/mL Total Protein (6.3-8.2) g/dL Albumin (3.5-5.0) g/dL 01/10/23 01/10/23 Range/Units 15:01 15:01 WBC (3.8-10.6) k/uL RBC (4.30-5.90) m/uL Hgb (13.0-17.5) gm/dL Hct (39.0-53.0) % MCV (80.0-100.0) fL MCH (25.0-35.0) pg MCHC (31.0-37.0) g/dL RDW (11.5-15.5) % Plt Count (150-450) k/uL MPV Neutrophils % % Lymphocytes % % Monocytes % % Eosinophils % % Basophils % % Neutrophils # (1.3-7.7) k/uL Lymphocytes # (1.0-4.8) k/uL Monocytes # (0-1.0) k/uL Eosinophils # (0-0.7) k/uL Basophils # (0-0.2) k/uL PT (9.0-12.0) sec INR (<1.2) APTT (22.0-30.0) sec Sodium 138 (137-145) mmol/L Potassium 4.2 (3.5-5.1) mmol/L Chloride 105 (98-107) mmol/L Carbon Dioxide 21 L (22-30) mmol/L Anion Gap 12 mmol/L BUN 21 H (9-20) mg/dL Creatinine 1.21 (0.66-1.25) mg/dL Est GFR (CKD-EPI)AfAm 70 (>60 ml/min/1.73 sqM) Est GFR (CKD-EPI)NonAf 61 (>60 ml/min/1.73 sqM) Glucose 117 H (74-99) mg/dL POC Glucose (mg/dL) (70-110) mg/dL POC Glu Certified Surgical Assistant ID Calcium 9.5 (8.4-10.2) mg/dL Magnesium 1.9 (1.6-2.3) mg/dL Total Bilirubin 0.7 (0.2-1.3) mg/dL AST 24 (17-59) U/L ALT 19 (4-49) U/L Alkaline Phosphatase 125 (38-126) U/L Troponin I <0.012 (0.000-0.034) ng/mL Total Protein 8.2 (6.3-8.2) g/dL Albumin 4.6 (3.5-5.0) g/dL Disposition <Jo Quintana - Last Filed: 01/10/23 15:03> Is patient prescribed a controlled substance at d/c from ED?: No Time of Disposition: 19:35 <Porsha Mace - Last Filed: 01/12/23 22:53> Clinical Impression: Visual disturbance, Ataxia Disposition: HOME SELF-CARE Condition: Stable Instructions (If sedation given, give patient instructions): Blurred Vision (ED) Additional Instructions: Please call on Friday to make an appointment with Dr. Jc. You need a visual exam. Return for any new or worsening symptoms Referrals: Jignesh Pérez DO [Primary Care Provider] - 1-2 days Ace Jc MD [STAFF PHYSICIAN] - 1-2 days
[2023-01-10 15:20] LABS: Basophils # (A) 0.1 k/uL (0-0.2); Basophils % (A) 1 %; Eosinophils # (A) 0.2 k/uL (0-0.7); Eosinophils % (A) 3 %; HCT 44.1 % (39.0-53.0); HGB 14.9 gm/dL (13.0-17.5); Lymphocytes # (A) 2.1 k/uL (1.0-4.8); Lymphocytes % (A) 31 %; MCH 30.8 pg (25.0-35.0); MCHC 33.8 g/dL (31.0-37.0); MCV 91.3 fL (80.0-100.0); Mean Platelet Volume 7.1; Monocytes # (A) 0.3 k/uL (0-1.0); Monocytes % (A) 4 %; Neutrophils # (A) 3.9 k/uL (1.3-7.7); Neutrophils % (A) 59 %; Platelet Count 212 k/uL (150-450); RBC 4.83 m/uL (4.30-5.90); RDW 12.9 % (11.5-15.5); WBC 6.6 k/uL (3.8-10.6)
[2023-01-10 15:23] LABS: ALT 19 U/L (4-49); AST 24 U/L (17-59); African American GFR (CKD) 70 (>60 ml/min/1.73 sqM); Albumin 4.6 g/dL (3.5-5.0); Alkaline Phosphatase 125 U/L (38-126); Anion Gap 12 mmol/L; Blood Urea Nitrogen 21 mg/dL (9-20); Calcium 9.5 mg/dL (8.4-10.2); Carbon Dioxide 21 mmol/L (22-30); Chloride 105 mmol/L (98-107); Glucose 117 mg/dL (74-99); Magnesium 1.9 mg/dL (1.6-2.3); Non-African American GFR(CKD) 61 (>60 ml/min/1.73 sqM); Potassium 4.2 mmol/L (3.5-5.1); Sodium 138 mmol/L (137-145); Total Bilirubin 0.7 mg/dL (0.2-1.3); Total Protein 8.2 g/dL (6.3-8.2)
[2023-01-10 15:28] LABS: Partial Thromboplastin Time 24.1 sec (22.0-30.0); Prothrombin Time 10.6 sec (9.0-12.0)
--- NOTE | 2023-01-10 15:43 | CT ---
EXAMINATION TYPE: CT brain wo con DATE OF EXAM: 01/10/2023 COMPARISON: 11/23/2021 HISTORY: 67-year-old male Dizziness, vision issues TECHNIQUE: Examination was done in axial plane without intravenous contrast. Coronal and sagittal r econstructions performed. CT DLP: 1185.4 mGycm Automated exposure control for dose reduction was used. FINDINGS: There is no evidence of acute intracranial hemorrhage, acute ischemic changes, mass, mass-effect, or extra-axial fluid collection. There is no effacement of cerebral sulci or basal subarachnoid cister ns. Mild ventriculomegaly is unchanged, likely due to central cerebral atrophy. There is no midline s hift. Lopez-white matter distinction is preserved. Old lacunar infarcts bilateral thalami and left basal ganglia. Severe confluent white matter hypodensity hemispheres. Paranasal sinuses and mastoid air cells well pneumatized. Orbits and globes are intact. IMPRESSION: Severe confluent burden of chronic small vessel ischemic disease. Old lacunar infarcts in the basal g anglia. No acute intracranial abnormality seen.
[2023-01-10 19:49] VITALS: BP 140/87; PULSE 74; RESP 16; TEMP 97.9
== END 2023-01-10 19:49 | disposition home or self-care (01) ==
LOC: EC 14:28
DX: H53.9 Unspecified visual disturbance (principal); R27.0 Ataxia, unspecified; I67.82 Cerebral ischemia; I10 Essential (primary) hypertension; F12.90 Cannabis use, unspecified, uncomplicated; Z87.891 Personal history of nicotine dependence; Z90.49 Acquired absence of other specified parts of digestive tract
CPT/HCPCS: 36415; 70450; 80053; 83735; 84484; 85025; 85610; 85730; 93005; 99284

== ENCOUNTER 2023-01-12 10:10 | Emergency (ER) | payer MEDICARE, OTHER ==
[2023-01-12 10:22] VITALS: BP 169/78; PULSE 66; RESP 18; TEMP 98
--- NOTE | 2023-01-12 11:42 | ED ---
General Adult HPI - General Chief complaint: Anxiety Stated complaint: ANXIETY Time Seen by Provider: 01/12/23 10:22 Source: patient Mode of arrival: EMS Limitations: no limitations - History of Present Illness Initial comments: Dictation was produced using [employer] dictation software. please excuse any grammatical, word or spelling errors. Chief Complaint: 67-year-old male presents with depression and anxiety History of Present Illness: 67-year-old male presents with depression and anxiety. Denies suicidal or homicidal ideation. No visual auditory hallucinations. States that he is anxious about life. He wants to be evaluated by emergency psychiatric services. Denies any medical complaints The ROS documented in this emergency department record has been reviewed and confirmed by me. Those systems with pertinent positive or negative responses have been documented in the HPI. All other systems are other negative and/or noncontributory. - Related Data Previous Rx's Medication Instructions Recorded hydrOXYzine HCL 10 mg PO Q6H PRN #6 tab 01/12/23 traZODone HCL [Desyrel] 100 mg PO HS 2 Days #2 tab 01/12/23 Allergies Allergy/AdvReac Type Severity Reaction Status Date / Time No Known Allergies Allergy Verified 01/10/23 18:09 Review of Systems ROS Statement: Those systems with pertinent positive or pertinent negative responses have been documented in the HPI. ROS Other: All systems not noted in ROS Statement are negative. Past Medical History Past Medical History: Eye Disorder, GI Bleed, Hypertension Additional Past Medical History / Comment(s): past hx diverticulitis, right eye dry macular degeneration, left eye wet macular degeneration. alcholism History of Any Multi-Drug Resistant Organisms: None Reported Past Surgical History: Cholecystectomy, Hernia Repair Additional Past Surgical History / Comment(s): PICC line in, now removed, hernia repair, colonoscopy Past Anesthesia/Blood Transfusion Reactions: No Reported Reaction Additional Past Anesthesia/Blood Transfusion Reaction / Comment(s): 4 UNITS OF PRBC 10/2014, NO REACTION Past Psychological History: No Psychological Hx Reported Smoking Status: Former smoker Past Alcohol Use History: Abuse, Daily Past Drug Use History: Marijuana - Past Family History Mother Additional Family Medical History / Comment(s): brain anuerysm Father Family Medical History: Cancer Additional Family Medical History / Comment(s): lung General Exam - General Exam Comments Initial Comments: PHYSICAL EXAM: General Impression: Alert and oriented x3, not in acute distress HEENT: Normocephalic atraumatic, extra-ocular movements intact, pupils equal and reactive to light bilaterally, mucous membranes moist. Cardiovascular: Heart regular rate and rhythm Chest: Able to complete full sentences, no retractions, no tachypnea Abdomen: abdomen soft, non-tender, non-distended, no organomegaly Musculoskeletal: Pulses present and equal in all extremities, no peripheral edema Motor: no focal deficits noted Neurological: CN II-XII grossly intact, no focal motor or sensory deficits noted Skin: Intact with no visualized rashes Psych: Normal affect and mood Limitations: no limitations Course Vital Signs 01/12/23 10:19 Temperature 98 F Pulse Rate 66 Respiratory 18 Rate Blood Pressure 169/78 O2 Sat by Pulse 97 Oximetry Medical Decision Making - Medical Decision Making Was pt. sent in by a medical professional or institution (, PA, STOCK SHEETS CLEANER INSPECTOR, urgent care, hospital, or assisted...) When possible be specific @ -No Did you speak to anyone other than the patient for history (EMS, parent, family, police, friend...)? What history was obtained from this source @ -No Did you review nursing and triage notes (agree or disagree)? Why? @ -I reviewed and agree with nursing and triage notes Were old charts reviewed (outside hosp., previous admission, EMS record, old EKG, old radiological studies, urgent care reports/EKG's, assisted records)? Report findings @ -No old charts were reviewed Differential Diagnosis (chest pain, altered mental status, abdominal pain women, abdominal pain men, vaginal bleeding, musculoskeletal, weakness, fever, dyspnea, syncope, headache, dizziness, GI bleed, back pain, seizure, CVA, palpatations, mental health)? @ -Differential Mental Health: Depression, anxiety, bipolar, psychosis, schizophrenia, borderline personality, situational depression, adjustment disorder, behavioral disorder, brain tumor, malingering, substance abuse, encephalopathy, medication reaction, dementia, hypothyroidism, degenerative neurologic disorder, lupus.... This is not meant to be all-inclusive list EKG interpreted by me (3pts min.). @ -None done X-rays interpreted by me (1pt min.). @ -None done CT interpreted by me (1pt min.). @ -None done U/S interpreted by me (1pt. min.). @ -None done What testing was considered but not performed or refused? (CT, X-rays, U/S, labs)? Why? @ -None What meds were considered but not given or refused? Why? @ -None Did you discuss the management of the patient with other professionals (professionals i.e. , PA, STOCK SHEETS CLEANER INSPECTOR, lab, RT, psych nurse, professor of social work, burrer operator, teacher, building drafting officer, caseworker)? Give summary @ -No Was smoking cessation discussed for >3mins.? @ -No Was critical care preformed (if so, how long)? @ -No Were there social determinants of health that impacted care today? How? (Homelessness, low income, unemployed, alcoholism, drug addiction, transportation, low edu. Level, literacy, decrease access to med. care, nursing home, rehab)? @ -No Was there de-escalation of care discussed even if they declined (Discuss DNR or withdrawal of care, Hospice)? DNR status @ -No What co-morbidities impacted this encounter? (DM, HTN, Smoking, COPD, CAD, Cancer, CVA, ARF, Chemo, Hep., AIDS, mental health diagnosis, sleep apnea, morbid obesity)? @ -None Was patient admitted / discharged? Hospital course, mention meds given and route, prescriptions, significant lab abnormalities, going to OR and other pertinent info. @ -67-year-old male presents emergency part for depression and anxiety. Vital signs stable. Patient is a medical complaints. Patient laid by EPS. EPS nurse discussed case with psychiatrist recommended patient have couple days worth of Visteril and trazodone. He is followed outpatient psychiatry Undiagnosed new problem with uncertain prognosis? @ -No Drug Therapy requiring intensive monitoring for toxicity (Heparin, Nitro, Insulin, Cardizem)? @ -No Were any procedures done? @ -No Diagnosis/symptom? Acute, or Chronic, or Acute on Chronic? Uncomplicated (with out systemic symptoms) or Complicated (systemic symptoms)? @ -Depression and anxiety Side effects of treatment? @ -No Exacerbation, Progression, or Severe Exacerbation? @ -No Poses a threat to life or bodily function? How? (Chest pain, [place], [place], pneumonia, PE, COPD, DKA, ARF, appy, cholecystitis, CVA, Diverticulitis, Homicidal, Suicidal, threat to staff... and all critical care pts) @ -No Disposition Clinical Impression: Depression Disposition: HOME SELF-CARE Condition: Fair Instructions (If sedation given, give patient instructions): Generalized Anxiety Disorder (ED) Prescriptions: traZODone HCL [Desyrel] 100 mg PO HS 2 Days #2 tab hydrOXYzine HCL 10 mg PO Q6H PRN #6 tab PRN Reason: Anxiety Is patient prescribed a controlled substance at d/c from ED?: No Referrals: Jignesh Pérez DO [Primary Care Provider] - 1-2 days Time of Disposition: 15:15
== END 2023-01-12 15:33 | disposition home or self-care (01) ==
LOC: EC 10:10
DX: F41.9 Anxiety disorder, unspecified (principal); F32.A Depression, unspecified; I10 Essential (primary) hypertension; F12.90 Cannabis use, unspecified, uncomplicated; Z90.49 Acquired absence of other specified parts of digestive tract; Z87.891 Personal history of nicotine dependence
CPT/HCPCS: 82075; 99284

== ENCOUNTER 2023-01-21 14:00 | Emergency (ER) | payer MEDICARE, OTHER ==
[2023-01-21] MEDS ORDERED: MECLIZINE 12.5 MG TAB PO STA (14:19)
[2023-01-21] MEDS ORDERED: SODIUM CHLORIDE 0.9% 1,000 ML IV STA (14:19)
[2023-01-21 14:42] LABS: Basophils # (A) 0.1 k/uL (0-0.2); Basophils % (A) 1 %; Eosinophils # (A) 0.2 k/uL (0-0.7); Eosinophils % (A) 3 %; HCT 40.8 % (39.0-53.0); HGB 14.3 gm/dL (13.0-17.5); Lymphocytes # (A) 2.2 k/uL (1.0-4.8); Lymphocytes % (A) 33 %; MCH 31.6 pg (25.0-35.0); MCHC 35.1 g/dL (31.0-37.0); MCV 90.2 fL (80.0-100.0); Mean Platelet Volume 7.3; Monocytes # (A) 0.4 k/uL (0-1.0); Monocytes % (A) 5 %; Neutrophils # (A) 3.7 k/uL (1.3-7.7); Neutrophils % (A) 57 %; Platelet Count 191 k/uL (150-450); RBC 4.52 m/uL (4.30-5.90); RDW 12.7 % (11.5-15.5); WBC 6.6 k/uL (3.8-10.6)
--- NOTE | 2023-01-21 15:02 | ED ---
General Adult HPI - General Chief complaint: Extremity Injury, Lower Stated complaint: Dizziness Time Seen by Provider: 01/21/23 14:04 Source: patient, EMS, RN notes reviewed Mode of arrival: EMS Limitations: no limitations - History of Present Illness Initial comments: 67-year-old male presents emergency Department with chief complaint of lightheaded, dizzy complaint anxious. Patient states his anxiety is worsening in which she believes this may be from. Patient had no syncopal episodes no point chest pain. He states he just has some periods of feeling dizzy when he is very anxious. Denies any abdominal pain denies any associated symptoms. - Related Data Previous Rx's Medication Instructions Recorded hydrOXYzine HCL 10 mg PO Q6H PRN #6 tab 01/12/23 traZODone HCL [Desyrel] 100 mg PO HS 2 Days #2 tab 01/12/23 Allergies Allergy/AdvReac Type Severity Reaction Status Date / Time No Known Allergies Allergy Verified 01/21/23 14:08 Review of Systems ROS Statement: Those systems with pertinent positive or pertinent negative responses have been documented in the HPI. ROS Other: All systems not noted in ROS Statement are negative. Past Medical History Past Medical History: Eye Disorder, GI Bleed, Hypertension Additional Past Medical History / Comment(s): past hx diverticulitis, right eye dry macular degeneration, left eye wet macular degeneration. alcholism History of Any Multi-Drug Resistant Organisms: None Reported Past Surgical History: Cholecystectomy, Hernia Repair Additional Past Surgical History / Comment(s): PICC line in, now removed, hernia repair, colonoscopy Past Anesthesia/Blood Transfusion Reactions: No Reported Reaction Additional Past Anesthesia/Blood Transfusion Reaction / Comment(s): 4 UNITS OF PRBC 10/2014, NO REACTION Past Psychological History: No Psychological Hx Reported Smoking Status: Former smoker Past Alcohol Use History: Abuse, Daily Past Drug Use History: Marijuana - Past Family History Mother Additional Family Medical History / Comment(s): brain anuerysm Father Family Medical History: Cancer Additional Family Medical History / Comment(s): lung General Exam Limitations: no limitations General appearance: alert, in no apparent distress Head exam: Present: atraumatic, normocephalic, normal inspection Eye exam: Present: normal appearance, PERRL, EOMI. Absent: scleral icterus, conjunctival injection, periorbital swelling ENT exam: Present: normal exam, mucous membranes moist Neck exam: Present: normal inspection. Absent: tenderness, meningismus, lymphadenopathy Respiratory exam: Present: normal lung sounds bilaterally. Absent: respiratory distress, wheezes, rales, rhonchi, stridor Cardiovascular Exam: Present: normal rhythm, tachycardia, normal heart sounds. Absent: systolic murmur, diastolic murmur, rubs, gallop, clicks GI/Abdominal exam: Present: soft, normal bowel sounds. Absent: distended, tenderness, guarding, rebound, rigid Neurological exam: Present: alert, oriented X3, CN II-XII intact, normal gait, reflexes normal. Absent: motor sensory deficit Course Vital Signs 01/21/23 01/21/23 14:07 16:10 Temperature 99.0 F 98.6 F Pulse Rate 102 H 89 Respiratory 20 18 Rate Blood Pressure 102/66 156/106 O2 Sat by Pulse 96 90 L Oximetry EKG Findings - EKG Comments: EKG Findings:: EKG performed at 14:45 sinus rhythm with rate of 85 MN 145 QRS 82 QT/QTC 343/385 - EKG Results: EKG: interpreted by JOSE G Medical Decision Making - Medical Decision Making Was pt. sent in by a medical professional or institution (, PA, CHIEF II DISPATCHER, urgent care, hospital, or senior care...) When possible be specific @ -No Did you speak to anyone other than the patient for history (EMS, parent, family, police, friend...)? What history was obtained from this source @ -No Did you review nursing and triage notes (agree or disagree)? Why? @ -I reviewed and agree with nursing and triage notes Were old charts reviewed (outside hosp., previous admission, EMS record, old EKG, old radiological studies, urgent care reports/EKG's, senior care records)? Report findings @ -No old charts were reviewed Differential Diagnosis (chest pain, altered mental status, abdominal pain women, abdominal pain men, vaginal bleeding, weakness, fever, dyspnea, syncope, headache, dizziness, GI bleed, back pain, seizure, CVA, palpatations, mental health, musculoskeletal)? @ -Differential Dizziness: Benign paroxysmal positional Vertigo, Menieres disease, otitis media, acoustic neuroma, vertebrobasilar insufficiency, cerebellar stroke, encephalitis, hypovolemic, arrhythmia, coronary artery syndrome, anemia, this is not meant to be an all-inclusive listble EKG interpreted by me (3pts min.). @ -As above X-rays interpreted by me (1pt min.). @ -None done CT interpreted by me (1pt min.). @ -None done U/S interpreted by me (1pt. min.). @ -None done What testing was considered but not performed or refused? (CT, X-rays, U/S, labs)? Why? @ -None What meds were considered but not given or refused? Why? @ -None Did you discuss the management of the patient with other professionals (professionals i.e. , PA, CHIEF II DISPATCHER, lab, RT, psych nurse, elementary school social worker, family lawyer, teacher, [place] customs and border officer, ed case manager)? Give summary @ -No Was smoking cessation discussed for >3mins.? @ -No Was critical care preformed (if so, how long)? @ -No Were there social determinants of health that impacted care today? How? (Homelessness, low income, unemployed, alcoholism, drug addiction, transportation, low edu. Level, literacy, decrease access to med. care, nursing home, rehab)? @ -No Was there de-escalation of care discussed even if they declined (Discuss DNR or withdrawal of care, Hospice)? DNR status @ -No What co-morbidities impacted this encounter? (DM, HTN, Smoking, COPD, CAD, Cancer, CVA, ARF, Chemo, Hep., AIDS, mental health diagnosis, sleep apnea, morbid obesity)? @ -Hypertension Was patient admitted / discharged? Hospital course, mention meds given and route, prescriptions, significant lab abnormalities, going to OR and other pertinent info. @ -Discharge patient feels great improved after surgery essentially unremarkable patient has no neurological deficits or ataxia patient symptoms related to anxiety felt better after Ativan. Patient agrees to discharge and follow-up with PCP. Undiagnosed new problem with uncertain prognosis? @ -No Drug Therapy requiring intensive monitoring for toxicity (Heparin, Nitro, Insulin, Cardizem)? @ -No Were any procedures done? @ -No Diagnosis/symptom? @ -Anxiety, lightheadedness Acute, or Chronic, or Acute on Chronic? @ -Acute Uncomplicated (without systemic symptoms) or Complicated (systemic symptoms)? @ -Complicated Side effects of treatment? @ -No Exacerbation, Progression, or Severe Exacerbation? @ -No Poses a threat to life or bodily function? How? (Chest pain, [place], [place], pneumonia, PE, COPD, DKA, ARF, appy, cholecystitis, CVA, Diverticulitis, Homicidal, Suicidal, threat to staff... and all critical care pts) @ -No - Lab Data Result diagrams: 01/21/23 14:19 01/21/23 14:19 Lab Results 01/21/23 01/21/23 01/21/23 Range/Units 14:19 14:19 14:19 WBC 6.6 (3.8-10.6) k/uL RBC 4.52 (4.30-5.90) m/uL Hgb 14.3 (13.0-17.5) gm/dL Hct 40.8 (39.0-53.0) % MCV 90.2 (80.0-100.0) fL MCH 31.6 (25.0-35.0) pg MCHC 35.1 (31.0-37.0) g/dL RDW 12.7 (11.5-15.5) % Plt Count 191 (150-450) k/uL MPV 7.3 Neutrophils % 57 % Lymphocytes % 33 % Monocytes % 5 % Eosinophils % 3 % Basophils % 1 % Neutrophils # 3.7 (1.3-7.7) k/uL Lymphocytes # 2.2 (1.0-4.8) k/uL Monocytes # 0.4 (0-1.0) k/uL Eosinophils # 0.2 (0-0.7) k/uL Basophils # 0.1 (0-0.2) k/uL Sodium 141 (137-145) mmol/L Potassium 3.6 (3.5-5.1) mmol/L Chloride 112 H (98-107) mmol/L Carbon Dioxide 20 L (22-30) mmol/L Anion Gap 9 mmol/L BUN 18 (9-20) mg/dL Creatinine 1.26 H (0.66-1.25) mg/dL Est GFR (CKD-EPI)AfAm 67 (>60 ml/min/1.73 sqM) Est GFR (CKD-EPI)NonAf 58 (>60 ml/min/1.73 sqM) Glucose 104 H (74-99) mg/dL Calcium 9.2 (8.4-10.2) mg/dL Magnesium 2.0 (1.6-2.3) mg/dL Total Bilirubin 0.5 (0.2-1.3) mg/dL AST 25 (17-59) U/L ALT 19 (4-49) U/L Alkaline Phosphatase 108 (38-126) U/L Troponin I <0.012 (0.000-0.034) ng/mL Total Protein 7.2 (6.3-8.2) g/dL Albumin 4.1 (3.5-5.0) g/dL Disposition Clinical Impression: Anxiety, Lightheadedness Disposition: HOME SELF-CARE Condition: Stable Instructions (If sedation given, give patient instructions): Dizziness (ED) Additional Instructions: Please return to the Emergency Department if symptoms worsen or any other concerns. Is patient prescribed a controlled substance at d/c from ED?: No Referrals: Jignesh Pérez DO [Primary Care Provider] - 1-2 days Time of Disposition: 15:53
[2023-01-21 15:03] LABS: ALT 19 U/L (4-49); AST 25 U/L (17-59); African American GFR (CKD) 67 (>60 ml/min/1.73 sqM); Albumin 4.1 g/dL (3.5-5.0); Alkaline Phosphatase 108 U/L (38-126); Anion Gap 9 mmol/L; Blood Urea Nitrogen 18 mg/dL (9-20); Calcium 9.2 mg/dL (8.4-10.2); Carbon Dioxide 20 mmol/L (22-30); Chloride 112 mmol/L (98-107); Glucose 104 mg/dL (74-99); Non-African American GFR(CKD) 58 (>60 ml/min/1.73 sqM); Potassium 3.6 mmol/L (3.5-5.1); Sodium 141 mmol/L (137-145); Total Bilirubin 0.5 mg/dL (0.2-1.3); Total Protein 7.2 g/dL (6.3-8.2)
[2023-01-21] MEDS ORDERED: LORazepam 2 MG/ML INJ IV STA (15:38)
[2023-01-21 16:25] VITALS: BP 156/106; PULSE 89; RESP 18; TEMP 98.6
== END 2023-01-21 16:25 | disposition home or self-care (01) ==
LOC: EC 14:00
DX: R42 Dizziness and giddiness (principal); F41.9 Anxiety disorder, unspecified; I10 Essential (primary) hypertension; Z87.891 Personal history of nicotine dependence; F12.90 Cannabis use, unspecified, uncomplicated
CPT/HCPCS: 36415; 93005; 80053; 83735; 84484; 85025; 99284; 96374; 96361; J2060

== ENCOUNTER 2023-04-03 15:09 | Inpatient (IN) | payer MEDICARE, OTHER ==
[2023-04-03] MEDS ORDERED: SODIUM CHLORIDE 0.9% 1,000 ML IV STA (16:06)
--- NOTE | 2023-04-03 16:07 | ED ---
Eye Problem HPI - General Chief complaint: Eye Problems Stated complaint: vision loss Time Seen by Provider: 04/03/23 15:44 Source: patient, RN notes reviewed, old records reviewed Mode of arrival: ambulatory Limitations: no limitations - History of Present Illness Initial comments: This is a 67-year-old male to the emergency department today for evaluation. Patient presents emergency department today for evaluation of difficulty with his vision not feeling well feeling generally weak. Patient states his symptoms been progressive but ongoing for about a week now. Patient has no headache chest pain shortness with abdominal pain no other complaints here in the ER, patient does state he ran into [facility] on the way to the hospital today and he told them that he was coming to the hospital chief complaint: vision change -: hour(s) Onset Description: sudden Location: both eyes Place: home If Injury: none Severity: moderate Severity scale (1-10): 4 Consistency: constant Associated Symptoms: none Treatments Prior to Arrival: none - Related Data Previous Rx's Medication Instructions Recorded Cyanocobalamin/Cobamamide [Vitamin 1 tab SUBLINGUAL DAILY 7 Days #7 04/07/23 B-12 5,000 Mcg Tab Sl] tab Allergies Allergy/AdvReac Type Severity Reaction Status Date / Time No Known Allergies Allergy Verified 04/03/23 19:58 Review of Systems ROS Statement: Those systems with pertinent positive or pertinent negative responses have been documented in the HPI. ROS Other: All systems not noted in ROS Statement are negative. Past Medical History Past Medical History: Eye Disorder, GI Bleed, Hypertension Additional Past Medical History / Comment(s): past hx diverticulitis, right eye dry macular degeneration, left eye wet macular degeneration. alcholism History of Any Multi-Drug Resistant Organisms: None Reported Past Surgical History: Cholecystectomy, Hernia Repair Additional Past Surgical History / Comment(s): PICC line in, now removed, hernia repair, colonoscopy Past Anesthesia/Blood Transfusion Reactions: No Reported Reaction Additional Past Anesthesia/Blood Transfusion Reaction / Comment(s): 4 UNITS OF PRBC 10/2014, NO REACTION Past Psychological History: No Psychological Hx Reported Smoking Status: Former smoker Past Alcohol Use History: Abuse, Daily Past Drug Use History: Marijuana - Past Family History Mother Additional Family Medical History / Comment(s): brain anuerysm Father Family Medical History: Cancer Additional Family Medical History / Comment(s): lung General Exam Limitations: no limitations General appearance: alert, in no apparent distress Head exam: Present: atraumatic, normocephalic, normal inspection Eye exam: Present: normal appearance, PERRL, EOMI, other (Decreased vision both eyes diminished). Absent: scleral icterus, conjunctival injection, periorbital swelling ENT exam: Present: normal exam, mucous membranes moist Neck exam: Present: normal inspection. Absent: tenderness, meningismus, lymphadenopathy Respiratory exam: Present: normal lung sounds bilaterally. Absent: respiratory distress, wheezes, rales, rhonchi, stridor Cardiovascular Exam: Present: regular rate, normal rhythm, normal heart sounds. Absent: systolic murmur, diastolic murmur, rubs, gallop, clicks GI/Abdominal exam: Present: soft, normal bowel sounds. Absent: distended, tenderness, guarding, rebound, rigid Extremities exam: Present: normal inspection, full ROM, normal capillary refill. Absent: tenderness, pedal edema, joint swelling, calf tenderness Back exam: Present: normal inspection Neurological exam: Present: alert, oriented X3, CN II-XII intact Psychiatric exam: Present: normal affect, normal mood Skin exam: Present: warm, dry, intact, normal color. Absent: rash Course Vital Signs 04/03/23 04/03/23 04/03/23 15:18 17:00 18:00 Temperature 98.6 F 98.2 F 98.1 F Pulse Rate 100 78 79 Pulse Rate [ Marketing Officer ] Respiratory 20 16 16 Rate Blood Pressure 148/106 128/77 123/75 Blood Pressure [Left Arm] O2 Sat by Pulse 97 97 96 Oximetry 04/03/23 04/03/23 04/04/23 19:00 20:30 01:30 Temperature 98 F 98.0 F 97 F L Pulse Rate 81 80 Pulse Rate [ 63 Marketing Officer ] Respiratory 16 20 15 Rate Blood Pressure 125/77 120/70 Blood Pressure 145/88 [Left Arm] O2 Sat by Pulse 96 98 97 Oximetry 04/04/23 04/04/23 04/04/23 02:00 09:00 13:20 Temperature 99.6 F 97.7 F 98.3 F Pulse Rate 79 84 Pulse Rate [ 75 Marketing Officer ] Respiratory 21 18 18 Rate Blood Pressure 149/103 158/92 Blood Pressure 116/79 [Left Arm] O2 Sat by Pulse 99 95 100 Oximetry 04/04/23 15:00 Temperature 98.2 F Pulse Rate Pulse Rate [ 89 Marketing Officer ] Respiratory 20 Rate Blood Pressure Blood Pressure 158/74 [Left Arm] O2 Sat by Pulse 97 Oximetry - Reevaluation(s) Reevaluation #1: 04/03/23 19:56 Medical records reviewed Reevaluation #2: 04/03/23 19:56 Patient has no change in symptoms here in the ER does not feel well Reevaluation #3: 04/03/23 19:56 Patient for results questions answered Reevaluation #4: 04/03/23 19:56 Was pt. sent in by a medical professional or institution (JUSTIN Tabor, MOTORCYCLE MECHANIC APPRENTICE, urgent care, hospital, or [facility]...) When possible be specific @ -no Did you speak to anyone other than the patient for history (EMS, parent, family, police, friend...)? What history was obtained from this source @ -no Did you review nursing and triage notes (agree or disagree)? Why? @ -agree Are old charts reviewed (outside hosp., previous admission, EMS record, old EKG, old radiological studies, urgent care reports/EKG's, [facility] records)? Report findings @ -yes Differential Diagnosis (chest pain, altered mental status, abdominal pain women, abdominal pain men, vaginal bleeding, weakness, fever, dyspnea, syncope, headache, dizziness, GI bleed, back pain, seizure, CVA, palpatations, mental health, musculoskeletal)? @ -prior EKG interpreted by me (3pts min.). @ -yes X-rays interpreted by me (1pt min.). @ -no CT interpreted by me (1pt min.). @ -yes U/S interpreted by me (1pt. min.). @ -no What testing was considered but not performed or refused? (CT, X-rays, U/S, labs)? Why? @ -none What meds were considered but not given or refused? Why? @ -none Did you discuss the management of the patient with other professionals (professionals i.e. JUSTIN Tabor, MOTORCYCLE MECHANIC APPRENTICE, lab, RT, psych nurse, manager social responsibility, field application engineer, teacher, tax revenue officer, nurse outreach case manager)? Give summary @ -no Was smoking cessation discussed for >3mins.? @ -no Was critical care preformed (if so, how long)? @ -no Were there social determinants of health that impacted care today? How? (Homelessness, low income, unemployed, alcoholism, drug addiction, transportation, low edu. Level, literacy, decrease access to med. care, care home, rehab)? @ -none Was there de-escalation of care discussed even if they declined (Discuss DNR or withdrawal of care, Hospice)? DNR status @ -no What co-morbidities impacted this encounter? (DM, HTN, Smoking, COPD, CAD, Cancer, CVA, ARF, Chemo, Hep., AIDS, mental health diagnosis, sleep apnea, morbid obesity)? @ -none Was patient admitted / discharged? Hospital course, mention meds given and route, prescriptions, significant lab abnormalities, going to OR and other pertinent info. @ - 67 male with nonspecific symptoms. Patient states he's having vision loss. Patient has persistent complaints and symptoms of vision loss. Decreased vision bilaterally. Patient does admit also not feeling well, concerned of weakness Patient be admitted for neurology evaluation Admitted Undiagnosed new problem with uncertain prognosis? @ -no Drug Therapy requiring intensive monitoring for toxicity (Heparin, Nitro, Insulin, Cardizem)? @ -no Were any procedures done? @ -no Diagnosis/symptom? @ -Decreased vision bilateral Acute, or Chronic, or Acute on Chronic? @ -Acute Uncomplicated (without systemic symptoms) or Complicated (systemic symptoms)? @ -Complicated Side effects of treatment? @ -no Exacerbation, Progression, or Severe Exacerbation? @ -exacerbation Poses a threat to life or bodily function? How? (Chest pain, USA, MN, pneumonia, PE, COPD, DKA, ARF, appy, cholecystitis, CVA, Diverticulitis, Homicidal, Suicidal, threat to staff... and all critical care pts) @ -yes with possible CVA Reevaluation #5: 04/03/23 19:56 Differential Weakness: Hypoglycemia, shock, sepsis, hyponatremia, anemia, infection, MN, ETOH, adverse medicine reaction, overdose, stroke, this is not meant to be an all-inclusive list. - Consultations Consultation #1: Spoke with [facility] were agrees to admit this patient Medical Decision Making - Medical Decision Making 67 male with nonspecific symptoms. Patient states he's having vision loss. Patient has persistent complaints and symptoms of vision loss. Decreased vision bilaterally. Patient does admit also not feeling well, concerned of weakness Patient be admitted for neurology evaluation - Lab Data Result diagrams: 04/04/23 05:47 04/07/23 05:46 Lab Results 04/03/23 04/03/23 04/03/23 Range/Units 16:32 16:32 16:32 WBC 6.5 (3.8-10.6) k/uL RBC 4.44 (4.30-5.90) m/uL Hgb 14.2 (13.0-17.5) gm/dL Hct 40.6 (39.0-53.0) % MCV 91.5 (80.0-100.0) fL MCH 32.1 (25.0-35.0) pg MCHC 35.1 (31.0-37.0) g/dL RDW 13.0 (11.5-15.5) % Plt Count 193 (150-450) k/uL MPV 7.4 Neutrophils % 60 % Lymphocytes % 31 % Monocytes % 5 % Eosinophils % 1 % Basophils % 1 % Neutrophils # 3.9 (1.3-7.7) k/uL Lymphocytes # 2.0 (1.0-4.8) k/uL Monocytes # 0.4 (0-1.0) k/uL Eosinophils # 0.1 (0-0.7) k/uL Basophils # 0.1 (0-0.2) k/uL PT 10.7 (10.0-12.5) sec INR 1.0 (<1.2) APTT 23.3 (22.0-30.0) sec Sodium (137-145) mmol/L Potassium (3.5-5.1) mmol/L Chloride (98-107) mmol/L Carbon Dioxide (22-30) mmol/L Anion Gap mmol/L BUN (9-20) mg/dL Creatinine (0.66-1.25) mg/dL Est GFR (CKD-EPI)AfAm (>60 ml/min/1.73 sqM) Est GFR (CKD-EPI)NonAf (>60 ml/min/1.73 sqM) Glucose (74-99) mg/dL Calcium (8.4-10.2) mg/dL Phosphorus (2.5-4.5) mg/dL Magnesium (1.6-2.3) mg/dL Total Bilirubin (0.2-1.3) mg/dL AST (17-59) U/L ALT (4-49) U/L Alkaline Phosphatase (38-126) U/L Troponin I (0.000-0.034) ng/mL Total Protein (6.3-8.2) g/dL Albumin (3.5-5.0) g/dL Urine Color Yellow Urine Appearance Clear (Clear) Urine pH 6.0 (5.0-8.0) Ur Specific [place] 1.024 (1.001-1.035) Urine Protein Negative (Negative) Urine Glucose (UA) Negative (Negative) Urine Ketones Negative (Negative) Urine Blood Negative (Negative) Urine Nitrite Negative (Negative) Urine Bilirubin Negative (Negative) Urine Urobilinogen <2.0 (<2.0) mg/dL Ur Leukocyte Esterase Negative (Negative) 04/03/23 04/03/23 Range/Units 16:32 16:32 WBC (3.8-10.6) k/uL RBC (4.30-5.90) m/uL Hgb (13.0-17.5) gm/dL Hct (39.0-53.0) % MCV (80.0-100.0) fL MCH (25.0-35.0) pg MCHC (31.0-37.0) g/dL RDW (11.5-15.5) % Plt Count (150-450) k/uL MPV Neutrophils % % Lymphocytes % % Monocytes % % Eosinophils % % Basophils % % Neutrophils # (1.3-7.7) k/uL Lymphocytes # (1.0-4.8) k/uL Monocytes # (0-1.0) k/uL Eosinophils # (0-0.7) k/uL Basophils # (0-0.2) k/uL PT (10.0-12.5) sec INR (<1.2) APTT (22.0-30.0) sec Sodium 142 (137-145) mmol/L Potassium 4.4 (3.5-5.1) mmol/L Chloride 108 H (98-107) mmol/L Carbon Dioxide 24 (22-30) mmol/L Anion Gap 10 mmol/L BUN 22 H (9-20) mg/dL Creatinine 1.19 (0.66-1.25) mg/dL Est GFR (CKD-EPI)AfAm 72 (>60 ml/min/1.73 sqM) Est GFR (CKD-EPI)NonAf 62 (>60 ml/min/1.73 sqM) Glucose 94 (74-99) mg/dL Calcium 9.4 (8.4-10.2) mg/dL Phosphorus 4.4 (2.5-4.5) mg/dL Magnesium 2.0 (1.6-2.3) mg/dL Total Bilirubin 0.5 (0.2-1.3) mg/dL AST 21 (17-59) U/L ALT 17 (4-49) U/L Alkaline Phosphatase 97 (38-126) U/L Troponin I <0.012 (0.000-0.034) ng/mL Total Protein 7.3 (6.3-8.2) g/dL Albumin 4.2 (3.5-5.0) g/dL Urine Color Urine Appearance (Clear) Urine pH (5.0-8.0) Ur Specific [place] (1.001-1.035) Urine Protein (Negative) Urine Glucose (UA) (Negative) Urine Ketones (Negative) Urine Blood (Negative) Urine Nitrite (Negative) Urine Bilirubin (Negative) Urine Urobilinogen (<2.0) mg/dL Ur Leukocyte Esterase (Negative) - EKG Data -: EKG Interpreted by Me (EKG is sinus 70 MO 146 QRS 86 QTc 394) - Radiology Data Radiology results: report reviewed (CT brain CT head neck negative for acute disease), image reviewed Disposition Clinical Impression: Dehydration, Weakness, Altered mental status, Vision changes Disposition: ADMITTED IP TO THIS [facility] Condition: Stable Is patient prescribed a controlled substance at d/c from ED?: No Time of Disposition: 19:35
[2023-04-03 16:45] LABS: Basophils # (A) 0.1 k/uL (0-0.2); Basophils % (A) 1 %; Eosinophils # (A) 0.1 k/uL (0-0.7); Eosinophils % (A) 1 %; HCT 40.6 % (39.0-53.0); HGB 14.2 gm/dL (13.0-17.5); Lymphocytes % (A) 31 %; MCH 32.1 pg (25.0-35.0); MCHC 35.1 g/dL (31.0-37.0); MCV 91.5 fL (80.0-100.0); Mean Platelet Volume 7.4; Monocytes # (A) 0.4 k/uL (0-1.0); Monocytes % (A) 5 %; Neutrophils # (A) 3.9 k/uL (1.3-7.7); Neutrophils % (A) 60 %; Platelet Count 193 k/uL (150-450); RBC 4.44 m/uL (4.30-5.90); WBC 6.5 k/uL (3.8-10.6)
[2023-04-03 16:59] LABS: Partial Thromboplastin Time 23.3 sec (22.0-30.0); Prothrombin Time 10.7 sec (10.0-12.5)
[2023-04-03 17:13] LABS: ALT 17 U/L (4-49); AST 21 U/L (17-59); African American GFR (CKD) 72 (>60 ml/min/1.73 sqM); Albumin 4.2 g/dL (3.5-5.0); Alkaline Phosphatase 97 U/L (38-126); Anion Gap 10 mmol/L; Blood Urea Nitrogen 22 mg/dL (9-20); Calcium 9.4 mg/dL (8.4-10.2); Carbon Dioxide 24 mmol/L (22-30); Chloride 108 mmol/L (98-107); Glucose 94 mg/dL (74-99); Non-African American GFR(CKD) 62 (>60 ml/min/1.73 sqM); Phosphorus 4.4 mg/dL (2.5-4.5); Potassium 4.4 mmol/L (3.5-5.1); Sodium 142 mmol/L (137-145); Total Bilirubin 0.5 mg/dL (0.2-1.3); Total Protein 7.3 g/dL (6.3-8.2)
[2023-04-03 17:41] LABS: Appearance,Urine Clear (Clear); Bilirubin,Urine Negative (Negative); Blood,Urine Negative (Negative); Color,Urine Yellow; Glucose,Urine (UA) Negative (Negative); Ketones,Urine Negative (Negative); Leukocyte Esterase,Urine Negative (Negative); Nitrite,Urine Negative (Negative); Protein,Urine Negative (Negative); Specific Gravity,Urine 1.024 (1.001-1.035); Urobilinogen,Urine <2.0 mg/dL (<2.0)
--- NOTE | 2023-04-03 18:24 | CT ---
EXAMINATION TYPE: CT brain wo con DATE OF EXAM: 04/03/2023 HISTORY: dizziness, loss of balance CT DLP: 1152.4 mGycm. Automated Exposure Control for Dose Reduction was Utilized. TECHNIQUE: CT scan of the head is performed without contrast. COMPARISON: 01/10/2023 FINDINGS: There is no acute intracranial hemorrhage or midline shift identified. There is diffuse yusra tricular and sulcal prominence consistent with diffuse age-related cerebral atrophy, and there is low -attenuation in the periventricular white matter consistent with chronic small vessel ischemic change . No definite new attenuation defect. There is no skull fracture. The globes are intact and the paran araceli sinuses, middle ear cavities, and mastoid sinus air cells are clear. IMPRESSION: No acute process.
--- NOTE | 2023-04-03 18:40 | CT ---
EXAMINATION TYPE: CT angio head neck DATE OF EXAM: 04/03/2023 HISTORY: dizziness, loss of balance COMPARISON: 10/05/2020 CT DLP: 446.3 mGycm. Automated Exposure Control for Dose Reduction was Utilized. TECHNIQUE: CTA scan of the head and neck is performed with IV Contrast, patient injected with 65cc mL of Isovue 370, axial images are obtained, coronal and sagittal reformatted images are reviewed. 3D r econstructed images are created on an independent workstation and reviewed. FINDINGS: The bilateral carotid arterial systems are widely patent without hemodynamically significant stenosis , dissection, or other acute process. The ICA are bilaterally tortuous. Bilateral vertebral artery origin stenoses are present. The vertebral arteries are both markedly tort uous. They are patent and without evidence of dissection. There are codominant. Intracranial examination shows the anterior and posterior arterial circulation to be patent and witho ut aneurysm, dissection, or other acute process. No large vessel occlusion. Bilateral carotid siphon calcifications are noted, which narrow the lumen of the bilateral ICA. Bilateral vertebral artery kayleigh cifications are also noted. Other: There are no acute incidental findings. IMPRESSION: No significant acute abnormality is seen. NASCET criteria was used in interpretation of this exam?
[2023-04-03] MEDS ORDERED: NALOXONE 0.4 MG/ML 1 ML VIAL IV PRN (19:48)
[2023-04-03] MEDS ORDERED: MORPHINE SULFATE 4 MG/ML SYRINGE IV PRN (19:48)
[2023-04-03] MEDS ORDERED: ONDANSETRON 4 MG/2 ML VIAL IVP PRN (19:48)
[2023-04-04] MEDS ORDERED: traMADol 50 MG TAB PO PRN (09:12)
[2023-04-04] MEDS ORDERED: MAG HYDROX/AL HYDROX/SIMETH 30 ML CUP PO PRN (09:12)
[2023-04-04] MEDS ORDERED: CALCIUM CARBONATE 500 MG CHEWABLE PO PRN (09:12)
[2023-04-04] MEDS ORDERED: MORPHINE SULFATE 2 MG/ML SYRINGE IV PRN (09:13)
[2023-04-04] MEDS: SODIUM CHLORIDE 0.9% 1,000 ML IV SCH ×4 (09:24→21:27)
[2023-04-04 10:51] LABS: Basophils # (A) 0.08 X 10*3/uL (0.00-0.10); Basophils % (A) 1.3 %; Eosinophils # (A) 0.13 X 10*3/uL (0.04-0.35); Eosinophils % (A) 2.1 %; HCT 39.4 % (39.6-50.0); HGB 13.6 g/dL (13.0-17.0); Lymphocytes # (A) 1.98 X 10*3/uL (0.90-5.00); Lymphocytes % (A) 32.2 %; MCHC 34.5 g/dL (32.0-37.0); MCV 92.7 FL (80.0-97.0); Mean Platelet Volume 9.4 FL (9.5-12.2); Monocytes # (A) 0.42 X 10*3/uL (0.20-1.00); Monocytes % (A) 6.8 %; NRBC Per 100 WBC 0 X 10*3/uL (0.00-0.01); Neutrophils # (A) 3.52 X 10*3/uL (1.80-7.70); Neutrophils % (A) 57.4 %; Platelet Count 165 X 10*3/uL (140-440); RBC 4.25 X 10*6/uL (4.40-5.60); RDW 13.2 % (11.5-14.5); WBC 6.14 X 10*3/uL (4.50-10.00)
[2023-04-04] MEDS: ACETAMINOPHEN TAB 325 MG TAB PO PRN (11:10)
[2023-04-04 11:16] LABS: ALT 14 U/L (10-49); AST 14 U/L (14-35); Alkaline Phosphatase 118 U/L (41-126); Blood Urea Nitrogen 16.5 mg/dL (9.0-27.0); Calcium 9.2 mg/dL (8.7-10.3); Carbon Dioxide 22.3 mmol/L (21.6-31.8); Chloride 109 mmol/L (96-109); Globulin 2.5 g/dL (1.6-3.3); Glucose 86 mg/dL (70-110); Magnesium 1.9 mg/dL (1.5-2.4); Phosphorus 3.6 mg/dL (2.4-5.1); Potassium 4.2 mmol/L (3.5-5.5); Sodium 141 mmol/L (135-145); Total Bilirubin 0.4 mg/dL (0.3-1.2); Total Protein 6.5 g/dL (6.2-8.2)
--- NOTE | 2023-04-04 11:58 | P.HPIM ---
History of Present Illness H&P Date: 04/04/23 Chief Complaint: Vision changes * 67-year-old gentleman with past medical history significant for subdural hematoma on right side in 2019, chronic alcohol use, history of hypertension, macular degeneration presented to the emergency department with complains of impaired vision * Upon presentation in ED patient said he had difficulty with his vision and not feeling well in general. Patient said her symptoms have been progressive and he has been following week. Patient says vision issues have been sudden in onset and both eyes and they've been constant and offending with activity of daily living. Patient has previously been seen by neurology for ataxia and 2021 * Workup in ER included CT head and CT angina head and neck which was negative * EKG obtained in ER showed sinus rhythm * Serum chemistry obtained showed sodium of 142 potassium 4.4 creatinine 1.19 , serum calcium, phosphorous, magnesium within normal limits * Patient to be admitted to medical floor with consultation from neurology physical therapy occupational therapy * Upon further assessment patient states his vision impairment hasn't progressively getting worse. Patient does endorse that he has been n oncompliant with medications REVIEW OF SYSTEMS: Impaired vision/blurred vision CONSTITUTIONAL: No fever, no malaise, no fatigue. HEENT: No recent visual problems or hearing problems. Denied any sore throat. CARDIOVASCULAR: No chest pain, orthopnea, PND, no palpitations, no syncope. PULMONARY: No shortness of breath, no cough, no hemoptysis. GASTROINTESTINAL: No diarrhea, no nausea, no vomiting, no abdominal pain. NEUROLOGICAL: No headaches, no weakness, no numbness. HEMATOLOGICAL: Denies any bleeding or petechiae. GENITOURINARY: Denies any burning micturition, frequency, or urgency. MUSCULOSKELETAL/RHEUMATOLOGICAL: Denies any joint pain, swelling, or any muscle pain. ENDOCRINE: Denies any polyuria or polydipsia. PHYSICAL EXAMINATION: GENERAL: The patient is alert and oriented x3, not in any acute distress. Well developed, well nourished. HEENT: Pupils are round and equally reacting to light. Impaired visual acuity bilaterally CARDIOVASCULAR: S1 and S2 present. No murmurs, rubs, or gallops. PULMONARY: Chest is clear to auscultation, no wheezing or crackles. ABDOMEN: Soft, nontender, nondistended, normoactive bowel sounds. No palpable organomegaly. MUSCULOSKELETAL: No joint swelling or deformity. EXTREMITIES: No cyanosis, clubbing, or pedal edema. NEUROLOGICAL: On exam alert and oriented 3, motor strength is 5 bilateral upper and lower extremity cranial nerves intact Past Medical History Past Medical History: Eye Disorder, GI Bleed, Hypertension Additional Past Medical History / Comment(s): past hx diverticulitis, right eye dry macular degeneration, left eye wet macular degeneration. alcholism History of Any Multi-Drug Resistant Organisms: None Reported Past Surgical History: Cholecystectomy, Hernia Repair Additional Past Surgical History / Comment(s): PICC line in, now removed, hernia repair, colonoscopy Past Anesthesia/Blood Transfusion Reactions: No Reported Reaction Additional Past Anesthesia/Blood Transfusion Reaction / Comment(s): 4 UNITS OF PRBC 10/2014, NO REACTION Past Psychological History: No Psychological Hx Reported Smoking Status: Former smoker Past Alcohol Use History: Abuse, Daily Past Drug Use History: Marijuana - Past Family History Mother Additional Family Medical History / Comment(s): brain anuerysm Father Family Medical History: Cancer Additional Family Medical History / Comment(s): lung Medications and Allergies Home Medications Medication Instructions Recorded Confirmed Type No Known Home Medications 04/03/23 04/03/23 History Allergies Allergy/AdvReac Type Severity Reaction Status Date / Time No Known Allergies Allergy Verified 04/03/23 19:58 Physical Exam Vitals: Vital Signs Temp Pulse Pulse Resp BP BP Pulse Ox 04/04/23 02:00 99.6 F 75 21 116/79 99 04/04/23 01:30 97 F L 63 15 145/88 97 04/03/23 20:30 98.0 F 80 20 120/70 98 04/03/23 19:00 98 F 81 16 125/77 96 04/03/23 18:00 98.1 F 79 16 123/75 96 04/03/23 17:00 98.2 F 78 16 128/77 97 04/03/23 15:18 98.6 F 100 20 148/106 97 Intake and Output 04/03/23 04/04/23 04/04/23 22:59 06:59 14:59 Other: # Voids 2 Weight 86.183 kg Results CBC & Chem 7: 04/04/23 05:47 04/04/23 05:47 Labs: Abnormal Lab Results - Last 24 Hours (Table) 04/03/23 Range/Units 16:32 Chloride 108 H (98-107) mmol/L BUN 22 H (9-20) mg/dL Assessment and Plan Assessment: Assessment and plan Vision impairment rule out CVA Generalized weakness History of hypertension History of macular degeneration right eye History of alcohol use * Consultation obtained from neurology, CT head CT angina head and neck obtaine d, we'll defer further management to neurology physical therapy occupational therapy consulted * Will check TSH and vitamin B12 levels * Home medications to be reviewed and reconciled once confirmed/however patient did mention he has been noncompliant with medication * In regards to history of alcohol use patient said he has been sober for 2 years * CODE STATUS full code Time with Patient: Greater than 30
[2023-04-04 11:59] LABS: Potassium 4.2 mmol/L (3.5-5.1)
[2023-04-04 12:00] LABS: African American GFR (CKD) 88 (>60 ml/min/1.73 sqM); Anion Gap 10 mmol/L; Blood Urea Nitrogen 18 mg/dL (9-20); Calcium 9.2 mg/dL (8.4-10.2); Carbon Dioxide 21 mmol/L (22-30); Chloride 108 mmol/L (98-107); Glucose 111 mg/dL (74-99); Non-African American GFR(CKD) 77 (>60 ml/min/1.73 sqM); Sodium 139 mmol/L (137-145)
--- NOTE | 2023-04-04 15:03 | P.CN ---
Psychiatric Consult - . Consult date: 04/04/23 Consult:: 04/04/23 13:35 IDENTIFYING DATA: This patient is a 67-year-old male, currently lives at [facility], [facility]. He is , he has one daughter collects Social Security. REASON FOR REFERRAL: Psychiatry was consulted for psychiatric evaluation HISTORY OF PRESENT ILLNESS: The patient presented to the hospital on 04/03, complaining of visual changes and weakness for the past week or so. Patient apparently has dropped off at the hospital by his [facility] worker. Patient had a computed tomography scan of his brain which did not show any acute changes. Patient was admitted for dehydration and weakness. Patient claims that he has a history of cataracts and glaucoma. States that he was having the vision changes for the past week or so. Claims that he was seeing things that were "fuzzy" and went to his counselor at [facility] who took him to the hospital. Claims that his eyes were no focusing. Claims that this is never happened to him before. He claims that he was prescribed Vistaril by his primary care doc however has not been taking it and does not like taking psychiatric medications or any medications for that matter. He claims that he is not being prescribed at this time any medications at [facility] however is seeing a counselor there. At this time he is claiming that he has mild anxiety, states that he is not able to get a hold of anyone which is making him feel sad however denying any depression. Claims that his sleep is fair, appetite is fair. Patient was fairly logical and goal oriented during conversation. At this time patient denies any suicidal or homical ideations, intent or plan. Patient denies any auditory, visual hallucinations and denies any paranoia or delusions. Patients admits to using alcohol in the past however is currently sober for the past 4 or 5 years. Denies any other recreational drug use PAST PSYCHIATRIC HISTORY: Patient has a a history of alcohol abuse in the past however is now sober for several years. Patient denies being on any psychiatric medications, was previously prescribed Vistaril which she is not taking. Patient denies any previous psychiatric hospitalizations. Patient denies any psychiatric outpatient follow-up. Patient does state that he sees a counselor at [facility]. Patient denies any history of suicide attempts in the past. Past Medical History: Eye Disorder, GI Bleed, Hypertension Additional Past Medical History / Comment(s): past hx diverticulitis, right eye dry macular degeneration, left eye wet macular degeneration. alcholism History of Any Multi-Drug Resistant Organisms: None Reported Past Surgical History: Cholecystectomy, Hernia Repair Additional Past Surgical History / Comment(s): PICC line in, now removed, hernia repair, colonoscopy Past Anesthesia/Blood Transfusion Reactions: No Reported Reaction Additional Past Anesthesia/Blood Transfusion Reaction / Comment(s): 4 UNITS OF PRBC 10/2014, NO REACTION Past Psychological History: No Psychological Hx Reported Smoking Status: Former smoker Past Alcohol Use History: Abuse, Daily Past Drug Use History: Marijuana ALLERGIES: as per EMR. CHEMICAL DEPENDENCY HISTORY: as per HPI. FAMILY PSYCHIATRIC/SUBSTANCE USE HISTORY: States that his sister has some form of mental illness. SOCIAL HISTORY: Patient was born and raised in [place] then moved to [place]. 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 States that he currently lives at [facility], he is , he has 1 daughter and collects Social Security disability. He denied any legal history MENTAL STATUS EXAM: General Appearance: Patient appears to be mildly disheveled in appearance, longer hair, comer, stated age is alert, pleasant, and cooperative. Patient appears to have fair hygiene and grooming wearing hospital gown with fair eye contact. Behavior: Patient is calmly lying in bed without any agitated behavior. Pleasant Speech: Patient's speech is fluent and nonpressured. Talkative Mood/Affect: Patient reports their mood is "ok", affect is congruent Suicidality/Homicidality: Patient denies having any suicidal or homicidal ideation intent or plan. Perceptions: Patient denies any visual hallucinations and denies any auditory hallucinations Though content/process: There is no evidence of any delusional thought content and thought process is linear and goal-directed. Rambles at times Memory and concentration: AOX3, grossly intact for the purposes of this session. Can spell "WORLD" backwards Judgment and insight: Fair IMPRESSIONS: Adjustment disorder with anxiety and depression History of alcohol abuse PLAN: -At this time patient DOES NOT meet criteria for inpatient psychiatric admission. -Would recommend the following medication changes/additions: [employer] spoke with patient about the advantages of SSRIs or other antidepressants and antianxiety medications however patient at this time is choosing not to take medications for it and would like to continue on with his outpatient counselling at [facility]. -Communicated plan to patient's nurse -Psychiatry will sign off at this time -Please contact with any questions. 04/04/23 14:56
[2023-04-04 16:10] LABS: T4, Free (Free Thyroxine) 0.85 ng/dL (0.80-1.80)
--- NOTE | 2023-04-04 20:03 | P.CNNES ---
History of Present Illness Consult date: 04/04/23 Requesting physician: Bipin Stephen Reason for Consult: vision Changes History of Present Illness: Patient is a 67-year-old male came to the hospital yesterday at 3:09 PM for difficulty with the vision. Patient states that his "eyes do not work". He cannot focus. The symptoms started last 03/29/2023 while he was watching TV at around 7:30 PM. It felt like a veil came down the right eye and it became cloudy. Next day on Friday, the same thing happened with the left eye. The symptoms have persisted since then. It is not getting better or worse. Patient states that when he gets tired, the symptoms are worse. Patient states that with losing vision, his memory is also getting affected. He cannot remember where he is and how he got there. Patient states that he has accepted the fact that his eyes are bad. He cannot focus on anything. He notices like a shine around and can "barely see". He denies any pain or headache. Patient states that he had a dream last week that he woke up in middle of the night and part of his brain has dropped down in his head. When he woke up, everything was fine. Patient states that he did not see an eye doctor because he does not have a drive and no transportation. He gets a ride through [facility]. He denies any focal neurological deficits like slurred speech, facial droop, focal numbness, tingling or worsening of his balance. In the last 1-2 weeks he is feeling cramps in his shoulders and has to turn head. He states that as his symptoms persisted, he got a ride and then came to the hospital. Vital signs arrival blood pressure 148/106, pulse rate 100, temperature 98.6. Blood test shows normal CBC, PT/PTT, normal CMP, troponin, UA. EKG shows sinus rhythm, CT head showed no acute process. I personally reviewed CT head, agree with the findings. There is diffuse ventricular and sulcal prominence consistent with diffuse age-related cerebral atrophy and there is low attenuation in the periventricular white matter, consistent with chronic small vessel ischemic disease. No definitive new attenuation noticed. I personally reviewed CT head, agree with the findings. Patient has been evaluated in the past for possible hydrocephalus, but he never underwent shunt placement. Patient denies any alcohol use for years. He has not done any marijuana for 2 years. Review of Systems As mentioned above in HPI. All other review of systems are noncontributory. Patient denies any neck pain, back pain. No chest pain, abdominal pain, nausea, vomiting, diarrhea. No fever or chills. No cough. Past Medical History Past Medical History: Eye Disorder, GI Bleed, Hypertension Additional Past Medical History / Comment(s): past hx diverticulitis, right eye dry macular degeneration, left eye wet macular degeneration. alcholism History of Any Multi-Drug Resistant Organisms: None Reported Past Surgical History: Cholecystectomy, Hernia Repair Additional Past Surgical History / Comment(s): PICC line in, now removed, hernia repair, colonoscopy Past Anesthesia/Blood Transfusion Reactions: No Reported Reaction Additional Past Anesthesia/Blood Transfusion Reaction / Comment(s): 4 UNITS OF PRBC 10/2014, NO REACTION Past Psychological History: No Psychological Hx Reported Smoking Status: Former smoker Past Alcohol Use History: Abuse, Daily Additional Past Alcohol Use History / Comment(s): states previous heavy drinker, states has not had anything to drink in over 30days Past Drug Use History: Marijuana Additional Drug Use History / Comment(s): occasional use, instructed to hold 24hrs prior to procedure - Past Family History Mother Additional Family Medical History / Comment(s): brain anuerysm Father Family Medical History: Cancer Additional Family Medical History / Comment(s): lung Medications and Allergies Home Medications Medication Instructions Recorded Confirmed Type No Known Home Medications 04/03/23 04/03/23 History Allergies Allergy/AdvReac Type Severity Reaction Status Date / Time No Known Allergies Allergy Verified 04/03/23 19:58 Physical Examination - Vital Signs Vital Signs: Vital Signs Temp Pulse Pulse Resp BP BP Pulse Ox 04/04/23 19:12 98.0 F 90 16 134/83 96 04/04/23 15:00 98.2 F 89 20 158/74 97 04/04/23 13:20 98.3 F 84 18 158/92 100 04/04/23 09:00 97.7 F 79 18 149/103 95 04/04/23 02:00 99.6 F 75 21 116/79 99 04/04/23 01:30 97 F L 63 15 145/88 97 04/03/23 20:30 98.0 F 80 20 120/70 98 Intake and Output 04/04/23 04/04/23 04/04/23 06:59 14:59 22:59 Intake Total 118 Balance 118 Intake: Oral 118 Other: # Voids 2 Weight 86.183 kg Patient is an elderly male, in no acute distress. Patient is alert awake oriented to time place and person. Patient knows it is March but he thinks it is 2023. He states that he is in the [facility] in [facility]. He knows that he lives in [place] in [place]. He knows name of the current president. Speech and language functions are normal. Patient can name and repeat very well. No aphasia or dysarthria. Attention, concentration and fund of knowledge is borderline. Detail cognitive function testing deferred. On cranial nerve examination, pupils are equal, round and reacting to light, visual albert are full on confrontation, with no neglect on double simultaneous stimulation. patient cannot read MAMA MAMA, tiptop or 50-50 or THANKS. Extraocular muscles are intact with no nystagmus. Face is symmetric, tongue protrudes to the midline. Palatal elevation and sensation normal, hearing and shoulder shrug normal, facial sensation normal. On muscle strength testing, there is no pronator drift and the strength is normal in arms and legs distally and proximally. Deep tendon reflexes are symmetric 1-1+ all over and plantars downgoing. Sensory to touch is equal with no neglect on double simultaneous stimulation. Cerebellar function showed no ataxia for [id number] testing. No dysdiadochokinesia. No ataxia for [id number] testing on either side. Tone and bulk of muscles normal. Gait deferred.. On general examination, there is no carotid bruit or murmur, S1-S2 audible. Chest is clear on consultation. Abdomen is soft nontender. No organomegaly, bowel sounds present. Peripheral pulses are present. No peripheral edema. Results - Laboratory Findings CBC and BMP: 04/04/23 05:47 04/04/23 11:21 Abnormal Lab Findings: Abnormal Labs 04/03/23 04/04/23 04/04/23 16:32 05:47 11:21 RBC 4.25 L Hct 39.4 L MPV 9.4 L Chloride 108 H 108 H Carbon Dioxide 21 L BUN 22 H Glucose 111 H TSH 6.270 H Assessment and Plan Assessment: * Bilateral visual disturbance, with graying of the vision, (right eye since 03/29/2023, in the left eye since 03/30/2023) * Memory disturbance, risk for vascular dementia. CT head revealed multiple old lacunar strokes and significant small vessel disease. * History of possible NPH, not treated. * Chronic gait imbalance * B12 deficiency * Hypertension Plan: * Ophthalmology consult for bilateral visual disturbance. * CTA of the head and neck revealed no significant acute abnormality. * ESR, CRP, RPR, hemoglobin A1c * Start B12 replacement. * Neurology will follow. Thank you for the consult.
[2023-04-04] MEDS: CYANOCOBALAMIN 1,000 MCG/ML 1 ML VIAL IM SCH (21:27)
[2023-04-05] MEDS: SODIUM CHLORIDE 0.9% 1,000 ML IV SCH (04:23)
[2023-04-05] MEDS: CYANOCOBALAMIN 1,000 MCG/ML 1 ML VIAL IM SCH (09:22)
[2023-04-05] MEDS: ENOXAPARIN 40 MG/0.4 ML SYRINGE SQ SCH (09:22)
[2023-04-05 10:26] LABS: Chol/HDL Ratio 4.34 Ratio; LDL Cholesterol,Calculated 99.8 mg/dL (0.0-131.0)
[2023-04-05] MEDS: ACETAMINOPHEN TAB 325 MG TAB PO PRN (12:28)
--- NOTE | 2023-04-05 13:35 | P.PN ---
Subjective Progress Note Date: 04/05/23 * 67-year-old gentleman with past medical history significant for subdural hematoma on right side in 2019, chronic alcohol use, history of hypertension, macular degeneration presented to the emergency department with complains of impaired vision * Upon presentation in ED patient said he had difficulty with his vision and not feeling well in general. Patient said her symptoms have been progressive and he has been following week. Patient says vision issues have been sudden in onset and both eyes and they've been constant and offending with activity of daily living. Patient has previously been seen by neurology for ataxia and 2021 * Workup in ER included CT head and CT angina head and neck which was negative * EKG obtained in ER showed sinus rhythm * Serum chemistry obtained showed sodium of 142 potassium 4.4 creatinine 1.19 , serum calcium, phosphorous, magnesium within normal limits * Patient to be admitted to medical floor with consultation from neurology physical therapy occupational therapy * Upon further assessment patient states his vision impairment hasn't progressively getting worse. Patient does endorse that he has been noncompliant with medications * 04/05/23: Patient seen and evaluated bedside, vitamin B12 levels abnormal, ophthalmology consulted by neurology REVIEW OF SYSTEMS: Impaired vision/blurred vision CONSTITUTIONAL: No fever, no malaise, no fatigue. HEENT: No recent visual problems or hearing problems. Denied any sore throat. CARDIOVASCULAR: No chest pain, orthopnea, PND, no palpitations, no syncope. PULMONARY: No shortness of breath, no cough, no hemoptysis. GASTROINTESTINAL: No diarrhea, no nausea, no vomiting, no abdominal pain. NEUROLOGICAL: No headaches, no weakness, no numbness. HEMATOLOGICAL: Denies any bleeding or petechiae. GENITOURINARY: Denies any burning micturition, frequency, or urgency. MUSCULOSKELETAL/RHEUMATOLOGICAL: Denies any joint pain, swelling, or any muscle pain. ENDOCRINE: Denies any polyuria or polydipsia. PHYSICAL EXAMINATION: GENERAL: The patient is alert and oriented x3, not in any acute distress. Well developed, well nourished. HEENT: Pupils are round and equally reacting to light. Impaired visual acuity bilaterally CARDIOVASCULAR: S1 and S2 present. No murmurs, rubs, or gallops. PULMONARY: Chest is clear to auscultation, no wheezing or crackles. ABDOMEN: Soft, nontender, nondistended, normoactive bowel sounds. No palpable organomegaly. EXTREMITIES: No cyanosis, clubbing, or pedal edema. NEUROLOGICAL: On exam alert and oriented 3, motor strength is 5 bilateral upper and lower extremity cranial nerves intact Objective - Vital Signs Vital signs: Vital Signs Temp 98.6 F 04/05/23 07:00 Pulse 78 04/05/23 07:00 Resp 14 04/05/23 07:00 BP 137/83 04/05/23 07:00 Pulse Ox 96 04/05/23 07:00 FiO2 Intake & Output 04/04/23 04/05/23 04/05/23 18:59 06:59 18:59 Intake Total 118 240 Balance 118 240 Weight 86.183 kg Intake: Oral 118 240 Other: # Voids 1 - Labs CBC & Chem 7: 04/04/23 05:47 04/04/23 11:21 Labs: Abnormal Lab Results - Last 24 Hours (Table) 04/05/23 Range/Units 04:42 HDL Cholesterol 37.60 L (40.00-60.00) mg/dL Assessment and Plan Assessment: Assessment and plan * Vision impairment rule out CVA * Generalized weakness * History of hypertension * History of macular degeneration right eye * History of alcohol use * Consultation obtained from neurology, CT head CT angina head and neck obtained, seen by neurology, recommended ophthalmology evaluation * Vitamin B12 levels abnormal, replacement ordered/ESR within normal limits TSH 6.2 free T4 0.85 * On review of home medications patient has not been taking any medications at home * In regards to history of alcohol use patient said he has been sober for 2 years * Patient will need physical therapy occupational therapy evaluation * CODE STATUS full code Time with Patient: Greater than 30
[2023-04-06] MEDS: ENOXAPARIN 40 MG/0.4 ML SYRINGE SQ SCH (08:24)
[2023-04-06] MEDS: CYANOCOBALAMIN 1,000 MCG/ML 1 ML VIAL IM SCH (08:24)
[2023-04-06] MEDS: ACETAMINOPHEN TAB 325 MG TAB PO PRN (10:37)
--- NOTE | 2023-04-06 13:12 | P.PN ---
Subjective Progress Note Date: 04/06/23 * 67-year-old gentleman with past medical history significant for subdural hematoma on right side in 2019, chronic alcohol use, history of hypertension, macular degeneration presented to the emergency department with complains of impaired vision * Upon presentation in ED patient said he had difficulty with his vision and not feeling well in general. Patient said her symptoms have been progressive and he has been following week. Patient says vision issues have been sudden in onset and both eyes and they've been constant and offending with activity of daily living. Patient has previously been seen by neurology for ataxia and 2021 * Workup in ER included CT head and CT angina head and neck which was negative * EKG obtained in ER showed sinus rhythm * Serum chemistry obtained showed sodium of 142 potassium 4.4 creatinine 1.19 , serum calcium, phosphorous, magnesium within normal limits * Patient to be admitted to medical floor with consultation from neurology physical therapy occupational therapy * Upon further assessment patient states his vision impairment hasn't progressively getting worse. Patient does endorse that he has been noncompliant with medications * 04/05/23: Patient seen and evaluated bedside, vitamin B12 levels abnormal, ophthalmology consulted by neurology * 04/06/23: Patient seen and evaluated bedside, still waiting on ophthalmology evaluation, attentional discharge after cleared by ophthalmology. Will need outpatient follow-up as well patient on discharge since compliant has been an issue. Appreciate input from neurology workup negative for CVA REVIEW OF SYSTEMS: Impaired vision/blurred vision CONSTITUTIONAL: No fever, no malaise, no fatigue. HEENT: No recent visual problems or hearing problems. Denied any sore throat. CARDIOVASCULAR: No chest pain, orthopnea, PND, no palpitations, no syncope. PULMONARY: No shortness of breath, no cough, no hemoptysis. GASTROINTESTINAL: No diarrhea, no nausea, no vomiting, no abdominal pain. NEUROLOGICAL: No headaches, no weakness, no numbness. HEMATOLOGICAL: Denies any bleeding or petechiae. GENITOURINARY: Denies any burning micturition, frequency, or urgency. MUSCULOSKELETAL/RHEUMATOLOGICAL: Denies any joint pain, swelling, or any muscle pain. ENDOCRINE: Denies any polyuria or polydipsia. PHYSICAL EXAMINATION: See vitals below GENERAL: The patient is alert and oriented x3, not in any acute distress. Well developed, well nourished. HEENT: Pupils are round and equally reacting to light. Impaired visual acuity bilaterally CARDIOVASCULAR: S1 and S2 present. No murmurs, rubs, or gallops. PULMONARY: Chest is clear to auscultation, no wheezing or crackles. ABDOMEN: Soft, nontender, nondistended, normoactive bowel sounds. No palpable organomegaly. EXTREMITIES: No cyanosis, clubbing, or pedal edema. NEUROLOGICAL: On exam alert and oriented 3, motor strength is 5 bilateral upper and lower extremity cranial nerves intact/impaired visual acuity Objective - Vital Signs Vital signs: Vital Signs Temp 98.1 F 04/06/23 07:00 Pulse 65 04/06/23 07:00 Resp 14 04/06/23 07:00 BP 151/91 04/06/23 07:00 Pulse Ox 97 04/06/23 07:00 FiO2 Intake & Output 04/05/23 04/06/23 04/06/23 18:59 06:59 18:59 Intake Total 730 240 Balance 730 240 Intake: Oral 730 240 Other: # Voids 1 - Labs CBC & Chem 7: 04/04/23 05:47 04/04/23 11:21 Assessment and Plan Assessment: Assessment and plan * Vision impairment ruled out CVA * Generalized weakness * History of hypertension * History of macular degeneration right eye * History of alcohol use * Consultation obtained from neurology, CT head CT angina head and neck obtained, seen by neurology, recommended ophthalmology evaluation * Vitamin B12 levels abnormal, replacement ordered/ESR within normal limits TSH 6.2 free T4 0.85 * On review of home medications patient has not been taking any medications at home * In regards to history of alcohol use patient said he has been sober for 2 years * Patient will need physical therapy occupational therapy evaluation * CODE STATUS full code
[2023-04-07 02:46] VITALS: RESP 15
--- NOTE | 2023-04-07 03:04 | P.PN ---
Subjective Progress Note Date: 04/06/23 Patient was seen for a follow-up. Patient denies any changes in his condition. Denies headache. Objective - Vital Signs Vital signs: Vital Signs Temp 98.1 F 04/06/23 07:00 Pulse 65 04/06/23 07:00 Resp 14 04/06/23 07:00 BP 151/91 04/06/23 07:00 Pulse Ox 97 04/06/23 07:00 FiO2 Intake & Output 04/05/23 04/06/23 04/06/23 18:59 06:59 18:59 Intake Total 730 240 Balance 730 240 Intake: Oral 730 240 Other: # Voids 1 - Exam Patient's vision appears to be better. He was able to read MAMA MAMA, THANKS, FIFTY-FIFTY, from the chart which he was not able to do before. It appears that patient does not want to read voluntary as well. As I insisted, he was able to read from the chart. Rest of examination is unchanged. - Labs CBC & Chem 7: 04/04/23 05:47 04/04/23 11:21 Assessment and Plan Assessment: * Bilateral visual disturbance, with graying of the vision, (right eye since 03/29/2023, in the left eye since 03/30/2023) * Memory disturbance, risk for vascular dementia. CT head revealed multiple old lacunar strokes and significant small vessel disease. * History of possible NPH, not treated. * Chronic gait imbalance * B12 deficiency * Hypertension Plan: * Ophthalmology consult for bilateral visual disturbance. * CTA of the head and neck revealed no significant acute abnormality. * ESR 15, CRP < 0.30, RPR nonreactive, hemoglobin A1c 5.7. No evidence of temporal arteritis with normal ESR and CRP. * Lipid panel with cholesterol 163, LDL 99, HDL 37, triglycerides 128. * Start aspirin 325 mg daily. * Start B12 replacement. * Dr. Luigi Lisa to resume neurology service from the morning.
[2023-04-07] MEDS ORDERED: ATORVASTATIN 80 MG TAB PO STA (03:31)
[2023-04-07] MEDS ORDERED: ASPIRIN 81 MG PO STA (03:32)
[2023-04-07 08:24] VITALS: BP 130/81; PULSE 70; TEMP 97.5
[2023-04-07] MEDS ORDERED: ASPIRIN 325 MG TAB PO SCH (09:00)
[2023-04-07 09:01] LABS: BUN/Creat Ratio 14.75 Ratio (12.00-20.00); Blood Urea Nitrogen 17.7 mg/dL (9.0-27.0); Calcium 9.8 mg/dL (8.7-10.3); Carbon Dioxide 25.4 mmol/L (21.6-31.8); Chloride 106 mmol/L (96-109); Glucose 92 mg/dL (70-110); Sodium 141 mmol/L (135-145)
[2023-04-07] MEDS: ENOXAPARIN 40 MG/0.4 ML SYRINGE SQ SCH (09:35)
[2023-04-07] MEDS: CYANOCOBALAMIN 1,000 MCG/ML 1 ML VIAL IM SCH (09:35)
--- NOTE | 2023-04-07 13:11 | P.DS ---
Providers Date of admission: 04/03/23 19:49 Expected date of discharge: 04/07/23 Attending physician: Eunice Quintanilla Consults: 04/03/23 19:48 Consult Physician Routine Consulting Provider: He Conde Consult Reason/Comments: visionChanges Do you want consulting provider notified?: Yes 04/03/23 19:49 Consult Physician Routine Consulting Provider: Sunil Mcallister Consult Reason/Comments: psych Do you want consulting provider notified?: Yes 04/04/23 19:44 Consult Physician Urgent Consulting Provider: Sudhir Buitrago Consult Reason/Comments: Bilateral visual disturbance/graying of vision since last 5 days Do you want consulting provider notified?: Yes Primary care physician: [facility] Course: * 67-year-old gentleman with past medical history significant for subdural hematoma on right side in 2019, chronic alcohol use, history of hypertension, macular degeneration presented to the emergency department with complains of impaired vision * Upon presentation in ED patient said he had difficulty with his vision and not feeling well in general. Patient said her symptoms have been progressive and he has been following week. Patient says vision issues have been sudden in onset and both eyes and they've been constant and offending with activity of daily living. Patient has previously been seen by neurology for ataxia and 2021 * Workup in ER included CT head and CT angina head and neck which was negative * EKG obtained in ER showed sinus rhythm * Serum chemistry obtained showed sodium of 142 potassium 4.4 creatinine 1.19 , serum calcium, phosphorous, magnesium within normal limits * Patient to be admitted to medical floor with consultation from neurology physical therapy occupational therapy * Upon further assessment patient states his vision impairment hasn't progressively getting worse. Patient does endorse that he has been noncompliant with medications * 04/05/23: Patient seen and evaluated bedside, vitamin B12 levels abnormal, ophthalmology consulted by neurology * 04/06/23: Patient seen and evaluated bedside, still waiting on ophthalmology evaluation, attentional discharge after cleared by ophthalmology. Will need outpatient follow-up as well patient on discharge since compliant has been an issue. Appreciate input from neurology workup negative for CVA * 04/07/2023: Patient seen and evaluated bedside, patient to be seen by ophthalmology, outpatient referral provided as well, prescription for vitamin B12 provided, patient was seen by physical therapy and cleared for discharge home. Patient to be discharged home for impaired visual acuity needs outpatient ophthalmology follow-up REVIEW OF SYSTEMS: Impaired vision/blurred vision CONSTITUTIONAL: No fever, no malaise, no fatigue. HEENT: No recent visual problems or hearing problems. Denied any sore throat. CARDIOVASCULAR: No chest pain, orthopnea, PND, no palpitations, no syncope. PULMONARY: No shortness of breath, no cough, no hemoptysis. GASTROINTESTINAL: No diarrhea, no nausea, no vomiting, no abdominal pain. NEUROLOGICAL: No headaches, no weakness, no numbness. HEMATOLOGICAL: Denies any bleeding or petechiae. GENITOURINARY: Denies any burning micturition, frequency, or urgency. MUSCULOSKELETAL/RHEUMATOLOGICAL: Denies any joint pain, swelling, or any muscle pain. ENDOCRINE: Denies any polyuria or polydipsia. PHYSICAL EXAMINATION: See vitals below GENERAL: The patient is alert and oriented x3, not in any acute distress. Well developed, well nourished. HEENT: Pupils are round and equally reacting to light. Impaired visual acuity bilaterally CARDIOVASCULAR: S1 and S2 present. No murmurs, rubs, or gallops. PULMONARY: Chest is clear to auscultation, no wheezing or crackles. ABDOMEN: Soft, nontender, nondistended, normoactive bowel sounds. No palpable organomegaly. EXTREMITIES: No cyanosis, clubbing, or pedal edema. NEUROLOGICAL: On exam alert and oriented 3, motor strength is 5 bilateral upper and lower extremity cranial nerves intact/impaired visual acuity Assessment: Assessment and plan * Vision impairment ruled out CVA * Generalized weakness, vitamin B * History of hypertension * History of macular degeneration right eye * History of alcohol use * Consultation obtained from neurology, CT head CT angina head and neck o btained, seen by neurology, recommended ophthalmology evaluation * Vitamin B12 levels abnormal, replacement ordered/ESR within normal limits TSH 6.2 free T4 0.85, prescription vitamin B12 provided * On review of home medications patient has not been taking any medications at home * In regards to history of alcohol use patient said he has been sober for 2 years * Patient will need physical therapy occupational therapy evaluation/discharge home Patient Condition at Discharge: Stable Plan - Discharge Summary New Discharge Prescriptions: New Cyanocobalamin/Cobamamide [Vitamin B-12 5,000 Mcg Tab Sl] 1 tab SUBLINGUAL DAILY 7 Days #7 tab Discharge Medication List Cyanocobalamin/Cobamamide [Vitamin B-12 5,000 Mcg Tab Sl] 1 tab SUBLINGUAL DAILY 7 Days #7 tab 04/07/23 [Rx] Follow up Appointment(s)/Referral(s): Sudhir Buitrago MD [STAFF PHYSICIAN] - 1 Week Jignesh Pérez DO [Primary Care Provider] - 1-2 days Discharge Disposition: HOME SELF-CARE
[2023-04-07] MEDS ORDERED: ATORVASTATIN 40 MG TAB PO SCH (21:00)
== END 2023-04-07 15:03 | disposition home or self-care (01) | DRG 123 ==
LOC: EC 15:09 → 6NMEDSUR 19:49 → OBSVTOIN 04-07 12:00 → UNDODISOB 04-07 15:03
PROVIDERS: ADMIT Hospitalist; ATTEND Hospitalist
DX: H53.133 Sudden visual loss, bilateral (principal); E53.8 Deficiency of other specified B group vitamins; H35.3110 Nonexudative age-related macular degeneration, right eye, stage unspecified; H35.3220 Exudative age-related macular degeneration, left eye, stage unspecified; F10.21 Alcohol dependence, in remission; H40.9 Unspecified glaucoma; H26.9 Unspecified cataract; E86.0 Dehydration; R41.3 Other amnesia; R53.1 Weakness; F43.23 Adjustment disorder with mixed anxiety and depressed mood; R26.89 Other abnormalities of gait and mobility; I10 Essential (primary) hypertension; E78.5 Hyperlipidemia, unspecified; Z91.128 Patient's intentional underdosing of medication regimen for other reason; Z91.199 Patient's noncompliance with other medical treatment and regimen due to unspecified reason; Z79.899 Other long term (current) drug therapy; Z87.891 Personal history of nicotine dependence; Z86.73 Personal history of transient ischemic attack (TIA), and cerebral infarction without residual deficits; Z86.69 Personal history of other diseases of the nervous system and sense organs
CPT/HCPCS: 36415; 70450; 70496; 70498; 80048; 80053; 80061; 81003; 82607; 83036; 83735; 84100; 84439; 84443; 84484; 84590; 85025; 85610; 85652; 85730; 86140; 86780; 93005; 94760; 96360; 96361; 96372; 99285

== ENCOUNTER 2023-11-22 17:25 | Inpatient (IN) | payer MEDICARE, OTHER ==
[2023-11-22 18:14] LABS: Basophils # (A) 0.1 k/uL (0-0.2); Basophils % (A) 1 %; Eosinophils # (A) 0.2 k/uL (0-0.7); Eosinophils % (A) 2 %; HCT 39.9 % (39.0-53.0); HGB 13.9 gm/dL (13.0-17.5); Lymphocytes # (A) 1.7 k/uL (1.0-4.8); Lymphocytes % (A) 23 %; MCH 32.6 pg (25.0-35.0); MCHC 34.8 g/dL (31.0-37.0); MCV 93.7 fL (80.0-100.0); Mean Platelet Volume 7.5; Monocytes # (A) 0.3 k/uL (0-1.0); Monocytes % (A) 5 %; Neutrophils % (A) 68 %; Platelet Count 193 k/uL (150-450); RBC 4.26 m/uL (4.30-5.90); RDW 12.8 % (11.5-15.5); WBC 7.4 k/uL (3.8-10.6)
[2023-11-22] MEDS: SODIUM CHLORIDE 0.9% 1,000 ML IV STA (18:19)
[2023-11-22 18:25] LABS: Partial Thromboplastin Time 22.8 sec (22.0-30.0); Prothrombin Time 10.7 sec (10.0-12.5)
[2023-11-22 18:26] LABS: ALT 30 U/L (4-49); AST 31 U/L (17-59); African American GFR (CKD) 87 (>60 ml/min/1.73 sqM); Albumin 4.4 g/dL (3.5-5.0); Alcohol <10 mg/dL; Alkaline Phosphatase 89 U/L (38-126); Anion Gap 5 mmol/L; Blood Urea Nitrogen 23 mg/dL (9-20); Calcium 9.2 mg/dL (8.4-10.2); Carbon Dioxide 25 mmol/L (22-30); Chloride 111 mmol/L (98-107); Glucose 102 mg/dL (74-99); Non-African American GFR(CKD) 75 (>60 ml/min/1.73 sqM); Sodium 141 mmol/L (137-145); Total Bilirubin 0.4 mg/dL (0.2-1.3); Total Protein 7.2 g/dL (6.3-8.2)
--- NOTE | 2023-11-22 18:46 | XR ---
EXAMINATION TYPE: XR chest 1V portable DATE OF EXAM: 11/22/2023 6:35 PM CLINICAL INDICATION:Male, 67 years old with history of trauma; [facility] COMPARISON: Chest radiographs from 11/23/2021 TECHNIQUE: XR chest 1V portable Frontal view of the chest. FINDINGS: Lungs/Pleura: Prominent interstitial lung markings are seen scattered throughout the lungs. No eviden ce of focal consolidation, pneumothorax or pleural effusion. Pulmonary vascularity: Unremarkable. Heart/mediastinum: Cardiomediastinal silhouette is unremarkable. Musculoskeletal: No acute osseous pathology. Remote appearing left shoulder fracture. IMPRESSION: Chronic changes without acute pulmonary process. No significant change from prior.
--- NOTE | 2023-11-22 18:49 | CT ---
EXAMINATION TYPE: CT brain cspine wo con CT DLP: 1426.9 mGycm, Automated exposure control for dose reduction was used. DATE OF EXAM: 11/22/2023 6:38 PM COMPARISON: None. CLINICAL INDICATION:Male, 67 years old with history of trauma; Fall TECHNIQUE: Brain: Multiple axial CT images of the brain were obtained without IV contrast. Cspine: Axial CT images from the skull base to the inferior aspect of T2 we obtained without intraven ous contrast. Coronal and sagittal reformatted images were also reviewed. . FINDINGS: Brain: Extra-axial spaces: No abnormal extra-axial fluid collections. Ventricular system: Dilatation in proportion to cerebral atrophy. Cerebral parenchyma: Cerebral atrophy. No acute intraparenchymal hemorrhage or mass effect. The fung -white junction is well differentiated. Scattered hypoattenuating areas are seen within the white mat ter. Cerebellum: Unremarkable. Mass effect: No evidence of midline shift. Intracranial vasculature: Atherosclerotic calcifications of the intracranial vessels. Soft tissues: . Right posterior lateral neck sebaceous cyst measuring up to 16 mm. Calvarium/osseous structures: No depressed skull fracture. Paranasal sinuses and mastoid air cells: Clear. Visualized orbits: Orbital contents are intact. Cervical spine: Fracture: None. Osseous structures: Unremarkable Vertebral alignment: Within normal limits. Spinal canal/Neural Foramina: No evidence of significant spinal canal narrowing. No evidence for sign ificant neural foraminal stenosis. Neck soft tissues: Prevertebral soft tissues are within normal limits. Other: The airway is patent. The lung apices are clear. IMPRESSION: 1. No acute intracranial process. 2. Nonspecific white matter changes, likely secondary to chronic small vessel ischemic disease. 3. No evidence of cervical spine fracture. 4. Moderate to severe multilevel degenerative disc disease.
--- NOTE | 2023-11-22 18:55 | CT ---
EXAMINATION TYPE: CT pelvis wo con CT DLP: 409.4 mGycm, Automated exposure control for dose reduction was used. DATE OF EXAM: 11/22/2023 6:40 PM COMPARISON: None CLINICAL INDICATION:Male, 67 years old with history of scan through left proximal femur. left hip ariadna n; Fall. Left hip pain. TECHNIQUE: Axial CT pelvis wo con;Sagittal and coronal reformats were created on a separate workstat ion. Contrast used: mL of , (none if empty) Oral contrast used: without Oral Contrast (none if empty) FINDINGS: BLADDER: Unremarkable REPRODUCTIVE: Unremarkable. ABDOMEN & PELVIS STOMACH AND BOWEL: No evidence of bowel obstruction. Colonic diverticula. PERITONEUM/RETROPERITONEUM: No evidence of pneumoperitoneum or free fluid. VASCULATURE: No evidence of aortic aneurysm. MUSCULOSKELETAL: Acute left proximal femur subcapital femoral neck fracture with displacement and ang ulation the remainder of the pelvis appears intact. LYMPH NODES: No gross evidence for lymphadenopathy. SOFT TISSUE/ABDOMINAL WALL: Unremarkable IMPRESSION: 1. Acute left proximal femur subcapital femoral neck fracture with displacement and angulation. The remainder of the pelvis appears intact. 2. Colonic diverticulosis.
[2023-11-22] MEDS: MORPHINE SULFATE 4 MG/ML SYRINGE IVP STA (19:06)
--- NOTE | 2023-11-22 19:36 | XR ---
EXAMINATION TYPE: XR hand limited LT DATE OF EXAM: 11/22/2023 7:17 PM CLINICAL INDICATION:Male, 67 years old with history of finger pain after fall; [facility] COMPARISON: None TECHNIQUE: XR hand limited LT Frontal, lateral and oblique views were obtained. FINDINGS: Normal alignment of the visualized joints. No acute osseous pathology is identified. No e vidence of soft tissue swelling. Multifocal degeneration changes with joint space narrowing and osteo phyte formation. IMPRESSION: 1. No acute osseous pathology. 2. Multifocal osteoarthrosis throughout the joints of the hand.
--- NOTE | 2023-11-22 19:37 | XR ---
EXAMINATION TYPE: XR femur LT DATE OF EXAM: 11/22/2023 7:28 PM CLINICAL INDICATION:Male, 67 years old with history of operative planning; [facility] COMPARISON: CT same day TECHNIQUE: XR femur LT examined in Frontal and lateral projections. FINDINGS/IMPRESSION: Findings similar to same date CT with left subcapital femoral neck fracture with mild displacement.
--- NOTE | 2023-11-22 19:37 | XR ---
EXAMINATION TYPE: XR pelvis AP view DATE OF EXAM: 11/22/2023 7:28 PM CLINICAL INDICATION:Male, 67 years old with history of Pain after fall; [facility] COMPARISON: CT TECHNIQUE: XR pelvis AP view, examined in a single projection. FINDINGS/IMPRESSION: Findings similar to same date CT with left subcapital femoral neck fracture with mild displacement.
[2023-11-22] MEDS ORDERED: ONDANSETRON 4 MG/2 ML VIAL IVP PRN (19:52)
[2023-11-22] MEDS ORDERED: NALOXONE 0.4 MG/ML 1 ML VIAL IV PRN (19:52)
--- NOTE | 2023-11-22 19:58 | ED ---
General Adult HPI - General Chief complaint: Fall Stated complaint: Fall Time Seen by Provider: 11/22/23 17:41 Source: patient, EMS, RN notes reviewed, old records reviewed Mode of arrival: EMS Limitations: no limitations - History of Present Illness Initial comments: Patient is a 67-year-old male who presents emergency department after a fall. Patient was attempting to pick up attendant a water jug when the handle broke on the water drug causing him to lose his balance and fall backwards landing primarily on his left hip. Denies hitting his head or loss of consciousness. Denies any complaints other than left hip and thigh pain. Was not ambulatory after the incident. Presents for further evaluation. He is not on blood thinners. Does have a history of alcohol abuse. He has been sober for over 2 years. Denies back pain, chest pain, shortness of breath. Denies any abdominal pain. Presents for further evaluation at this time.Patient complaining of left thumb pain as well. No obvious injury. - Related Data Previous Rx's Medication Instructions Recorded Cyanocobalamin/Cobamamide [Vitamin 1 tab SUBLINGUAL DAILY 7 Days #7 04/07/23 B-12 5,000 Mcg Tab Sl] tab Allergies Allergy/AdvReac Type Severity Reaction Status Date / Time No Known Allergies Allergy Verified 11/22/23 17:49 Review of Systems ROS Statement: Those systems with pertinent positive or pertinent negative responses have been documented in the HPI. Review of Systems: CONST: Denies fever EYES: Denies blurry vision ENT: Denies nasal congestion C/V: Denies Chest pain RESP: Denies shortness of breath GI: Denies abdominal pain : Denies dysuria SKIN: Denies rash. MSK: Endorses left hip pain NEURO: Denies headache ROS Other: All systems not noted in ROS Statement are negative. Past Medical History Past Medical History: Eye Disorder, GI Bleed, Hypertension Additional Past Medical History / Comment(s): past hx diverticulitis, right eye dry macular degeneration, left eye wet macular degeneration. alcholism History of Any Multi-Drug Resistant Organisms: None Reported Past Surgical History: Cholecystectomy, Hernia Repair Additional Past Surgical History / Comment(s): PICC line in, now removed, hernia repair, colonoscopy Past Anesthesia/Blood Transfusion Reactions: No Reported Reaction Additional Past Anesthesia/Blood Transfusion Reaction / Comment(s): 4 UNITS OF PRBC 10/2014, NO REACTION Past Psychological History: No Psychological Hx Reported Smoking Status: Former smoker Past Alcohol Use History: Abuse, Daily Past Drug Use History: Marijuana - Past Family History Mother Additional Family Medical History / Comment(s): brain anuerysm Father Family Medical History: Cancer Additional Family Medical History / Comment(s): lung General Exam - General Exam Comments Initial Comments: General: Appears in mild distress secondary to left hip pain. HEAD: Normal with no signs of head trauma. Negative Nelson sign, negative raccoon eyes. EYES: PERRLA, EOMI, conjunctiva normal, no discharge. Pupils are 3 mm and equal bilaterally. ENT: Hearing grossly intact, normal oropharynx. RESPIRATORY: Clear breath sounds bilaterally. No wheezes, rales, or rhonchi. C/V: Regular rate and rhythm. S1 and S2 auscultated, no edema, peripheral pulses 2+ and intact throughout ABD: Abd is soft, nontender, nondistended EXT: Decreased range of motion of the left hip secondary to pain. Does appear to have some shortening on the left lower extremity versus the right. No tenderness palpation distal to the left hip. Remainder the extremities have normal range of motion with no obvious deformities. No midline cervical, thoracic, lumbar spine tenderness to palpation. Pelvis is stable. Neurovascular intact throughout the left lower extremity.Left thumb exam unremarkable. SKIN: No rashes or lesions observed on exposed skin. No evidence of open fracture over the left hip. NEURO: Alert and oriented x 4. GCS of 15. Limitations: no limitations Course Vital Signs 11/22/23 11/22/23 11/22/23 17:39 18:17 19:01 Temperature 99.0 F Pulse Rate 81 85 89 Respiratory 18 18 18 Rate Blood Pressure 116/78 125/78 153/94 O2 Sat by Pulse 94 L 94 L 95 Oximetry 11/22/23 11/22/23 19:41 20:22 Temperature Pulse Rate 85 97 Respiratory 18 18 Rate Blood Pressure 136/84 138/94 O2 Sat by Pulse 95 94 L Oximetry Medical Decision Making - Medical Decision Making Was pt. sent in by a medical professional or institution ([facility], [facility], urgent care, hospital, or half-way...) When possible be specific @ -No Did you speak to anyone other than the patient for history (EMS, parent, family, police, friend...)? What history was obtained from this source @ -No Did you review nursing and triage notes (agree or disagree)? Why? @ -I reviewed and agree with nursing and triage notes Were old charts reviewed (outside hosp., previous admission, EMS record, old EKG, old radiological studies, urgent care reports/EKG's, half-way records)? Report findings @ -No old charts were reviewed Differential Diagnosis (chest pain, altered mental status, abdominal pain women, abdominal pain men, vaginal bleeding, weakness, fever, dyspnea, syncope, headache, dizziness, GI bleed, back pain, seizure, CVA, palpatations, mental health, musculoskeletal)? @ -Differential Musculoskeletal Muscular strain, contusion, ligament sprain, fracture, arthritis, septic arthritis, bursitis, cellulitis, muscle spasm, nerve compression, DVT, arterial occlusion, herpes zoster, electrolyte abnormality, tumor.... This is not meant to be in all inclusive list EKG interpreted by me (3pts min.). @ -As above X-rays interpreted by me (1pt min.). @ -Chest x-ray negative for any obvious cardiopulmonary process. Left hand x- ray reveals no obvious acute injury. Pelvis x-ray obtained after pelvis CT redemonstrates the proximal left subcapital femoral neck fracture. CT interpreted by me (1pt min.). @ -CT brain and C-spine negative for any obvious traumatic injury. CT pelvis reveals the proximal left subcapital femoral neck fracture. U/S interpreted by me (1pt. min.). @ -None done What testing was considered but not performed or refused? (CT, X-rays, U/S, labs)? Why? @ -None What meds were considered but not given or refused? Why? @ -None Did you discuss the management of the patient with other professionals (professionals i.e. DrChristiano, PA, [facility], lab, RT, psych nurse, hospital social worker, wire sawyer, teacher, compliance officer, case packer)? Give summary @ -Discussed with on-call orthopedic surgeon Dr. Delaney. Was in agreement with admission to his service. Requested patient be made n.p.o. as patient would likely go to the operating room tomorrow. He did request medical consult, and at his request I did directly call [facility] Dr. Beck who covers for the patient's PCP Dr. Pérez. I did convey that it is urgent that the patient receive medical clearance prior to surgery tomorrow morning. Dr. Serna did express understanding of this and was in agreement to clear the patient prior to his surgery in the morning tomorrow. Was smoking cessation discussed for >3mins.? @ -No Was critical care preformed (if so, how long)? @ -Yes, 31 minutes. Were there social determinants of health that impacted care today? How? (Homelessness, low income, unemployed, alcoholism, drug addiction, transportation, low edu. Level, literacy, decrease access to med. care, alf, rehab)? @ -No Was there de-escalation of care discussed even if they declined (Discuss DNR or withdrawal of care, Hospice)? DNR status @ -No What co-morbidities impacted this encounter? (DM, HTN, Smoking, COPD, CAD, Cancer, CVA, ARF, Chemo, Hep., AIDS, mental health diagnosis, sleep apnea, morbid obesity)? @ -None Was patient admitted / discharged? Hospital course, mention meds given and route, prescriptions, significant lab abnormalities, going to OR and other pe rtinent info. @ -Patient presents after a mechanical fall. We will obtain CT imaging of the head and neck as well as CT imaging of the pelvis as patient is having pain with transfers between beds and that way he only needs 1 transfer. Chest x-ray will also be obtained. Patient was in agreement this plan. He will be given analgesia medications, IV fluids. Imaging resulted and showing a left femoral subcapital neck fracture. Closed fracture. No other obvious injuries. Patient's labs also unremarkable. I updated the patient. He will be admitted at this time. Fall precautions placed. Analgesia medication ordered. Patient placed on IV fluids. I spoke with the on-call orthopedic physician Dr. eDlaney who accepted the patient onto his service and requested the patient be made n.p.o. for tomorrow. Likely operative repair tomorrow. Requested that I consult medicine and speak with them directly to ensure that patient is medically cleared by 7 AM tomorrow. I did discuss this with the consulting medical team, [facility] Dr. Beck who stated that the patient will be medically cleared by this time and he expressed understanding. Undiagnosed new problem with uncertain prognosis? @ -No Drug Therapy requiring intensive monitoring for toxicity (Heparin, Nitro, Insulin, Cardizem)? @ -No Were any procedures done? @ -No Diagnosis/symptom? @ -Fall, left proximal subcapital femoral neck fracture Acute, or Chronic, or Acute on Chronic? @ -Acute Uncomplicated (without systemic symptoms) or Complicated (systemic symptoms)? @ -Complicated Side effects of treatment? @ -No Exacerbation, Progression, or Severe Exacerbation? @ -No Poses a threat to life or bodily function? How? (Chest pain, [place], [place], pneumonia, PE, COPD, DKA, ARF, appy, cholecystitis, CVA, Diverticulitis, Homicidal, Suicidal, threat to staff... and all critical care pts) @ -Yes - Lab Data Result diagrams: 11/22/23 17:53 11/22/23 17:53 Lab Results 11/22/23 11/22/23 11/22/23 Range/Units 17:53 17:53 17:53 WBC 7.4 (3.8-10.6) k/uL RBC 4.26 L (4.30-5.90) m/uL Hgb 13.9 (13.0-17.5) gm/dL Hct 39.9 (39.0-53.0) % MCV 93.7 (80.0-100.0) fL MCH 32.6 (25.0-35.0) pg MCHC 34.8 (31.0-37.0) g/dL RDW 12.8 (11.5-15.5) % Plt Count 193 (150-450) k/uL MPV 7.5 Neutrophils % 68 % Lymphocytes % 23 % Monocytes % 5 % Eosinophils % 2 % Basophils % 1 % Neutrophils # 5.0 (1.3-7.7) k/uL Lymphocytes # 1.7 (1.0-4.8) k/uL Monocytes # 0.3 (0-1.0) k/uL Eosinophils # 0.2 (0-0.7) k/uL Basophils # 0.1 (0-0.2) k/uL PT 10.7 (10.0-12.5) sec INR 1.0 (<1.2) APTT 22.8 (22.0-30.0) sec Sodium 141 (137-145) mmol/L Potassium 4.0 (3.5-5.1) mmol/L Chloride 111 H (98-107) mmol/L Carbon Dioxide 25 (22-30) mmol/L Anion Gap 5 mmol/L BUN 23 H (9-20) mg/dL Creatinine 1.02 (0.66-1.25) mg/dL Est GFR (CKD-EPI)AfAm 87 (>60 ml/min/1.73 sqM) Est GFR (CKD-EPI)NonAf 75 (>60 ml/min/1.73 sqM) Glucose 102 H (74-99) mg/dL Calcium 9.2 (8.4-10.2) mg/dL Total Bilirubin 0.4 (0.2-1.3) mg/dL AST 31 (17-59) U/L ALT 30 (4-49) U/L Alkaline Phosphatase 89 (38-126) U/L Total Protein 7.2 (6.3-8.2) g/dL Albumin 4.4 (3.5-5.0) g/dL Serum Alcohol <10 mg/dL Blood Type Blood Type Recheck Bld Type Recheck Status Antibody Screen Spec Expiration Date 11/22/23 Range/Units 18:00 WBC (3.8-10.6) k/uL RBC (4.30-5.90) m/uL Hgb (13.0-17.5) gm/dL Hct (39.0-53.0) % MCV (80.0-100.0) fL MCH (25.0-35.0) pg MCHC (31.0-37.0) g/dL RDW (11.5-15.5) % Plt Count (150-450) k/uL MPV Neutrophils % % Lymphocytes % % Monocytes % % Eosinophils % % Basophils % % Neutrophils # (1.3-7.7) k/uL Lymphocytes # (1.0-4.8) k/uL Monocytes # (0-1.0) k/uL Eosinophils # (0-0.7) k/uL Basophils # (0-0.2) k/uL PT (10.0-12.5) sec INR (<1.2) APTT (22.0-30.0) sec Sodium (137-145) mmol/L Potassium (3.5-5.1) mmol/L Chloride (98-107) mmol/L Carbon Dioxide (22-30) mmol/L Anion Gap mmol/L BUN (9-20) mg/dL Creatinine (0.66-1.25) mg/dL Est GFR (CKD-EPI)AfAm (>60 ml/min/1.73 sqM) Est GFR (CKD-EPI)NonAf (>60 ml/min/1.73 sqM) Glucose (74-99) mg/dL Calcium (8.4-10.2) mg/dL Total Bilirubin (0.2-1.3) mg/dL AST (17-59) U/L ALT (4-49) U/L Alkaline Phosphatase (38-126) U/L Total Protein (6.3-8.2) g/dL Albumin (3.5-5.0) g/dL Serum Alcohol mg/dL Blood Type A Positive Blood Type Recheck A Pos Bld Type Recheck Status No Antibody Screen NEGATIVE Spec Expiration Date 11/25/20232299 - EKG Data -: EKG Interpreted by Me EKG Comments: 12-lead Electrocardiogram Interpretation Note EKG was reviewed and interpreted by myself. 12-lead ECG performed at 1743 is interpreted by me as revealing normal sinus rhythm at a rate of 74 beats per minute. Newell is normal. MO interval is 150 ms, QRS duration is 90 ms, QTc is 394 ms.. There were no ST or T wave abnormalities to suggest myocardial ischemia or injury. R wave progression across the precordium was satisfactory. By my interpretation this EKG is non-diagnostic for acute ischemia. Disposition Clinical Impression: Fall, Fracture of femoral neck, left Disposition: ADMITTED IP TO THIS HOSP Condition: Serious Time of Disposition: 19:45
[2023-11-22] MEDS: SODIUM CHLORIDE 0.9% 1,000 ML IV SCH (20:25)
[2023-11-22] MEDS: MORPHINE SULFATE 4 MG/ML SYRINGE IV PRN (22:52)
--- NOTE | 2023-11-23 08:24 | P.HPOR ---
History of Present Illness H&P Date: 11/23/23 the patient is a very pleasant 67-year-old male with a medical history significant for prior alcohol abuse was currently admitted with a left hip fracture. 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 He had immediate pain in the left hip and was unable to ambulate. He was brought to the emergency department where x-rays and computed tomography scan showed a displaced left subcapital femoral neck fracture. The patient was admitted to the hospital. I met with the patient this morning. The patient denies any prior history of hip pain. He states that other than drinking he has no significant medical history and his last drink was 2 years ago. He says he is a community ambulator without assisted device. Past Medical History Past Medical History: Eye Disorder, GI Bleed, Hypertension Additional Past Medical History / Comment(s): past hx diverticulitis, right eye dry macular degeneration, left eye wet macular degeneration. alcholism History of Any Multi-Drug Resistant Organisms: None Reported Past Surgical History: Cholecystectomy, Hernia Repair Additional Past Surgical History / Comment(s): PICC line in, now removed, hernia repair, colonoscopy Past Anesthesia/Blood Transfusion Reactions: No Reported Reaction Additional Past Anesthesia/Blood Transfusion Reaction / Comment(s): 4 UNITS OF PRBC 10/2014, NO REACTION Past Psychological History: No Psychological Hx Reported Smoking Status: Former smoker Past Alcohol Use History: Abuse, Daily Additional Past Alcohol Use History / Comment(s): states previous heavy drinker, states has not had anything to drink in over 30days Past Drug Use History: Marijuana Additional Drug Use History / Comment(s): occasional use, instructed to hold 24hrs prior to procedure - Past Family History Mother Additional Family Medical History / Comment(s): brain anuerysm Father Family Medical History: Cancer Additional Family Medical History / Comment(s): lung Medications and Allergies Home Medications Medication Instructions Recorded Confirmed Type Cyanocobalamin/Cobamamide [Vitamin 1 tab SUBLINGUAL DAILY 7 Days #7 04/07/23 Rx B-12 5,000 Mcg Tab Sl] tab Allergies Allergy/AdvReac Type Severity Reaction Status Date / Time No Known Allergies Allergy Verified 11/22/23 17:49 Physical Examination the patient is resting comfortably in bed. He is alert and able to answer questions. His head is normocephalic and atraumatic. He demonstrates nonlabored breathing with symmetric chest expansion. His abdomen is mildly obe se. His bilateral upper extremities and right lower extremity without deformities. A focused examination of the left leg was conducted. Inspection the leg is shortened and externally rotated. On inspection of the skin over the anterior aspect of the hip there are no scars or lesions. He has pain with any attempts at passive range of motion of the leg. His thigh and calf are soft. He can actively plantarflex and dorsiflex his ankle and his toes. Results x-rays and computed tomography scan show a displaced left subcapital femoral neck fracture - Labs Labs: Abnormal Lab Results - Last 24 Hours (Table) 11/22/23 11/22/23 Range/Units 17:53 17:53 RBC 4.26 L (4.30-5.90) m/uL Chloride 111 H (98-107) mmol/L BUN 23 H (9-20) mg/dL Glucose 102 H (74-99) mg/dL H & H 11/22/23 Range/Units 17:53 Hgb 13.9 (13.0-17.5) gm/dL Hct 39.9 (39.0-53.0) % Coagulation 11/22/23 Range/Units 17:53 INR 1.0 (<1.2) Result Diagrams: 11/22/23 17:53 11/22/23 17:53 Assessment and Plan Assessment: displaced left subcapital femoral neck fracture Plan: I met with the patient this morning discuss his injury and treatment options. He has a displaced femoral neck fracture and due to the patient's age and activity level I think he would be best treated with a total hip replacement. We discussed the procedure at length including the potential risks and complications. Internal medicine has been consulted for preoperative clearance and perioperative medical management. The patient is to remain strictly nonweightbearing and on bedrest until surgery. We are planning for surgery later this morning. Time with Patient: Greater than 30
[2023-11-23 09:56] LABS: Basophils # (A) 0.05 X 10*3/uL (0.00-0.10); Basophils % (A) 0.5 %; Eosinophils # (A) 0.07 X 10*3/uL (0.04-0.35); Eosinophils % (A) 0.7 %; HCT 39.1 % (39.6-50.0); HGB 13.2 g/dL (13.0-17.0); Lymphocytes # (A) 1.44 X 10*3/uL (0.90-5.00); Lymphocytes % (A) 15.4 %; MCH 32.1 pg (27.0-32.0); MCHC 33.8 g/dL (32.0-37.0); MCV 95.1 FL (80.0-97.0); Mean Platelet Volume 9.8 FL (9.5-12.2); Monocytes # (A) 0.58 X 10*3/uL (0.20-1.00); Monocytes % (A) 6.2 %; NRBC Per 100 WBC 0 X 10*3/uL (0.00-0.01); Neutrophils # (A) 7.19 X 10*3/uL (1.80-7.70); Neutrophils % (A) 76.9 %; Platelet Count 141 X 10*3/uL (140-440); RBC 4.11 X 10*6/uL (4.40-5.60); RDW 12.5 % (11.5-14.5); WBC 9.36 X 10*3/uL (4.50-10.00)
[2023-11-23 09:58] LABS: Blood Urea Nitrogen 18.6 mg/dL (9.0-27.0); Chloride 110 mmol/L (96-109); Glucose 134 mg/dL (70-110); Potassium 4.5 mmol/L (3.5-5.5); Sodium 142 mmol/L (135-145)
[2023-11-23 09:59] LABS: ALT 27 U/L (10-49); AST 26 U/L (14-35); Albumin 4.1 g/dL (3.8-4.9); Albumin/Globulin Ratio 1.86 Ratio (1.60-3.17); Alkaline Phosphatase 106 U/L (41-126); Calcium 8.9 mg/dL (8.7-10.3); Carbon Dioxide 20.4 mmol/L (21.6-31.8); Globulin 2.2 g/dL (1.6-3.3); Total Bilirubin 0.6 mg/dL (0.3-1.2); Total Protein 6.3 g/dL (6.2-8.2)
[2023-11-23] MEDS ORDERED: ROPIVACAINE/EPI/CLONIDINE/KET 50 ML SYRINGE MISCELLANE PRN (10:02)
--- NOTE | 2023-11-23 10:06 | P.CONS ---
History of Present Illness - History of Present Illness This is a pleasant 67 years old male with past medical historyOf ataxia, multiple falls, alcohol abuse, he states he quit drinking for the last 2 years. Bilateral visual disturbance with memory disturbance with possible elements of vascular dementia with CT of the head revealed multiple old lacunar strokes and significant small vessel disease. Possible history of NPH and gait imbalance. Also has history of vitamin B12 deficiency Patient states that he has been following for the last 6 months but yesterday he was on his porch trying to brick picker his r water bag when the handle broke down and he fell on his left side with no head trauma. He started complaining from pain in his left hip area. 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 He is not walk much because of his vision problems and may be thats one reason why he fell. Patient states he do not have stairs in his house but he told me he can go upstairs or downstairs like 4 of 6 flights with no problem. Sometimes he has to go slow because of his vision problem. However patient denies previous heart or lung disease. He states that he quit smoking more than 20 years ago. He denies using any substance. He denies chest pain or dyspnea or coughing. No urinary complaints like dysuria or urgency or change in frequency. No diarrhea or vomiting. No appetite problems. No headache dizziness weakness numbness blurred vision or double vision. No slurred speech. He is hemodynamically stable Labs including CBC, INR BMP and liver enzymes were reviewed and they are unremarkable Serum alcohol on admission was less than 10 EKG showing sinus rhythm at [address]-T changes and a QTc of 3 94 Chest x-ray is showing chronic changes without acute pulmonary process CT of the head and neck is negative for acute process but showing moderate to severe degenerative disc disease Pelvic CT showing acute left proximal femoral fracture with subcapital femoral neck fracture, with displacement and angulation Hand x-ray is negative for fracture, There is multiple focal osteoid horns through all joints of the hand. Review of Systems Review of systems CONSTITUTIONAL: No fever, no malaise, no fatigue. HEENT: No recent visual problems or hearing problems. Denied any sore throat. CARDIOVASCULAR: No orthopnea, PND, no palpitations, no syncope. PULMONARY: No shortness of breath, no cough, no hemoptysis. GASTROINTESTINAL: No diarrhea, no nausea, no vomiting, no abdominal pain. Normoactive bowel sounds. NEUROLOGICAL: No headaches, no weakness, no numbness. HEMATOLOGICAL: Denies any bleeding or petechiae. GENITOURINARY: Denies any burning micturition, frequency, or urgency. MUSCULOSKELETAL/RHEUMATOLOGICAL: Denies any joint pain, swelling, or any muscle pain. ENDOCRINE: Denies any polyuria or polydipsia. Past Medical History Past Medical History: Eye Disorder, GI Bleed, Hypertension Additional Past Medical History / Comment(s): past hx diverticulitis, right eye dry macular degeneration, left eye wet macular degeneration. alcholism History of Any Multi-Drug Resistant Organisms: None Reported Past Surgical History: Cholecystectomy, Hernia Repair Additional Past Surgical History / Comment(s): PICC line in, now removed, hernia repair, colonoscopy Past Anesthesia/Blood Transfusion Reactions: No Reported Reaction Additional Past Anesthesia/Blood Transfusion Reaction / Comm: 4 UNITS OF PRBC 10/2014, NO REACTION Past Psychological History: No Psychological Hx Reported Smoking Status: Former smoker Past Alcohol Use History: Abuse, Daily Additional Past Alcohol Use History / Comment(s): states previous heavy drinker, states has not had anything to drink in over 30days Past Drug Use History: Marijuana Additional Drug Use History / Comment(s): occasional use, instructed to hold 24hrs prior to procedure - Past Family History Mother Additional Family Medical History / Comment(s): brain anuerysm Father Family Medical History: Cancer Additional Family Medical History / Comment(s): lung Medications and Allergies Home Medications Medication Instructions Recorded Confirmed Type Cyanocobalamin/Cobamamide [Vitamin 1 tab SUBLINGUAL DAILY 7 Days #7 04/07/23 Rx B-12 5,000 Mcg Tab Sl] tab Allergies Allergy/AdvReac Type Severity Reaction Status Date / Time No Known Allergies Allergy Verified 11/22/23 17:49 Physical Exam Vitals: Vital Signs Temp Pulse Pulse Resp BP BP Pulse Ox 11/23/23 09:11 93 L 11/23/23 07:31 98.1 F 96 17 129/81 93 L 11/23/23 02:00 98.0 F 75 17 130/80 97 11/22/23 20:44 98.3 F 60 15 135/82 96 11/22/23 20:22 97 18 138/94 94 L 11/22/23 19:41 85 18 136/84 95 11/22/23 19:01 89 18 153/94 95 11/22/23 18:17 85 18 125/78 94 L 11/22/23 17:39 99.0 F 81 18 116/78 94 L FiO2 11/23/23 09:11 21 11/23/23 07:31 11/23/23 02:00 11/22/23 20:44 11/22/23 20:22 11/22/23 19:41 11/22/23 19:01 11/22/23 18:17 11/22/23 17:39 Intake and Output 11/22/23 11/23/23 11/23/23 22:59 06:59 14:59 Intake Total 1000 Output Total 900 Balance 100 Intake: Intake, IV Titration 1000 Amount Sodium Chloride 0.9% 1, 1000 000 ml @ 100 mls/hr IV . Q10H PENDING SALE TO [facility] Rx#:[id number] Output: Urine 900 Uretheral (Braun) 300 Other: Voiding Method Urinal Weight 88.451 kg GENERAL: The patient is alert and oriented x3, not in any acute distress. Well d eveloped, well nourished. HEENT: Pupils are round and equally reacting to light. EOMI. No scleral icterus. No conjunctival pallor. Normocephalic, atraumatic. No pharyngeal erythema. No thyromegaly. CARDIOVASCULAR: S1 and S2 present. No murmurs, rubs, or gallops. PULMONARY: Chest is clear to auscultation, no wheezing , no crackles. ABDOMEN: Soft, nontender, nondistended, normoactive bowel sounds. No palpable organomegaly. -MUSCULOSKELETAL: No joint swelling or deformity. left hip area tender, no bruise or wound , slightly shortened limb EXTREMITIES: No cyanosis, clubbing, or pedal edema. NEUROLOGICAL: Gross neurological examination did not reveal any focal deficits. -SKIN: No rashes. no petechiae. Bed to all nail hygiene Results CBC & Chem 7: 11/22/23 17:53 11/22/23 17:53 Labs: Abnormal Lab Results - Last 24 Hours (Table) 11/22/23 11/22/23 Range/Units 17:53 17:53 RBC 4.26 L (4.30-5.90) m/uL Chloride 111 H (98-107) mmol/L BUN 23 H (9-20) mg/dL Glucose 102 H (74-99) mg/dL Assessment and Plan Assessment: Acute left subcapital femoral neck fracture with displacement and angulation following a fall Fell at home after he lost his balance from an accident without syncope or dizziness. History of ataxia, multiple falls in the past, with possible history of NPH Previous history of alcohol abuse Visual disturbance on both eyes Degenerative disc disease of the spine at least of the cervical spine Long history of smoking Memory problem with possible vascular dementia as CT revealed old multiple Lacunar strokes with significant small vessel disease. Poor self hygiene Plan: Patient has no previous coronary artery disease, no previous diagnosis or signs and symptoms of CHF, COPD. He is not diabetic or on insulin. He does not have chronic kidney disease. Based on these he is at some risks from hip surgical procedure however there is no contraindication from medical perspective and pt can proceed with this surgery as it is a clinical emergency. Discussed with orthopedic team. Continue with pain management GI and DVT prophylaxis
[2023-11-23] MEDS ORDERED: ONDANSETRON 4 MG/2 ML VIAL ONE (12:26)
[2023-11-23] MEDS ORDERED: MIDAZOLAM 2 MG/2 ML VIAL ONE (12:26)
[2023-11-23] MEDS ORDERED: NEOSTIGMINE 1 MG/ML 10 ML VIAL ONE (12:26)
[2023-11-23] MEDS ORDERED: GLYCOPYRROLATE 0.2 MG/ML 2 ML VIAL ONE (12:26)
[2023-11-23] MEDS ORDERED: ROCURONIUM 10 MG/ML (5 ML VIAL) IV ONE (12:26)
[2023-11-23] MEDS ORDERED: SUCCINYLCHOLINE CHLORIDE 200 MG/10 ML VIAL IV ONE (12:26)
[2023-11-23] MEDS ORDERED: PROPOFOL 10 MG/ML 20 ML VIAL IV ONE (12:26)
[2023-11-23] MEDS ORDERED: LIDOCAINE 1% INJ 10MG/ML (20 ML MDV) ONE (12:26)
[2023-11-23] MEDS ORDERED: TRANEXAMIC 1,000 MG/100ML-NACL PREMIX BAG ONE (12:26)
[2023-11-23] MEDS ORDERED: PHENYLEPHRINE-0.9% NACL SYG 1,000 MCG/10 ML SYRINGE ONE (12:26)
[2023-11-23] MEDS ORDERED: fentaNYL (PF) 50 MCG/ML 2 ML AMP ONE (12:26)
[2023-11-23] MEDS ORDERED: DEXAMETHASONE SOD PHOSPHATE 4 MG/ML 1 ML VIAL ONE (12:26)
[2023-11-23] MEDS: SODIUM CHLORIDE 0.9% 50 ML with ceFAZolin 2,000 MG IV ONE (12:31)
[2023-11-23] MEDS: SODIUM CHLORIDE 0.9% 1,000 ML IV ONE (12:31)
[2023-11-23] MEDS: LACTATED RINGERS 1,000 ML IV ONE (13:23)
[2023-11-23] MEDS: EPINEPHrine 2 MG in SODIUM CHLORIDE 0.9% 200 ML IV ONE (13:49)
[2023-11-23] MEDS: VANCOMYCIN 1,000 MG VIAL MISCELLANE ONE (14:11)
[2023-11-23] MEDS ORDERED: HYDROmorphone 0.5 MG/0.5 ML SYRINGE IVP PRN (14:32)
[2023-11-23] MEDS ORDERED: ONDANSETRON 4 MG/2 ML VIAL IVP PRN (14:32)
[2023-11-23] MEDS ORDERED: NALOXONE 0.4 MG/ML 1 ML VIAL IV PRN (14:32)
[2023-11-23] MEDS ORDERED: MAGNESIUM HYDROXIDE 2,400 MG/30 ML CUP PO PRN (14:32)
[2023-11-23] MEDS ORDERED: diazePAM 5 MG TAB PO PRN (14:32)
--- NOTE | 2023-11-23 14:32 | P.OP ---
Date of Procedure: 11/23/23 Preoperative Diagnosis: 1. left displaced subcapital femoral neck fracture 2. History of former alcohol abuse, last drink 2 years ago Postoperative Diagnosis: same Procedure(s) Performed: left direct anterior total hip arthroplasty Implants: 1. [place] Trident II Acetabular Cup, Size #52 2. [place] Accolade C Size #5 Femoral Stem, Standard Offset 3. Dual Mobility OD 42 mm, ID 28 mm, +0 mm neck Anesthesia: EVELINA Surgeon: Mendoza Delaney Dean Of Faculty #1: Pritesh Porras Estimated Blood Loss (ml): 200 IV fluids (ml): 800 Pathology: none sent Condition: stable Disposition: PACU Indications for Procedure: the patient is a very pleasant 67-year-old male with a history of former alcohol abuse but has not drank in in 2 years. The patient sustained a ground-level fall yesterday resulting in a displaced left subcapital femoral neck fracture. Other than his history of previous alcohol abuse he reports relatively good health. He is also a community ambulator outside of the home without assistive device. Based on all of this my recommendation was to proceed with a total hip arthroplasty through an anterior approach. Risks discussed include, but are certainly not limited to, risks from anesthesia, superficial infection requiring local wound care or antibiotics, deep jane-prosthetic joint infection and the treatment required to eradicate infection, intraoperative fracture, postoperative periprosthetic fracture, damage to local blood vessels or nerves particularly the lateral femoral cutaneous nerve, delayed wound healing requiring local wound care or possibly surgical debridement, hip dislocation, leg length discrepancy, soft tissue irritation around the total hip implant such as iliopsoas tendinitis or trochanteric bursitis, wear and osteolysis from the implants, squeaking or audible noises, groin pain, thigh pain, heterotopic ossification, stiffness, aseptic loosening of the implants, dissatisfaction with surgical outcome, need for revision surgery, DVT, PE, swelling of the operative extremity, acute coronary event, stroke, failure to thrive, and possibly loss of life or limb. The patient understands that while these are the most common complications after an elective hip replacement there are certainly other less common complications possible. They were given ample time to ask questions regarding the potential complications of a hip replacement. Following our dis cussion the patient provided their verbal and written consent to go forward with an elective total hip replacement. Operative Findings: there was a displaced subcapital femoral neck fracture and large hemarthrosis consistent with an acute hip fracture. There were degenerative changes within the visualized portion of the acetabulum. The patient had very poor bone quality so I elected to use cemented fixation on the femur. Description of Procedure: The patient was identified in the preoperative holding area and the correct hip was marked with my initials. I reviewed the procedure and consent with the patient. All of their questions were answered. The patient was then brought back into the operating room by anesthesia. While on the [facility] anesthesia was administered by the anesthesia team. Preoperative antibiotics and tranexamic acid were also given. After the patient was under anesthesia I examined their ankles to determine their preoperative leg length discrepancy. The skin over the anterior aspect of the hip was shaved to remove hair over the site of planned incision. Both feet and ankles were padded with webril and boots for the [place] were applied. The patient was then carefully transferred onto the [place] table. A perineal post was immediately placed. The arms were placed on arm holders and were well-padded. Both boots were secured to the spars on the [place] table. The patient was positioned so that the pelvis was centered over the post. Nonsterile drapes were applied. A timeout was performed identifying the correct patient, operative extremity, and procedure. At this point fluoroscopy was brought in to take preoperative images of the pelvis and operative hip. A metallic bar was used to create a bi-ischial line for use as a reference to leg length adjustments during the procedure. Global offset was also measured on both the operative and nonoperative leg. Fluoroscopy was then brought out and a pre-scrub using a chlorhexidine scrub brush was performed. The operative limb was then prepped and draped in the standard sterile fashion. An anterior longitudinal incision was made lateral and distal to the ASIS. The skin and subcutaneous tissues were incised sharply. The underlying tensor fascia was identified and incised in its midportion. The fascia was dissected free from the underlying muscle and the muscle belly was retracted. A blunt tipped cobra retractor was placed over the superior neck under the muscle fibers of the gluteus minimus. The deep enveloping fascia of the tensor was incised. The anterior leash of vessels were then identified and cauterized. The fascia between the rectus and the capsule was then incised and the pre-capsular fat was excised. A second Cobra was placed inferior to the neck. The interval between the rectus and iliocapsularis and the hip capsule was developed and a retractor was placed carefully over the anterior rim of the acetabulum. A T-shaped anterior capsulotomy was performed. The superior capsular leaflet was left in place in the inferior capsular flap was excised. The Cobra retractors were placed intracapsularly. We then made a femoral neck osteotomy according to preoperative and intraoperative templating and confirmed the level of the osteotomy using fluoroscopic imaging. The femoral head was removed, passed off to the back table, and sized. The superior capsular flap was excised. Retractors were placed circumferentially exposing the acetabulum. We then circumferentially debrided the acetabulum free of labrum and osteophytes. The pulvinar was removed to fully visualize the cotyloid fossa. We then sequentially reamed to achieve peripheral fit and excellent bleeding subchondral bone. The socket was thoroughly irrigated. The acetabular component was impacted into the appropriate position using fluoroscopy to guide version, inclination, and depth of insertion taking care to have a comparable image of the AP pelvis to the standing image taken in the office. An excellent press-fit was achieved and final position was confirmed using fluoroscopy. The press fit was augmented with bony cancellus dome screws. The liner was then impacted into the socket. Attention was then turned to the femur. The remnant dorsal lateral capsule was excised. The short external rotators were visible and protected. A bone hook was used to confirm appropriate translation of the trochanter away from the acetabulum. The leg was then extended and adducted and the bone hook was used to elevate the femur for broaching. On inspection of the patient's proximal femur, they appeared to have poor bone quality so I elected to proceed with cemented fixation of the femoral component. A box osteotome and blunt tipped canal sound was then utilized to gain access to the femoral canal. We then sequentially broached the femur in appropriate anteversion until torsional stability was achieved and the implant was felt to have reached the appropriate size to allow trialing. The neck cut was brought flush to the trial broach with a calcar planar. A trial neck and head were then placed onto the broach and the hip was atraumatically reduced under direct visualization. External rotation to 90 was performed to assess stability. Fluoroscopy was brought in. An AP and lateral fluoroscopic image of the proximal femur was obtained to assess position and fill of the trial broach. An AP of the pelvis was then obtained and matched to the preoperative image taken. A bi-ischial bar was then placed and measurements were taken to assess changes in length and offset. The hip was then carefully dislocated, the proximal femur was exposed, and the trial implants were removed. The proximal femur was then prepared for cementing. The canal was thoroughly irrigated with pulsatile lavage to remove blood and marrow contents. A cement restrictor was placed to a depth just distal to the tip of the final implant. Epinephrine-soaked gauze was then packed into the proximal femur. 2 bags of cement were then mixed using a centrifuge and placed into a cement gun. Anesthesia was notified that cementing was about to commence to make sure the patient was appropriately ventilated and hydrated. Once the cement had reached appropriate consistency, the cement gun was used to fill the canal in a retrograde fashion starting at the restrictor. Cement was then pressurized into the canal with a blue tipped sales engagement executive. The stem was then carefully introduced into the cement taking care to guide the implant into appropriate version. The stem was held in position until the cement had fully set. All extra cement was removed while the cement was hardening. The trunnion was cleansed and the final head was tapped into place to engage the Britton taper. The acetabulum was irrigated and visualized to be free of debris. The hip was carefully reduced. Stability was checked clinically with external rotation to 90 and there was no evidence of instability. Final fluoroscopic images were taken. The wound was then thoroughly irrigated and soaked with a dilute Betadine rinse for 3 minutes. 3 L of sterile saline was irrigated through the wound using pulsatile lavage. Local anesthetic cocktail was injected into the soft tissues around the surgical field. The wound was then closed in layers. A sterile dressing was placed over the surgical incision. The drapes were taken down and the patient was carefully transferred off of the [place] table. Following removal of the boots the leg lengths felt acceptable. The patient was then taken to recovery room having tolerated the procedure well. Pritesh Porras PA-C was required as a skilled administrative sales assistant due to the complexity of surgery for patient positioning, draping, exposure, retraction, closure of wound, and application of dressing. PLAN: The patient can weight-bear as tolerated on the operative extremity. 2 doses of postoperative antibiotics followed by 2 weeks of doxycycline 100 mg twice a day. DVT prophylaxis with aspirin 81 mg twice a day based on preoperative risk stratification. Physical therapy for gait training.
--- NOTE | 2023-11-23 15:03 | FL ---
EXAMINATION TYPE: FL guidance operating room, XR Hip Limited LT Intraoperative/procedural fluoroscopi c services were provided. Total fluoroscopy time is 32.3 seconds with a total of 6 submitted images t o PACS. Please see the operative/procedural note for further details. DAP: 2.0105 Gycm2
[2023-11-23] MEDS: HYDROmorphone 0.5 MG/0.5 ML SYRINGE IVP PRN (15:43)
[2023-11-23] MEDS: METOPROLOL TARTRATE 5 MG/5 ML VIAL IVP STA (16:02)
[2023-11-23] MEDS: IV FLUID CONTINUATION 1,000 ML IV ONE (16:12)
[2023-11-23] MEDS: TRANEXAMIC 1,000 MG/100ML-NACL 1,000 MG in SALINE 1 100ML.BAG IVPB ONE ×2 (17:09)
[2023-11-23] MEDS: SENNOSIDES-DOCUSATE SODIUM 1 EACH TAB PO SCH (20:30)
[2023-11-23] MEDS: ASPIRIN 81 MG PO SCH (20:30)
[2023-11-24 07:44] VITALS: RESP 16
[2023-11-24] MEDS: HYDROcodone/APAP 5-325MG 1 EACH TAB PO PRN (07:52)
--- NOTE | 2023-11-24 08:29 | P.PN ---
Subjective Progress Note Date: 11/24/23 Principal diagnosis: Left hip fracture Status post left total hip arthroplasty The patient is doing well this morning. The pain in their left hip has improved since surgery and has mild discomfort. They deny any chest pain or shortness of breath. Objective - Vital Signs Vital signs: Vital Signs Temp 97.3 F L 11/24/23 07:00 Pulse 88 11/24/23 07:00 Resp 16 11/24/23 07:00 BP 113/69 11/24/23 07:00 Pulse Ox 93 L 11/24/23 07:00 FiO2 21 11/23/23 15:45 Intake & Output 11/23/23 11/24/23 11/24/23 18:59 06:59 18:59 Intake Total 1491 Output Total 1150 150 310 Balance 341 -150 -310 Weight 88.451 kg Intake: IV 1251 Oral 240 Output: Urine 950 150 155 Uretheral (Braun) 155 Stool 155 Estimated Blood Loss 200 Other: Voiding Method Urinal Indwelling Catheter - Exam Patient is resting comfortably in bed. No apparent distress. They are awake, alert and able to answer questions. On inspection the left hip dressing is intact. There is no drainage or strikethrough. The skin surrounding the dressing is free of erythema. There is mild swelling in the operative thigh. Femoral nerve function is intact. The patient is able to actively plantarflex and dorsiflex their operative ankle and toes. - Labs CBC & Chem 7: 11/23/23 05:27 11/23/23 05:27 Labs: Abnormal Lab Results - Last 24 Hours (Table) 11/23/23 11/23/23 Range/Units 05:27 05:27 RBC 4.11 L (4.40-5.60) X 10*6/uL Hct 39.1 L (39.6-50.0) % MCH 32.1 H (27.0-32.0) pg Chloride 110 H (96-109) mmol/L Carbon Dioxide 20.4 L (21.6-31.8) mmol/L Glucose 134 H (70-110) mg/dL Assessment and Plan Assessment: Postoperative day #1 left total hip arthroplasty status post left hip fracture Plan: Weight-bear as tolerated on your operative extremity. Use a walker to ambulate. Leave surgical dressing in place. Physical therapy for gait training and mobilization. Dispo: Will likely need discharge to rehab or [facility] facility.
[2023-11-24 09:30] LABS: Basophils % (A) 0 %; Eosinophils % (A) 0 %; HCT 37.4 % (39.0-53.0); HGB 12.5 gm/dL (13.0-17.5); Lymphocytes # (A) 1.2 k/uL (1.0-4.8); Lymphocytes % (A) 9 %; MCH 32.7 pg (25.0-35.0); MCHC 33.4 g/dL (31.0-37.0); MCV 97.8 fL (80.0-100.0); Mean Platelet Volume 8.3; Monocytes # (A) 0.5 k/uL (0-1.0); Monocytes % (A) 4 %; Neutrophils % (A) 86 %; Platelet Count 105 k/uL (150-450); RBC 3.83 m/uL (4.30-5.90); RDW 12.5 % (11.5-15.5); WBC 12.9 k/uL (3.8-10.6)
[2023-11-24] MEDS: hydrOXYzine pamoate 25 MG CAP PO PRN (12:49)
[2023-11-24] MEDS: MULTIVITAMINS, THERA 1 EACH TAB PO SCH (12:49)
--- NOTE | 2023-11-24 14:27 | P.DS ---
Providers Date of admission: 11/22/23 19:52 Attending physician: Venancio Beck MD Consults: 11/22/23 19:52 Consult Physician Urgent Consulting Provider: Venancio Beck Consult Reason/Comments: medical management. operative clearance Do you want consulting provider notified?: Already Contacted 11/24/23 09:43 Consult Physician Routine Consulting Provider: Mendoza Delaney Consult Reason/Comments: known, left hip 11/23/23 Do you want consulting provider notified?: Already Contacted Primary care physician: Jignesh Pérez Hospital Course: Final Diagnosis Acute left subcapital femoral neck fracture with displacement and angulation following a fall Fell at home after he lost his balance from an accident without syncope or dizziness. History of ataxia, multiple falls in the past, with possible history of NPH Previous history of alcohol abuse Visual disturbance on both eyes Degenerative disc disease of the spine at least of the cervical spine Long history of smoking Memory problem with possible vascular dementia as CT revealed old multiple Lacunar strokes with significant small vessel disease. Poor self hygiene Discharge Disposition Patient stable for discharge to subacute rehabilitation following a left hip fracture and surgical repair. As mentioned patient should follow-up with an home health assistant soon as possible outpatient. He has reported not taking his maintenance medications including Synthroid and rosuvastatin and will follow-up with his PCP Dr. Johana Pérez on discharge regarding this. Patient to continue incentive spirometer 10 x an hour while awake. Repeat blood work in 2 to 3 days. Hospital Course Patient is a 67-year-old male with medical history of degenerative disc disease, smoking, memory problems appears to be taking cholesterol and thyroid medication back in August of this year reports no longer taking. He comes into the hospital after suffering a fall at home states that he lost his balance was not reporting any syncope or dizziness. Patient was brought in and found to have an acute left subcapital femoral neck fracture with displacement and angulation. He was admitted under medicine with a consult placed to orthopedic services. Patient underwent left direct anterior total hip arthroplasty and is postoperative day #1. Reports significant improvement in the pain to his left hip postsurgically. He is evaluated today resting up in the chair reports no shortness of breath no chest pain he is not having any nausea or vomiting or diarrhea. He is tolerating diet. He is passing gas. He was evaluated physical therapy with recommendations for subacute rehabilitation and medically he is stable for discharge once this has been arranged by social work. Patient does report having visual disturbance going on in both eyes and reports needing to see his home health assistant would recommend patient to make an appointment on discharge. Will continue on aspirin 81 mg twice a day for the next 30 days for DVT prophylaxis as recommended by orthopedics. Patient to see Dr. Delaney in the office in 2 weeks and also recommending to see his PCP Dr. Johana Pérez in 1 to 2 days. Hemodynamically he is stable and cleared medically for discharge. Please see medication reconciliation for a list of current medications. Thank you for allowing us to participate in the care of this patient. The impression and plan of care has been dictated by Gena Gamez, Nurse Practitioner as directed. Dr. Olive MD I have performed a history and physical examination and medical decision making of this patient, discussed the same with the dictator, and agree with the dictators assessment and plan as written, documented as a scribe. Based on total visit time, I have performed more than 50% of this visit. Patient Condition at Discharge: Fair Plan - Discharge Summary Discharge Rx Participant: Yes New Discharge Prescriptions: New Aspirin 81 mg PO BID #60 tab Omeprazole 40 mg PO DAILY #30 cap Docusate [Colace] 100 mg PO BID #60 capsule HYDROcodone/APAP 5-325MG [[place] 5-325] 1 - 2 tab PO Q6HR PRN #32 tab PRN Reason: Pain Diclofenac Sodium [Voltaren] 75 mg PO BID #60 tab Discharge Medication List Aspirin 81 mg PO BID #60 tab 11/23/23 [Rx] Diclofenac Sodium [Voltaren] 75 mg PO BID #60 tab 11/23/23 [Rx] Docusate [Colace] 100 mg PO BID #60 capsule 11/23/23 [Rx] HYDROcodone/APAP 5-325MG [[place] 5-325] 1 - 2 tab PO Q6HR PRN #32 tab 11/23/23 [Rx] Omeprazole 40 mg PO DAILY #30 cap 11/23/23 [Rx] Follow up Appointment(s)/Referral(s): Jignesh Pérez DO [Primary Care Provider] - 1-2 days Mendoza Delaney MD [Medical Doctor] - 2 Weeks Activity/Diet/Wound Care/Special Instructions: 1. Weight-bear as tolerated on your operative extremity unless instructed otherwise. Use a walker or other assistive device to ambulate. 2. Leave surgical dressing in place. If your dressing becomes saturated with blood, there is drainage, or the dressing becomes loose please contact the office. 3. It is okay to shower with your surgical dressing, but do not submerge in water (no hot tubs, bath's, swimming etc.) 4. Make sure to take her blood clot prevention medication as prescribed (aspirin, Eliquis, Xarelto, and Plavix are commonly prescribed medications for blood clot prevention) 5. While taking [place] or Percocet for pain make sure you're taking a stool softener (Colace) and drink lots of water. 6. Keep all follow-up appointments as scheduled. You will usually be seen in 1-2 weeks following surgery. 7. Please contact the office with any questions or concerns [phone] Discharge Disposition: TRANSFER TO SNF/ECF
[2023-11-24] MEDS: HYDROcodone/APAP 10-325MG 1 EACH TAB PO PRN (22:12)
--- NOTE | 2023-11-25 12:57 | P.PN ---
Progress Note - Text Progress Note Date: 11/25/23 Tried to round on patient this morning, but he was up at the bedside commode for > 10 minutes. According to nursing, no acute events since yesterday. Patient has been mobilizing with PT. He is also agreeable to rehab following discharge. Continue treatment as outlined previously. He is ok to discharge from an orthopaedic standpoint with he is medically stable and discharge arrangements have been made.
[2023-11-25 13:27] VITALS: BP 137/64; PULSE 89; TEMP 97.9
--- NOTE | 2023-11-25 13:58 | XR ---
EXAMINATION TYPE: XR chest 2V DATE OF EXAM: 11/25/2023 COMPARISON: 11/22/2023 INDICATION: Hypoxia TECHNIQUE: Frontal and lateral views of the chest are obtained. FINDINGS: The heart size is normal. The pulmonary vasculature is normal. Some streak opacities at the right lung base may be some atelectasis. Minimal linear atelectasis may be at the left lung base. Suspicious focal consolidation is not otherwise evident. Degenerative byrne es are noted at the left shoulder. IMPRESSION: 1. Mild streaky atelectasis predominantly at the right lung base.
== END 2023-11-25 18:40 | DRG 522 ==
LOC: EC 17:25 → 4SSUR 19:52 → 5NMEDONC 20:04
PROVIDERS: ADMIT Internal Medicine; ATTEND Internal Medicine
PROC: 0SRB0J9 Replacement of Left Hip Joint with Synthetic Substitute, Cemented, Open Approach (ICD-10-PCS; principal; 2023-11-23 12:00)
DX: S72.012A Unspecified intracapsular fracture of left femur, initial encounter for closed fracture (principal); W01.0XXA Fall on same level from slipping, tripping and stumbling without subsequent striking against object, initial encounter; I10 Essential (primary) hypertension; M50.30 Other cervical disc degeneration, unspecified cervical region; H53.9 Unspecified visual disturbance; F17.200 Nicotine dependence, unspecified, uncomplicated; F10.11 Alcohol abuse, in remission; Z91.81 History of falling; Y92.009 Unspecified place in unspecified non-institutional (private) residence as the place of occurrence of the external cause; Z86.73 Personal history of transient ischemic attack (TIA), and cerebral infarction without residual deficits
CPT/HCPCS: 36415; 70450; 71045; 71046; 72125; 72170; 72192; 73501; 80053; 80320; 85025; 85610; 85730; 86850; 86900; 86901; 93005; 94760; 96361; 96374; 99291

== ENCOUNTER 2024-07-22 14:11 | Emergency (ER) | payer MEDICARE, OTHER ==
[2024-07-22 14:36] VITALS: RESP 16
--- NOTE | 2024-07-22 15:45 | ED ---
General Adult HPI - General Source: patient, EMS Mode of arrival: EMS <Gokul Mojica - Last Filed: 07/22/24 17:51> <Asif Stearns - Last Filed: 07/22/24 18:33> - General Chief complaint: Weakness Stated complaint: weakness - History of Present Illness Initial comments: Patient is a 68-year-old male from [facility] with history of diverticulitis, macular degeneration in the right eye, history of alcoholism sent to the emergency department from their facility for altered mental status, pain, lethargy that started over the past 2 days. I spoke with staff from [facility] and she reported that the patient was having altered mentation this morning during rehab and was complaining of pain in his left shoulder and overall not acting right. I spoke with patient in his room and he reported that he has been feeling paranoid over the past few days because of his blurry vision. Patient also reports some musculoskeletal chest pain and left shoulder pain which seem to get worse with palpation. Patient thinks it is probably due to muscle strain. He reports the chest pain does not feel like a heart attack. Also reports some urinary urgency over the past 2 days with no dysuria, cloudy urine, foul smell. Patient denies other acute complaints at this time. Denies fever, chills, headache, coughing/runny nose/sore throat, shortness of breath, nausea, vomiting, belly pain, lower extremity edema. (Gokul Mojica) - Related Data Home Medications Medication Instructions Recorded Confirmed Albuterol Inhaler [Ventolin Hfa 2 puff INHALATION DIRECTED PRN 07/22/24 07/22/24 Inhaler] FLUoxetine HCL [PROzac] 20 mg PO DIRECTED 07/22/24 07/22/24 Levothyroxine Sodium [Synthroid] 50 mcg PO DIRECTED 07/22/24 07/22/24 Multivitamins, Thera [Multivitamin 1 tab PO DIRECTED 07/22/24 07/22/24 (formulary)] Allergies Allergy/AdvReac Type Severity Reaction Status Date / Time No Known Allergies Allergy Verified 07/22/24 14:43 Review of Systems ROS Other: All systems not noted in ROS Statement are negative. Constitutional: Denies: fever, chills Respiratory: Denies: cough, dyspnea Cardiovascular: Reports: chest pain. Denies: palpitations Gastrointestinal: Denies: abdominal pain, nausea, vomiting, diarrhea, consti pation Genitourinary: Reports: urgency. Denies: dysuria, frequency, discharge Neurological: Reports: confusion. Denies: headache, weakness <Gokul Mojica - Last Filed: 07/22/24 17:51> ROS Other: All systems not noted in ROS Statement are negative. <Asif Stearns - Last Filed: 07/22/24 18:33> ROS Statement: Those systems with pertinent positive or pertinent negative responses have been documented in the HPI. Past Medical History Past Medical History: Eye Disorder, GI Bleed, Hypertension Additional Past Medical History / Comment(s): past hx diverticulitis, right eye dry macular degeneration, left eye wet macular degeneration. 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 History of Any Multi-Drug Resistant Organisms: None Reported Past Surgical History: Cholecystectomy, Hernia Repair Additional Past Surgical History / Comment(s): PICC line in, now removed, hernia repair, colonoscopy , Past Anesthesia/Blood Transfusion Reactions: No Reported Reaction Additional Past Anesthesia/Blood Transfusion Reaction / Comment(s): 4 UNITS OF PRBC 10/2014, NO REACTION Past Psychological History: No Psychological Hx Reported Smoking Status: Former smoker Past Alcohol Use History: Abuse, Daily Past Drug Use History: None Reported, Marijuana - Past Family History Mother Additional Family Medical History / Comment(s): brain anuerysm Father Family Medical History: Cancer Additional Family Medical History / Comment(s): lung <Gokul Mojica - Last Filed: 07/22/24 17:51> General Exam <Gokul Mojica - Last Filed: 07/22/24 17:51> - General Exam Comments Initial Comments: GENERAL: This is a 68-year-old in no apparent distress at the time of examination. Pleasant and cooperative. HEENT: Head is atraumatic, normocephalic. PERRLA. RESPIRATORY: Clear to auscultation bilaterally. No wheezing, rales, rhonchi, stridor, crackles. CARDIOVASCULAR: Regular rate and rhythm. No systolic or diastolic murmurs noted. GASTROINTESTINAL: No abdominal distention. Abdomen soft and nontender to palpation. MUSCULOSKELETAL: Chest wall is slightly tender to palpation. Left shoulder tender to palpation. INTEGUMENTARY: No cyanosis. No jaundice. No rashes noted. No cellulitis noted. EXTREMITIES: No evidence of peripheral edema. No calf tenderness noted. NEUROLOGIC: Cranial nerves II-XII intact. Bilateral upper and lower extremity muscle strength intact. Upper and lower extremity sensation intact bilaterally. PSYCHIATRIC: Awake, alert. Appropriate affect. Intact judgement and insight. (Gokul Mojica) Course Vital Signs 07/22/24 07/22/24 14:26 17:43 Temperature 98.6 F Pulse Rate 103 H 98 Respiratory 16 16 Rate Blood Pressure 112/74 112/74 O2 Sat by Pulse 95 98 Oximetry Medical Decision Making - Lab Data Result diagrams: 07/22/24 16:17 07/22/24 16:17 <Gokul Mojica - Last Filed: 07/22/24 17:51> - Lab Data Result diagrams: 07/22/24 16:17 07/22/24 16:17 <Asif Stearns - Last Filed: 07/22/24 18:33> - Medical Decision Making Was pt. sent in by a medical professional or institution (JUSTIN Tabor, [employer], urgent care, hospital, or assisted...) When possible be specific @ -Sent by [facility] Did you speak to anyone other than the patient for history (EMS, parent, family, police, friend...)? What history was obtained from this source @ -Spoke with staff at [facility] Did you review nursing and triage notes (agree or disagree)? Why? @ -Agree with nursing and triage notes. Were old charts reviewed (outside hosp., previous admission, EMS record, old EKG, old radiological studies, urgent care reports/EKG's, assisted records)? Report findings @ -Old charts not reviewed. Differential Diagnosis? @ -Altered mental status, chest pain with atypical features, pneumonia, muscle strain EKG interpreted by me (3pts min.). @ -Sinus rhythm with occasional ectopic premature complexes with ventricular rate of 96 bpm, QTc interval 396 ms X-rays interpreted by me (1pt min.). @ -Left basilar linear atelectasis CT interpreted by me (1pt min.). @ -Head CT showed no acute intracranial process U/S interpreted by me (1pt. min.). @ -Not ordered What testing was considered but not performed or refused? (CT, X-rays, U/S, labs)? Why? @ -None What meds were considered but not given or refused? Why? @ -None Did you discuss the management of the patient with other professionals (professionals i.e. DrChristiano, PA, [employer], lab, RT, psych nurse, social work lecturer, custodial engineer, teacher, project officer, immigration case worker)? Give summary @ -Discussed with Dr. Stearns Was smoking cessation discussed for >3mins.? @ -No Was critical care preformed (if so, how long)? @ -No Were there social determinants of health that impacted care today? How? (Homelessness, low income, unemployed, alcoholism, drug addiction, transportation, low edu. Level, literacy, decrease access to med. care, residential, rehab)? @ -No Was there de-escalation of care discussed even if they declined (Discuss DNR or withdrawal of care, Hospice)? DNR status @ -No What co-morbidities impacted this encounter? (DM, HTN, Smoking, COPD, CAD, Cancer, CVA, ARF, Chemo, Hep., AIDS, mental health diagnosis, sleep apnea, morbid obesity)? @ -History of diverticulitis, macular degeneration, alcoholism Was patient admitted / discharged? Hospital course, mention meds given and route, prescriptions, significant lab abnormalities, going to OR and other pertinent info. @ -[hospital course] Undiagnosed new problem with uncertain prognosis? @ -No Drug Therapy requiring intensive monitoring for toxicity (Heparin, Nitro, Insulin, Cardizem)? @ -No Were any procedures done? @ -[No] Diagnosis/symptom? @ -[default] Acute, or Chronic, or Acute on Chronic? @ -[default] Uncomplicated (without systemic symptoms) or Complicated (systemic symptoms)? @ -[default] Side effects of treatment? @ -[No] Exacerbation, Progression, or Severe Exacerbation? @ -[No] Poses a threat to life or bodily function? How? (Chest pain, [place], [place], pneumonia, PE, COPD, DKA, ARF, appy, cholecystitis, CVA, Diverticulitis, Homicidal, Suicidal, threat to staff... and all critical care pts) @ -No (Gokul Mojica) I personally saw the patient and performed the critical portion of the service. I discussed the patient care with the resident Dr. Mojica. I directed management, care planning and final disposition of the patient. This includes, but not limited to, review of all lab work, radiological studies, EKG's, consultations, vital signs, and nursing notes. EKG interpreted by me (3pts min.) @My EKG interpretation: Ventricular rate 96, sinus rhythm,. 134, QRS 89, QTc 396. No ND prolongation, no QTC prolongation, no ST or T-wave changes noted. EKG compared to November 22, 2023 showing no changes. Overall, this EKG is unremarkable X-Rays interpreted by me (1 pt min.) @Chest x-ray shows no acute processes CT interpreted by me ( 1pt min.) @CT brain shows no acute processes U/S interpreted by me (1 pt min.) @None Critical care time of 0 minutes excluding separately billable procedures was spent in conjunction with critical care activities provided by the Resident and Attending simultaneously. I was present during no procedures for all critical portions of the procedure and as immediately available to furnish service during the entire procedure. (Asif Stearns) - Lab Data Lab Results 07/22/24 07/22/24 07/22/24 Range/Units 16:17 16:17 16:17 WBC 9.6 (3.8-10.6) k/uL RBC 4.31 (4.30-5.90) m/uL Hgb 12.9 L (13.0-17.5) gm/dL Hct 39.5 (39.0-53.0) % MCV 91.7 (80.0-100.0) fL MCH 29.9 (25.0-35.0) pg MCHC 32.6 (31.0-37.0) g/dL RDW 12.6 (11.5-15.5) % Plt Count 241 (150-450) k/uL MPV 7.2 Neutrophils % 76 % Lymphocytes % 13 % Monocytes % 7 % Eosinophils % 1 % Basophils % 1 % Neutrophils # 7.3 (1.3-7.7) k/uL Lymphocytes # 1.3 (1.0-4.8) k/uL Monocytes # 0.7 (0-1.0) k/uL Eosinophils # 0.1 (0-0.7) k/uL Basophils # 0.1 (0-0.2) k/uL PT 11.7 (10.0-12.5) sec INR 1.1 (<1.2) APTT 23.0 (22.0-30.0) sec Sodium 135 L (137-145) mmol/L Potassium 4.4 (3.5-5.1) mmol/L Chloride 99 (98-107) mmol/L Carbon Dioxide 22 (22-30) mmol/L Anion Gap 14 mmol/L BUN 27 H (9-20) mg/dL Creatinine 0.87 (0.66-1.25) mg/dL Est GFR (CKD-EPI)AfAm >90 (>60 ml/min/1.73 sqM) Est GFR (CKD-EPI)NonAf 88 (>60 ml/min/1.73 sqM) Glucose 86 (74-99) mg/dL Calcium 9.2 (8.4-10.2) mg/dL Magnesium 2.0 (1.6-2.3) mg/dL Total Bilirubin 0.6 (0.2-1.3) mg/dL AST 47 (17-59) U/L ALT 13 (4-49) U/L Alkaline Phosphatase 95 (38-126) U/L Troponin I (0.000-0.034) ng/mL Total Protein 7.2 (6.3-8.2) g/dL Albumin 3.6 (3.5-5.0) g/dL Urine Color Urine Appearance (Clear) Urine pH (5.0-8.0) Ur Specific [place] (1.001-1.035) Urine Protein (Negative) Urine Glucose (UA) (Negative) Urine Ketones (Negative) Urine Blood (Negative) Urine Nitrite (Negative) Urine Bilirubin (Negative) Urine Urobilinogen (<2.0) mg/dL Ur Leukocyte Esterase (Negative) 07/22/24 07/22/24 Range/Units 16:17 18:01 WBC (3.8-10.6) k/uL RBC (4.30-5.90) m/uL Hgb (13.0-17.5) gm/dL Hct (39.0-53.0) % MCV (80.0-100.0) fL MCH (25.0-35.0) pg MCHC (31.0-37.0) g/dL RDW (11.5-15.5) % Plt Count (150-450) k/uL MPV Neutrophils % % Lymphocytes % % Monocytes % % Eosinophils % % Basophils % % Neutrophils # (1.3-7.7) k/uL Lymphocytes # (1.0-4.8) k/uL Monocytes # (0-1.0) k/uL Eosinophils # (0-0.7) k/uL Basophils # (0-0.2) k/uL PT (10.0-12.5) sec INR (<1.2) APTT (22.0-30.0) sec Sodium (137-145) mmol/L Potassium (3.5-5.1) mmol/L Chloride (98-107) mmol/L Carbon Dioxide (22-30) mmol/L Anion Gap mmol/L BUN (9-20) mg/dL Creatinine (0.66-1.25) mg/dL Est GFR (CKD-EPI)AfAm (>60 ml/min/1.73 sqM) Est GFR (CKD-EPI)NonAf (>60 ml/min/1.73 sqM) Glucose (74-99) mg/dL Calcium (8.4-10.2) mg/dL Magnesium (1.6-2.3) mg/dL Total Bilirubin (0.2-1.3) mg/dL AST (17-59) U/L ALT (4-49) U/L Alkaline Phosphatase (38-126) U/L Troponin I <0.012 (0.000-0.034) ng/mL Total Protein (6.3-8.2) g/dL Albumin (3.5-5.0) g/dL Urine Color Yellow Urine Appearance Clear (Clear) Urine pH 5.5 (5.0-8.0) Ur Specific [place] 1.027 (1.001-1.035) Urine Protein Trace H (Negative) Urine Glucose (UA) Negative (Negative) Urine Ketones 1+ H (Negative) Urine Blood Negative (Negative) Urine Nitrite Negative (Negative) Urine Bilirubin Negative (Negative) Urine Urobilinogen 2.0 (<2.0) mg/dL Ur Leukocyte Esterase Negative (Negative) Disposition <Gokul Mojica - Last Filed: 07/22/24 17:51> Is patient prescribed a controlled substance at d/c from ED?: No <Asif Stearns - Last Filed: 07/22/24 18:33> Clinical Impression: Altered mental status Disposition: HOME SELF-CARE Condition: Fair Referrals: Jignesh Pérez DO [Primary Care Provider] - 1-2 days
--- NOTE | 2024-07-22 16:40 | XR ---
EXAMINATION TYPE: XR chest 2V DATE OF EXAM: 07/22/2024 4:33 PM COMPARISON: Chest radiographs from TECHNIQUE: XR chest 2V Frontal and lateral views of the chest. CLINICAL INDICATION:Male, 68 years old with history of altered mental status; FINDINGS: Lungs/Pleura: There is no evidence of pleural effusion, focal consolidation, or pneumothorax. Left b asilar linear atelectasis. Right basilar linear scarring. Pulmonary vascularity: Chronic central pulmonary vascular congestion. Heart/mediastinum: Cardiomediastinal silhouette is enlarged and stable. Musculoskeletal: Multiple level degenerative disc disease changes seen throughout the spine. Remote o f the left proximal humerus. IMPRESSION: Left basilar linear atelectasis. [facility], , 07/22/2024 4:38 PM
--- NOTE | 2024-07-22 16:51 | CT ---
EXAMINATION TYPE: CT brain wo con CT DLP: 1158.4 mGycm, Automated exposure control for dose reduction was used. DATE OF EXAM: 07/22/2024 4:42 PM COMPARISON: CT brain 04/03/2023, 01/10/2023, MRI brain 10/17/2020, CT brain C-spine 11/22/2023 CLINICAL INDICATION:Male, 68 years old with history of altered mental status, AMS. Weakness. TECHNIQUE: Brain: Multiple axial CT images of the brain were obtained without IV contrast. . Coronal and sagitta l reformats reviewed. FINDINGS: Brain: Extra-axial spaces: No abnormal extra-axial fluid collections. Ventricular system: Dilatation in proportion to cerebral atrophy. Cerebral parenchyma: Mild cerebral atrophy. No acute intraparenchymal hemorrhage or mass effect. The fung-white junction is well differentiated. Confluent hypoattenuating areas are seen within the jane ventricular and subcortical white matter. Remote lacunar infarcts within the right ku radiata, ri ght basal ganglia, and bilateral thalami. Cerebellum: Unremarkable. Mass effect: No evidence of midline shift. Intracranial vasculature: Atherosclerotic calcifications of the intracranial vessels. Soft tissues: Marginal increase in size in right lateral posterior neck subcutaneous probable sebaceo us cyst measuring up to 2.0 cm, previously measured 1.6 cm. Calvarium/osseous structures: No depressed skull fracture. Paranasal sinuses and mastoid air cells: Clear Visualized orbits: Bilateral aphakia IMPRESSION: 1. No acute intracranial process. 2. 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 [facility], , 07/22/2024 4:48 PM
[2024-07-22 16:55] LABS: INR 1.1 (<1.2); Prothrombin Time 11.7 sec (10.0-12.5)
[2024-07-22 16:56] LABS: Basophils # (A) 0.1 k/uL (0-0.2); Basophils % (A) 1 %; Eosinophils # (A) 0.1 k/uL (0-0.7); Eosinophils % (A) 1 %; HCT 39.5 % (39.0-53.0); HGB 12.9 gm/dL (13.0-17.5); Lymphocytes # (A) 1.3 k/uL (1.0-4.8); Lymphocytes % (A) 13 %; MCH 29.9 pg (25.0-35.0); MCHC 32.6 g/dL (31.0-37.0); MCV 91.7 fL (80.0-100.0); Mean Platelet Volume 7.2; Monocytes # (A) 0.7 k/uL (0-1.0); Monocytes % (A) 7 %; Neutrophils # (A) 7.3 k/uL (1.3-7.7); Neutrophils % (A) 76 %; Platelet Count 241 k/uL (150-450); RBC 4.31 m/uL (4.30-5.90); RDW 12.6 % (11.5-15.5); WBC 9.6 k/uL (3.8-10.6)
[2024-07-22 17:07] LABS: ALT 13 U/L (4-49); African American GFR (CKD) >90 (>60 ml/min/1.73 sqM); Albumin 3.6 g/dL (3.5-5.0); Anion Gap 14 mmol/L; Blood Urea Nitrogen 27 mg/dL (9-20); Calcium 9.2 mg/dL (8.4-10.2); Carbon Dioxide 22 mmol/L (22-30); Chloride 99 mmol/L (98-107); Glucose 86 mg/dL (74-99); Non-African American GFR(CKD) 88 (>60 ml/min/1.73 sqM); Sodium 135 mmol/L (137-145); Total Bilirubin 0.6 mg/dL (0.2-1.3); Total Protein 7.2 g/dL (6.3-8.2)
[2024-07-22 17:13] LABS: AST 47 U/L (17-59); Alkaline Phosphatase 95 U/L (38-126); Potassium 4.4 mmol/L (3.5-5.1)
[2024-07-22 18:12] LABS: Appearance,Urine Clear (Clear); Bilirubin,Urine Negative (Negative); Blood,Urine Negative (Negative); Color,Urine Yellow; Glucose,Urine (UA) Negative (Negative); Ketones,Urine 1+ (Negative); Leukocyte Esterase,Urine Negative (Negative); Nitrite,Urine Negative (Negative); PH, Urine 5.5 (5.0-8.0); Protein,Urine Trace (Negative); Specific Gravity,Urine 1.027 (1.001-1.035)
[2024-07-22 19:14] VITALS: BP 118/72; PULSE 80; TEMP 98.1
== END 2024-07-22 19:54 | disposition home or self-care (01) ==
LOC: EC 14:11 → EEVIPCON 14:11 → EC 19:54
DX: R41.82 Altered mental status, unspecified (principal); R07.89 Other chest pain; M25.572 Pain in left ankle and joints of left foot; Z87.19 Personal history of other diseases of the digestive system; Z86.59 Personal history of other mental and behavioral disorders; Z86.69 Personal history of other diseases of the nervous system and sense organs; Z87.891 Personal history of nicotine dependence
CPT/HCPCS: 36415; 70450; 71046; 80053; 81003; 83735; 84484; 85025; 85610; 85730; 93005; 99285

== ENCOUNTER 2024-08-16 11:38 | Emergency (ER) | payer OTHER ==
--- NOTE | 2024-08-16 11:59 | ED ---
General Adult HPI - General Chief complaint: Recheck/Abnormal Lab/Rx Stated complaint: Failure to Thrive Time Seen by Provider: 08/16/24 11:40 Source: patient, EMS, RN notes reviewed, old records reviewed, Caregiver Mode of arrival: EMS Limitations: no limitations - History of Present Illness Initial comments: 68-year-old male sent over from the [facility] program for psychiatric evaluation. Patient is on multiple antidepressant medication and is continues to be depressed and there is concern for failure to thrive as the patient is not eating and drinking well. Patient himself has no complaints. He denies any suicidal thoughts. He does admit that he has been very depressed. - Related Data Home Medications Medication Instructions Recorded Confirmed Albuterol Inhaler [Ventolin Hfa 2 puff INHALATION RT-Q6H PRN 07/22/24 08/16/24 Inhaler] Levothyroxine Sodium [Synthroid] 50 mcg PO DAILY 07/22/24 08/16/24 Multivitamins, Thera [Multivitamin 1 tab PO DAILY 07/22/24 08/16/24 (formulary)] ARIPiprazole [Abilify] 2 mg PO DAILY 08/16/24 08/16/24 FLUoxetine HCL [Sarafem] 60 mg PO DAILY 08/16/24 08/16/24 Methylphenidate HCl [Ritalin] 10 mg PO BID 08/16/24 08/16/24 buPROPion XL [Wellbutrin XL] 300 mg PO DAILY 08/16/24 08/16/24 Allergies Allergy/AdvReac Type Severity Reaction Status Date / Time No Known Allergies Allergy Verified 08/16/24 12:22 Review of Systems ROS Statement: Those systems with pertinent positive or pertinent negative responses have been documented in the HPI. ROS Other: All systems not noted in ROS Statement are negative. Past Medical History Past Medical History: Eye Disorder, GI Bleed, Hypertension Additional Past Medical History / Comment(s): past hx diverticulitis, right eye dry macular degeneration, left eye wet macular degeneration. 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 History of Any Multi-Drug Resistant Organisms: None Reported Past Surgical History: Cholecystectomy, Hernia Repair Additional Past Surgical History / Comment(s): PICC line in, now removed, hernia repair, colonoscopy , Past Anesthesia/Blood Transfusion Reactions: No Reported Reaction Additional Past Anesthesia/Blood Transfusion Reaction / Comment(s): 4 UNITS OF PRBC 10/2014, NO REACTION Past Psychological History: No Psychological Hx Reported Smoking Status: Former smoker Past Alcohol Use History: Abuse, Daily Past Drug Use History: None Reported, Marijuana - Past Family History Mother Additional Family Medical History / Comment(s): brain anuerysm Father Family Medical History: Cancer Additional Family Medical History / Comment(s): lung General Exam General appearance: alert, in no apparent distress Head exam: Present: atraumatic, normocephalic Eye exam: Present: normal appearance, PERRL ENT exam: Present: mucous membranes dry Neck exam: Present: normal inspection. Absent: tenderness, meningismus Respiratory exam: Present: normal lung sounds bilaterally. Absent: respiratory distress, wheezes Cardiovascular Exam: Present: regular rate, normal rhythm GI/Abdominal exam: Present: soft. Absent: distended, tenderness Extremities exam: Present: normal inspection Neurological exam: Present: alert, oriented X3, CN II-XII intact. Absent: motor sensory deficit Psychiatric exam: Present: depressed, flat affect. Absent: suicidal ideation Skin exam: Present: warm, dry, intact Course Vital Signs 08/16/24 08/16/24 11:40 14:13 Temperature 97.2 F L Pulse Rate 104 H 98 Respiratory 18 18 Rate Blood Pressure 118/81 119/77 O2 Sat by Pulse 95 98 Oximetry Medical Decision Making - Medical Decision Making Was pt. sent in by a medical professional or institution ([facility], [employer], urgent care, hospital, or jail...) When possible be specific @ -No Did you speak to anyone other than the patient for history (EMS, parent, family, police, friend...)? What history was obtained from this source @ -No Did you review nursing and triage notes (agree or disagree)? Why? @ -I reviewed and agree with nursing and triage notes Were old charts reviewed (outside hosp., previous admission, EMS record, old EKG, old radiological studies, urgent care reports/EKG's, jail records)? Report findings @ -No old charts were reviewed Differential Diagnosis (chest pain, altered mental status, abdominal pain women, abdominal pain men, vaginal bleeding, weakness, fever, dyspnea, syncope, headache, dizziness, GI bleed, back pain, seizure, CVA, palpatations, mental health, musculoskeletal)? @ -Not applicable EKG interpreted by me (3pts min.). @Baseline artifact limiting assessment, sinus mechanism rate of 104, normal IA interval, QRS duration 93, QTc 403 X-rays interpreted by me (1pt min.). @ -None done CT interpreted by me (1pt min.). @ -None done U/S interpreted by me (1pt. min.). @ -None done What testing was considered but not performed or refused? (CT, X-rays, U/S, labs)? Why? @ -None What meds were considered but not given or refused? Why? @ -None Did you discuss the management of the patient with other professionals (alisha aragon i.e. , PA, [employer] SERV[employer], lab, RT, psych nurse, high school social science teacher, student ministries director, teacher, conservation officer, manager rn case)? Give summary @ -[Patient evaluated by EPS and discussion was made with the pace provider recommending geriatric psychiatric facility at this time. Was smoking cessation discussed for >3mins.? @ -No Was critical care preformed (if so, how long)? @ -No Were there social determinants of health that impacted care today? How? (Homelessness, low income, unemployed, alcoholism, drug addiction, transportation, low edu. Level, literacy, decrease access to med. care, half-way, rehab)? @ -No Was there de-escalation of care discussed even if they declined (Discuss DNR or withdrawal of care, Hospice)? DNR status @ -No What co-morbidities impacted this encounter? (DM, HTN, Smoking, COPD, CAD, Cancer, CVA, ARF, Chemo, Hep., AIDS, mental health diagnosis, sleep apnea, morbid obesity)? @ -Depression Was patient admitted / discharged? Hospital course, mention meds given and route, prescriptions, significant lab abnormalities, going to OR and other pertinent info. @ -[68-year-old male with depression, anxiety. Patient medically cleared in the emergency department. Evaluated by EPS. [facility] to require inpatient psychiatric care. I did complete a clinical certification on this patient. He will be transferred for geriatric psychiatric evaluation. Undiagnosed new problem with uncertain prognosis? @ -No Drug Therapy requiring intensive monitoring for toxicity (Heparin, Nitro, Insulin, Cardizem)? @ -No Were any procedures done? @ -No Diagnosis/symptom? @ -Depression, anxiety Acute, or Chronic, or Acute on Chronic? @Acute on chronic Uncomplicated (without systemic symptoms) or Complicated (systemic symptoms)? @ -Default Side effects of treatment? @ -No Exacerbation, Progression, or Severe Exacerbation? @ -No Poses a threat to life or bodily function? How? (Chest pain, USA, NM, pneumonia, PE, COPD, DKA, ARF, appy, cholecystitis, CVA, Diverticulitis, Homicidal, Suicidal, threat to staff... and all critical care pts) @Yes, self-harm, failure to thrive - Lab Data Result diagrams: 08/16/24 12:05 08/16/24 12:05 Lab Results 08/16/24 08/16/24 08/16/24 Range/Units 12:05 12:05 12:44 WBC 11.8 H (3.8-10.6) k/uL RBC 4.38 (4.30-5.90) m/uL Hgb 12.8 L (13.0-17.5) gm/dL Hct 39.3 (39.0-53.0) % MCV 89.7 (80.0-100.0) fL MCH 29.2 (25.0-35.0) pg MCHC 32.6 (31.0-37.0) g/dL RDW 13.8 (11.5-15.5) % Plt Count 193 (150-450) k/uL MPV 7.2 Neutrophils % 80 % Lymphocytes % 12 % Monocytes % 5 % Eosinophils % 1 % Basophils % 1 % Neutrophils # 9.5 H (1.3-7.7) k/uL Lymphocytes # 1.4 (1.0-4.8) k/uL Monocytes # 0.6 (0-1.0) k/uL Eosinophils # 0.2 (0-0.7) k/uL Basophils # 0.1 (0-0.2) k/uL PT 17.2 H (10.0-12.5) sec INR 1.7 H (<1.2) APTT 24.9 (22.0-30.0) sec Sodium 140 (137-145) mmol/L Potassium 4.0 (3.5-5.1) mmol/L Chloride 102 (98-107) mmol/L Carbon Dioxide 29 (22-30) mmol/L Anion Gap 9 mmol/L BUN 37 H (9-20) mg/dL Creatinine 0.92 (0.66-1.25) mg/dL Est GFR (CKD-EPI)AfAm >90 (>60 ml/min/1.73 sqM) Est GFR (CKD-EPI)NonAf 84 (>60 ml/min/1.73 sqM) Glucose 100 H (74-99) mg/dL Calcium 10.8 H (8.4-10.2) mg/dL Total Bilirubin 0.6 (0.2-1.3) mg/dL AST 61 H (17-59) U/L ALT 18 (4-49) U/L Alkaline Phosphatase 130 H (38-126) U/L Troponin I (0.000-0.034) ng/mL Total Protein 6.8 (6.3-8.2) g/dL Albumin 3.1 L (3.5-5.0) g/dL 08/16/24 Range/Units 12:44 WBC (3.8-10.6) k/uL RBC (4.30-5.90) m/uL Hgb (13.0-17.5) gm/dL Hct (39.0-53.0) % MCV (80.0-100.0) fL MCH (25.0-35.0) pg MCHC (31.0-37.0) g/dL RDW (11.5-15.5) % Plt Count (150-450) k/uL MPV Neutrophils % % Lymphocytes % % Monocytes % % Eosinophils % % Basophils % % Neutrophils # (1.3-7.7) k/uL Lymphocytes # (1.0-4.8) k/uL Monocytes # (0-1.0) k/uL Eosinophils # (0-0.7) k/uL Basophils # (0-0.2) k/uL PT (10.0-12.5) sec INR (<1.2) APTT (22.0-30.0) sec Sodium (137-145) mmol/L Potassium (3.5-5.1) mmol/L Chloride (98-107) mmol/L Carbon Dioxide (22-30) mmol/L Anion Gap mmol/L BUN (9-20) mg/dL Creatinine (0.66-1.25) mg/dL Est GFR (CKD-EPI)AfAm (>60 ml/min/1.73 sqM) Est GFR (CKD-EPI)NonAf (>60 ml/min/1.73 sqM) Glucose (74-99) mg/dL Calcium (8.4-10.2) mg/dL Total Bilirubin (0.2-1.3) mg/dL AST (17-59) U/L ALT (4-49) U/L Alkaline Phosphatase (38-126) U/L Troponin I <0.012 (0.000-0.034) ng/mL Total Protein (6.3-8.2) g/dL Albumin (3.5-5.0) g/dL Disposition Clinical Impression: Depression, Acute anxiety Disposition: ADMITTED IP TO THIS [facility] Condition: Stable Is patient prescribed a controlled substance at d/c from ED?: No Referrals: Robi Saha MD [Primary Care Provider] - 1-2 days Time of Disposition: 15:40
[2024-08-16] MEDS: SODIUM CHLORIDE 0.9% 1,000 ML IV ONE (12:05)
[2024-08-16 12:10] LABS: Basophils # (A) 0.1 k/uL (0-0.2); Basophils % (A) 1 %; Eosinophils # (A) 0.2 k/uL (0-0.7); Eosinophils % (A) 1 %; HCT 39.3 % (39.0-53.0); HGB 12.8 gm/dL (13.0-17.5); Lymphocytes # (A) 1.4 k/uL (1.0-4.8); Lymphocytes % (A) 12 %; MCH 29.2 pg (25.0-35.0); MCHC 32.6 g/dL (31.0-37.0); MCV 89.7 fL (80.0-100.0); Mean Platelet Volume 7.2; Monocytes # (A) 0.6 k/uL (0-1.0); Monocytes % (A) 5 %; Neutrophils # (A) 9.5 k/uL (1.3-7.7); Neutrophils % (A) 80 %; Platelet Count 193 k/uL (150-450); RBC 4.38 m/uL (4.30-5.90); RDW 13.8 % (11.5-15.5); WBC 11.8 k/uL (3.8-10.6)
[2024-08-16 12:23] LABS: ALT 18 U/L (4-49); AST 61 U/L (17-59); African American GFR (CKD) >90 (>60 ml/min/1.73 sqM); Albumin 3.1 g/dL (3.5-5.0); Alkaline Phosphatase 130 U/L (38-126); Anion Gap 9 mmol/L; Blood Urea Nitrogen 37 mg/dL (9-20); Calcium 10.8 mg/dL (8.4-10.2); Carbon Dioxide 29 mmol/L (22-30); Chloride 102 mmol/L (98-107); Glucose 100 mg/dL (74-99); Non-African American GFR(CKD) 84 (>60 ml/min/1.73 sqM); Sodium 140 mmol/L (137-145); Total Bilirubin 0.6 mg/dL (0.2-1.3); Total Protein 6.8 g/dL (6.3-8.2)
[2024-08-16 13:09] LABS: INR 1.7 (<1.2); Partial Thromboplastin Time 24.9 sec (22.0-30.0); Prothrombin Time 17.2 sec (10.0-12.5)
[2024-08-16 16:31] LABS: Influenza A Not Detected (Not Detectd); Influenza B Not Detected (Not Detectd); RSV Not Detected (Not Detectd)
[2024-08-16 18:56] LABS: Appearance,Urine Clear (Clear); Bilirubin,Urine Negative (Negative); Blood,Urine Negative (Negative); Color,Urine Yellow; Glucose,Urine (UA) Negative (Negative); Ketones,Urine 1+ (Negative); Leukocyte Esterase,Urine Negative (Negative); Nitrite,Urine Negative (Negative); Protein,Urine Negative (Negative); Specific Gravity,Urine 1.023 (1.001-1.035)
[2024-08-16 19:08] LABS: Amphetamine Screen,Urine Not Detected (NotDetected); Barbiturate Screen,Urine Not Detected (NotDetected); Benzodiazepines Screen,Urine Detected (NotDetected); Cocaine Screen,Urine Not Detected (NotDetected); Methadone Screen, Urine Not Detected (NotDetected); Opiate Screen,Urine Not Detected (NotDetected); Oxycodone Screen, Urine Not Detected (NotDetected); Phencyclidine Screen,Urine Not Detected (NotDetected); Tricyclic Antidepressant,Urine Not Detected (NotDetected); Urn Cannabinoid Scrn Not Detected (NotDetected)
[2024-08-17 13:08] VITALS: BP 129/85; PULSE 103; RESP 17; TEMP 98.5
== END 2024-08-17 14:51 | disposition other institution (70) ==
LOC: EC 11:38
DX: F32.A Depression, unspecified (principal); F41.9 Anxiety disorder, unspecified; Z87.891 Personal history of nicotine dependence
CPT/HCPCS: 36415; 80053; 80306; 81003; 82075; 84484; 85025; 85610; 85730; 87636; 93005; 96360; 96361; 99285